=== PATIENT | female | born 1945 | race American Indian/Alaskan Native ===

== ENCOUNTER 2018-08-30 22:53 | Inpatient (IN) | payer MEDICARE ==
--- NOTE | 2018-08-31 | XRay Report ---
CHEST 1 VIEW INDICATION / CLINICAL INFORMATION: Dyspnea. COMPARISON: None available. FINDINGS: SUPPORT DEVICES: Tracheostomy tube is present and appears to be in satisfactory position. HEART / MEDIASTINUM: Cardiac silhouette is mildly enlarged. LUNGS / PLEURA: There is mild to moderate interstitial pulmonary edema with small bilateral pleural e ffusions. Bibasilar parenchymal disease is more than likely atelectasis. No pneumothorax. ADDITIONAL FINDINGS: No significant additional findings. IMPRESSION: 1. Mild enlargement of the cardiac silhouette. Mild to moderate interstitial pulmonary edema with papito ateral pleural effusions. Signer Name: Caroline Raphael MD Signed: 08/30/2018 10:55 PM Workstation Name: [id number]
[2018-08-31 00:17] LABS: Basophils % (Auto) 0.4 % (0.0-1.8); Eosinophils # (Auto) 0.4 K/mm3 (0.0-0.4); Eosinophils % (Auto) 4.8 % (0.0-4.3); Hematocrit 31.3 % (30.3-42.9); Hemoglobin 10.1 gm/dl (10.1-14.3); Lymphocytes # (Auto) 0.7 K/mm3 (1.2-5.4); Lymphocytes % (Auto) 7.2 % (13.4-35.0); Mean Corpuscular HGB Conc 32 % (30-34); Mean Corpuscular Volume 92 fl (79-97); Monocytes # (Auto) 0.8 K/mm3 (0.0-0.8); Monocytes % (Auto) 8.7 % (0.0-7.3); Platelet Count 191 K/mm3 (140-440); Red Cell Distribution Width 18.9 % (13.2-15.2)
[2018-08-31 00:30] LABS: Alanine Aminotransferase 22 units/L (7-56); Albumin 1.8 g/dL (3.9-5); BUN/Creatinine Ratio 41; Blood Urea Nitrogen 41 mg/dL (7-17); Calcium 9.5 mg/dL (8.4-10.2); Hemolysis Index 27
[2018-08-31 00:45] LABS: INR 1.85 (0.87-1.13); Partial Thromboplastin Time 30.7 Sec. (24.2-36.6)
[2018-08-31] MEDS ORDERED: LASIX IV ONE (01:04)
[2018-08-31] MEDS ORDERED: PROVENTIL IH PRN (01:25)
[2018-08-31] MEDS ORDERED: SODIUM CHLORIDE FLUSH SYRINGE 10 ML IV PRN (01:25)
[2018-08-31] MEDS ORDERED: ZOFRAN IV PRN (01:25)
--- NOTE | 2018-08-31 01:40 | Emergency Department Report ---
HPI - General Chief Complaint: Dyspnea/Respdistress Time Seen by Provider: 08/30/18 23:07 - HPI HPI: This is a 73 y.o aaf patient from [facility] with the complaints that her oxygen saturation was low, and her breathing was more shallow. She has a complicated medical history per daughter at bedside. Patient is non verbal, she was in her usual state of health in April when she had a cva, with right sided weakness, she had a long hospital stay at [facility] and ended up trach and peg and spent some time at [facility], until she was transferred to [facility] about 3 weeks ago. She also has chf, and [facility] reports that patient has had trouble keeping fluids off her and her lasix dosages are being adjusted. She also had hospital stay at [facility] per Daughter for chf exacerbation. ED Past Medical Hx - Past Medical History Previous Medical History?: Yes Hx Hypertension: Yes Hx Heart Attack/AMI: Yes Hx Congestive Heart Failure: Yes Hx Diabetes: Yes Hx Asthma: Yes Additional medical history: spinal stenosis, anemia, uti - Surgical History Past Surgical History?: Yes Additional Surgical History: trach, peg tube placement - Social History Smoking Status: Never Smoker Substance Use Type: None ED Review of Systems ROS: Stated complaint: SHANICE Other details as noted in HPI Comment: Unobtainable due to pts medical conditions Physical Exam - Physical Exam Vital Signs: Vital Signs 08/30/18 08/30/18 08/30/18 23:10 23:13 23:26 Temperature 98.6 F Pulse Rate 98 H Respiratory 25 H Rate Blood Pressure 120/51 O2 Sat by Pulse 100 Oximetry O2 Sat by Pulse 98 Oximetry [ Assessment] 08/30/18 23:33 Temperature Pulse Rate Respiratory Rate Blood Pressure O2 Sat by Pulse 97 Oximetry O2 Sat by Pulse Oximetry [ Assessment] Physical Exam: Physical Exam: - General Limitations: non verbal General appearance: alert, in no apparent distress, obese - Head Head exam: Present: atraumatic, normocephalic - Eye Eye exam: Present: normal appearance - ENT ENT exam: Present: mucous membranes moist - Neck Neck exam: Present: normal inspection - Respiratory Respiratory exam: Present: normal lung sounds bilaterally. Absent: respiratory distress - Cardiovascular Cardiovascular Exam: Present: normal rhythm, tachycardia. Absent: systolic mu rmur, diastolic murmur, rubs, gallop - GI/Abdominal GI/Abdominal exam: Present: g-tube dependent d/c/i - Extremities Exam Extremities exam: Present: contracted, dry. - Back Exam Back exam: Present: normal inspection - Neurological Exam Neurological exam: Present: non verbal - Psychiatric Psychiatric exam: Depressed mood - Skin Skin exam: Present: ED Course Vital Signs 08/30/18 08/30/18 08/30/18 23:10 23:13 23:26 Temperature 98.6 F Pulse Rate 98 H Respiratory 25 H Rate Blood Pressure 120/51 O2 Sat by Pulse 100 Oximetry O2 Sat by Pulse 98 Oximetry [ Assessment] 08/30/18 23:33 Temperature Pulse Rate Respiratory Rate Blood Pressure O2 Sat by Pulse 97 Oximetry O2 Sat by Pulse Oximetry [ Assessment] ED Medical Decision Making - Lab Data Result diagrams: 08/30/18 23:28 08/30/18 23:28 - Medical Decision Making this is a 73 y.o aaf patient from [facility] with the complaints that her oxygen saturation was low, and her breathing was more shallow. She has a complicated medical history per daughter at bedside. Patient is non verbal, she was in her usual state of health in April when she had a cva, with right sided weakness, she had a long hospital stay at [facility] and ended up trach and peg and spent some time at [facility], until she was transferred to [facility] about 3 weeks ago. She also has chf, and [facility] reports that patient has had trouble keeping fluids off her and her lasix dosages are being adjusted. She also had hospital stay at [facility] per Daughter for chf exacerbation. Given lasix 40mg iv lasix, cxr suggestive of pulm edema, effusion, ? fluid overload, admit for diuresis Critical care attestation.: If time is entered above; I have spent that time in minutes in the direct care o f this critically ill patient, excluding procedure time. ED Disposition Clinical Impression: Acute exacerbation of CHF (congestive heart failure) Qualifiers: Heart failure type: systolic Qualified Code(s): I50.23 - Acute on chronic systolic (congestive) heart failure Disposition: OP ADMIT IP TO THIS HOSP Is pt being admited?: Yes Does the pt Need Aspirin: No Condition: Stable Referrals: GINGER ARTEAGA MD [Primary Care Provider] - 3-5 Days
[2018-08-31] MEDS ORDERED: D50W (25GM) Syringe IV PRN (02:56)
[2018-08-31 03:04] LABS: Chol/HDL Ratio 2.82 %
--- NOTE | 2018-08-31 03:24 | History and Physical Report ---
<CARYN ROSS - Last Filed: 08/31/18 03:47> History of Present Illness Date of examination: 08/31/18 Date of admission: 08/31/2018 Chief complaint: Acute on chronic hypoxic respiratory failure History of present illness: 73-year-old -Spanish female who is a resident of [facility] with history of atrial fibrillation anticoagulated on Eliquis, IA, PE status post IVC filter, insulin-dependent diabetes, hypertension, chronic respiratory failure, diastolic heart failure, hyperlipidemia, CVA with left and right sided deficts, and debility who presents to [facility] ED with complaints of desaturation and difficulty breathing. According to care home staff patient was found to have saturation in low 80s on 2 L supplemental oxygen and displayed shallow rapid breathing. She has an extensive medical history. In April 2018 she had a CVA complicated by respiratory failure amongst other complications, which resulted in pt being trached and peg, and had a prolonged stay had [place]. She was recently ( approx 3 weeks ago) hospitalized at [facility] for CHF exacerbation. She has been [facility] with past 2 weeks. The care home reported that his dose was to be increased from 40 mg twice a day, but with rapid declining they were unable to make the changes. Pt's daughter is present at bedside and has contributed to the history taken. Past History Past Medical History: acute IA, atrial fib (on Eliquis), anemia, diabetes, heart failure, hypertension, hyperlipidemia, other (spinal stenosis, asthma, chronic RF, ) Past Surgical History: Other (s/p trach, s/p PEG) Social history: other ([facility] Resident) Family history: no significant family history Medications and Allergies Allergies Allergy/AdvReac Type Severity Reaction Status Date / Time No Known Allergies Allergy Unverified 08/31/18 01:41 Home Medications Medication Instructions Recorded Confirmed Last Taken Type Amantadine [Symmetrel] 100 mg PO DAILY 08/31/18 08/31/18 Unknown History AtorvaSTATin 40 mg PO QHS 08/31/18 09/05/18 Unknown History Candesartan Cilexetil 16 mg PO DAILY 08/31/18 08/31/18 Unknown History Eliquis 5 mg PO BID 08/31/18 08/31/18 Unknown History Jevity 1.5 1,000 ml CONT 08/31/18 08/31/18 1 Day Ago History ~08/30/18 Nystatin [Nystatin SUSP] 5 ml PO Q6HR 08/31/18 08/31/18 Unknown History Timolol Maleate 1 drop OU BID 08/31/18 09/05/18 Unknown History levETIRAcetam [Keppra] 500 mg PO BID 08/31/18 08/31/18 Unknown History Aspirin [Aspirin BABY CHEW TAB] 81 mg PO QDAY tab.chew 09/08/18 Unknown Rx Budesonide [Pulmicort Respules] 0.5 mg IH Q12HRT nebu 09/08/18 Unknown Rx Docusate Sodium [Colace ORAL LIQ] 100 mg PO BID oral.liqd 09/08/18 Unknown Rx Insulin Glargine [Lantus VIAL] 43 units SUB-Q BID units 09/08/18 Unknown Rx Ipratropium/Albuterol Sulfate 1 ampul IH Q6HRT ampul.neb 09/08/18 Unknown Rx [DUONEB *Not for PRN Use*] Losartan [Cozaar] 50 mg PO QDAY tablet 09/08/18 Unknown Rx Metoprolol [Lopressor TAB] 25 mg PO Q6H tablet 09/08/18 Unknown Rx cloNIDine-TTS PATCH [Catapres-Tts 0.1 mg TD We patch 09/08/18 Unknown Rx 0.1MG Patch] Furosemide [Furosemide ORAL LIQ] 40 mg PO QDAY #200 ml 09/15/18 Unknown Rx Active Meds: Active Medications Acetaminophen (Tylenol) 650 mg PO Q4H PRN PRN Reason: Pain MILD(1-3)/Fever >100.5/[place] Albuterol (Proventil) 2.5 mg IH Q4HRT PRN PRN Reason: Shortness Of Breath Aspirin (Baby Aspirin) 81 mg PO QDAY HAYLIE Clonidine HCl (Catapres-Tts Patch) 0.1 mg TD QWEEK HAYLIE Dextrose (D50w (25gm) Syringe) 50 ml IV PRN PRN PRN Reason: Hypoglycemia Docusate Sodium (Colace) 100 mg PO BID HAYLIE Furosemide (Lasix) 40 mg IV 0600,1800 HAYLIE Insulin Human Lispro (Humalog) 0 unit SUB-Q Q6HR HAYLIE; Protocol Levetiracetam (Keppra) 500 mg PO BID HAYLIE Metoprolol Tartrate (Lopressor) 100 mg PO BID HAYLIE Miscellaneous Medication (Eliquis) 5 mg PO BID HAYLIE Miscellaneous Medication (Atorvastatin) 40 mg PO QHS HAYLIE Ondansetron HCl (Zofran) 4 mg IV Q8H PRN PRN Reason: Nausea And Vomiting Sodium Chloride (Sodium Chloride Flush Syringe 10 Ml) 10 ml IV BID HAYLIE Sodium Chloride (Sodium Chloride Flush Syringe 10 Ml) 10 ml IV PRN PRN PRN Reason: LINE FLUSH Review of Systems ROS unobtainable: due to mental status Exam - Physical Exam Narrative exam: Physical exam General appearance: Present: No acute distress, nonverbal, chronically ill- appearing - EENT Eyes: Present: PERRL, EOM intact ENT: hearing intact, poor dentition - Neck Neck: Present: trach, supple, normal ROM - Respiratory Respiratory effort: Non-labored Respiratory: bilateral: diminished (bases) - Cardiovascular Heart rate: 75 (bpm) Rhythm: regular Heart Sounds: Present: S1 & S2. Absent: rub, click - Extremities Extremities: no ischemia, pulses intact, abnormal ( rt foot unstageable) - Peripheral Assessment Peripheral Pulses: within normal limits - Abdominal General gastrointestinal: LUQ Peg, soft, non-tender, normal bowel sounds - Integumentary Integumentary: Present: warm, dry - Musculoskeletal Musculoskeletal: flaccid to rt upper and lower extremity, left sided weakness - Psychiatric Psychiatric: flat affect - Constitutional Vitals: Temp Pulse Resp BP Pulse Ox 98.6 F 75 23 154/74 100 08/31/18 01:30 08/31/18 03:00 08/31/18 03:00 08/31/18 03:00 08/31/18 03:00 Results - Labs CBC & Chem 7: 08/30/18 23:28 08/30/18 23:28 Labs: Laboratory Last Values WBC 9.2 K/mm3 (4.5-11.0) 08/30/18 23:28 RBC 3.40 M/mm3 (3.65-5.03) L 08/30/18 23:28 Hgb 10.1 gm/dl (10.1-14.3) 08/30/18 23:28 Hct 31.3 % (30.3-42.9) 08/30/18 23:28 MCV 92 fl (79-97) 08/30/18 23:28 MCH 30 pg (28-32) 08/30/18 23:28 MCHC 32 % (30-34) 08/30/18 23:28 RDW 18.9 % (13.2-15.2) H 08/30/18 23:28 Plt Count 191 K/mm3 (140-440) 08/30/18 23:28 Lymph % (Auto) 7.2 % (13.4-35.0) L 08/30/18 23:28 Knox % (Auto) 8.7 % (0.0-7.3) H 08/30/18 23:28 Eos % (Auto) 4.8 % (0.0-4.3) H 08/30/18 23:28 Baso % (Auto) 0.4 % (0.0-1.8) 08/30/18 23:28 Lymph # 0.7 K/mm3 (1.2-5.4) L 08/30/18 23:28 Knox # 0.8 K/mm3 (0.0-0.8) 08/30/18 23:28 Eos # 0.4 K/mm3 (0.0-0.4) 08/30/18 23:28 Baso # 0.0 K/mm3 (0.0-0.1) 08/30/18 23:28 Seg Neutrophils % 78.9 % (40.0-70.0) H 08/30/18 23:28 Seg Neutrophils # 7.3 K/mm3 (1.8-7.7) 08/30/18 23:28 PT 20.9 Sec. (12.2-14.9) H 08/31/18 00:27 INR 1.85 (0.87-1.13) H 08/31/18 00:27 APTT 30.7 Sec. (24.2-36.6) 08/31/18 00:27 Sodium 139 mmol/L (137-145) 08/30/18 23:28 Potassium 5.0 mmol/L (3.6-5.0) 08/30/18 23:28 Chloride 99.1 mmol/L (98-107) 08/30/18 23:28 Carbon Dioxide 31 mmol/L (22-30) H 08/30/18 23:28 14 mmol/L 08/30/18 23:28 BUN 41 mg/dL (7-17) H 08/30/18 23:28 1.0 mg/dL (0.7-1.2) 08/30/18 23:28 Estimated GFR > 60 ml/min 08/30/18 23:28 41 % 08/30/18 23:28 Glucose 189 mg/dL (65-100) H 08/30/18 23:28 Calcium 9.5 mg/dL (8.4-10.2) 08/30/18 23:28 0.30 mg/dL (0.1-1.2) 08/30/18 23:28 AST 33 units/L (5-40) 08/30/18 23:28 ALT 22 units/L (7-56) 08/30/18 23:28 110 units/L (35-129) 08/30/18 23:28 0.323 ng/mL (0.00-0.029) H* 08/30/18 23:28 NT-Pro-B Natriuret Pep 18662 pg/mL (0-900) H 08/30/18 23:28 6.7 g/dL (6.3-8.2) 08/30/18 23:28 1.8 g/dL (3.9-5) L 08/30/18 23:28 0.4 % 08/30/18 23:28 Triglycerides 77 mg/dL (2-149) 08/30/18 23:28 Cholesterol 99 mg/dL (50-199) 08/30/18 23:28 56 mg/dL (50-130) 08/30/18 23:28 35 mg/dL (40-59) L 08/30/18 23:28 2.82 % 08/30/18 23:28 - Imaging and Cardiology Chest x-ray: report reviewed (IMPRESSION: . Mild enlargement of the cardiac silhouette. Mild to moderate interstitial pulmonary edema with bilateral pleural effusions. ), image reviewed Assessment and Plan Assessment and plan: 73-year-old -Spanish female who is a resident of [facility] with history of atrial fibrillation anticoagulated on Eliquis, IA, PE status post IVC filter, insulin-dependent diabetes, hypertension, chronic respiratory failure, diastolic heart failure, hyperlipidemia, CVA with left and right sided deficts, and debility who presents to [facility] ED with complaints of desaturation and difficulty breathing. CXR shows signs of CHF exacerbation/ volume overload. Troponin elevated at 0.323, EKG unrevealing for acute [place] [id number], which is likely due to CHF exacerbation. Will admit to telemetry and consult cardiology. Acute on chronic hypoxic respiratory failure Acute exacerbation diastolic CHF EF >55% (Echo 07/2018) NSTEMI Elevated troponin Elevated BNP- likely due to HF Moderate to severe malnutrition Insulin-dependent DM Chronic anemia A. fib on Eliquis Rt foot wound Hx CVA with right and left sided (04/2018) Hx of PE s/p IVC Filter Plan: Continue supportive care Continuous telemetry monitoring Continue Eliquis 5mg BID Start IV Lasix 40mg BID Cardiology consulted (est. with [facility]) Trend troponin Monitor BP Resume home meds: metoprolol 100mg BID, Clonidine patch 0.1mg q 7 days POC BG monitoring SSI Coverage, Levemir 22u BID Baseline oxygen requiments of 2L continuous; Currently on 40% FiO2 15Lpm; wean as tolerated Respiratory to treat and assess as needed Wound care consult Start Glucerna @ 40ml/hr Dietitian consult pending for management of TF and nutritional assessment DVT PPX ac on Eliquis Advance Directives: No VTE prophylaxis?: Chemical Plan of care discussed with patient/family: Yes <HOMER MARINA - Last Filed: 10/14/18 07:27> History of Present Illness Date of admission: 08/31/18 01:09 Exam - Constitutional Vitals: Temp Pulse Resp BP Pulse Ox 97.7 F 82 18 95/43 100 09/15/18 13:28 09/15/18 16:45 09/15/18 16:45 09/15/18 13:28 09/15/18 13:28 Results - Labs CBC & Chem 7: 09/12/18 09:35 09/14/18 06:13 Labs: Laboratory Last Values WBC 12.1 K/mm3 (4.5-11.0) H 09/12/18 09:35 RBC 3.91 M/mm3 (3.65-5.03) 09/12/18 09:35 Hgb 11.6 gm/dl (10.1-14.3) 09/12/18 09:35 Hct 35.2 % (30.3-42.9) 09/12/18 09:35 MCV 90 fl (79-97) 09/12/18 09:35 MCH 30 pg (28-32) 09/12/18 09:35 MCHC 33 % (30-34) 09/12/18 09:35 RDW 19.0 % (13.2-15.2) H 09/12/18 09:35 Plt Count 203 K/mm3 (140-440) 09/12/18 09:35 Lymph % (Auto) 5.5 % (13.4-35.0) L 09/11/18 04:54 Knox % (Auto) 5.8 % (0.0-7.3) 09/11/18 04:54 Eos % (Auto) 0.4 % (0.0-4.3) 09/11/18 04:54 Baso % (Auto) 0.1 % (0.0-1.8) 09/11/18 04:54 Lymph # 0.8 K/mm3 (1.2-5.4) L 09/11/18 04:54 Knox # 0.9 K/mm3 (0.0-0.8) H 09/11/18 04:54 Eos # 0.1 K/mm3 (0.0-0.4) 09/11/18 04:54 Baso # 0.0 K/mm3 (0.0-0.1) 09/11/18 04:54 Add Manual Diff Complete 09/09/18 05:56 Total Counted 100 09/09/18 05:56 Seg Neutrophils % 88.2 % (40.0-70.0) H 09/11/18 04:54 Seg Neuts % (Manual) 83.0 % (40.0-70.0) H 09/09/18 05:56 2.0 % 09/09/18 05:56 11.0 % (13.4-35.0) L 09/09/18 05:56 Reactive Lymphs % (Man) 0 % 09/09/18 05:56 4.0 % (0.0-7.3) 09/09/18 05:56 0 % (0.0-4.3) 09/09/18 05:56 0 % (0.0-1.8) 09/09/18 05:56 0 % 09/09/18 05:56 0 % 09/09/18 05:56 0 % 09/09/18 05:56 0 % 09/09/18 05:56 Nucleated RBC % Not Reportable 09/09/18 05:56 Seg Neutrophils # 13.4 K/mm3 (1.8-7.7) H 09/11/18 04:54 Seg Neutrophils # Man 15.1 K/mm3 (1.8-7.7) H 09/09/18 05:56 Band Neutrophils # 0.4 K/mm3 09/09/18 05:56 2.0 K/mm3 (1.2-5.4) 09/09/18 05:56 Abs React Lymphs (Man) 0.0 K/mm3 09/09/18 05:56 0.7 K/mm3 (0.0-0.8) 09/09/18 05:56 0.0 K/mm3 (0.0-0.4) 09/09/18 05:56 0.0 K/mm3 (0.0-0.1) 09/09/18 05:56 0.0 K/mm3 09/09/18 05:56 0.0 K/mm3 09/09/18 05:56 0.0 K/mm3 09/09/18 05:56 Blast Cells # 0.0 K/mm3 09/09/18 05:56 WBC Morphology Not Reportable 09/09/18 05:56 Hypersegmented Neuts Not Reportable 09/09/18 05:56 Hyposegmented Neuts Not Reportable 09/09/18 05:56 Hypogranular Neuts Not Reportable 09/09/18 05:56 Not Reportable 09/09/18 05:56 Not Reportable 09/09/18 05:56 Not Reportable 09/09/18 05:56 Not Reportable 09/09/18 05:56 Not Reportable 09/09/18 05:56 Not Reportable 09/09/18 05:56 Consistent w auto 09/09/18 05:56 Not Reportable 09/09/18 05:56 Plt Clumps, EDTA Not Reportable 09/09/18 05:56 Not Reportable 09/09/18 05:56 Not Reportable 09/09/18 05:56 Not Reportable 09/09/18 05:56 Plt Morphology Comment Not Reportable 09/09/18 05:56 RBC Morphology Not Reportable 09/09/18 05:56 Dimorphic RBCs Not Reportable 09/09/18 05:56 Not Reportable 09/09/18 05:56 Not Reportable 09/09/18 05:56 Not Reportable 09/09/18 05:56 1+ 09/09/18 05:56 Few 09/09/18 05:56 Not Reportable 09/09/18 05:56 Not Reportable 09/09/18 05:56 Not Reportable 09/09/18 05:56 Not Reportable 09/09/18 05:56 Not Reportable 09/09/18 05:56 Not Reportable 09/09/18 05:56 Few 09/09/18 05:56 Not Reportable 09/09/18 05:56 Not Reportable 09/09/18 05:56 Not Reportable 09/09/18 05:56 Not Reportable 09/09/18 05:56 Not Reportable 09/09/18 05:56 Not Reportable 09/09/18 05:56 Not Reportable 09/09/18 05:56 Acanthocytes (Spur) Not Reportable 09/09/18 05:56 Rouleaux Not Reportable 09/09/18 05:56 Not Reportable 09/09/18 05:56 Not Reportable 09/09/18 05:56 Not Reportable 09/09/18 05:56 Not Reportable 09/09/18 05:56 Hem Pathologist Commnt No 09/09/18 05:56 PT 20.9 Sec. (12.2-14.9) H 08/31/18 00:27 INR 1.85 (0.87-1.13) H 08/31/18 00:27 APTT 30.7 Sec. (24.2-36.6) 08/31/18 00:27 POC ABG pH 7.571 (7.35-7.45) H 09/08/18 15:06 POC ABG pCO2 33.6 (35-45) L 09/08/18 15:06 POC ABG pO2 55 (80-105) L 09/08/18 15:06 POC ABG HCO3 30.9 (22-26 mml/L) 09/08/18 15:06 POC ABG Total CO2 32 (23-27mmol/L) 09/08/18 15:06 POC ABG O2 Sat 93 09/08/18 15:06 POC ABG Base Excess 9 ((-2) - (+3)mmol/L) 09/08/18 15:06 21 % 09/08/18 15:06 Sodium 142 mmol/L (137-145) 09/14/18 06:13 Potassium 4.8 mmol/L (3.6-5.0) 09/14/18 06:13 Chloride 100.6 mmol/L (98-107) 09/14/18 06:13 Carbon Dioxide 33 mmol/L (22-30) H 09/14/18 06:13 13 mmol/L 09/14/18 06:13 BUN 59 mg/dL (7-17) H 09/14/18 06:13 0.8 mg/dL (0.7-1.2) 09/14/18 06:13 Estimated GFR > 60 ml/min 09/14/18 06:13 74 % 09/14/18 06:13 Glucose 112 mg/dL (65-100) H 09/14/18 06:13 POC Glucose 102 (70-105) 09/15/18 13:50 6.4 % (4-6) H 08/31/18 05:34 Calcium 9.1 mg/dL (8.4-10.2) 09/14/18 06:13 Phosphorus 3.30 mg/dL (2.5-4.5) 09/09/18 05:56 Magnesium 2.10 mg/dL (1.7-2.3) 09/06/18 07:28 0.20 mg/dL (0.1-1.2) 09/11/18 04:54 AST 84 units/L (5-40) H 09/11/18 04:54 ALT 84 units/L (7-56) H 09/11/18 04:54 87 units/L (35-129) 09/11/18 04:54 0.215 ng/mL (0.00-0.029) H* D 08/31/18 05:34 NT-Pro-B Natriuret Pep 15405 pg/mL (0-900) H 08/30/18 23:28 5.7 g/dL (6.3-8.2) L 09/11/18 04:54 1.9 g/dL (3.9-5) L 09/11/18 04:54 0.5 % 09/11/18 04:54 Triglycerides 77 mg/dL (2-149) 08/30/18 23:28 Cholesterol 99 mg/dL (50-199) 08/30/18 23:28 56 mg/dL (50-130) 08/30/18 23:28 35 mg/dL (40-59) L 08/30/18 23:28 2.82 % 08/30/18 23:28 Apoorva (Yellow) 09/09/18 Unknown Cloudy (Clear) 09/09/18 Unknown 7.0 (5.0-7.0) 09/09/18 Unknown Ur Specific Drake 1.018 (1.003-1.030) 09/09/18 Unknown <15 mg/dl mg/dL (Negative) 09/09/18 Unknown Neg mg/dL (Negative) 09/09/18 Unknown Neg mg/dL (Negative) 09/09/18 Unknown Neg (Negative) 09/09/18 Unknown Neg (Negative) 09/09/18 Unknown Neg (Negative) 09/09/18 Unknown < 2.0 mg/dL (<2.0) 09/09/18 Unknown Ur Leukocyte Esterase Tr (Negative) 09/09/18 Unknown 8.0 /HPF (0.0-6.0) H 09/09/18 Unknown 4.0 /HPF (0.0-6.0) 09/09/18 Unknown U Epithel Cells (Auto) 5.0 /HPF (0-13.0) 09/09/18 Unknown 2+ /HPF (Negative) 09/09/18 Unknown Uric Acid Crystals 1+ 09/09/18 Unknown Few /HPF 09/09/18 Unknown Assessment and Plan Assessment and plan: I saw and evaluated the patient. I agree with the findings and the plan of care as documented in the Nurse Practitioner's~note
[2018-08-31] MEDS ORDERED: PANCREAZE DR 10,500 UNIT FEEDTUBE PRN ×2 (04:05→16:46)
[2018-08-31] MEDS ORDERED: SIMPLE SYRUP FEEDTUBE PRN ×4 (04:05→16:46)
[2018-08-31] MEDS ORDERED: SODIUM BICARBONATE FEEDTUBE PRN ×2 (04:05→16:46)
[2018-08-31] MEDS ORDERED: MORPHINE IV PRN (04:33)
[2018-08-31] MEDS: APRESOLINE IV PRN (05:10)
[2018-08-31] MEDS: LASIX IV SCH ×2 (05:10→20:17)
[2018-08-31] MEDS: LOPRESSOR PO SCH ×2 (10:35→21:28)
[2018-08-31] MEDS: COZAAR PO SCH (10:36)
[2018-08-31] MEDS: KEPPRA PO SCH ×2 (10:36→21:28)
[2018-08-31] MEDS: BABY ASPIRIN PO SCH (10:36)
[2018-08-31] MEDS: ELIQUIS PO SCH ×2 (10:36→21:32)
[2018-08-31] MEDS: TIMOPTIC OU SCH (10:37)
[2018-08-31] MEDS: CATAPRES-TTS PATCH TD SCH (10:54)
[2018-08-31] MEDS: NYSTATIN PO SCH ×3 (11:05→20:23)
[2018-08-31] MEDS: SODIUM CHLORIDE FLUSH SYRINGE 10 ML IV SCH ×2 (11:11→21:33)
[2018-08-31] MEDS: SYMMETREL PO SCH (11:12)
[2018-08-31] MEDS: COLACE PO SCH ×2 (11:12→21:28)
[2018-08-31] MEDS: LANTUS SUB-Q SCH ×2 (11:13→23:33)
--- NOTE | 2018-08-31 11:47 | Consultation ---
<SARANYA HENNESSY - Last Filed: 08/31/18 11:50> History of Present Illness Consult date: 08/31/18 Consult reason: congestive heart failure History of present illness: This is a 73 year old woman who resides in an [facility] and is non-verbal. 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 She also has a history of hypertension, diabetes and paroxysmal atrial fibrillation managed with Eliquis for oral anticoagulation. Patient was sent to this hospital with reports of labored breathing. She has an elevated BNP and a chest x-ray reports cardiomegaly with interstitial edema and bilateral pleural effusions. Family member at bedside reports the patient was recently hospitalized at [facility] with CHF but records are not available for review. A cardiac consultation has been requested for CHF management. Past History Past Medical History: anemia, diabetes, heart failure, hypertension, hyperlipidemia, other (spinal stenosis, asthma, chronic RF, ) Past Surgical History: Other (s/p trach, s/p PEG) Social history: other ([facility] Resident) Family history: no significant family history Medications and Allergies Allergies Allergy/AdvReac Type Severity Reaction Status Date / Time No Known Allergies Allergy Unverified 08/31/18 01:41 Home Medications Medication Instructions Recorded Confirmed Last Taken Type Amantadine [Symmetrel] 100 mg PO DAILY 08/31/18 08/31/18 Unknown History AtorvaSTATin 40 mg PO 08/31/18 Unknown History Candesartan Cilexetil 16 mg PO DAILY 08/31/18 08/31/18 Unknown History Eliquis 5 mg PO BID 08/31/18 08/31/18 Unknown History Jevity 1.5 1,000 ml CONT 08/31/18 08/31/18 1 Day Ago History ~08/30/18 Levemir VIAL 22 units SUB-Q BID 08/31/18 08/31/18 Unknown History Lispro Insulin [HumaLOG] 08/31/18 Unknown History Metoprolol [Lopressor TAB] 50 mg PO Q6HR 08/31/18 08/31/18 Unknown History Nystatin [Nystatin SUSP] 5 ml PO Q6HR 08/31/18 08/31/18 Unknown History Timolol Maleate 0.5 08/31/18 Unknown History levETIRAcetam [Keppra] 500 mg PO BID 08/31/18 08/31/18 Unknown History Active Meds: Active Medications Acetaminophen (Tylenol) 650 mg PO Q4H PRN PRN Reason: Pain MILD(1-3)/Fever >100.5/[place] Albuterol (Proventil) 2.5 mg IH Q4HRT PRN PRN Reason: Shortness Of Breath Amantadine HCl (Symmetrel) 100 mg PO DAILY ON LICENSE OF [facility] Last Admin: 08/31/18 11:12 Dose: Not Given Documented by: Lipase/Protease/Amylase (Kathya Wilson 10,500 Unit) 1 each FEEDTUBE PRN PRN PRN Reason: For Clogged Feeding Tube Apixaban (Eliquis) 5 mg PO BID ON LICENSE OF [facility] Last Admin: 08/31/18 10:36 Dose: 5 mg Documented by: Aspirin (Baby Aspirin) 81 mg PO QDAY ON LICENSE OF [facility] Last Admin: 08/31/18 10:36 Dose: 81 mg Documented by: Atorvastatin Calcium (Lipitor) 40 mg PO QHS ON LICENSE OF [facility] Clonidine HCl (Catapres-Tts Patch) 0.1 mg TD We ON LICENSE OF [facility] Last Admin: 08/31/18 10:54 Dose: 0.1 mg Documented by: Dextrose (D50w (25gm) Syringe) 50 ml IV PRN PRN PRN Reason: Hypoglycemia Docusate Sodium (Colace) 100 mg PO BID ON LICENSE OF [facility] Last Admin: 08/31/18 11:12 Dose: Not Given Documented by: Furosemide (Lasix) 40 mg IV 0600,1800 ON LICENSE OF [facility] Last Admin: 08/31/18 05:10 Dose: 40 mg Documented by: Hydralazine HCl (Apresoline) 10 mg IV Q4H PRN PRN Reason: Blood Pressure Last Admin: 08/31/18 05:10 Dose: 10 mg Documented by: Insulin Glargine (Lantus) 22 units SUB-Q BID ON LICENSE OF [facility] Last Admin: 08/31/18 11:13 Dose: Not Given Documented by: Insulin Human Lispro (Humalog) 0 unit SUB-Q Q6HR ON LICENSE OF [facility]; Protocol Levetiracetam (Keppra) 500 mg PO BID ON LICENSE OF [facility] Last Admin: 08/31/18 10:36 Dose: 500 mg Documented by: Losartan Potassium (Cozaar) 50 mg PO QDAY ON LICENSE OF [facility] Last Admin: 08/31/18 10:36 Dose: 50 mg Documented by: Metoprolol Tartrate (Lopressor) 100 mg PO BID ON LICENSE OF [facility] Last Admin: 08/31/18 10:35 Dose: 100 mg Documented by: Morphine Sulfate (Morphine) 2 mg IV Q3H PRN PRN Reason: Pain, Moderate (4-6) Nystatin (Nystatin) 500,000 unit PO Q6HR ON LICENSE OF [facility] Last Admin: 08/31/18 11:05 Dose: 500,000 unit Documented by: Ondansetron HCl (Zofran) 4 mg IV Q8H PRN PRN Reason: Nausea And Vomiting Simple Syrup (Simple Syrup) 15 ml FEEDTUBE PRN PRN PRN Reason: Hypoglycemia Simple Syrup (Simple Syrup) 30 ml FEEDTUBE PRN PRN PRN Reason: Hypoglycemia Sodium Bicarbonate (Sodium Bicarbonate) 325 mg FEEDTUBE PRN PRN PRN Reason: For Clogged Feeding Tube Sodium Chloride (Sodium Chloride Flush Syringe 10 Ml) 10 ml IV BID ON LICENSE OF [facility] Last Admin: 08/31/18 11:11 Dose: 10 ml Documented by: Sodium Chloride (Sodium Chloride Flush Syringe 10 Ml) 10 ml IV PRN PRN PRN Reason: LINE FLUSH Timolol Maleate (Timoptic) 1 drops OU DAILY ON LICENSE OF [facility] Last Admin: 08/31/18 10:37 Dose: 1 drops Documented by: Physical Examination Vital Signs Pulse Resp BP Pulse Ox 98 H 25 H 120/51 100 08/30/18 23:10 08/30/18 23:10 08/30/18 23:10 08/30/18 23:10 Results 08/30/18 23:28 08/30/18 23:28 Cardiac Enzymes 08/30/18 Range/Units 23:28 AST 33 (5-40) units/L Coagulation 08/31/18 Range/Units 00:27 PT 20.9 H (12.2-14.9) Sec. INR 1.85 H (0.87-1.13) APTT 30.7 (24.2-36.6) Sec. Lipids 08/30/18 Range/Units 23:28 Triglycerides 77 (2-149) mg/dL Cholesterol 99 (50-199) mg/dL HDL Cholesterol 35 L (40-59) mg/dL Cholesterol/HDL Ratio 2.82 % CBC 08/30/18 Range/Units 23:28 WBC 9.2 (4.5-11.0) K/mm3 RBC 3.40 L (3.65-5.03) M/mm3 Hgb 10.1 (10.1-14.3) gm/dl Hct 31.3 (30.3-42.9) % Plt Count 191 (140-440) K/mm3 Lymph # 0.7 L (1.2-5.4) K/mm3 Pierce # 0.8 (0.0-0.8) K/mm3 Eos # 0.4 (0.0-0.4) K/mm3 Baso # 0.0 (0.0-0.1) K/mm3 Comprehensive Metabolic Panel 08/30/18 Range/Units 23:28 Sodium 139 (137-145) mmol/L Potassium 5.0 (3.6-5.0) mmol/L Chloride 99.1 (98-107) mmol/L Carbon Dioxide 31 H (22-30) mmol/L BUN 41 H (7-17) mg/dL Creatinine 1.0 (0.7-1.2) mg/dL Glucose 189 H (65-100) mg/dL Calcium 9.5 (8.4-10.2) mg/dL AST 33 (5-40) units/L ALT 22 (7-56) units/L Alkaline Phosphatase 110 (35-129) units/L Total Protein 6.7 (6.3-8.2) g/dL Albumin 1.8 L (3.9-5) g/dL Assessment and Plan CHF, systolic Hx of paroxysmal Afib Hypertension Prior CVA pt is non-verbal DM Chronic tracheostomy Continue medical therapy for decompensated heart failure including IV diuretics. Obtain records for [facility] for cardiac review. <JUSTO GONZALEZ - Last Filed: 08/31/18 23:51> Medications and Allergies Active Meds: Active Medications Acetaminophen (Tylenol) 650 mg PO Q4H PRN PRN Reason: Pain MILD(1-3)/Fever >100.5/[place] Albuterol (Proventil) 2.5 mg IH Q4HRT PRN PRN Reason: Shortness Of Breath Amantadine HCl (Symmetrel) 100 mg PO DAILY ON LICENSE OF [facility] Last Admin: 08/31/18 11:12 Dose: Not Given Documented by: Lipase/Protease/Amylase (Pancrebobby Dr 10,500 Unit) 1 each FEEDTUBE PRN PRN PRN Reason: For Clogged Feeding Tube Apixaban (Eliquis) 5 mg PO BID ON LICENSE OF [facility] Last Admin: 08/31/18 21:32 Dose: 5 mg Documented by: Aspirin (Baby Aspirin) 81 mg PO QDAY ON LICENSE OF [facility] Last Admin: 08/31/18 10:36 Dose: 81 mg Documented by: Atorvastatin Calcium (Lipitor) 40 mg PO QHS ON LICENSE OF [facility] Last Admin: 08/31/18 21:32 Dose: 40 mg Documented by: Clonidine HCl (Catapres-Tts Patch) 0.1 mg TD We ON LICENSE OF [facility] Last Admin: 08/31/18 10:54 Dose: 0.1 mg Documented by: Dextrose (D50w (25gm) Syringe) 50 ml IV PRN PRN PRN Reason: Hypoglycemia Docusate Sodium (Colace) 100 mg PO BID ON LICENSE OF [facility] Last Admin: 08/31/18 21:28 Dose: Not Given Documented by: Furosemide (Lasix) 40 mg IV 0600,1800 ON LICENSE OF [facility] Last Admin: 08/31/18 20:17 Dose: 40 mg Documented by: Hydralazine HCl (Apresoline) 10 mg IV Q4H PRN PRN Reason: Blood Pressure Last Admin: 08/31/18 05:10 Dose: 10 mg Documented by: Insulin Glargine (Lantus) 22 units SUB-Q BID ON LICENSE OF [facility] Last Admin: 08/31/18 23:33 Dose: Not Given Documented by: Insulin Human Lispro (Humalog) 0 unit SUB-Q Q6HR ON LICENSE OF [facility]; Protocol Last Admin: 08/31/18 21:09 Dose: Not Given Documented by: Levetiracetam (Keppra) 500 mg PO BID ON LICENSE OF [facility] Last Admin: 08/31/18 21:28 Dose: 500 mg Documented by: Losartan Potassium (Cozaar) 50 mg PO QDAY ON LICENSE OF [facility] Last Admin: 08/31/18 10:36 Dose: 50 mg Documented by: Metoprolol Tartrate (Lopressor) 100 mg PO BID ON LICENSE OF [facility] Last Admin: 08/31/18 21:28 Dose: 100 mg Documented by: Morphine Sulfate (Morphine) 2 mg IV Q3H PRN PRN Reason: Pain, Moderate (4-6) Last Admin: 08/31/18 21:33 Dose: 2 mg Documented by: Nystatin (Nystatin) 500,000 unit PO Q6HR ON LICENSE OF [facility] Last Admin: 08/31/18 20:23 Dose: 500,000 unit Documented by: Ondansetron HCl (Zofran) 4 mg IV Q8H PRN PRN Reason: Nausea And Vomiting Simple Syrup (Simple Syrup) 15 ml FEEDTUBE PRN PRN PRN Reason: Hypoglycemia Simple Syrup (Simple Syrup) 30 ml FEEDTUBE PRN PRN PRN Reason: Hypoglycemia Sodium Bicarbonate (Sodium Bicarbonate) 325 mg FEEDTUBE PRN PRN PRN Reason: For Clogged Feeding Tube Sodium Chloride (Sodium Chloride Flush Syringe 10 Ml) 10 ml IV BID ON LICENSE OF [facility] Last Admin: 08/31/18 21:33 Dose: 10 ml Documented by: Sodium Chloride (Sodium Chloride Flush Syringe 10 Ml) 10 ml IV PRN PRN PRN Reason: LINE FLUSH Timolol Maleate (Timoptic) 1 drops OU DAILY ON LICENSE OF [facility] Last Admin: 08/31/18 10:37 Dose: 1 drops Documented by: Physical Examination Vital Signs Pulse Resp BP Pulse Ox 98 H 25 H 120/51 100 08/30/18 23:10 08/30/18 23:10 08/30/18 23:10 08/30/18 23:10 Results 08/30/18 23:28 08/30/18 23:28 Cardiac Enzymes 08/30/18 Range/Units 23:28 AST 33 (5-40) units/L Coagulation 08/31/18 Range/Units 00:27 PT 20.9 H (12.2-14.9) Sec. INR 1.85 H (0.87-1.13) APTT 30.7 (24.2-36.6) Sec. Lipids 08/30/18 Range/Units 23:28 Triglycerides 77 (2-149) mg/dL Cholesterol 99 (50-199) mg/dL HDL Cholesterol 35 L (40-59) mg/dL Cholesterol/HDL Ratio 2.82 % CBC 08/30/18 Range/Units 23:28 WBC 9.2 (4.5-11.0) K/mm3 RBC 3.40 L (3.65-5.03) M/mm3 Hgb 10.1 (10.1-14.3) gm/dl Hct 31.3 (30.3-42.9) % Plt Count 191 (140-440) K/mm3 Lymph # 0.7 L (1.2-5.4) K/mm3 [place] # 0.8 (0.0-0.8) K/mm3 Eos # 0.4 (0.0-0.4) K/mm3 Baso # 0.0 (0.0-0.1) K/mm3 Comprehensive Metabolic Panel 08/30/18 Range/Units 23:28 Sodium 139 (137-145) mmol/L Potassium 5.0 (3.6-5.0) mmol/L Chloride 99.1 (98-107) mmol/L Carbon Dioxide 31 H (22-30) mmol/L BUN 41 H (7-17) mg/dL Creatinine 1.0 (0.7-1.2) mg/dL Glucose 189 H (65-100) mg/dL Calcium 9.5 (8.4-10.2) mg/dL AST 33 (5-40) units/L ALT 22 (7-56) units/L Alkaline Phosphatase 110 (35-129) units/L Total Protein 6.7 (6.3-8.2) g/dL Albumin 1.8 L (3.9-5) g/dL Assessment and Plan CHF, systolic - continue medical therapy and diuretics. obtain medical records Hx of paroxysmal Afib - rate control strategy. Hypertension - maximize antihypertensive therapy as needed Prior CVA - pt is non-verbal after recent CVA DM - management per primary Chronic tracheostomy
[2018-08-31] MEDS: HumaLOG SUB-Q SCH ×3 (13:20→21:09)
--- NOTE | 2018-08-31 19:18 | Event Note ---
Date: 08/31/18 Patient seen and examined medical records reviewed Patient was admitted early this morning long term resident noncommunicative history of CVA chronic respiratory failure status post tracheostomy A. fib with rapid ventricular rate on Eliquis was admitted through emergency room with worsening shortness of breath and acute on chronic respiratory failure Medical Records reviewed agree with the current management Cardiology evaluation and recommendations noted and appreciated Monitor closely and adjust the management as needed
[2018-09-01] MEDS: HumaLOG SUB-Q SCH ×4 (00:15→18:02)
[2018-09-01] MEDS: NYSTATIN PO SCH ×4 (01:02→17:43)
[2018-09-01] MEDS: LASIX IV SCH ×2 (05:38→17:43)
[2018-09-01 05:58] LABS: Basophils % (Auto) 0.4 % (0.0-1.8); Eosinophils % (Auto) 0.3 % (0.0-4.3); Hematocrit 34.5 % (30.3-42.9); Lymphocytes # (Auto) 0.9 K/mm3 (1.2-5.4); Lymphocytes % (Auto) 7.9 % (13.4-35.0); Mean Corpuscular HGB Conc 32 % (30-34); Mean Corpuscular Volume 92 fl (79-97); Monocytes # (Auto) 0.8 K/mm3 (0.0-0.8); Monocytes % (Auto) 7.4 % (0.0-7.3); Platelet Count 210 K/mm3 (140-440); Red Blood Count 3.76 M/mm3 (3.65-5.03); Red Cell Distribution Width 19.1 % (13.2-15.2)
[2018-09-01 06:21] LABS: BUN/Creatinine Ratio 46; Blood Urea Nitrogen 46 mg/dL (7-17); Calcium 9.8 mg/dL (8.4-10.2); Hemolysis Index 13
--- NOTE | 2018-09-01 09:11 | Progress Note ---
Assessment and Plan Assessment and plan: --Acute on chronic hypoxic respiratory failure;s/p tracheostomy Continue nebulizers and oxygen titrated to O2 sats more than 90% Antibiotics, supportive care, pulmonary evaluation if needed --Acute exacerbation diastolic CHF EF >55% (Echo 07/2018) --NSTEMI: Cardiology following, continue current management no plans of ischemia workup --History of A. fib; rate controlled, continue beta blockers Chronic anticoagulation --History of CVA with residual weakness[April 2018] Supportive care --Chronic anemia; closely monitor H&H Transfuse as needed --Type 2 diabetes mellitus; Accu-Chek sliding scale coverage Feeding Long-acting insulin as needed --History of PE; status post IVC filter placement On Eliquis --Status full code Monitor closely and adjust management as needed History Interval history: Patient seen and examined medical records reviewed Patient is noncommunicative status post tracheostomy on T piece Mild respiratory distress Vital signs noted Hospitalist Physical - Constitutional Vitals: Temp Pulse Resp BP Pulse Ox 97.6 F 72 20 155/70 93 09/01/18 08:03 09/01/18 08:03 09/01/18 08:03 09/01/18 08:03 09/01/18 08:12 General appearance: Present: mild distress, other (noncommunicative ,tracheostomy on T piece,) - EENT Eyes: Present: PERRL, EOM intact - Neck Neck: Present: other (tracheostomy) - Respiratory Respiratory effort: normal Respiratory: bilateral: diminished, rhonchi, negative: rales, wheezing - Cardiovascular Rhythm: regular Heart Sounds: Present: S1 & S2 - Extremities Extremities: no ischemia Extremity abnormal: edema - Abdominal General gastrointestinal: soft, non-tender, non-distended, normal bowel sounds, other (PEG tube in place) - Integumentary Integumentary: Present: clear, warm - Psychiatric Psychiatric: other (non-communicative) - Neurologic Neurologic: other (noncommunicative) Results - Labs CBC & Chem 7: 09/01/18 04:47 09/01/18 04:47 Labs: Laboratory Last Values WBC 11.0 K/mm3 (4.5-11.0) 09/01/18 04:47 RBC 3.76 M/mm3 (3.65-5.03) 09/01/18 04:47 Hgb 11.0 gm/dl (10.1-14.3) 09/01/18 04:47 Hct 34.5 % (30.3-42.9) 09/01/18 04:47 MCV 92 fl (79-97) 09/01/18 04:47 MCH 29 pg (28-32) 09/01/18 04:47 MCHC 32 % (30-34) 09/01/18 04:47 RDW 19.1 % (13.2-15.2) H 09/01/18 04:47 Plt Count 210 K/mm3 (140-440) 09/01/18 04:47 Lymph % (Auto) 7.9 % (13.4-35.0) L 09/01/18 04:47 [place] % (Auto) 7.4 % (0.0-7.3) H 09/01/18 04:47 Eos % (Auto) 0.3 % (0.0-4.3) 09/01/18 04:47 Baso % (Auto) 0.4 % (0.0-1.8) 09/01/18 04:47 Lymph # 0.9 K/mm3 (1.2-5.4) L 09/01/18 04:47 [place] # 0.8 K/mm3 (0.0-0.8) 09/01/18 04:47 Eos # 0.0 K/mm3 (0.0-0.4) 09/01/18 04:47 Baso # 0.0 K/mm3 (0.0-0.1) 09/01/18 04:47 Seg Neutrophils % 84.0 % (40.0-70.0) H 09/01/18 04:47 Seg Neutrophils # 9.3 K/mm3 (1.8-7.7) H 09/01/18 04:47 PT 20.9 Sec. (12.2-14.9) H 08/31/18 00:27 INR 1.85 (0.87-1.13) H 08/31/18 00:27 APTT 30.7 Sec. (24.2-36.6) 08/31/18 00:27 POC ABG pH 7.444 (7.35-7.45) 08/31/18 03:48 POC ABG pCO2 55.2 (35-45) H 08/31/18 03:48 POC ABG pO2 81 (80-105) 08/31/18 03:48 POC ABG HCO3 37.8 (22-26 mml/L) 08/31/18 03:48 POC ABG Total CO2 39 (23-27mmol/L) 08/31/18 03:48 POC ABG O2 Sat 96 08/31/18 03:48 POC ABG Base Excess 14 ((-2) - (+3)mmol/L) 08/31/18 03:48 40 % 08/31/18 03:48 Sodium 138 mmol/L (137-145) 09/01/18 04:47 Potassium 4.9 mmol/L (3.6-5.0) 09/01/18 04:47 Chloride 94.1 mmol/L (98-107) L 09/01/18 04:47 Carbon Dioxide 32 mmol/L (22-30) H 09/01/18 04:47 17 mmol/L 09/01/18 04:47 BUN 46 mg/dL (7-17) H 09/01/18 04:47 1.0 mg/dL (0.7-1.2) 09/01/18 04:47 Estimated GFR > 60 ml/min 09/01/18 04:47 46 % 09/01/18 04:47 Glucose 189 mg/dL (65-100) H 09/01/18 04:47 POC Glucose 236 (70-105) H 09/01/18 05:59 6.4 % (4-6) H 08/31/18 05:34 Calcium 9.8 mg/dL (8.4-10.2) 09/01/18 04:47 0.30 mg/dL (0.1-1.2) 08/30/18 23:28 AST 33 units/L (5-40) 08/30/18 23:28 ALT 22 units/L (7-56) 08/30/18 23:28 110 units/L (35-129) 08/30/18 23:28 0.215 ng/mL (0.00-0.029) H* D 08/31/18 05:34 NT-Pro-B Natriuret Pep 68899 pg/mL (0-900) H 08/30/18 23:28 6.7 g/dL (6.3-8.2) 08/30/18 23:28 1.8 g/dL (3.9-5) L 08/30/18 23:28 0.4 % 08/30/18 23:28 Triglycerides 77 mg/dL (2-149) 08/30/18 23:28 Cholesterol 99 mg/dL (50-199) 08/30/18 23:28 56 mg/dL (50-130) 08/30/18 23:28 35 mg/dL (40-59) L 08/30/18 23:28 2.82 % 08/30/18 23:28 Active Medications - Current Medications Current Medications: Generic Name Dose Route Start Last Admin Trade Name Freq PRN Reason Stop Dose Admin Acetaminophen 650 mg 08/31/18 01:25 Tylenol PO Q4H PRN Pain MILD(1-3)/Fever >100.5/[place] Albuterol 2.5 mg 08/31/18 01:25 Proventil IH Q4HRT PRN Shortness Of Breath Amantadine HCl 100 mg 08/31/18 10:00 08/31/18 11:12 Symmetrel PO Not Given DAILY HAYLIE Lipase/Protease/Amylase 1 each 08/31/18 16:46 Pancreaze 10,500 Unit FEEDTUBE PRN PRN For Clogged Feeding Tube Apixaban 5 mg 08/31/18 10:00 08/31/18 21:32 Eliquis PO 5 mg BID HAYLIE Administration Aspirin 81 mg 08/31/18 10:00 08/31/18 10:36 Baby Aspirin PO 81 mg QDAY HAYLIE Administration Atorvastatin Calcium 40 mg 08/31/18 22:00 08/31/18 21:32 Lipitor PO 40 mg QHS HAYLIE Administration Clonidine HCl 0.1 mg 08/31/18 10:00 08/31/18 10:54 Catapres-Tts Patch TD 0.1 mg We HAYLIE Administration Dextrose 50 ml 08/31/18 02:56 D50w (25gm) Syringe IV PRN PRN Hypoglycemia Docusate Sodium 100 mg 08/31/18 10:00 08/31/18 21:28 Colace PO Not Given BID HAYLIE Furosemide 40 mg 08/31/18 06:00 09/01/18 05:38 Lasix IV 40 mg 0600,1800 HAYLIE Administration Hydralazine HCl 10 mg 08/31/18 04:33 08/31/18 05:10 Apresoline IV 10 mg Q4H PRN Administration Blood Pressure Insulin Glargine 22 units 08/31/18 10:00 08/31/18 23:33 Lantus SUB-Q Not Given BID [facility] Insulin Human Lispro 0 unit 08/31/18 06:00 09/01/18 06:08 Humalog SUB-Q 3 unit Q6HR HAYLIE Administration Protocol Levetiracetam 500 mg 08/31/18 10:00 08/31/18 21:28 Keppra PO 500 mg BID HAYLIE Administration Losartan Potassium 50 mg 08/31/18 10:00 08/31/18 10:36 Cozaar PO 50 mg QDAY [facility] Administration Metoprolol Tartrate 100 mg 08/31/18 10:00 08/31/18 21:28 Lopressor PO 100 mg BID HAYLIE Administration Morphine Sulfate 2 mg 08/31/18 04:33 08/31/18 21:33 Morphine IV 2 mg Q3H PRN Administration Pain, Moderate (4-6) Nystatin 500,000 unit 08/31/18 06:00 09/01/18 05:38 Nystatin PO 500,000 unit Q6HR [facility] Administration Ondansetron HCl 4 mg 08/31/18 01:25 Zofran IV Q8H PRN Nausea And Vomiting Simple Syrup 15 ml 08/31/18 16:46 Simple Syrup FEEDTUBE PRN PRN Hypoglycemia Simple Syrup 30 ml 08/31/18 16:46 Simple Syrup FEEDTUBE PRN PRN Hypoglycemia Sodium Bicarbonate 325 mg 08/31/18 16:46 Sodium Bicarbonate FEEDTUBE PRN PRN For Clogged Feeding Tube Sodium Chloride 10 ml 08/31/18 10:00 08/31/18 21:33 Sodium Chloride Flush Syringe 10 Ml IV 10 ml BID [facility]AYLIE Administration Sodium Chloride 10 ml 08/31/18 01:25 Sodium Chloride Flush Syringe 10 Ml IV PRN PRN LINE FLUSH Timolol Maleate 1 drops 08/31/18 10:00 08/31/18 10:37 Timoptic OU 1 drops DAILY HAYLIE Administration Nutrition/Malnutrition Assess - Dietary Evaluation Nutrition/Malnutrition Findings: Nutrition Notes Start: 08/31/18 16:26 Freq: Status: Active Protocol: Document 08/31/18 16:26 RM (Rec: 08/31/18 16:32 RM [id number]) Nutrition Notes Need for Assessment generated from: MD Order Initial or Follow up Assessment Current Diagnosis Diabetes,Hypertension,Heart Failure,Stroke,Hyperlipidemia Other Pertinent Diagnosis PEG, R foot wound Current Diet Glucern 1.2 at 40 ml/hr Labs/Tests K 5 Pertinent Medications Lasix Height 5 ft 9 in Weight 110.1 kg [place] Body Weight (kg) 65.90 BMI 35.8 Subjective/Other Information Consulted for TF recommendation. Screened for chewing difficulty ad skin risk. [place] 14 points. Observed Glucerna infusing at goal rate . Burn Absent Trauma Absent #1 Nutrition Diagnosis Inadequate oral intake Etiology CVA As Evidenced by Signs and Symptoms pt requiring enteral nutrition to meet nutrition needs Is patient on ventilator? No Is Patient Ambulatory and/or Out of Bed No REE-([facility]-confined to bed) 2009.132 Kcal/Kg value to use for calculation 14 Approximate Energy Requirements Using 1541 kcal/Kg Calculation Used for Recommendations Kcal/kg Additional Notes Protein Needs: 106-132g (1.2-1 .5g/kg 88 kg adjBW ) Fluid Needs: 1 ml/kcal Nutrition Intervention Nutrition Support: Jevity 1.2 at 60 ml/hr. Water flush of 100 mls q 4 hrs . Kcal 1,728 Protein (gm) 80 Fluid (mL) 1,162 Goal #1 TF tolerance Goal #2 Meet at least 75% of calorie and protein needs via TF Anticipated Discharge Needs: TF Follow-Up By: 09/02/18 Additional Comments Follow for new TF, K lab
--- NOTE | 2018-09-01 10:08 | Progress Note ---
Assessment and Plan 1. Acute decompensated chronic systolic and diastolic heart failure 2. Dilated cardiomyopathy 3. Essential hypertension 4. Type 2 diabetes mellitus 5. Paroxysmal atrial fibrillation 6. History of probable CVA Plan. Patient is nonverbal and has a trach and PEG tube she is not a candidate for invasive cardiac management would continue conservative management for CHF will monitor fluids input and output closely. Subjective Date of service: 09/01/18 Interval history: Non verbal Objective Vital Signs Temp Pulse Pulse Resp BP Pulse Ox Pulse Ox 09/01/18 08:12 93 09/01/18 08:11 100 09/01/18 08:03 97.6 F 72 20 155/70 94 09/01/18 03:48 99.1 F 96 H 20 149/71 93 09/01/18 03:13 94 09/01/18 03:11 100 08/31/18 23:31 98.2 F 96 H 20 161/76 96 08/31/18 22:40 75 94 08/31/18 22:03 18 08/31/18 21:33 20 08/31/18 21:28 75 171/72 08/31/18 20:06 100 08/31/18 19:20 98.2 F 75 20 171/72 94 08/31/18 19:10 91 H 08/31/18 16:00 100 08/31/18 15:45 98.6 F 95 H 20 158/91 96 08/31/18 12:18 92 H 20 97 08/31/18 11:32 97.9 F 98 H 18 140/76 95 08/31/18 11:06 98 H 08/31/18 10:54 132 H 164/88 08/31/18 10:36 134 H 164/88 08/31/18 10:35 134 H 164/88 - Physical Examination General: Other (Ill looking nonverbal) HEENT: Positive: PERRL, Normocephaly Neck: Positive: neck supple, trachea midline, Other (Midline trach). Negative: JVD/HJR Cardiac: Positive: Regular Rate, S1/S2, S3, PMI, Laterally Displaced Lungs: Positive: clear to auscultation, No Wheeze, Rales, Rhonchi Neuro: Positive: Other (Nonverbal or communicative refer to admitting H&P) Extremities: Absent: edema - Labs and Meds CBC 09/01/18 Range/Units 04:47 WBC 11.0 (4.5-11.0) K/mm3 RBC 3.76 (3.65-5.03) M/mm3 Hgb 11.0 (10.1-14.3) gm/dl Hct 34.5 (30.3-42.9) % Plt Count 210 (140-440) K/mm3 Lymph # 0.9 L (1.2-5.4) K/mm3 [place] # 0.8 (0.0-0.8) K/mm3 Eos # 0.0 (0.0-0.4) K/mm3 Baso # 0.0 (0.0-0.1) K/mm3 Comprehensive Metabolic Panel 09/01/18 Range/Units 04:47 Sodium 138 (137-145) mmol/L Potassium 4.9 (3.6-5.0) mmol/L Chloride 94.1 L (98-107) mmol/L Carbon Dioxide 32 H (22-30) mmol/L BUN 46 H (7-17) mg/dL Creatinine 1.0 (0.7-1.2) mg/dL Glucose 189 H (65-100) mg/dL Calcium 9.8 (8.4-10.2) mg/dL
[2018-09-01] MEDS: BABY ASPIRIN PO SCH (10:50)
[2018-09-01] MEDS: COZAAR PO SCH (10:50)
[2018-09-01] MEDS: KEPPRA PO SCH ×2 (10:51→22:06)
[2018-09-01] MEDS: COLACE PO SCH ×2 (10:51→22:06)
[2018-09-01] MEDS: ELIQUIS PO SCH ×2 (10:51→22:05)
[2018-09-01] MEDS: LOPRESSOR PO SCH (10:51)
[2018-09-01] MEDS: LANTUS SUB-Q SCH ×2 (10:51→22:05)
[2018-09-01] MEDS: SYMMETREL PO SCH (10:52)
[2018-09-01] MEDS: SODIUM CHLORIDE FLUSH SYRINGE 10 ML IV SCH ×2 (10:58→22:06)
[2018-09-01] MEDS: TIMOPTIC OU SCH (14:37)
[2018-09-01] MEDS: APRESOLINE IV PRN ×2 (17:58→22:04)
[2018-09-01] MEDS ORDERED: PROVENTIL IH SCH (20:00)
[2018-09-01] MEDS ORDERED: PROVENTIL IH PRN (20:10)
[2018-09-01] MEDS: PULMICORT IH SCH (20:35)
[2018-09-01] MEDS: DUONEB *Not for PRN Use IH SCH (20:36)
[2018-09-01] MEDS: SOLU-Medrol IV SCH (22:04)
[2018-09-02] MEDS: HumaLOG SUB-Q SCH ×5 (01:00→23:45)
[2018-09-02] MEDS: NYSTATIN PO SCH ×5 (01:00→23:44)
[2018-09-02] MEDS: DUONEB *Not for PRN Use IH SCH ×4 (03:16→21:52)
[2018-09-02] MEDS ORDERED: D50W (25GM) Syringe IV PRN (06:36)
[2018-09-02] MEDS: LASIX IV SCH ×3 (06:45→18:28)
[2018-09-02] MEDS: SOLU-Medrol IV SCH ×3 (06:45→21:17)
[2018-09-02] MEDS: PULMICORT IH SCH ×2 (08:09→21:52)
--- NOTE | 2018-09-02 08:54 | Progress Note ---
Assessment and Plan Assessment and plan: --Acute on chronic hypoxic respiratory failure;s/p tracheostomy Continue nebulizers and oxygen titrated to O2 sats more than 90% Antibiotics, supportive care, pulmonary evaluation if needed --Acute exacerbation diastolic CHF EF >55% (Echo 07/2018) --NSTEMI: Cardiology following, continue current management no plans of ischemia workup --History of A. fib; rate controlled, continue beta blockers Chronic anticoagulation --History of CVA with residual weakness[April 2018] Supportive care --Chronic anemia; closely monitor H&H Transfuse as needed --Type 2 diabetes mellitus; secondary to high-dose steroids Accu-Chek sliding scale coverage Feeding Long-acting insulin as needed --History of PE; status post IVC filter placement On Eliquis --Full code Status; Patient's condition and treatment plan poor prognosis discussed in detail with the 2 daughters at the bed side,They had neumorous questions and concerns, and I addressed all of them CODE STATUS discussed, Full Code History Interval history: Patient seen and examined medical records reviewed Patient had an episode of hypotension, bradycardia last night Beta blockers held and symptoms significantly improved This morning patient is status post tracheostomy on T piece Mild distress, Afebrile, vital signs noted Hospitalist Physical - Constitutional Vitals: Temp Pulse Resp BP Pulse Ox 98.2 F 92 H 20 163/93 97 09/02/18 07:58 09/02/18 08:09 09/02/18 08:09 09/02/18 07:58 09/02/18 08:09 General appearance: Present: mild distress, well-nourished, other (noncommunicative ,tracheostomy on T piece,) - EENT Eyes: Present: PERRL, EOM intact - Neck Neck: Present: other (tracheostomy on T piece) - Respiratory Respiratory effort: normal Respiratory: bilateral: diminished, rhonchi, negative: rales, wheezing - Cardiovascular Rhythm: regular Heart Sounds: Present: S1 & S2 - Extremities Extremities: no ischemia, No edema - Abdominal General gastrointestinal: soft, non-tender, non-distended, normal bowel sounds - Integumentary Integumentary: Present: clear, warm - Psychiatric Psychiatric: other (noncommunicative) - Neurologic Neurologic: other (and responsive) Results - Labs CBC & Chem 7: 09/01/18 04:47 09/01/18 04:47 Labs: Laboratory Last Values WBC 11.0 K/mm3 (4.5-11.0) 09/01/18 04:47 RBC 3.76 M/mm3 (3.65-5.03) 09/01/18 04:47 Hgb 11.0 gm/dl (10.1-14.3) 09/01/18 04:47 Hct 34.5 % (30.3-42.9) 09/01/18 04:47 MCV 92 fl (79-97) 09/01/18 04:47 MCH 29 pg (28-32) 09/01/18 04:47 MCHC 32 % (30-34) 09/01/18 04:47 RDW 19.1 % (13.2-15.2) H 09/01/18 04:47 Plt Count 210 K/mm3 (140-440) 09/01/18 04:47 Lymph % (Auto) 7.9 % (13.4-35.0) L 09/01/18 04:47 [place] % (Auto) 7.4 % (0.0-7.3) H 09/01/18 04:47 Eos % (Auto) 0.3 % (0.0-4.3) 09/01/18 04:47 Baso % (Auto) 0.4 % (0.0-1.8) 09/01/18 04:47 Lymph # 0.9 K/mm3 (1.2-5.4) L 09/01/18 04:47 [place] # 0.8 K/mm3 (0.0-0.8) 09/01/18 04:47 Eos # 0.0 K/mm3 (0.0-0.4) 09/01/18 04:47 Baso # 0.0 K/mm3 (0.0-0.1) 09/01/18 04:47 Seg Neutrophils % 84.0 % (40.0-70.0) H 09/01/18 04:47 Seg Neutrophils # 9.3 K/mm3 (1.8-7.7) H 09/01/18 04:47 PT 20.9 Sec. (12.2-14.9) H 08/31/18 00:27 INR 1.85 (0.87-1.13) H 08/31/18 00:27 APTT 30.7 Sec. (24.2-36.6) 08/31/18 00:27 POC ABG pH 7.437 (7.35-7.45) 09/01/18 19:07 POC ABG pCO2 53.7 (35-45) H 09/01/18 19:07 POC ABG pO2 73 (80-105) L 09/01/18 19:07 POC ABG HCO3 36.2 (22-26 mml/L) 09/01/18 19:07 POC ABG Total CO2 38 (23-27mmol/L) 09/01/18 19:07 POC ABG O2 Sat 95 09/01/18 19:07 POC ABG Base Excess 12 ((-2) - (+3)mmol/L) 09/01/18 19:07 35 % 09/01/18 19:07 Sodium 138 mmol/L (137-145) 09/01/18 04:47 Potassium 4.9 mmol/L (3.6-5.0) 09/01/18 04:47 Chloride 94.1 mmol/L (98-107) L 09/01/18 04:47 Carbon Dioxide 32 mmol/L (22-30) H 09/01/18 04:47 17 mmol/L 09/01/18 04:47 BUN 46 mg/dL (7-17) H 09/01/18 04:47 1.0 mg/dL (0.7-1.2) 09/01/18 04:47 Estimated GFR > 60 ml/min 09/01/18 04:47 46 % 09/01/18 04:47 Glucose 189 mg/dL (65-100) H 09/01/18 04:47 POC Glucose 414 (70-105) H 09/02/18 06:20 6.4 % (4-6) H 08/31/18 05:34 Calcium 9.8 mg/dL (8.4-10.2) 09/01/18 04:47 0.30 mg/dL (0.1-1.2) 08/30/18 23:28 AST 33 units/L (5-40) 08/30/18 23:28 ALT 22 units/L (7-56) 08/30/18 23:28 110 units/L (35-129) 08/30/18 23:28 0.215 ng/mL (0.00-0.029) H* D 08/31/18 05:34 NT-Pro-B Natriuret Pep 52933 pg/mL (0-900) H 08/30/18 23:28 6.7 g/dL (6.3-8.2) 08/30/18 23:28 1.8 g/dL (3.9-5) L 08/30/18 23:28 0.4 % 08/30/18 23:28 Triglycerides 77 mg/dL (2-149) 08/30/18 23:28 Cholesterol 99 mg/dL (50-199) 08/30/18 23:28 56 mg/dL (50-130) 08/30/18 23:28 35 mg/dL (40-59) L 08/30/18 23:28 2.82 % 08/30/18 23:28 Active Medications - Current Medications Current Medications: Generic Name Dose Route Start Last Admin Trade Name Freq PRN Reason Stop Dose Admin Acetaminophen 650 mg 08/31/18 01:25 Tylenol PO Q4H PRN Pain MILD(1-3)/Fever >100.5/[place] Albuterol 2.5 mg 09/01/18 20:10 Proventil IH Q4HRT PRN Shortness Of Breath Albuterol/Ipratropium 1 ampul 09/02/18 02:00 09/02/18 08:09 Duoneb *Not For Prn Use* IH 1 ampul Q6HRT HAYLIE Administration Amantadine HCl 100 mg 08/31/18 10:00 09/01/18 10:52 Symmetrel PO 100 mg DAILY HAYLIE Administration Lipase/Protease/Amylase 1 each 08/31/18 16:46 Pancrebobby [place] 10,500 Unit FEEDTUBE PRN PRN For Clogged Feeding Tube Apixaban 5 mg 08/31/18 10:00 09/01/18 22:05 Eliquis PO 5 mg BID HAYLIE Administration Aspirin 81 mg 08/31/18 10:00 09/01/18 10:50 Baby Aspirin PO 81 mg QDAY HAYLIE Administration Atorvastatin Calcium 40 mg 08/31/18 22:00 09/01/18 22:05 Lipitor PO 40 mg QHS HAYLIE Administration Budesonide 0.5 mg 09/01/18 20:15 09/02/18 08:09 Pulmicort IH 0.5 mg Q12HRT HAYLIE Administration Clonidine HCl 0.1 mg 08/31/18 10:00 08/31/18 10:54 Catapres-Tts Patch TD 0.1 mg We HAYLIE Administration Dextrose 50 ml 09/02/18 06:36 D50w (25gm) Syringe IV PRN PRN Hypoglycemia Docusate Sodium 100 mg 08/31/18 10:00 09/01/18 22:06 Colace PO 100 mg BID HAYLIE Administration Furosemide 40 mg 08/31/18 06:00 09/02/18 06:45 Lasix IV 40 mg 0600,1800 HAYLIE Administration Hydralazine HCl 10 mg 08/31/18 04:33 09/01/18 22:04 Apresoline IV 10 mg Q4H PRN Administration Blood Pressure Insulin Glargine 30 units 09/02/18 10:00 Lantus SUB-Q BID HAYLIE Insulin Human Lispro 0 unit 08/31/18 06:00 09/02/18 06:45 Humalog SUB-Q 8 unit Q6HR HAYLIE Administration Protocol Levetiracetam 500 mg 08/31/18 10:00 09/01/18 22:06 Keppra PO 500 mg BID HAYLIE Administration Losartan Potassium 50 mg 08/31/18 10:00 09/01/18 10:50 Cozaar PO 50 mg QDAY HAYLIE Administration Methylprednisolone Sodium Succinate 125 mg 09/01/18 22:00 09/02/18 06:45 Solu-Medrol IV 125 mg Q8HR HAYLIE Administration Morphine Sulfate 2 mg 08/31/18 04:33 08/31/18 21:33 Morphine IV 2 mg Q3H PRN Administration Pain, Moderate (4-6) Nystatin 500,000 unit 08/31/18 06:00 09/02/18 06:45 Nystatin PO 500,000 unit Q6HR HAYLIE Administration Ondansetron HCl 4 mg 08/31/18 01:25 Zofran IV Q8H PRN Nausea And Vomiting Simple Syrup 15 ml 08/31/18 16:46 Simple Syrup FEEDTUBE PRN PRN Hypoglycemia Simple Syrup 30 ml 08/31/18 16:46 Simple Syrup FEEDTUBE PRN PRN Hypoglycemia Sodium Bicarbonate 325 mg 08/31/18 16:46 Sodium Bicarbonate FEEDTUBE PRN PRN For Clogged Feeding Tube Sodium Chloride 10 ml 08/31/18 10:00 09/01/18 22:06 Sodium Chloride Flush Syringe 10 Ml IV 10 ml BID HAYLIE Administration Sodium Chloride 10 ml 08/31/18 01:25 Sodium Chloride Flush Syringe 10 Ml IV PRN PRN LINE FLUSH Timolol Maleate 1 drops 08/31/18 10:00 09/01/18 14:37 Timoptic OU 1 drops DAILY HAYLIE Administration Nutrition/Malnutrition Assess - Dietary Evaluation Nutrition/Malnutrition Findings: Nutrition Notes Start: 08/31/18 16:26 Freq: Status: Active Protocol: Document 08/31/18 16:26 RM (Rec: 08/31/18 16:32 RM [id number]) Nutrition Notes Need for Assessment generated from: MD Order Initial or Follow up Assessment Current Diagnosis Diabetes,Hypertension,Heart Failure,Stroke,Hyperlipidemia Other Pertinent Diagnosis PEG, R foot wound Current Diet Glucern 1.2 at 40 ml/hr Labs/Tests K 5 Pertinent Medications Lasix Height 5 ft 9 in Weight 110.1 kg [place] Body Weight (kg) 65.90 BMI 35.8 Subjective/Other Information Consulted for TF recommendation. Screened for chewing difficulty ad skin risk. [place] 14 points. Observed Glucerna infusing at goal rate . Burn Absent Trauma Absent #1 Nutrition Diagnosis Inadequate oral intake Etiology CVA As Evidenced by Signs and Symptoms pt requiring enteral nutrition to meet nutrition needs Is patient on ventilator? No Is Patient Ambulatory and/or Out of Bed No REE-([facility]-confined to bed) 2009.132 Kcal/Kg value to use for calculation 14 Approximate Energy Requirements Using 1541 kcal/Kg Calculation Used for Recommendations Kcal/kg Additional Notes Protein Needs: 106-132g (1.2-1 .5g/kg 88 kg adjBW ) Fluid Needs: 1 ml/kcal Nutrition Intervention Nutrition Support: Jevity 1.2 at 60 ml/hr. Water flush of 100 mls q 4 hrs . Kcal 1,728 Protein (gm) 80 Fluid (mL) 1,162 Goal #1 TF tolerance Goal #2 Meet at least 75% of calorie and protein needs via TF Anticipated Discharge Needs: TF Follow-Up By: 09/02/18 Additional Comments Follow for new TF, K lab
--- NOTE | 2018-09-02 10:01 | Progress Note ---
Assessment and Plan Atrial fibrillation, permanent On eliquis On metoprolol 25 mg every 6 hours as outpatient History of CVA s/p PEG tube Acute on chronic diastolic heart failure Echo 07/2018 - Normal LVEF, Grade II DDx, mild to moderate RVD, moderate LAR, mild MR and MS Type II DM Systemic Hypertension Hyperlipidemia Recommendations: Continue diuresis with lasix (increase dose to 60 mg bid) Resume metoprolol 25 mg po every 6 hours Conservative cardiac management Subjective Date of service: 09/02/18 Principal diagnosis: CHF Interval history: Patient seen and examined Daughter at the bedside Objective Vital Signs Temp Pulse Pulse Pulse Pulse Pulse Resp 09/02/18 08:09 92 H 09/02/18 07:58 98.2 F 126 H 20 09/02/18 06:16 09/02/18 04:27 97.7 F 09/02/18 04:25 73 22 09/02/18 03:36 09/02/18 03:35 99 H 09/02/18 03:16 100 H 09/02/18 00:19 97.6 F 107 H 24 09/02/18 00:13 128 H 09/01/18 22:35 75 22 09/01/18 22:04 112 H 09/01/18 22:00 09/01/18 21:53 126 H 22 09/01/18 20:14 09/01/18 20:13 77 09/01/18 20:10 97.7 F 75 22 09/01/18 19:50 71 09/01/18 19:34 73 09/01/18 17:58 72 09/01/18 17:25 97.4 F L 71 22 09/01/18 13:01 98.6 F 94 H 24 09/01/18 10:51 72 09/01/18 10:50 72 09/01/18 10:00 92 H 90 90 20 Resp Resp BP BP Pulse Ox Pulse Ox 09/02/18 08:09 20 97 09/02/18 07:58 163/93 100 09/02/18 06:16 158/79 09/02/18 04:27 09/02/18 04:25 106/58 93 09/02/18 03:36 100 09/02/18 03:35 22 09/02/18 03:16 26 H 09/02/18 00:19 176/69 99 09/02/18 00:13 100 09/01/18 22:35 97 09/01/18 22:04 158/103 09/01/18 22:00 97 09/01/18 21:53 158/103 100 09/01/18 20:14 100 09/01/18 20:13 26 H 09/01/18 20:10 151/69 97 09/01/18 19:50 24 09/01/18 19:34 09/01/18 17:58 192/82 09/01/18 17:25 192/82 97 09/01/18 13:01 157/70 98 09/01/18 10:51 155/70 09/01/18 10:50 155/70 09/01/18 10:00 94 - Physical Examination General: Other (Ill looking nonverbal) HEENT: Positive: PERRL, Normocephaly Neck: Positive: neck supple, trachea midline, Other (Midline trach). Negative: JVD/HJR Cardiac: Positive: Reg Rate and Rhythm Lungs: Positive: Decreased Breath Sounds Neuro: Positive: Other (Nonverbal or communicative refer to admitting H&P) Abdomen: Positive: Soft Extremities: Absent: edema
[2018-09-02] MEDS: COZAAR PO SCH (11:50)
[2018-09-02] MEDS: COLACE PO SCH ×2 (11:50→21:17)
[2018-09-02] MEDS: ELIQUIS PO SCH ×2 (11:52→21:17)
[2018-09-02] MEDS: TIMOPTIC OU SCH (11:53)
[2018-09-02] MEDS: KEPPRA PO SCH ×2 (11:53→21:17)
[2018-09-02] MEDS: SYMMETREL PO SCH ×2 (11:54→12:26)
[2018-09-02] MEDS: SODIUM CHLORIDE FLUSH SYRINGE 10 ML IV SCH ×2 (11:54→21:18)
[2018-09-02] MEDS: LANTUS SUB-Q SCH ×2 (11:57→23:45)
[2018-09-02] MEDS: LOPRESSOR PO SCH ×3 (11:58→23:44)
[2018-09-02] MEDS: BABY ASPIRIN PO SCH (11:58)
[2018-09-02] MEDS: TYLENOL PO PRN ×2 (12:19→23:59)
[2018-09-02] MEDS: APRESOLINE IV PRN (21:16)
[2018-09-03] MEDS: DUONEB *Not for PRN Use IH SCH ×4 (02:31→20:20)
[2018-09-03] MEDS ORDERED: HumuLIN R SUB-Q ONE (05:51)
[2018-09-03] MEDS: SOLU-Medrol IV SCH ×3 (05:52→17:01)
[2018-09-03] MEDS: LOPRESSOR PO SCH ×3 (05:53→17:39)
[2018-09-03] MEDS: NYSTATIN PO SCH ×3 (05:53→17:01)
[2018-09-03] MEDS: LASIX IV SCH ×2 (05:53→17:02)
[2018-09-03] MEDS: HumaLOG SUB-Q SCH ×3 (06:02→17:43)
[2018-09-03] MEDS: PULMICORT IH SCH ×2 (07:32→20:20)
[2018-09-03] MEDS: TIMOPTIC OU SCH (09:40)
[2018-09-03] MEDS: COLACE PO SCH ×2 (09:40→21:03)
[2018-09-03] MEDS: BABY ASPIRIN PO SCH (09:41)
[2018-09-03] MEDS: COZAAR PO SCH (09:41)
[2018-09-03] MEDS: KEPPRA PO SCH ×2 (09:42→21:03)
[2018-09-03] MEDS: ELIQUIS PO SCH ×2 (09:42→21:03)
--- NOTE | 2018-09-03 09:48 | Progress Note ---
Assessment and Plan Assessment and plan: --Acute on chronic hypoxic respiratory failure;s/p tracheostomy Continue nebulizers and oxygen titrated to O2 sats more than 90% Antibiotics, supportive care, pulmonary evaluation if needed --Acute exacerbation diastolic CHF EF >55% (Echo 07/2018) --NSTEMI: Cardiology following, continue current management no plans of ischemia workup --History of A. fib; rate controlled, continue beta blockers Chronic anticoagulation --History of CVA with residual weakness[April 2018] Supportive care --Chronic anemia; closely monitor H&H Transfuse as needed --Type 2 diabetes mellitus; secondary to high-dose steroids Accu-Chek sliding scale coverage Feeding Long-acting insulin as needed --History of PE; status post IVC filter placement On Eliquis --Full code Status; Patient's condition and treatment plan poor prognosis discussed in detail with the 2 daughters at the bed side,They had neumorous questions and concerns, and I addressed all of them CODE STATUS discussed, Full Code History Interval history: Patient seen and examined medical records reviewed Events reported by the nursing Patient is more alert today not in acute distress Status post tracheostomy on T piece Blood sugars are highly probably secondary to high-dose steroids Vital signs noted Daughter at the bedside Hospitalist Physical - Constitutional Vitals: Temp Pulse Resp BP Pulse Ox 98.7 F 103 H 18 144/71 95 09/03/18 08:40 09/03/18 09:41 09/03/18 08:40 09/03/18 09:41 09/03/18 08:40 General appearance: Present: mild distress, well-nourished, other (noncommunicat trace ,tracheostomy on T piece,) - EENT Eyes: Present: PERRL, EOM intact - Neck Neck: Present: supple - Respiratory Respiratory effort: normal Respiratory: bilateral: diminished, rhonchi, negative: rales, wheezing - Cardiovascular Rhythm: regular Heart Sounds: Present: S1 & S2 - Extremities Extremities: no ischemia Extremity abnormal: edema - Abdominal General gastrointestinal: soft, non-tender, non-distended, normal bowel sounds, other (PEG tube in place) - Integumentary Integumentary: Present: clear, warm - Psychiatric Psychiatric: other (noncommunicative) - Neurologic Neurologic: other (noncommunicative) Results - Labs CBC & Chem 7: 09/01/18 04:47 09/01/18 04:47 Labs: Laboratory Last Values WBC 11.0 K/mm3 (4.5-11.0) 09/01/18 04:47 RBC 3.76 M/mm3 (3.65-5.03) 09/01/18 04:47 Hgb 11.0 gm/dl (10.1-14.3) 09/01/18 04:47 Hct 34.5 % (30.3-42.9) 09/01/18 04:47 MCV 92 fl (79-97) 09/01/18 04:47 MCH 29 pg (28-32) 09/01/18 04:47 MCHC 32 % (30-34) 09/01/18 04:47 RDW 19.1 % (13.2-15.2) H 09/01/18 04:47 Plt Count 210 K/mm3 (140-440) 09/01/18 04:47 Lymph % (Auto) 7.9 % (13.4-35.0) L 09/01/18 04:47 [place] % (Auto) 7.4 % (0.0-7.3) H 09/01/18 04:47 Eos % (Auto) 0.3 % (0.0-4.3) 09/01/18 04:47 Baso % (Auto) 0.4 % (0.0-1.8) 09/01/18 04:47 Lymph # 0.9 K/mm3 (1.2-5.4) L 09/01/18 04:47 [place] # 0.8 K/mm3 (0.0-0.8) 09/01/18 04:47 Eos # 0.0 K/mm3 (0.0-0.4) 09/01/18 04:47 Baso # 0.0 K/mm3 (0.0-0.1) 09/01/18 04:47 Seg Neutrophils % 84.0 % (40.0-70.0) H 09/01/18 04:47 Seg Neutrophils # 9.3 K/mm3 (1.8-7.7) H 09/01/18 04:47 PT 20.9 Sec. (12.2-14.9) H 08/31/18 00:27 INR 1.85 (0.87-1.13) H 08/31/18 00:27 APTT 30.7 Sec. (24.2-36.6) 08/31/18 00:27 POC ABG pH 7.437 (7.35-7.45) 09/01/18 19:07 POC ABG pCO2 53.7 (35-45) H 09/01/18 19:07 POC ABG pO2 73 (80-105) L 09/01/18 19:07 POC ABG HCO3 36.2 (22-26 mml/L) 09/01/18 19:07 POC ABG Total CO2 38 (23-27mmol/L) 09/01/18 19:07 POC ABG O2 Sat 95 09/01/18 19:07 POC ABG Base Excess 12 ((-2) - (+3)mmol/L) 09/01/18 19:07 35 % 09/01/18 19:07 Sodium 138 mmol/L (137-145) 09/01/18 04:47 Potassium 4.9 mmol/L (3.6-5.0) 09/01/18 04:47 Chloride 94.1 mmol/L (98-107) L 09/01/18 04:47 Carbon Dioxide 32 mmol/L (22-30) H 09/01/18 04:47 17 mmol/L 09/01/18 04:47 BUN 46 mg/dL (7-17) H 09/01/18 04:47 1.0 mg/dL (0.7-1.2) 09/01/18 04:47 Estimated GFR > 60 ml/min 09/01/18 04:47 46 % 09/01/18 04:47 Glucose 189 mg/dL (65-100) H 09/01/18 04:47 POC Glucose 400 (70-105) H 09/03/18 05:28 6.4 % (4-6) H 08/31/18 05:34 Calcium 9.8 mg/dL (8.4-10.2) 09/01/18 04:47 0.30 mg/dL (0.1-1.2) 08/30/18 23:28 AST 33 units/L (5-40) 08/30/18 23:28 ALT 22 units/L (7-56) 08/30/18 23:28 110 units/L (35-129) 08/30/18 23:28 0.215 ng/mL (0.00-0.029) H* D 08/31/18 05:34 NT-Pro-B Natriuret Pep 73881 pg/mL (0-900) H 08/30/18 23:28 6.7 g/dL (6.3-8.2) 08/30/18 23:28 1.8 g/dL (3.9-5) L 08/30/18 23:28 0.4 % 08/30/18 23:28 Triglycerides 77 mg/dL (2-149) 08/30/18 23:28 Cholesterol 99 mg/dL (50-199) 08/30/18 23:28 56 mg/dL (50-130) 08/30/18 23:28 35 mg/dL (40-59) L 08/30/18 23:28 2.82 % 08/30/18 23:28 Active Medications - Current Medications Current Medications: Generic Name Dose Route Start Last Admin Trade Name Freq PRN Reason Stop Dose Admin Acetaminophen 650 mg 08/31/18 01:25 09/02/18 23:59 Tylenol PO 650 mg Q4H PRN Administration Pain MILD(1-3)/Fever >100.5/[place] Albuterol 2.5 mg 09/01/18 20:10 Proventil IH Q4HRT PRN Shortness Of Breath Albuterol/Ipratropium 1 ampul 09/02/18 02:00 09/03/18 07:32 Duoneb *Not For Prn Use* IH 1 ampul Q6HRT HAYLIE Administration Lipase/Protease/Amylase 1 each 08/31/18 16:46 Pancreaze 10,500 Unit FEEDTUBE PRN PRN For Clogged Feeding Tube Apixaban 5 mg 08/31/18 10:00 09/03/18 09:42 Eliquis PO 5 mg BID HAYLIE Administration Aspirin 81 mg 08/31/18 10:00 09/03/18 09:41 Baby Aspirin PO 81 mg QDAY HAYLIE Administration Atorvastatin Calcium 40 mg 08/31/18 22:00 09/02/18 21:17 Lipitor PO 40 mg QHS HAYLIE Administration Budesonide 0.5 mg 09/01/18 20:15 09/03/18 07:32 Pulmicort IH 0.5 mg Q12HRT HAYLIE Administration Clonidine HCl 0.1 mg 08/31/18 10:00 08/31/18 10:54 Catapres-Tts Patch TD 0.1 mg We HAYLIE Administration Dextrose 50 ml 09/02/18 06:36 D50w (25gm) Syringe IV PRN PRN Hypoglycemia Docusate Sodium 100 mg 08/31/18 10:00 09/03/18 09:40 Colace PO 100 mg BID HAYLIE Administration Furosemide 60 mg 09/02/18 11:00 09/03/18 05:53 Lasix IV 60 mg 0600,1800 HAYLIE Administration Hydralazine HCl 10 mg 08/31/18 04:33 09/02/18 21:16 Apresoline IV 10 mg Q4H PRN Administration Blood Pressure Insulin Glargine 40 units 09/03/18 10:00 Lantus SUB-Q BID HAYLIE Insulin Human Lispro 0 unit 08/31/18 06:00 09/03/18 06:02 Humalog SUB-Q 8 unit Q6HR HAYLIE Administration Protocol Levetiracetam 500 mg 08/31/18 10:00 09/03/18 09:42 Keppra PO 500 mg BID HAYLIE Administration Losartan Potassium 50 mg 08/31/18 10:00 09/03/18 09:41 Cozaar PO 50 mg QDAY HAYLIE Administration Methylprednisolone Sodium Succinate 60 mg 09/03/18 10:00 Solu-Medrol IV Q6H HAYLIE Metoprolol Tartrate 25 mg 09/02/18 11:00 09/03/18 05:53 Lopressor PO 25 mg Q6H HAYLIE Administration Morphine Sulfate 2 mg 08/31/18 04:33 08/31/18 21:33 Morphine IV 2 mg Q3H PRN Administration Pain, Moderate (4-6) Nystatin 500,000 unit 08/31/18 06:00 09/03/18 05:53 Nystatin PO 500,000 unit Q6HR HAYLIE Administration Ondansetron HCl 4 mg 08/31/18 01:25 Zofran IV Q8H PRN Nausea And Vomiting Simple Syrup 15 ml 08/31/18 16:46 Simple Syrup FEEDTUBE PRN PRN Hypoglycemia Simple Syrup 30 ml 08/31/18 16:46 Simple Syrup FEEDTUBE PRN PRN Hypoglycemia Sodium Bicarbonate 325 mg 08/31/18 16:46 Sodium Bicarbonate FEEDTUBE PRN PRN For Clogged Feeding Tube Sodium Chloride 10 ml 08/31/18 10:00 09/02/18 21:18 Sodium Chloride Flush Syringe 10 Ml IV 10 ml BID HAYLIE Administration Sodium Chloride 10 ml 08/31/18 01:25 Sodium Chloride Flush Syringe 10 Ml IV PRN PRN LINE FLUSH Timolol Maleate 1 drops 08/31/18 10:00 09/03/18 09:40 Timoptic OU 1 drops DAILY HAYLIE Administration Nutrition/Malnutrition Assess - Dietary Evaluation Nutrition/Malnutrition Findings: Nutrition Notes Start: 08/31/18 16:26 Freq: Status: Active Protocol: Document 09/02/18 18:55 RM (Rec: 09/02/18 19:07 RM [id number]) Nutrition Notes Initial or Follow up Reassessment Current Diagnosis Diabetes,Hypertension,Heart Failure,Stroke,Hyperlipidemia Other Pertinent Diagnosis PEG, R foot wound Current Diet Glucerna 1.2 at 40 ml/hr Labs/Tests K 4.9 POC 416 Pertinent Medications Lasix, Solu-medrol Height 5 ft 9 in Weight 108.9 kg [place] Body Weight (kg) 65.90 BMI 35.4 Subjective/Other Information Observed Glucerna 1.2 infusing at goal rate. Nurse unaware of TF order change. However with POC 416 and K lab WNL internal communications writer will continue Glucerna. Percent of energy/protein needs met: 100%/75% Burn Absent Trauma Absent #1 Nutrition Diagnosis Inadequate oral intake Diagnosis Progress(for reassessment Continues documentation) Is patient on ventilator? No Is Patient Ambulatory and/or Out of Bed No REE-([facility]-confined to bed) 1994.756 Kcal/Kg value to use for calculation 14 Approximate Energy Requirements Using 1525 kcal/Kg Calculation Used for Recommendations Kcal/kg Additional Notes Protein Needs: 106-132g (1.2-1 .5g/kg 88 kg adjBW ) Fluid Needs: 1 ml/kcal Nutrition Intervention Nutrition Support: Glucerna at 55 ml/hr Water flush of 100 mls q 4 hrs . Kcal 1,584 Protein (gm) 80 Fluid (mL) 1,063 Goal #1 TF tolerance Goal #2 Meet at least 75% of calorie and protein needs via TF Anticipated Discharge Needs: TF Follow-Up By: 09/05/18 Additional Comments Follow for TF tolerance, BG, K lab
--- NOTE | 2018-09-03 10:07 | Progress Note ---
Assessment and Plan 1. Chronic combined systolic and diastolic heart failure 2. Dilated cardiomyopathy 3. Essential hypertension 4. Type 2 diabetes mellitus 5. Paroxysmal atrial fibrillation 6. History of probable CVA Plan. Patient is nonverbal and has a trach and PEG tube she is not a candidate for invasive cardiac management would continue conservative management for CHF will monitor fluids input and output closely. Subjective Date of service: 09/03/18 Principal diagnosis: CHF Interval history: Non verbal Objective Vital Signs Temp Pulse Pulse Pulse Resp Resp BP 09/03/18 09:41 103 H 144/71 09/03/18 08:40 98.7 F 103 H 18 144/71 09/03/18 07:42 108 H 20 09/03/18 07:32 95 H 20 09/03/18 05:24 98.7 F 71 22 172/81 09/03/18 05:06 09/03/18 02:44 103 H 13 09/03/18 02:31 98 H 17 09/02/18 23:59 22 09/02/18 23:44 111 H 09/02/18 23:41 97.4 F L 09/02/18 23:40 121 H 22 125/68 09/02/18 22:12 09/02/18 22:11 09/02/18 22:09 110 H 18 09/02/18 21:52 107 H 19 09/02/18 20:01 99.0 F 09/02/18 20:00 112 H 112 H 22 09/02/18 19:59 112 H 22 175/66 09/02/18 18:29 61 110/43 09/02/18 16:21 98.6 F 115 H 20 189/95 09/02/18 15:35 123 H 168/85 09/02/18 14:44 72 20 09/02/18 14:33 76 20 09/02/18 14:00 09/02/18 11:58 135 H 152/79 09/02/18 11:52 98.0 F 144 H 20 152/79 09/02/18 11:50 135 H 152/79 Pulse Ox Pulse Ox 09/03/18 09:41 09/03/18 08:40 95 09/03/18 07:42 96 09/03/18 07:32 98 09/03/18 05:24 91 09/03/18 05:06 97 09/03/18 02:44 09/03/18 02:31 09/02/18 23:59 09/02/18 23:44 09/02/18 23:41 09/02/18 23:40 91 09/02/18 22:12 95 09/02/18 22:11 94 09/02/18 22:09 09/02/18 21:52 09/02/18 20:01 09/02/18 20:00 96 09/02/18 19:59 95 09/02/18 18:29 09/02/18 16:21 93 09/02/18 15:35 98 09/02/18 14:44 09/02/18 14:33 09/02/18 14:00 100 09/02/18 11:58 09/02/18 11:52 95 09/02/18 11:50 - Physical Examination General: Other (Ill looking nonverbal) HEENT: Positive: PERRL, Normocephaly Neck: Positive: neck supple, trachea midline, Other (Midline trach). Negative: JVD/HJR Cardiac: Positive: Regular Rate, S1/S2, PMI, Dilated, Laterally Displaced Lungs: Positive: clear to auscultation, No Wheeze, Rales, Rhonchi Neuro: Positive: Other (Nonverbal or communicative refer to admitting H&P) Abdomen: Positive: Soft Extremities: Absent: edema
[2018-09-03] MEDS: SODIUM CHLORIDE FLUSH SYRINGE 10 ML IV SCH ×2 (10:30→21:03)
[2018-09-03] MEDS: LANTUS SUB-Q SCH ×2 (10:30→21:12)
--- NOTE | 2018-09-03 11:20 | Progress Note ---
Subjective Principal diagnosis: CHF Objective Vital Signs - 12hr 09/02/18 09/02/18 09/02/18 23:40 23:41 23:44 Temperature 97.4 F L Pulse Rate 121 H 111 H Pulse Rate [ Anterior Bilateral Throughout] Respiratory 22 Rate Respiratory Rate [Anterior Bilateral Throughout] Blood Pressure 125/68 O2 Sat by Pulse 91 Oximetry O2 Sat by Pulse Oximetry [ Assessment] 09/02/18 09/03/18 09/03/18 23:59 02:31 02:44 Temperature Pulse Rate Pulse Rate [ 98 H 103 H Anterior Bilateral Throughout] Respiratory 22 Rate Respiratory 17 13 Rate [Anterior Bilateral Throughout] Blood Pressure O2 Sat by Pulse Oximetry O2 Sat by Pulse Oximetry [ Assessment] 09/03/18 09/03/18 09/03/18 05:06 05:24 07:32 Temperature 98.7 F Pulse Rate 71 Pulse Rate [ 95 H Anterior Bilateral Throughout] Respiratory 22 Rate Respiratory 20 Rate [Anterior Bilateral Throughout] Blood Pressure 172/81 O2 Sat by Pulse 91 98 Oximetry O2 Sat by Pulse 97 Oximetry [ Assessment] 09/03/18 09/03/18 09/03/18 07:42 08:40 09:41 Temperature 98.7 F Pulse Rate 103 H 103 H Pulse Rate [ 108 H Anterior Bilateral Throughout] Respiratory 18 Rate Respiratory 20 Rate [Anterior Bilateral Throughout] Blood Pressure 144/71 144/71 O2 Sat by Pulse 96 95 Oximetry O2 Sat by Pulse Oximetry [ Assessment] CBC and BMP: 09/01/18 04:47 09/01/18 04:47 ABG, PT/INR, D-dimer: ABG POC ABG pH 7.437 (7.35-7.45) 09/01/18 19:07 POC ABG pCO2 53.7 (35-45) H 09/01/18 19:07 POC ABG pO2 73 (80-105) L 09/01/18 19:07 POC ABG HCO3 36.2 (22-26 mml/L) 09/01/18 19:07 POC ABG Total CO2 38 (23-27mmol/L) 09/01/18 19:07 POC ABG O2 Sat 95 09/01/18 19:07 PT/INR, D-dimer PT 20.9 Sec. (12.2-14.9) H 08/31/18 00:27 INR 1.85 (0.87-1.13) H 08/31/18 00:27 Abnormal lab findings: Abnormal Labs 08/30/18 08/30/18 08/30/18 23:28 23:28 23:28 RBC 3.40 L RDW 18.9 H Lymph % (Auto) 7.2 L [place] % (Auto) 8.7 H Eos % (Auto) 4.8 H Lymph # 0.7 L Seg Neutrophils % 78.9 H Seg Neutrophils # PT INR POC ABG pCO2 POC ABG pO2 Chloride Carbon Dioxide 31 H BUN 41 H Glucose 189 H POC Glucose Hemoglobin A1c Troponin T 0.323 H* NT-Pro-B Natriuret Pep Albumin 1.8 L HDL Cholesterol 35 L 08/30/18 08/31/18 08/31/18 23:28 00:27 03:48 RBC RDW Lymph % (Auto) [place] % (Auto) Eos % (Auto) Lymph # Seg Neutrophils % Seg Neutrophils # PT 20.9 H INR 1.85 H POC ABG pCO2 55.2 H POC ABG pO2 Chloride Carbon Dioxide BUN Glucose POC Glucose Hemoglobin A1c Troponin T NT-Pro-B Natriuret Pep 28101 H Albumin HDL Cholesterol 08/31/18 08/31/18 08/31/18 05:34 05:34 11:44 RBC RDW Lymph % (Auto) [place] % (Auto) Eos % (Auto) Lymph # Seg Neutrophils % Seg Neutrophils # PT INR POC ABG pCO2 POC ABG pO2 Chloride Carbon Dioxide BUN Glucose POC Glucose 154 H Hemoglobin A1c 6.4 H Troponin T 0.215 H* D NT-Pro-B Natriuret Pep Albumin HDL Cholesterol 08/31/18 09/01/18 09/01/18 23:32 04:47 04:47 RBC RDW 19.1 H Lymph % (Auto) 7.9 L [place] % (Auto) 7.4 H Eos % (Auto) Lymph # 0.9 L Seg Neutrophils % 84.0 H Seg Neutrophils # 9.3 H PT INR POC ABG pCO2 POC ABG pO2 Chloride 94.1 L Carbon Dioxide 32 H BUN 46 H Glucose 189 H POC Glucose 138 H Hemoglobin A1c Troponin T NT-Pro-B Natriuret Pep Albumin HDL Cholesterol 09/01/18 09/01/18 09/01/18 05:59 11:38 16:17 RBC RDW Lymph % (Auto) [place] % (Auto) Eos % (Auto) Lymph # Seg Neutrophils % Seg Neutrophils # PT INR POC ABG pCO2 POC ABG pO2 Chloride Carbon Dioxide BUN Glucose POC Glucose 236 H 235 H 278 H Hemoglobin A1c Troponin T NT-Pro-B Natriuret Pep Albumin HDL Cholesterol 09/01/18 09/01/18 09/01/18 17:59 18:53 19:07 RBC RDW Lymph % (Auto) [place] % (Auto) Eos % (Auto) Lymph # Seg Neutrophils % Seg Neutrophils # PT INR POC ABG pCO2 53.7 H POC ABG pO2 73 L Chloride Carbon Dioxide BUN Glucose POC Glucose 281 H 376 H Hemoglobin A1c Troponin T NT-Pro-B Natriuret Pep Albumin HDL Cholesterol 09/01/18 09/02/18 09/02/18 21:29 00:22 06:20 RBC RDW Lymph % (Auto) [place] % (Auto) Eos % (Auto) Lymph # Seg Neutrophils % Seg Neutrophils # PT INR POC ABG pCO2 POC ABG pO2 Chloride Carbon Dioxide BUN Glucose POC Glucose 247 H 369 H 414 H Hemoglobin A1c Troponin T NT-Pro-B Natriuret Pep Albumin HDL Cholesterol 09/02/18 09/02/18 09/02/18 11:56 18:21 23:42 RBC RDW Lymph % (Auto) [place] % (Auto) Eos % (Auto) Lymph # Seg Neutrophils % Seg Neutrophils # PT INR POC ABG pCO2 POC ABG pO2 Chloride Carbon Dioxide BUN Glucose POC Glucose 416 H 429 H 373 H Hemoglobin A1c Troponin T NT-Pro-B Natriuret Pep Albumin HDL Cholesterol 09/03/18 05:28 RBC RDW Lymph % (Auto) [place] % (Auto) Eos % (Auto) Lymph # Seg Neutrophils % Seg Neutrophils # PT INR POC ABG pCO2 POC ABG pO2 Chloride Carbon Dioxide BUN Glucose POC Glucose 400 H Hemoglobin A1c Troponin T NT-Pro-B Natriuret Pep Albumin HDL Cholesterol
--- NOTE | 2018-09-03 11:20 | Consultation ---
History of Present Illness History of present illness: Patient with hx of cva sp trach and PEG now admitted with sob and desaturation Patient Past History Past Medical History: anemia, diabetes, heart failure, hypertension, hyperlipidemia, other (spinal stenosis, asthma, chronic RF, ) Past Surgical History: Other (s/p trach, s/p PEG) Social history: other ([facility] Resident) Family history: no significant family history Medications and Allergies Allergies Allergy/AdvReac Type Severity Reaction Status Date / Time No Known Allergies Allergy Unverified 08/31/18 01:41 Home Medications Medication Instructions Recorded Confirmed Last Taken Type Amantadine [Symmetrel] 100 mg PO DAILY 08/31/18 08/31/18 Unknown History AtorvaSTATin 40 mg PO 08/31/18 Unknown History Candesartan Cilexetil 16 mg PO DAILY 08/31/18 08/31/18 Unknown History Eliquis 5 mg PO BID 08/31/18 08/31/18 Unknown History Jevity 1.5 1,000 ml CONT 08/31/18 08/31/18 1 Day Ago History ~08/30/18 Levemir VIAL 22 units SUB-Q BID 08/31/18 08/31/18 Unknown History Lispro Insulin [HumaLOG] 08/31/18 Unknown History Metoprolol [Lopressor TAB] 50 mg PO Q6HR 08/31/18 08/31/18 Unknown History Nystatin [Nystatin SUSP] 5 ml PO Q6HR 08/31/18 08/31/18 Unknown History Timolol Maleate 0.5 08/31/18 Unknown History levETIRAcetam [Keppra] 500 mg PO BID 08/31/18 08/31/18 Unknown History Active Meds: Active Medications Acetaminophen (Tylenol) 650 mg PO Q4H PRN PRN Reason: Pain MILD(1-3)/Fever >100.5/[place] Last Admin: 09/02/18 23:59 Dose: 650 mg Documented by: Albuterol (Proventil) 2.5 mg IH Q4HRT PRN PRN Reason: Shortness Of Breath Albuterol/Ipratropium (Duoneb *Not For Prn Use*) 1 ampul IH Q6HRT [place]AY[place]IE Last Admin: 09/03/18 07:32 Dose: 1 ampul Documented by: Lipase/Protease/Amylase (Kathya Wilson 10,500 Unit) 1 each FEEDTUBE PRN PRN PRN Reason: For Clogged Feeding Tube Apixaban (Eliquis) 5 mg PO BID [facility] Last Admin: 09/03/18 09:42 Dose: 5 mg Documented by: Aspirin (Baby Aspirin) 81 mg PO QDAY [facility] Last Admin: 09/03/18 09:41 Dose: 81 mg Documented by: Atorvastatin Calcium (Lipitor) 40 mg PO QHS [facility] Last Admin: 09/02/18 21:17 Dose: 40 mg Documented by: Budesonide (Pulmicort) 0.5 mg IH Q12HRT [facility] Last Admin: 09/03/18 07:32 Dose: 0.5 mg Documented by: Clonidine HCl (Catapres-Tts Patch) 0.1 mg TD We [facility] Last Admin: 08/31/18 10:54 Dose: 0.1 mg Documented by: Dextrose (D50w (25gm) Syringe) 50 ml IV PRN PRN PRN Reason: Hypoglycemia Docusate Sodium (Colace) 100 mg PO BID [facility] Last Admin: 09/03/18 09:40 Dose: 100 mg Documented by: Furosemide (Lasix) 60 mg IV 0600,1800 [facility] Last Admin: 09/03/18 05:53 Dose: 60 mg Documented by: Hydralazine HCl (Apresoline) 10 mg IV Q4H PRN PRN Reason: Blood Pressure Last Admin: 09/02/18 21:16 Dose: 10 mg Documented by: Insulin Glargine (Lantus) 40 units SUB-Q BID [facility] Last Admin: 09/03/18 10:30 Dose: 40 units Documented by: Insulin Human Lispro (Humalog) 0 unit SUB-Q Q6HR [facility]; Protocol Last Admin: 09/03/18 06:02 Dose: 8 unit Documented by: Levetiracetam (Keppra) 500 mg PO BID [facility] Last Admin: 09/03/18 09:42 Dose: 500 mg Documented by: Losartan Potassium (Cozaar) 50 mg PO QDAY [facility] Last Admin: 09/03/18 09:41 Dose: 50 mg Documented by: Methylprednisolone Sodium Succinate (Solu-Medrol) 60 mg IV Q6H [facility] Metoprolol Tartrate (Lopressor) 25 mg PO Q6H [facility] Last Admin: 09/03/18 05:53 Dose: 25 mg Documented by: Morphine Sulfate (Morphine) 2 mg IV Q3H PRN PRN Reason: Pain, Moderate (4-6) Last Admin: 08/31/18 21:33 Dose: 2 mg Documented by: Nystatin (Nystatin) 500,000 unit PO Q6HR [facility] Last Admin: 09/03/18 05:53 Dose: 500,000 unit Documented by: Ondansetron HCl (Zofran) 4 mg IV Q8H PRN PRN Reason: Nausea And Vomiting Simple Syrup (Simple Syrup) 15 ml FEEDTUBE PRN PRN PRN Reason: Hypoglycemia Simple Syrup (Simple Syrup) 30 ml FEEDTUBE PRN PRN PRN Reason: Hypoglycemia Sodium Bicarbonate (Sodium Bicarbonate) 325 mg FEEDTUBE PRN PRN PRN Reason: For Clogged Feeding Tube Sodium Chloride (Sodium Chloride Flush Syringe 10 Ml) 10 ml IV BID [facility] Last Admin: 09/03/18 10:30 Dose: 10 ml Documented by: Sodium Chloride (Sodium Chloride Flush Syringe 10 Ml) 10 ml IV PRN PRN PRN Reason: LINE FLUSH Timolol Maleate (Timoptic) 1 drops OU DAILY [facility] Last Admin: 09/03/18 09:40 Dose: 1 drops Documented by: Physical Examination Vital signs: Vital Signs Pulse Resp BP Pulse Ox 98 H 25 H 120/51 100 08/30/18 23:10 08/30/18 23:10 08/30/18 23:10 08/30/18 23:10 Results - Laboratory Findings CBC and BMP: 09/01/18 04:47 09/01/18 04:47 ABG POC ABG pH 7.437 (7.35-7.45) 09/01/18 19:07 POC ABG pCO2 53.7 (35-45) H 09/01/18 19:07 POC ABG pO2 73 (80-105) L 09/01/18 19:07 POC ABG HCO3 36.2 (22-26 mml/L) 09/01/18 19:07 POC ABG Total CO2 38 (23-27mmol/L) 09/01/18 19:07 POC ABG O2 Sat 95 09/01/18 19:07 PT/INR, D-dimer PT 20.9 Sec. (12.2-14.9) H 08/31/18 00:27 INR 1.85 (0.87-1.13) H 08/31/18 00:27 Abnormal lab findings: Abnormal Labs 08/30/18 08/30/18 08/30/18 23:28 23:28 23:28 RBC 3.40 L RDW 18.9 H Lymph % (Auto) 7.2 L [place] % (Auto) 8.7 H Eos % (Auto) 4.8 H Lymph # 0.7 L Seg Neutrophils % 78.9 H Seg Neutrophils # PT INR POC ABG pCO2 POC ABG pO2 Chloride Carbon Dioxide 31 H BUN 41 H Glucose 189 H POC Glucose Hemoglobin A1c Troponin T 0.323 H* NT-Pro-B Natriuret Pep Albumin 1.8 L HDL Cholesterol 35 L 08/30/18 08/31/18 08/31/18 23:28 00:27 03:48 RBC RDW Lymph % (Auto) [place] % (Auto) Eos % (Auto) Lymph # Seg Neutrophils % Seg Neutrophils # PT 20.9 H INR 1.85 H POC ABG pCO2 55.2 H POC ABG pO2 Chloride Carbon Dioxide BUN Glucose POC Glucose Hemoglobin A1c Troponin T NT-Pro-B Natriuret Pep 05263 H Albumin HDL Cholesterol 08/31/18 08/31/18 08/31/18 05:34 05:34 11:44 RBC RDW Lymph % (Auto) [place] % (Auto) Eos % (Auto) Lymph # Seg Neutrophils % Seg Neutrophils # PT INR POC ABG pCO2 POC ABG pO2 Chloride Carbon Dioxide BUN Glucose POC Glucose 154 H Hemoglobin A1c 6.4 H Troponin T 0.215 H* D NT-Pro-B Natriuret Pep Albumin HDL Cholesterol 08/31/18 09/01/18 09/01/18 23:32 04:47 04:47 RBC RDW 19.1 H Lymph % (Auto) 7.9 L [place] % (Auto) 7.4 H Eos % (Auto) Lymph # 0.9 L Seg Neutrophils % 84.0 H Seg Neutrophils # 9.3 H PT INR POC ABG pCO2 POC ABG pO2 Chloride 94.1 L Carbon Dioxide 32 H BUN 46 H Glucose 189 H POC Glucose 138 H Hemoglobin A1c Troponin T NT-Pro-B Natriuret Pep Albumin HDL Cholesterol 09/01/18 09/01/18 09/01/18 05:59 11:38 16:17 RBC RDW Lymph % (Auto) [place] % (Auto) Eos % (Auto) Lymph # Seg Neutrophils % Seg Neutrophils # PT INR POC ABG pCO2 POC ABG pO2 Chloride Carbon Dioxide BUN Glucose POC Glucose 236 H 235 H 278 H Hemoglobin A1c Troponin T NT-Pro-B Natriuret Pep Albumin HDL Cholesterol 09/01/18 09/01/18 09/01/18 17:59 18:53 19:07 RBC RDW Lymph % (Auto) [place] % (Auto) Eos % (Auto) Lymph # Seg Neutrophils % Seg Neutrophils # PT INR POC ABG pCO2 53.7 H POC ABG pO2 73 L Chloride Carbon Dioxide BUN Glucose POC Glucose 281 H 376 H Hemoglobin A1c Troponin T NT-Pro-B Natriuret Pep Albumin HDL Cholesterol 09/01/18 09/02/18 09/02/18 21:29 00:22 06:20 RBC RDW Lymph % (Auto) [place] % (Auto) Eos % (Auto) Lymph # Seg Neutrophils % Seg Neutrophils # PT INR POC ABG pCO2 POC ABG pO2 Chloride Carbon Dioxide BUN Glucose POC Glucose 247 H 369 H 414 H Hemoglobin A1c Troponin T NT-Pro-B Natriuret Pep Albumin HDL Cholesterol 09/02/18 09/02/18 09/02/18 11:56 18:21 23:42 RBC RDW Lymph % (Auto) [place] % (Auto) Eos % (Auto) Lymph # Seg Neutrophils % Seg Neutrophils # PT INR POC ABG pCO2 POC ABG pO2 Chloride Carbon Dioxide BUN Glucose POC Glucose 416 H 429 H 373 H Hemoglobin A1c Troponin T NT-Pro-B Natriuret Pep Albumin HDL Cholesterol 09/03/18 05:28 RBC RDW Lymph % (Auto) [place] % (Auto) Eos % (Auto) Lymph # Seg Neutrophils % Seg Neutrophils # PT INR POC ABG pCO2 POC ABG pO2 Chloride Carbon Dioxide BUN Glucose POC Glucose 400 H Hemoglobin A1c Troponin T NT-Pro-B Natriuret Pep Albumin HDL Cholesterol - Diagnostic Findings Chest x-ray: report reviewed, image reviewed Assessment and Plan - Patient Problems (1) Pulmonary emboli Current Visit: Yes Status: Acute (2) Chronic respiratory failure Current Visit: Yes Status: Acute (3) Tracheostomy dependent Current Visit: Yes Status: Acute (4) Acute exacerbation of CHF (congestive heart failure) Current Visit: Yes Status: Acute Qualifiers: Heart failure type: systolic Qualified Code(s): I50.23 - Acute on chronic systolic (congestive) heart failure
[2018-09-03] MEDS: TYLENOL PO PRN (14:18)
[2018-09-03] MEDS: APRESOLINE IV PRN (14:30)
--- NOTE | 2018-09-03 15:05 | Event Note ---
Date: 09/01/18 Patient was seen for code met Was Tachypneic Suctioned--Improved Was given Duonebs and solumedrol Improved Imp Acute Broncitis Tx with duonebs solumedrol and abx
[2018-09-04] MEDS: SOLU-Medrol IV SCH ×4 (00:23→18:31)
[2018-09-04] MEDS: NYSTATIN PO SCH ×5 (00:23→23:10)
[2018-09-04] MEDS: HumaLOG SUB-Q SCH ×5 (00:24→23:10)
[2018-09-04] MEDS: LOPRESSOR PO SCH ×5 (00:25→22:00)
[2018-09-04] MEDS: SODIUM CHLORIDE FLUSH SYRINGE 10 ML IV SCH ×3 (00:28→21:47)
[2018-09-04] MEDS: DUONEB *Not for PRN Use IH SCH ×4 (03:27→20:40)
[2018-09-04] MEDS: LASIX IV SCH ×2 (05:27→18:29)
[2018-09-04] MEDS: PULMICORT IH SCH ×2 (07:53→20:40)
--- NOTE | 2018-09-04 09:43 | Progress Note ---
Assessment and Plan - Patient Problems (1) Pulmonary emboli Current Visit: Yes Status: Acute (2) Chronic respiratory failure Current Visit: Yes Status: Acute (3) Tracheostomy dependent Current Visit: Yes Status: Acute (4) Acute exacerbation of CHF (congestive heart failure) Current Visit: Yes Status: Acute Qualifiers: Heart failure type: systolic Qualified Code(s): I50.23 - Acute on chronic systolic (congestive) heart failure Subjective Principal diagnosis: CHF Interval history: more responsive family at bedside Objective Vital Signs - 12hr 09/03/18 09/04/18 09/04/18 22:00 00:06 00:25 Temperature 98.4 F Pulse Rate 100 H 100 H 100 H Pulse Rate [ Anterior Bilateral Throughout] Respiratory 20 Rate Respiratory Rate [Anterior Bilateral Throughout] Blood Pressure 139/75 139/75 O2 Sat by Pulse 97 93 Oximetry O2 Sat by Pulse Oximetry [ Assessment] 09/04/18 09/04/18 09/04/18 03:27 04:26 05:27 Temperature 97.5 F L Pulse Rate 100 H 100 H Pulse Rate [ 99 H Anterior Bilateral Throughout] Respiratory 20 Rate Respiratory 18 Rate [Anterior Bilateral Throughout] Blood Pressure 164/80 139/75 O2 Sat by Pulse 93 Oximetry O2 Sat by Pulse 97 Oximetry [ Assessment] 09/04/18 09/04/18 09/04/18 07:50 07:57 08:00 Temperature Pulse Rate 90 Pulse Rate [ 94 H 95 H Anterior Bilateral Throughout] Respiratory Rate Respiratory 18 18 Rate [Anterior Bilateral Throughout] Blood Pressure O2 Sat by Pulse Oximetry O2 Sat by Pulse 99 Oximetry [ Assessment] 09/04/18 09/04/18 08:29 08:49 Temperature 97.9 F Pulse Rate 94 H Pulse Rate [ Anterior Bilateral Throughout] Respiratory 18 Rate Respiratory Rate [Anterior Bilateral Throughout] Blood Pressure 150/115 O2 Sat by Pulse 100 100 Oximetry O2 Sat by Pulse Oximetry [ Assessment] Constitutional: no acute distress Eyes: non-icteric ENT: oropharynx moist, other (trach in place on RA) Neck: supple Ascultation: Bilateral: rhonchi (rare) Cardiovascular: regular rate and rhythm Gastrointestinal: normoactive bowel sounds, non-distended, other (peg in place) Integumentary: normal Extremities: no cyanosis CBC and BMP: 09/01/18 04:47 09/01/18 04:47 ABG, PT/INR, D-dimer: ABG POC ABG pH 7.437 (7.35-7.45) 09/01/18 19:07 POC ABG pCO2 53.7 (35-45) H 09/01/18 19:07 POC ABG pO2 73 (80-105) L 09/01/18 19:07 POC ABG HCO3 36.2 (22-26 mml/L) 09/01/18 19:07 POC ABG Total CO2 38 (23-27mmol/L) 09/01/18 19:07 POC ABG O2 Sat 95 09/01/18 19:07 PT/INR, D-dimer PT 20.9 Sec. (12.2-14.9) H 08/31/18 00:27 INR 1.85 (0.87-1.13) H 08/31/18 00:27 Abnormal lab findings: Abnormal Labs 08/30/18 08/30/18 08/30/18 23:28 23:28 23:28 RBC 3.40 L RDW 18.9 H Lymph % (Auto) 7.2 L [place] % (Auto) 8.7 H Eos % (Auto) 4.8 H Lymph # 0.7 L Seg Neutrophils % 78.9 H Seg Neutrophils # PT INR POC ABG pCO2 POC ABG pO2 Chloride Carbon Dioxide 31 H BUN 41 H Glucose 189 H POC Glucose Hemoglobin A1c Troponin T 0.323 H* NT-Pro-B Natriuret Pep Albumin 1.8 L HDL Cholesterol 35 L 08/30/18 08/31/18 08/31/18 23:28 00:27 03:48 RBC RDW Lymph % (Auto) [place] % (Auto) Eos % (Auto) Lymph # Seg Neutrophils % Seg Neutrophils # PT 20.9 H INR 1.85 H POC ABG pCO2 55.2 H POC ABG pO2 Chloride Carbon Dioxide BUN Glucose POC Glucose Hemoglobin A1c Troponin T NT-Pro-B Natriuret Pep 68606 H Albumin HDL Cholesterol 08/31/18 08/31/18 08/31/18 05:34 05:34 11:44 RBC RDW Lymph % (Auto) [place] % (Auto) Eos % (Auto) Lymph # Seg Neutrophils % Seg Neutrophils # PT INR POC ABG pCO2 POC ABG pO2 Chloride Carbon Dioxide BUN Glucose POC Glucose 154 H Hemoglobin A1c 6.4 H Troponin T 0.215 H* D NT-Pro-B Natriuret Pep Albumin HDL Cholesterol 08/31/18 09/01/18 09/01/18 23:32 04:47 04:47 RBC RDW 19.1 H Lymph % (Auto) 7.9 L [place] % (Auto) 7.4 H Eos % (Auto) Lymph # 0.9 L Seg Neutrophils % 84.0 H Seg Neutrophils # 9.3 H PT INR POC ABG pCO2 POC ABG pO2 Chloride 94.1 L Carbon Dioxide 32 H BUN 46 H Glucose 189 H POC Glucose 138 H Hemoglobin A1c Troponin T NT-Pro-B Natriuret Pep Albumin HDL Cholesterol 09/01/18 09/01/18 09/01/18 05:59 11:38 16:17 RBC RDW Lymph % (Auto) [place] % (Auto) Eos % (Auto) Lymph # Seg Neutrophils % Seg Neutrophils # PT INR POC ABG pCO2 POC ABG pO2 Chloride Carbon Dioxide BUN Glucose POC Glucose 236 H 235 H 278 H Hemoglobin A1c Troponin T NT-Pro-B Natriuret Pep Albumin HDL Cholesterol 09/01/18 09/01/18 09/01/18 17:59 18:53 19:07 RBC RDW Lymph % (Auto) [place] % (Auto) Eos % (Auto) Lymph # Seg Neutrophils % Seg Neutrophils # PT INR POC ABG pCO2 53.7 H POC ABG pO2 73 L Chloride Carbon Dioxide BUN Glucose POC Glucose 281 H 376 H Hemoglobin A1c Troponin T NT-Pro-B Natriuret Pep Albumin HDL Cholesterol 09/01/18 09/02/18 09/02/18 21:29 00:22 06:20 RBC RDW Lymph % (Auto) [place] % (Auto) Eos % (Auto) Lymph # Seg Neutrophils % Seg Neutrophils # PT INR POC ABG pCO2 POC ABG pO2 Chloride Carbon Dioxide BUN Glucose POC Glucose 247 H 369 H 414 H Hemoglobin A1c Troponin T NT-Pro-B Natriuret Pep Albumin HDL Cholesterol 09/02/18 09/02/18 09/02/18 11:56 18:21 23:42 RBC RDW Lymph % (Auto) [place] % (Auto) Eos % (Auto) Lymph # Seg Neutrophils % Seg Neutrophils # PT INR POC ABG pCO2 POC ABG pO2 Chloride Carbon Dioxide BUN Glucose POC Glucose 416 H 429 H 373 H Hemoglobin A1c Troponin T NT-Pro-B Natriuret Pep Albumin HDL Cholesterol 09/03/18 09/03/1809/03/19 05:28 11:17 17:46 RBC RDW Lymph % (Auto) [place] % (Auto) Eos % (Auto) Lymph # Seg Neutrophils % Seg Neutrophils # PT INR POC ABG pCO2 POC ABG pO2 Chloride Carbon Dioxide BUN Glucose POC Glucose 400 H 319 H 308 H Hemoglobin A1c Troponin T NT-Pro-B Natriuret Pep Albumin HDL Cholesterol 09/04/18 09/04/18 00:10 05:56 RBC RDW Lymph % (Auto) [place] % (Auto) Eos % (Auto) Lymph # Seg Neutrophils % Seg Neutrophils # PT INR POC ABG pCO2 POC ABG pO2 Chloride Carbon Dioxide BUN Glucose POC Glucose 232 H 254 H Hemoglobin A1c Troponin T NT-Pro-B Natriuret Pep Albumin HDL Cholesterol
--- NOTE | 2018-09-04 10:05 | Progress Note ---
Assessment and Plan 1. Chronic combined systolic and diastolic heart failure 2. Dilated cardiomyopathy 3. Essential hypertension 4. Type 2 diabetes mellitus 5. Paroxysmal atrial fibrillation 6. History of probable CVA Plan. Patient is nonverbal and has a trach and PEG tube she is not a candidate for invasive cardiac management would continue conservative management for CHF will monitor fluids input and output closely. Subjective Date of service: 09/04/18 Principal diagnosis: CHF Interval history: Non verbal Objective Vital Signs Temp Pulse Pulse Resp Resp BP Pulse Ox 09/04/18 08:49 100 09/04/18 08:29 97.9 F 94 H 18 150/115 100 09/04/18 08:00 95 H 18 09/04/18 07:57 90 09/04/18 07:50 94 H 18 09/04/18 05:27 100 H 139/75 09/04/18 04:26 97.5 F L 100 H 20 164/80 93 09/04/18 03:27 99 H 18 09/04/18 00:25 100 H 139/75 09/04/18 00:06 98.4 F 100 H 20 139/75 93 09/03/18 22:00 100 H 97 09/03/18 20:20 106 H 20 94 09/03/18 19:27 98.3 F 100 H 20 139/59 87 09/03/18 17:39 109 H 141/69 09/03/18 17:11 98.7 F 109 H 16 141/69 97 09/03/18 17:00 09/03/18 14:30 105 H 173/77 09/03/18 13:08 98 H 20 09/03/18 12:21 98.7 F 94 H 18 176/71 97 09/03/18 11:24 103 H 144/71 Pulse Ox 09/04/18 08:49 09/04/18 08:29 09/04/18 08:00 99 09/04/18 07:57 09/04/18 07:50 09/04/18 05:27 09/04/18 04:26 09/04/18 03:27 97 09/04/18 00:25 09/04/18 00:06 09/03/18 22:00 09/03/18 20:20 94 09/03/18 19:27 09/03/18 17:39 09/03/18 17:11 09/03/18 17:00 96 09/03/18 14:30 09/03/18 13:08 09/03/18 12:21 09/03/18 11:24 - Physical Examination General: Other (Ill looking nonverbal) HEENT: Positive: PERRL, Normocephaly Neck: Positive: neck supple, trachea midline, Other (Midline trach). Negative: JVD/HJR Cardiac: Positive: Regular Rate, S3, PMI, Laterally Displaced Lungs: Positive: clear to auscultation, No Wheeze, Rales, Rhonchi Neuro: Positive: Other (Nonverbal or communicative refer to admitting H&P) Abdomen: Positive: Soft Extremities: Absent: edema
[2018-09-04] MEDS: TIMOPTIC OU SCH (10:28)
[2018-09-04] MEDS: COLACE PO SCH ×2 (10:30→21:46)
[2018-09-04] MEDS: COZAAR PO SCH (10:30)
[2018-09-04] MEDS: ELIQUIS PO SCH ×2 (10:30→21:46)
[2018-09-04] MEDS: BABY ASPIRIN PO SCH (10:30)
[2018-09-04] MEDS: KEPPRA PO SCH ×2 (10:30→21:46)
[2018-09-04] MEDS: LANTUS SUB-Q SCH ×2 (10:37→21:46)
--- NOTE | 2018-09-04 11:43 | Progress Note ---
Assessment and Plan Assessment and plan: --Acute on chronic hypoxic respiratory failure;s/p tracheostomy Continue nebulizers and oxygen titrated to O2 sats more than 90% Antibiotics, supportive care, pulmonary evaluation if needed --Acute exacerbation diastolic CHF EF >55% (Echo 07/2018) --NSTEMI: Cardiology following, continue current management no plans of ischemia workup --History of A. fib; rate controlled, continue beta blockers Chronic anticoagulation --History of CVA with residual weakness[April 2018] Supportive care --Type 2 diabetes mellitus; secondary to high-dose steroids Accu-Chek sliding scale coverage Feeding Long-acting insulin as needed --History of PE; status post IVC filter placement, On Eliquis --Full code Status; Patient's condition and treatment plan poor prognosis discussed in detail with the 2 daughters at the bed side,They had neumorous questions and concerns, and I addressed all of them CODE STATUS discussed, Full Code Disposition; possible discharge and transfer to SNF tomorrow if stable History Interval history: Patient seen and examined medical records reviewed S/P tracheostomy on T piece Noncommunicative, not in acute distress Vital signs reviewed Hospitalist Physical - Constitutional Vitals: Temp Pulse Resp BP Pulse Ox 97.9 F 94 H 18 150/115 100 09/04/18 08:29 09/04/18 08:29 09/04/18 08:29 09/04/18 08:29 09/04/18 08:49 General appearance: Present: no acute distress, well-nourished, other (noncommunicative ,tracheostomy on T piece,) - EENT Eyes: Present: PERRL, EOM intact - Neck Neck: Present: supple, normal ROM - Respiratory Respiratory effort: normal Respiratory: bilateral: diminished, negative: rales, rhonchi, wheezing - Cardiovascular Rhythm: regular Heart Sounds: Present: S1 & S2 - Extremities Extremities: no ischemia Extremity abnormal: edema - Abdominal General gastrointestinal: soft, non-tender, non-distended, normal bowel sounds - Integumentary Integumentary: Present: clear, warm - Psychiatric Psychiatric: other (noncommunicative) - Neurologic Neurologic: other (unresponsive, encephalopathic) Results - Labs CBC & Chem 7: 09/01/18 04:47 09/01/18 04:47 Labs: Laboratory Last Values WBC 11.0 K/mm3 (4.5-11.0) 09/01/18 04:47 RBC 3.76 M/mm3 (3.65-5.03) 09/01/18 04:47 Hgb 11.0 gm/dl (10.1-14.3) 09/01/18 04:47 Hct 34.5 % (30.3-42.9) 09/01/18 04:47 MCV 92 fl (79-97) 09/01/18 04:47 MCH 29 pg (28-32) 09/01/18 04:47 MCHC 32 % (30-34) 09/01/18 04:47 RDW 19.1 % (13.2-15.2) H 09/01/18 04:47 Plt Count 210 K/mm3 (140-440) 09/01/18 04:47 Lymph % (Auto) 7.9 % (13.4-35.0) L 09/01/18 04:47 [place] % (Auto) 7.4 % (0.0-7.3) H 09/01/18 04:47 Eos % (Auto) 0.3 % (0.0-4.3) 09/01/18 04:47 Baso % (Auto) 0.4 % (0.0-1.8) 09/01/18 04:47 Lymph # 0.9 K/mm3 (1.2-5.4) L 09/01/18 04:47 [place] # 0.8 K/mm3 (0.0-0.8) 09/01/18 04:47 Eos # 0.0 K/mm3 (0.0-0.4) 09/01/18 04:47 Baso # 0.0 K/mm3 (0.0-0.1) 09/01/18 04:47 Seg Neutrophils % 84.0 % (40.0-70.0) H 09/01/18 04:47 Seg Neutrophils # 9.3 K/mm3 (1.8-7.7) H 09/01/18 04:47 PT 20.9 Sec. (12.2-14.9) H 08/31/18 00:27 INR 1.85 (0.87-1.13) H 08/31/18 00:27 APTT 30.7 Sec. (24.2-36.6) 08/31/18 00:27 POC ABG pH 7.437 (7.35-7.45) 09/01/18 19:07 POC ABG pCO2 53.7 (35-45) H 09/01/18 19:07 POC ABG pO2 73 (80-105) L 09/01/18 19:07 POC ABG HCO3 36.2 (22-26 mml/L) 09/01/18 19:07 POC ABG Total CO2 38 (23-27mmol/L) 09/01/18 19:07 POC ABG O2 Sat 95 09/01/18 19:07 POC ABG Base Excess 12 ((-2) - (+3)mmol/L) 09/01/18 19:07 35 % 09/01/18 19:07 Sodium 138 mmol/L (137-145) 09/01/18 04:47 Potassium 4.9 mmol/L (3.6-5.0) 09/01/18 04:47 Chloride 94.1 mmol/L (98-107) L 09/01/18 04:47 Carbon Dioxide 32 mmol/L (22-30) H 09/01/18 04:47 17 mmol/L 09/01/18 04:47 BUN 46 mg/dL (7-17) H 09/01/18 04:47 1.0 mg/dL (0.7-1.2) 09/01/18 04:47 Estimated GFR > 60 ml/min 09/01/18 04:47 46 % 09/01/18 04:47 Glucose 189 mg/dL (65-100) H 09/01/18 04:47 POC Glucose 254 (70-105) H 09/04/18 05:56 6.4 % (4-6) H 08/31/18 05:34 Calcium 9.8 mg/dL (8.4-10.2) 09/01/18 04:47 0.30 mg/dL (0.1-1.2) 08/30/18 23:28 AST 33 units/L (5-40) 08/30/18 23:28 ALT 22 units/L (7-56) 08/30/18 23:28 110 units/L (35-129) 08/30/18 23:28 0.215 ng/mL (0.00-0.029) H* D 08/31/18 05:34 NT-Pro-B Natriuret Pep 50494 pg/mL (0-900) H 08/30/18 23:28 6.7 g/dL (6.3-8.2) 08/30/18 23:28 1.8 g/dL (3.9-5) L 08/30/18 23:28 0.4 % 08/30/18 23:28 Triglycerides 77 mg/dL (2-149) 08/30/18 23:28 Cholesterol 99 mg/dL (50-199) 08/30/18 23:28 56 mg/dL (50-130) 08/30/18 23:28 35 mg/dL (40-59) L 08/30/18 23:28 2.82 % 08/30/18 23:28 Active Medications - Current Medications Current Medications: Generic Name Dose Route Start Last Admin Trade Name Freq PRN Reason Stop Dose Admin Acetaminophen 650 mg 08/31/18 01:25 09/03/18 14:18 Tylenol PO 650 mg Q4H PRN Administration Pain MILD(1-3)/Fever >100.5/[place] Albuterol 2.5 mg 09/01/18 20:10 Proventil IH Q4HRT PRN Shortness Of Breath Albuterol/Ipratropium 1 ampul 09/02/18 02:00 09/04/18 07:54 Duoneb *Not For Prn Use* IH 1 ampul Q6HRT HAYLIE Administration Lipase/Protease/Amylase 1 each 08/31/18 16:46 Pancreazwarren Wilson 10,500 Unit FEEDTUBE PRN PRN For Clogged Feeding Tube Apixaban 5 mg 08/31/18 10:00 09/04/18 10:30 Eliquis PO 5 mg BID HAYLIE Administration Aspirin 81 mg 08/31/18 10:00 09/04/18 10:30 Baby Aspirin PO 81 mg QDAY HAYLIE Administration Atorvastatin Calcium 40 mg 08/31/18 22:00 09/03/18 21:03 Lipitor PO 40 mg QHS HAYLIE Administration Budesonide 0.5 mg 09/01/18 20:15 09/04/18 07:53 Pulmicort IH 0.5 mg Q12HRT HAYLIE Administration Clonidine HCl 0.1 mg 08/31/18 10:00 08/31/18 10:54 Catapres-Tts Patch TD 0.1 mg We HAYLIE Administration Dextrose 50 ml 09/02/18 06:36 D50w (25gm) Syringe IV PRN PRN Hypoglycemia Docusate Sodium 100 mg 08/31/18 10:00 09/04/18 10:30 Colace PO 100 mg BID HAYLIE Administration Furosemide 60 mg 09/02/18 11:00 09/04/18 05:27 Lasix IV 60 mg 0600,1800 HAYLIE Administration Hydralazine HCl 10 mg 08/31/18 04:33 09/03/18 14:30 Apresoline IV 10 mg Q4H PRN Administration Blood Pressure Insulin Glargine 40 units 09/03/18 10:00 09/04/18 10:37 Lantus SUB-Q 40 units BID HAYLIE Administration Insulin Human Lispro 0 unit 08/31/18 06:00 09/04/18 05:56 Humalog SUB-Q 4 unit Q6HR HAYLIE Administration Protocol Levetiracetam 500 mg 08/31/18 10:00 09/04/18 10:30 Keppra PO 500 mg BID HAYLIE Administration Losartan Potassium 50 mg 08/31/18 10:00 09/04/18 10:30 Cozaar PO 50 mg QDAY HAYLIE Administration Methylprednisolone Sodium Succinate 60 mg 09/03/18 12:00 09/04/18 05:27 Solu-Medrol IV 60 mg Q6H HAYLIE Administration Metoprolol Tartrate 25 mg 09/02/18 11:00 09/04/18 05:27 Lopressor PO 25 mg Q6H HAYLIE Administration Morphine Sulfate 2 mg 08/31/18 04:33 08/31/18 21:33 Morphine IV 2 mg Q3H PRN Administration Pain, Moderate (4-6) Nystatin 500,000 unit 08/31/18 06:00 09/04/18 05:27 Nystatin PO 500,000 unit Q6HR HAYLIE Administration Ondansetron HCl 4 mg 08/31/18 01:25 Zofran IV Q8H PRN Nausea And Vomiting Simple Syrup 15 ml 08/31/18 16:46 Simple Syrup FEEDTUBE PRN PRN Hypoglycemia Simple Syrup 30 ml 08/31/18 16:46 Simple Syrup FEEDTUBE PRN PRN Hypoglycemia Sodium Bicarbonate 325 mg 08/31/18 16:46 Sodium Bicarbonate FEEDTUBE PRN PRN For Clogged Feeding Tube Sodium Chloride 10 ml 08/31/18 10:00 09/04/18 00:28 Sodium Chloride Flush Syringe 10 Ml IV 10 ml BID HAYLIE Administration Sodium Chloride 10 ml 08/31/18 01:25 Sodium Chloride Flush Syringe 10 Ml IV PRN PRN LINE FLUSH Timolol Maleate 1 drops 08/31/18 10:00 09/04/18 10:28 Timoptic OU 1 drops DAILY HAYLIE Administration Nutrition/Malnutrition Assess - Dietary Evaluation Nutrition/Malnutrition Findings: Nutrition Notes Start: 08/31/18 16:26 Freq: Status: Active Protocol: Document 09/02/18 18:55 RM (Rec: 09/02/18 19:07 RM [id number]) Nutrition Notes Initial or Follow up Reassessment Current Diagnosis Diabetes,Hypertension,Heart Failure,Stroke,Hyperlipidemia Other Pertinent Diagnosis PEG, R foot wound Current Diet Glucerna 1.2 at 40 ml/hr Labs/Tests K 4.9 POC 416 Pertinent Medications Lasix, Solu-medrol Height 5 ft 9 in Weight 108.9 kg [place] Body Weight (kg) 65.90 BMI 35.4 Subjective/Other Information Observed Glucerna 1.2 infusing at goal rate. Nurse unaware of TF order change. 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 Percent of energy/protein needs met: 100%/75% Burn Absent Trauma Absent #1 Nutrition Diagnosis Inadequate oral intake Diagnosis Progress(for reassessment Continues documentation) Is patient on ventilator? No Is Patient Ambulatory and/or Out of Bed No REE-([facility]-confined to bed) 1994.756 Kcal/Kg value to use for calculation 14 Approximate Energy Requirements Using 1525 kcal/Kg Calculation Used for Recommendations Kcal/kg Additional Notes Protein Needs: 106-132g (1.2-1 .5g/kg 88 kg adjBW ) Fluid Needs: 1 ml/kcal Nutrition Intervention Nutrition Support: Glucerna at 55 ml/hr Water flush of 100 mls q 4 hrs . Kcal 1,584 Protein (gm) 80 Fluid (mL) 1,063 Goal #1 TF tolerance Goal #2 Meet at least 75% of calorie and protein needs via TF Anticipated Discharge Needs: TF Follow-Up By: 09/05/18 Additional Comments Follow for TF tolerance, BG, K lab
[2018-09-04] MEDS: TYLENOL PO PRN (18:29)
[2018-09-05] MEDS: SOLU-Medrol IV SCH ×3 (01:40→18:20)
[2018-09-05] MEDS: DUONEB *Not for PRN Use IH SCH ×4 (02:22→19:47)
[2018-09-05] MEDS: HumaLOG SUB-Q SCH ×3 (05:14→19:56)
[2018-09-05] MEDS: NYSTATIN PO SCH ×3 (05:15→18:20)
[2018-09-05] MEDS: LOPRESSOR PO SCH ×3 (05:15→18:19)
[2018-09-05] MEDS: LASIX IV SCH ×2 (05:15→18:19)
[2018-09-05 06:27] LABS: BUN/Creatinine Ratio 66; Blood Urea Nitrogen 66 mg/dL (7-17); Calcium 9.2 mg/dL (8.4-10.2); Hemolysis Index 35
[2018-09-05] MEDS: PULMICORT IH SCH ×2 (07:38→19:47)
--- NOTE | 2018-09-05 09:26 | Progress Note ---
Assessment and Plan Atrial fibrillation, permanent On eliquis On metoprolol for rate control History of CVA s/p PEG tube Acute on chronic diastolic heart failure Echo 07/2018 - Normal LVEF Type II DM Systemic Hypertension Hyperlipidemia Recommendations: Continue medical therapy for heart failure with a preserved ejection fraction. Continue medical therapy for permanent atrial fibrillation. Otherwise, conservative cardiac management Subjective Date of service: 09/05/18 Principal diagnosis: CHF Interval history: Afib with a well controlled ventricular rate on telemetry. Objective Vital Signs Temp Pulse Pulse Pulse Pulse Resp Resp 09/05/18 08:51 91 H 22 09/05/18 08:43 91 H 09/05/18 08:24 98.8 F 100 H 18 09/05/18 08:01 97 H 18 09/05/18 07:45 09/05/18 07:40 09/05/18 07:39 100 H 18 09/05/18 05:15 100 H 09/05/18 03:42 97.9 F 100 H 16 09/05/18 02:35 86 09/05/18 00:20 09/04/18 23:23 97.5 F L 92 H 16 09/04/18 22:35 09/04/18 22:00 100 H 09/04/18 21:50 78 26 H 09/04/18 20:55 92 H 09/04/18 20:49 100 H 09/04/18 19:29 20 09/04/18 19:27 97.8 F 100 H 16 09/04/18 18:29 20 09/04/18 16:45 98.6 F 94 H 20 09/04/18 14:02 100 H 20 09/04/18 13:52 99 H 20 09/04/18 11:51 97.9 F 102 H 18 09/04/18 10:00 Resp BP Pulse Ox Pulse Ox 09/05/18 08:51 96 09/05/18 08:43 09/05/18 08:24 148/89 96 09/05/18 08:01 09/05/18 07:45 96 09/05/18 07:40 96 09/05/18 07:39 09/05/18 05:15 156/72 09/05/18 03:42 156/72 94 09/05/18 02:35 16 09/05/18 00:20 98 09/04/18 23:23 155/95 92 07/07/19 22:35 98 09/04/18 22:00 158/86 09/04/18 21:50 98 09/04/18 20:55 18 09/04/18 20:49 09/04/18 19:29 09/04/18 19:27 158/86 96 09/04/18 18:29 09/04/18 16:45 157/66 94 09/04/18 14:02 09/04/18 13:52 09/04/18 11:51 193/118 89 09/04/18 10:00 98 - Physical Examination General: No Apparent Distress, Other (nonverbal) HEENT: Positive: PERRL Cardiac: Positive: irregularly irregular Extremities: Absent: edema - Labs and Meds Comprehensive Metabolic Panel 09/05/18 Range/Units 04:21 Sodium 141 (137-145) mmol/L Potassium 3.7 D (3.6-5.0) mmol/L Chloride 97.3 L (98-107) mmol/L Carbon Dioxide 33 H (22-30) mmol/L BUN 66 H (7-17) mg/dL Creatinine 1.0 (0.7-1.2) mg/dL Glucose 232 H (65-100) mg/dL Calcium 9.2 (8.4-10.2) mg/dL
[2018-09-05] MEDS: COLACE PO SCH ×2 (11:06→21:45)
[2018-09-05] MEDS: KEPPRA PO SCH ×2 (11:06→21:45)
[2018-09-05] MEDS: COZAAR PO SCH (11:07)
[2018-09-05] MEDS: TIMOPTIC OU SCH (11:07)
[2018-09-05] MEDS: BABY ASPIRIN PO SCH (11:07)
[2018-09-05] MEDS: ELIQUIS PO SCH ×2 (11:07→21:45)
[2018-09-05] MEDS: LANTUS SUB-Q SCH ×3 (11:25→21:44)
--- NOTE | 2018-09-05 11:55 | Progress Note ---
Assessment and Plan Assessment and plan: 73-year-old -[place]ian female , a resident of [facility] with history of atrial fibrillation anticoagulated on Eliquis, MD, PE status post IVC filter, insulin-dependent diabetes, hypertension, chronic respiratory failure, diastolic heart failure, hyperlipidemia, CVA with left and right sided deficts, and debility,s/p trach and PEG who presents to [facility] ED with admitted through ED with worsening shortnress of breath In April 2018 she had a CVA complicated by respiratory failure amongst other complications, s/p trach and PEG and had a prolonged stay at [place]. She was recently ( approx 3 weeks ago) hospitalized at [facility] for CHF exacerbation. She has been [facility] with past 2 weeks. The skilled nursing reported that patient was hyoxic ans was sent to [facility] for further evaluation and management. Assessment ans Plan: --Acute on chronic hypoxic respiratory failure;h/o tracheostomy Continue nebulizers and oxygen titrate to O2 sats more than 90% supportive care, pulmonary following --Acute exacerbation diastolic CHF EF >55% (Echo 07/2018) --NSTEMI: Cardiology following, continue conservative management no plans of ischemia workup --History of A. fib; rate controlled, continue beta blockers Chronic anticoagulation --History of CVA with residual weakness[April 2018] s/p trach and PEG Supportive care --Type 2 diabetes mellitus;uncontrolled secondary to high-dose steroids Accu-Chek sliding scale coverage tube Feeding Long-acting insulin as needed --History of PE; status post IVC filter placement, On Eliquis --Full code Status; Patient's condition and treatment plan poor prognosis discussed in detail with the 2 daughters at the bed side,They had neumorous questions and concerns, and I addressed all of them CODE STATUS discussed, Full Code Disposition; possible discharge and transfer to SNF in 1-2 days if stable. History Interval history: Patient seen and examined s/p tracheostomy on Tpiece. Patient comfortable,no new complaints vitals stable Hospitalist Physical - Constitutional Vitals: Temp Pulse Resp BP Pulse Ox 98.8 F 91 H 22 148/89 96 09/05/18 08:24 09/05/18 08:51 09/05/18 08:51 09/05/18 08:24 09/05/18 08:51 General appearance: Present: no acute distress, well-nourished, obese, other (noncommunicative ,tracheostomy on T piece,) - EENT Eyes: Present: PERRL, EOM intact - Neck Neck: Present: supple, normal ROM - Respiratory Respiratory effort: normal, labored Respiratory: bilateral: diminished, rhonchi, negative: rales, wheezing - Cardiovascular Rhythm: regular - Extremities Extremities: no ischemia Extremity abnormal: edema - Abdominal General gastrointestinal: soft, non-tender, non-distended, normal bowel sounds, other (PEG in place) - Integumentary Integumentary: Present: clear, warm - Psychiatric Psychiatric: other (noncommunicative) - Neurologic Neurologic: other (noncommunicative) Results - Labs CBC & Chem 7: 09/01/18 04:47 09/05/18 04:21 Labs: Laboratory Last Values WBC 11.0 K/mm3 (4.5-11.0) 09/01/18 04:47 RBC 3.76 M/mm3 (3.65-5.03) 09/01/18 04:47 Hgb 11.0 gm/dl (10.1-14.3) 09/01/18 04:47 Hct 34.5 % (30.3-42.9) 09/01/18 04:47 MCV 92 fl (79-97) 09/01/18 04:47 MCH 29 pg (28-32) 09/01/18 04:47 MCHC 32 % (30-34) 09/01/18 04:47 RDW 19.1 % (13.2-15.2) H 09/01/18 04:47 Plt Count 210 K/mm3 (140-440) 09/01/18 04:47 Lymph % (Auto) 7.9 % (13.4-35.0) L 09/01/18 04:47 [place] % (Auto) 7.4 % (0.0-7.3) H 09/01/18 04:47 Eos % (Auto) 0.3 % (0.0-4.3) 09/01/18 04:47 Baso % (Auto) 0.4 % (0.0-1.8) 09/01/18 04:47 Lymph # 0.9 K/mm3 (1.2-5.4) L 09/01/18 04:47 [place] # 0.8 K/mm3 (0.0-0.8) 09/01/18 04:47 Eos # 0.0 K/mm3 (0.0-0.4) 09/01/18 04:47 Baso # 0.0 K/mm3 (0.0-0.1) 09/01/18 04:47 Seg Neutrophils % 84.0 % (40.0-70.0) H 09/01/18 04:47 Seg Neutrophils # 9.3 K/mm3 (1.8-7.7) H 09/01/18 04:47 PT 20.9 Sec. (12.2-14.9) H 08/31/18 00:27 INR 1.85 (0.87-1.13) H 08/31/18 00:27 APTT 30.7 Sec. (24.2-36.6) 08/31/18 00:27 POC ABG pH 7.437 (7.35-7.45) 09/01/18 19:07 POC ABG pCO2 53.7 (35-45) H 09/01/18 19:07 POC ABG pO2 73 (80-105) L 09/01/18 19:07 POC ABG HCO3 36.2 (22-26 mml/L) 09/01/18 19:07 POC ABG Total CO2 38 (23-27mmol/L) 09/01/18 19:07 POC ABG O2 Sat 95 09/01/18 19:07 POC ABG Base Excess 12 ((-2) - (+3)mmol/L) 09/01/18 19:07 35 % 09/01/18 19:07 Sodium 141 mmol/L (137-145) 09/05/18 04:21 Potassium 3.7 mmol/L (3.6-5.0) D 09/05/18 04:21 Chloride 97.3 mmol/L (98-107) L 09/05/18 04:21 Carbon Dioxide 33 mmol/L (22-30) H 09/05/18 04:21 14 mmol/L 09/05/18 04:21 BUN 66 mg/dL (7-17) H 09/05/18 04:21 1.0 mg/dL (0.7-1.2) 09/05/18 04:21 Estimated GFR > 60 ml/min 09/05/18 04:21 66 % 09/05/18 04:21 Glucose 232 mg/dL (65-100) H 09/05/18 04:21 POC Glucose 272 (70-105) H 09/05/18 05:20 6.4 % (4-6) H 08/31/18 05:34 Calcium 9.2 mg/dL (8.4-10.2) 09/05/18 04:21 Magnesium 2.30 mg/dL (1.7-2.3) 09/05/18 04:21 0.30 mg/dL (0.1-1.2) 08/30/18 23:28 AST 33 units/L (5-40) 08/30/18 23:28 ALT 22 units/L (7-56) 08/30/18 23:28 110 units/L (35-129) 08/30/18 23:28 0.215 ng/mL (0.00-0.029) H* D 08/31/18 05:34 NT-Pro-B Natriuret Pep 41773 pg/mL (0-900) H 08/30/18 23:28 6.7 g/dL (6.3-8.2) 08/30/18 23:28 1.8 g/dL (3.9-5) L 08/30/18 23:28 0.4 % 08/30/18 23:28 Triglycerides 77 mg/dL (2-149) 08/30/18 23:28 Cholesterol 99 mg/dL (50-199) 08/30/18 23:28 56 mg/dL (50-130) 08/30/18 23:28 35 mg/dL (40-59) L 08/30/18 23:28 2.82 % 08/30/18 23:28 Active Medications - Current Medications Current Medications: Generic Name Dose Route Start Last Admin Trade Name Freq PRN Reason Stop Dose Admin Acetaminophen 650 mg 08/31/18 01:25 09/04/18 18:29 Tylenol PO 650 mg Q4H PRN Administration Pain MILD(1-3)/Fever >100.5/[place] Albuterol 2.5 mg 09/01/18 20:10 Proventil IH Q4HRT PRN Shortness Of Breath Albuterol/Ipratropium 1 ampul 09/02/18 02:00 09/05/18 07:38 Duoneb *Not For Prn Use* IH 1 ampul Q6HRT HAYLIE Administration Lipase/Protease/Amylase 1 each 08/31/18 16:46 Pancrebobby Wilson 10,500 Unit FEEDTUBE PRN PRN For Clogged Feeding Tube Apixaban 5 mg 08/31/18 10:00 09/05/18 11:07 Eliquis PO 5 mg BID HAYLIE Administration Aspirin 81 mg 08/31/18 10:00 09/05/18 11:07 Baby Aspirin PO 81 mg QDAY HAYLIE Administration Atorvastatin Calcium 40 mg 08/31/18 22:00 09/04/18 21:47 Lipitor PO 40 mg QHS HAYLIE Administration Budesonide 0.5 mg 09/01/18 20:15 09/05/18 07:38 Pulmicort IH 0.5 mg Q12HRT HAYLIE Administration Clonidine HCl 0.1 mg 08/31/18 10:00 08/31/18 10:54 Catapres-Tts Patch TD 0.1 mg We HAYLIE Administration Dextrose 50 ml 09/02/18 06:36 D50w (25gm) Syringe IV PRN PRN Hypoglycemia Docusate Sodium 100 mg 08/31/18 10:00 09/05/18 11:06 Colace PO 100 mg BID HAYLIE Administration Furosemide 60 mg 09/02/18 11:00 09/05/18 05:15 Lasix IV 60 mg 0600,1800 HAYLIE Administration Hydralazine HCl 10 mg 08/31/18 04:33 09/03/18 14:30 Apresoline IV 10 mg Q4H PRN Administration Blood Pressure Insulin Glargine 43 units 09/05/18 11:30 09/05/18 11:25 Lantus SUB-Q 43 units BID HAYLIE Administration Insulin Human Lispro 0 unit 08/31/18 06:00 09/05/18 05:14 Humalog SUB-Q 4 unit Q6HR HAYLIE Administration Protocol Levetiracetam 500 mg 08/31/18 10:00 09/05/18 11:06 Keppra PO 500 mg BID HAYLIE Administration Losartan Potassium 50 mg 08/31/18 10:00 09/05/18 11:07 Cozaar PO 50 mg QDAY HAYLIE Administration Methylprednisolone Sodium Succinate 40 mg 09/04/18 18:00 09/05/18 11:11 Solu-Medrol IV 40 mg Q8H HAYLIE Administration Metoprolol Tartrate 25 mg 09/02/18 11:00 09/05/18 11:10 Lopressor PO 25 mg Q6H HAYLIE Administration Morphine Sulfate 2 mg 08/31/18 04:33 08/31/18 21:33 Morphine IV 2 mg Q3H PRN Administration Pain, Moderate (4-6) Nystatin 500,000 unit 08/31/18 06:00 09/05/18 11:06 Nystatin PO 500,000 unit Q6HR HAYLIE Administration Ondansetron HCl 4 mg 08/31/18 01:25 Zofran IV Q8H PRN Nausea And Vomiting Simple Syrup 15 ml 08/31/18 16:46 Simple Syrup FEEDTUBE PRN PRN Hypoglycemia Simple Syrup 30 ml 08/31/18 16:46 Simple Syrup FEEDTUBE PRN PRN Hypoglycemia Sodium Bicarbonate 325 mg 08/31/18 16:46 Sodium Bicarbonate FEEDTUBE PRN PRN For Clogged Feeding Tube Sodium Chloride 10 ml 08/31/18 10:00 09/04/18 21:47 Sodium Chloride Flush Syringe 10 Ml IV 10 ml BID HAYLIE Administration Sodium Chloride 10 ml 08/31/18 01:25 Sodium Chloride Flush Syringe 10 Ml IV PRN PRN LINE FLUSH Timolol Maleate 1 drops 08/31/18 10:00 09/05/18 11:07 Timoptic OU 1 drops DAILY HAYLIE Administration Nutrition/Malnutrition Assess - Dietary Evaluation Nutrition/Malnutrition Findings: Nutrition Notes Start: 08/31/18 16:26 Freq: Status: Active Protocol: Document 09/02/18 18:55 RM (Rec: 09/02/18 19:07 [id number]) Nutrition Notes Initial or Follow up Reassessment Current Diagnosis Diabetes,Hypertension,Heart Failure,Stroke,Hyperlipidemia Other Pertinent Diagnosis PEG, R foot wound Current Diet Glucerna 1.2 at 40 ml/hr Labs/Tests K 4.9 POC 416 Pertinent Medications Lasix, Solu-medrol Height 5 ft 9 in Weight 108.9 kg [place] Body Weight (kg) 65.90 BMI 35.4 Subjective/Other Information Observed Glucerna 1.2 infusing at goal rate. Nurse unaware of TF order change. 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 Percent of energy/protein needs met: 100%/75% Burn Absent Trauma Absent #1 Nutrition Diagnosis Inadequate oral intake Diagnosis Progress(for reassessment Continues documentation) Is patient on ventilator? No Is Patient Ambulatory and/or Out of Bed No [facility] 1994.756 Kcal/Kg value to use for calculation 14 Approximate Energy Requirements Using 1525 kcal/Kg Calculation Used for Recommendations Kcal/kg Additional Notes Protein Needs: 106-132g (1.2-1 .5g/kg 88 kg adjBW ) Fluid Needs: 1 ml/kcal Nutrition Intervention Nutrition Support: Glucerna at 55 ml/hr Water flush of 100 mls q 4 hrs . Kcal 1,584 Protein (gm) 80 Fluid (mL) 1,063 Goal #1 TF tolerance Goal #2 Meet at least 75% of calorie and protein needs via TF Anticipated Discharge Needs: TF Follow-Up By: 09/05/18 Additional Comments Follow for TF tolerance, BG, K lab
[2018-09-05] MEDS ORDERED: SIMPLE SYRUP FEEDTUBE PRN ×2 (13:40)
[2018-09-05] MEDS ORDERED: SODIUM BICARBONATE FEEDTUBE PRN (13:40)
[2018-09-05] MEDS ORDERED: PANCREAZE DR 10,500 UNIT FEEDTUBE PRN (13:40)
--- NOTE | 2018-09-05 17:29 | Progress Note ---
Assessment and Plan Imp: 1. A/C diastolic CHF 2. Acute/chronic respiratory failure, hypoxia 3. Chronic hypercapneic respiratory failure 4. Obesity 5. s/p Trach Rec: 1. Cont. diuresis, cardiac optimization 2. Repeat CXR in AM 3. Cont. Duonebs/Pulmicort 4. Routine trach management 5. Likely not far from baseline; will re-assess in AM No family present Subjective Date of service: 09/05/18 Principal diagnosis: CHF Interval history: No events. Cannot give hx b/c nonverbal. On 28% FiO2 breathing comfortably. Awake. Active Medications Acetaminophen (Tylenol) 650 mg PO Q4H PRN PRN Reason: Pain MILD(1-3)/Fever >100.5/[place] Last Admin: 09/04/18 18:29 Dose: 650 mg Documented by: Albuterol (Proventil) 2.5 mg IH Q4HRT PRN PRN Reason: Shortness Of Breath Albuterol/Ipratropium (Duoneb *Not For Prn Use*) 1 ampul IH Q6HRT [facility] Last Admin: 09/05/18 14:12 Dose: 1 ampul Documented by: Lipase/Protease/Amylase (Kathya Wilson 10,500 Unit) 1 each FEEDTUBE PRN PRN PRN Reason: For Clogged Feeding Tube Apixaban (Eliquis) 5 mg PO BID [facility] Last Admin: 09/05/18 11:07 Dose: 5 mg Documented by: Aspirin (Baby Aspirin) 81 mg PO QDAY [facility] Last Admin: 09/05/18 11:07 Dose: 81 mg Documented by: Atorvastatin Calcium (Lipitor) 40 mg PO QHS [facility] Last Admin: 09/04/18 21:47 Dose: 40 mg Documented by: Budesonide (Pulmicort) 0.5 mg IH Q12HRT [facility] Last Admin: 09/05/18 07:38 Dose: 0.5 mg Documented by: Clonidine HCl (Catapres-Tts Patch) 0.1 mg TD We [facility] Last Admin: 08/31/18 10:54 Dose: 0.1 mg Documented by: Dextrose (D50w (25gm) Syringe) 50 ml IV PRN PRN PRN Reason: Hypoglycemia Docusate Sodium (Colace) 100 mg PO BID [facility] Last Admin: 09/05/18 11:06 Dose: 100 mg Documented by: Furosemide (Lasix) 60 mg IV 0600,1800 [facility] Last Admin: 09/05/18 05:15 Dose: 60 mg Documented by: Hydralazine HCl (Apresoline) 10 mg IV Q4H PRN PRN Reason: Blood Pressure Last Admin: 09/03/18 14:30 Dose: 10 mg Documented by: Insulin Glargine (Lantus) 43 units SUB-Q BID [facility] Last Admin: 09/05/18 11:25 Dose: 43 units Documented by: Insulin Human Lispro (Humalog) 0 unit SUB-Q Q6HR [facility]; Protocol Last Admin: 09/05/18 05:14 Dose: 4 unit Documented by: Levetiracetam (Keppra) 500 mg PO BID [facility] Last Admin: 09/05/18 11:06 Dose: 500 mg Documented by: Losartan Potassium (Cozaar) 50 mg PO QDAY [facility] Last Admin: 09/05/18 11:07 Dose: 50 mg Documented by: Methylprednisolone Sodium Succinate (Solu-Medrol) 40 mg IV Q8H [facility] Last Admin: 09/05/18 11:11 Dose: 40 mg Documented by: Metoprolol Tartrate (Lopressor) 25 mg PO Q6H [facility] Last Admin: 09/05/18 11:10 Dose: 25 mg Documented by: Morphine Sulfate (Morphine) 2 mg IV Q3H PRN PRN Reason: Pain, Moderate (4-6) Last Admin: 08/31/18 21:33 Dose: 2 mg Documented by: Nystatin (Nystatin) 500,000 unit PO Q6HR [facility] Last Admin: 09/05/18 11:06 Dose: 500,000 unit Documented by: Ondansetron HCl (Zofran) 4 mg IV Q8H PRN PRN Reason: Nausea And Vomiting Simple Syrup (Simple Syrup) 15 ml FEEDTUBE PRN PRN PRN Reason: Hypoglycemia Simple Syrup (Simple Syrup) 30 ml FEEDTUBE PRN PRN PRN Reason: Hypoglycemia Sodium Bicarbonate (Sodium Bicarbonate) 325 mg FEEDTUBE PRN PRN PRN Reason: For Clogged Feeding Tube Sodium Chloride (Sodium Chloride Flush Syringe 10 Ml) 10 ml IV BID [facility] Last Admin: 09/04/18 21:47 Dose: 10 ml Documented by: Sodium Chloride (Sodium Chloride Flush Syringe 10 Ml) 10 ml IV PRN PRN PRN Reason: LINE FLUSH Timolol Maleate (Timoptic) 1 drops OU DAILY [facility] Last Admin: 09/05/18 11:07 Dose: 1 drops Documented by: Objective Vital Signs - 12hr 09/05/18 09/05/18 09/05/18 07:39 07:40 07:45 Temperature Pulse Rate Pulse Rate [ 100 H Anterior Bilateral Throughout] Pulse Rate [ Apical] Respiratory Rate Respiratory 18 Rate [Anterior Bilateral Throughout] Blood Pressure O2 Sat by Pulse 96 Oximetry O2 Sat by Pulse 96 Oximetry [ Assessment] 09/05/18 09/05/18 09/05/18 08:01 08:24 08:43 Temperature 98.8 F Pulse Rate 100 H 91 H Pulse Rate [ 97 H Anterior Bilateral Throughout] Pulse Rate [ Apical] Respiratory 18 Rate Respiratory 18 Rate [Anterior Bilateral Throughout] Blood Pressure 148/89 O2 Sat by Pulse 96 Oximetry O2 Sat by Pulse Oximetry [ Assessment] 09/05/18 09/05/18 09/05/18 08:51 11:28 14:12 Temperature 97.5 F L Pulse Rate 101 H Pulse Rate [ 94 H Anterior Bilateral Throughout] Pulse Rate [ 91 H Apical] Respiratory 22 18 Rate Respiratory 20 Rate [Anterior Bilateral Throughout] Blood Pressure 157/85 O2 Sat by Pulse 96 97 Oximetry O2 Sat by Pulse Oximetry [ Assessment] 09/05/18 14:28 Temperature Pulse Rate Pulse Rate [ 100 H Anterior Bilateral Throughout] Pulse Rate [ Apical] Respiratory Rate Respiratory 20 Rate [Anterior Bilateral Throughout] Blood Pressure O2 Sat by Pulse Oximetry O2 Sat by Pulse 100 Oximetry [ Assessment] Constitutional: no acute distress Eyes: non-icteric ENT: oropharynx moist Neck: supple, other (trach in place) Ascultation: Bilateral: wheezes (faint expiratory), rhonchi (rare) Cardiovascular: regular rate and rhythm (no mrg) Gastrointestinal: normoactive bowel sounds, non-distended, other (peg in place) Integumentary: normal Extremities: no cyanosis, pink and warm, edema (+ bilateral LE edema) Neurologic: other (awake, alert) Psychiatric: mood appropriate, affect normal CBC and BMP: 09/01/18 04:47 09/05/18 04:21 ABG, PT/INR, D-dimer: ABG POC ABG pH 7.437 (7.35-7.45) 07/04/19 19:07 POC ABG pCO2 53.7 (35-45) H 09/01/18 19:07 POC ABG pO2 73 (80-105) L 09/01/18 19:07 POC ABG HCO3 36.2 (22-26 mml/L) 09/01/18 19:07 POC ABG Total CO2 38 (23-27mmol/L) 09/01/18 19:07 POC ABG O2 Sat 95 09/01/18 19:07 PT/INR, D-dimer PT 20.9 Sec. (12.2-14.9) H 08/31/18 00:27 INR 1.85 (0.87-1.13) H 08/31/18 00:27 Abnormal lab findings: Abnormal Labs 08/30/18 08/30/18 08/30/18 23:28 23:28 23:28 RBC 3.40 L RDW 18.9 H Lymph % (Auto) 7.2 L [place] % (Auto) 8.7 H Eos % (Auto) 4.8 H Lymph # 0.7 L Seg Neutrophils % 78.9 H Seg Neutrophils # PT INR POC ABG pCO2 POC ABG pO2 Chloride Carbon Dioxide 31 H BUN 41 H Glucose 189 H POC Glucose Hemoglobin A1c Troponin T 0.323 H* NT-Pro-B Natriuret Pep Albumin 1.8 L HDL Cholesterol 35 L 08/30/18 08/31/18 08/31/18 23:28 00:27 03:48 RBC RDW Lymph % (Auto) [place] % (Auto) Eos % (Auto) Lymph # Seg Neutrophils % Seg Neutrophils # PT 20.9 H INR 1.85 H POC ABG pCO2 55.2 H POC ABG pO2 Chloride Carbon Dioxide BUN Glucose POC Glucose Hemoglobin A1c Troponin T NT-Pro-B Natriuret Pep 62319 H Albumin HDL Cholesterol 08/31/18 08/31/18 08/31/18 05:34 05:34 11:44 RBC RDW Lymph % (Auto) [place] % (Auto) Eos % (Auto) Lymph # Seg Neutrophils % Seg Neutrophils # PT INR POC ABG pCO2 POC ABG pO2 Chloride Carbon Dioxide BUN Glucose POC Glucose 154 H Hemoglobin A1c 6.4 H Troponin T 0.215 H* D NT-Pro-B Natriuret Pep Albumin HDL Cholesterol 08/31/18 09/01/18 09/01/18 23:32 04:47 04:47 RBC RDW 19.1 H Lymph % (Auto) 7.9 L [place] % (Auto) 7.4 H Eos % (Auto) Lymph # 0.9 L Seg Neutrophils % 84.0 H Seg Neutrophils # 9.3 H PT INR POC ABG pCO2 POC ABG pO2 Chloride 94.1 L Carbon Dioxide 32 H BUN 46 H Glucose 189 H POC Glucose 138 H Hemoglobin A1c Troponin T NT-Pro-B Natriuret Pep Albumin HDL Cholesterol 09/01/18 09/01/18 09/01/18 05:59 11:38 16:17 RBC RDW Lymph % (Auto) [place] % (Auto) Eos % (Auto) Lymph # Seg Neutrophils % Seg Neutrophils # PT INR POC ABG pCO2 POC ABG pO2 Chloride Carbon Dioxide BUN Glucose POC Glucose 236 H 235 H 278 H Hemoglobin A1c Troponin T NT-Pro-B Natriuret Pep Albumin HDL Cholesterol 09/01/18 09/01/18 09/01/18 17:59 18:53 19:07 RBC RDW Lymph % (Auto) [place] % (Auto) Eos % (Auto) Lymph # Seg Neutrophils % Seg Neutrophils # PT INR POC ABG pCO2 53.7 H POC ABG pO2 73 L Chloride Carbon Dioxide BUN Glucose POC Glucose 281 H 376 H Hemoglobin A1c Troponin T NT-Pro-B Natriuret Pep Albumin HDL Cholesterol 09/01/18 09/02/18 09/02/18 21:29 00:22 06:20 RBC RDW Lymph % (Auto) [place] % (Auto) Eos % (Auto) Lymph # Seg Neutrophils % Seg Neutrophils # PT INR POC ABG pCO2 POC ABG pO2 Chloride Carbon Dioxide BUN Glucose POC Glucose 247 H 369 H 414 H Hemoglobin A1c Troponin T NT-Pro-B Natriuret Pep Albumin HDL Cholesterol 09/02/18 09/02/18 09/02/18 11:56 18:21 23:42 RBC RDW Lymph % (Auto) [place] % (Auto) Eos % (Auto) Lymph # Seg Neutrophils % Seg Neutrophils # PT INR POC ABG pCO2 POC ABG pO2 Chloride Carbon Dioxide BUN Glucose POC Glucose 416 H 429 H 373 H Hemoglobin A1c Troponin T NT-Pro-B Natriuret Pep Albumin HDL Cholesterol 09/03/18 09/03/18 09/03/18 05:28 11:17 17:46 RBC RDW Lymph % (Auto) [place] % (Auto) Eos % (Auto) Lymph # Seg Neutrophils % Seg Neutrophils # PT INR POC ABG pCO2 POC ABG pO2 Chloride Carbon Dioxide BUN Glucose POC Glucose 400 H 319 H 308 H Hemoglobin A1c Troponin T NT-Pro-B Natriuret Pep Albumin HDL Cholesterol 09/04/18 09/04/18 09/04/18 00:10 05:56 11:53 RBC RDW Lymph % (Auto) [place] % (Auto) Eos % (Auto) Lymph # Seg Neutrophils % Seg Neutrophils # PT INR POC ABG pCO2 POC ABG pO2 Chloride Carbon Dioxide BUN Glucose POC Glucose 232 H 254 H 264 H Hemoglobin A1c Troponin T NT-Pro-B Natriuret Pep Albumin HDL Cholesterol 09/04/18 09/04/18 09/04/18 16:53 21:51 23:16 RBC RDW Lymph % (Auto) [place] % (Auto) Eos % (Auto) Lymph # Seg Neutrophils % Seg Neutrophils # PT INR POC ABG pCO2 POC ABG pO2 Chloride Carbon Dioxide BUN Glucose POC Glucose 262 H 252 H 291 H Hemoglobin A1c Troponin T NT-Pro-B Natriuret Pep Albumin HDL Cholesterol 09/05/18 09/05/18 09/05/18 04:21 05:20 12:08 RBC RDW Lymph % (Auto) [place] % (Auto) Eos % (Auto) Lymph # Seg Neutrophils % Seg Neutrophils # PT INR POC ABG pCO2 POC ABG pO2 Chloride 97.3 L Carbon Dioxide 33 H BUN 66 H Glucose 232 H POC Glucose 272 H 201 H Hemoglobin A1c Troponin T NT-Pro-B Natriuret Pep Albumin HDL Cholesterol Chest x-ray: report reviewed, image reviewed (CHF)
[2018-09-05] MEDS: SODIUM CHLORIDE FLUSH SYRINGE 10 ML IV SCH ×2 (19:56→21:44)
[2018-09-06] MEDS: LOPRESSOR PO SCH ×5 (00:08→22:12)
[2018-09-06] MEDS: NYSTATIN PO SCH ×5 (00:09→23:56)
[2018-09-06] MEDS: HumaLOG SUB-Q SCH ×5 (00:20→23:56)
[2018-09-06] MEDS: DUONEB *Not for PRN Use IH SCH ×4 (01:55→20:14)
[2018-09-06] MEDS: SOLU-Medrol IV SCH ×3 (02:15→17:47)
[2018-09-06] MEDS: LASIX IV SCH (06:09)
[2018-09-06 08:13] LABS: Calcium 8.7 mg/dL (8.4-10.2)
--- NOTE | 2018-09-06 08:14 | XRay Report ---
CHEST 1 VIEW INDICATION: Dyspnea. CHF COMPARISON: 08/30/2018 at 1116 hours FINDINGS: Support devices: A tracheostomy remains in good position Heart: Mild cardiomegaly is stable Lungs/Pleura: Bilateral pulmonary edema has decreased by 25-50%. Small pleural effusions remain but a re slightly decreased. No gross infiltrate or pneumothorax. Additional findings: None. IMPRESSION: 1. Mild improvement in CHF since yesterday's exam Signer Name: Zach Iqbal Jr, MD Signed: 09/06/2018 8:10 AM Workstation Name: [id number]
[2018-09-06] MEDS: PULMICORT IH SCH ×2 (08:34→20:14)
[2018-09-06] MEDS: TYLENOL PO PRN ×2 (11:19→22:05)
[2018-09-06] MEDS: LANTUS SUB-Q SCH ×2 (11:20→22:12)
[2018-09-06] MEDS: COZAAR PO SCH (11:20)
[2018-09-06] MEDS: ELIQUIS PO SCH ×2 (11:21→22:05)
[2018-09-06] MEDS: COLACE PO SCH ×2 (11:21→22:05)
[2018-09-06] MEDS: BABY ASPIRIN PO SCH (11:21)
[2018-09-06] MEDS: KEPPRA PO SCH ×2 (11:21→22:05)
[2018-09-06] MEDS: SODIUM CHLORIDE FLUSH SYRINGE 10 ML IV SCH ×2 (11:22→22:06)
[2018-09-06] MEDS: TIMOPTIC OU SCH (11:22)
--- NOTE | 2018-09-06 12:21 | Progress Note ---
Assessment and Plan Atrial fibrillation, permanent On eliquis On metoprolol for rate control History of CVA s/p PEG tube Acute on chronic diastolic heart failure Echo 07/2018 - Normal LVEF Type II DM Systemic Hypertension Hyperlipidemia Recommendations: Continue medical therapy for heart failure with a preserved ejection fraction. Continue medical therapy for permanent atrial fibrillation. Otherwise, conservative cardiac management Subjective Date of service: 09/06/18 Principal diagnosis: CHF Interval history: Patient is resting in bed comfortably. Family member is at the bedside. Afib with a well controlled ventricular rate on telemetry. Objective Vital Signs Temp Pulse Pulse Pulse Resp Resp BP 09/06/18 09:18 98.3 F 102 H 20 143/81 09/06/18 09:16 09/06/18 09:00 86 18 09/06/18 08:36 09/06/18 08:34 74 18 09/06/18 06:09 98 H 110/88 09/06/18 04:25 97.8 F 18 110/88 09/06/18 02:10 09/06/18 02:05 79 18 09/06/18 01:55 75 18 09/06/18 00:08 96 H 151/78 09/05/18 23:58 98.2 F 100 H 18 151/78 09/05/18 20:39 78 09/05/18 20:25 98 H 26 H 09/05/18 19:59 85 20 09/05/18 19:48 09/05/18 19:47 76 20 09/05/18 19:18 97.9 F 98 H 18 147/70 09/05/18 16:37 98.4 F 18 142/91 09/05/18 14:28 100 H 20 09/05/18 14:12 94 H 20 Pulse Ox Pulse Ox 09/06/18 09:18 91 09/06/18 09:16 95 09/06/18 09:00 09/06/18 08:36 96 09/06/18 08:34 09/06/18 06:09 09/06/18 04:25 09/06/18 02:10 100 09/06/18 02:05 09/06/18 01:55 09/06/18 00:08 09/05/18 23:58 99 09/05/18 20:39 09/05/18 20:25 99 09/05/18 19:59 09/05/18 19:48 98 09/05/18 19:47 09/05/18 19:18 94 09/05/18 16:37 09/05/18 14:28 100 09/05/18 14:12 - Physical Examination General: No Apparent Distress, Other (nonverbal) HEENT: Positive: PERRL Neck: Positive: Other (Midline trach) Cardiac: Positive: irregularly irregular Lungs: Positive: Decreased Breath Sounds Neuro: Positive: Other (Nonverbal ) Extremities: Absent: edema - Labs and Meds Comprehensive Metabolic Panel 09/06/18 Range/Units 07:28 Sodium 145 (137-145) mmol/L Potassium 3.9 (3.6-5.0) mmol/L Chloride 99.5 (98-107) mmol/L Carbon Dioxide 34 H (22-30) mmol/L BUN 69 H (7-17) mg/dL Creatinine 1.1 (0.7-1.2) mg/dL Glucose 164 H (65-100) mg/dL Calcium 8.7 (8.4-10.2) mg/dL
--- NOTE | 2018-09-06 13:19 | Progress Note ---
Assessment and Plan Imp: 1. A/C diastolic CHF 2. Acute/chronic respiratory failure, hypoxia 3. Chronic hypercapneic respiratory failure 4. Obesity 5. s/p Trach Rec: 1. Cont. cardiac optimization; she was admitted 08/06/18 to [facility] for CHF exacerbati on as well, so I would consider changing her PO diuretics to Torsemide or Bumex 2. CXR is improving 3. Cont. Duonebs/Pulmicort -> cont. this at [facility] 4. Routine trach management 5. Try to wean O2 to 21% humidified air as tolerated, goal sat88% or > 6. Resume PMV trials; apparently was capped at [place] although required uncapping for suctioning Plan of care reviewed with daughter, she understands/agrees Subjective Date of service: 09/06/18 Principal diagnosis: CHF Interval history: No events. Cannot give hx b/c nonverbal. On 28% FiO2 breathing comfortably. Awake. Active Medications Acetaminophen (Tylenol) 650 mg PO Q4H PRN PRN Reason: Pain MILD(1-3)/Fever >100.5/[place] Last Admin: 09/06/18 11:19 Dose: 650 mg Documented by: Albuterol (Proventil) 2.5 mg IH Q4HRT PRN PRN Reason: Shortness Of Breath Albuterol/Ipratropium (Duoneb *Not For Prn Use*) 1 ampul IH Q6HRT [facility] Last Admin: 09/06/18 08:34 Dose: 1 ampul Documented by: Lipase/Protease/Amylase (Kathya Wilson 10,500 Unit) 1 each FEEDTUBE PRN PRN PRN Reason: For Clogged Feeding Tube Apixaban (Eliquis) 5 mg PO BID [facility] Last Admin: 09/06/18 11:21 Dose: 5 mg Documented by: Aspirin (Baby Aspirin) 81 mg PO QDAY [facility] Last Admin: 09/06/18 11:21 Dose: 81 mg Documented by: Atorvastatin Calcium (Lipitor) 40 mg PO QHS [facility] Last Admin: 09/05/18 21:45 Dose: 40 mg Documented by: Budesonide (Pulmicort) 0.5 mg IH Q12HRT [facility] Last Admin: 09/06/18 08:34 Dose: 0.5 mg Documented by: Clonidine HCl (Catapres-Tts Patch) 0.1 mg TD We [facility] Last Admin: 08/31/18 10:54 Dose: 0.1 mg Documented by: Dextrose (D50w (25gm) Syringe) 50 ml IV PRN PRN PRN Reason: Hypoglycemia Docusate Sodium (Colace) 100 mg PO BID [facility] Last Admin: 09/06/18 11:21 Dose: 100 mg Documented by: Furosemide (Lasix) 60 mg IV 0600,1800 [facility] Last Admin: 09/06/18 06:09 Dose: 60 mg Documented by: Hydralazine HCl (Apresoline) 10 mg IV Q4H PRN PRN Reason: Blood Pressure Last Admin: 09/03/18 14:30 Dose: 10 mg Documented by: Insulin Glargine (Lantus) 43 units SUB-Q BID [facility] Last Admin: 09/06/18 11:20 Dose: 43 units Documented by: Insulin Human Lispro (Humalog) 0 unit SUB-Q Q6HR [facility]; Protocol Last Admin: 09/06/18 06:09 Dose: Not Given Documented by: Levetiracetam (Keppra) 500 mg PO BID [facility] Last Admin: 09/06/18 11:21 Dose: 500 mg Documented by: Losartan Potassium (Cozaar) 50 mg PO QDAY [facility] Last Admin: 09/06/18 11:20 Dose: 50 mg Documented by: Methylprednisolone Sodium Succinate (Solu-Medrol) 40 mg IV Q8H [facility] Last Admin: 09/06/18 11:26 Dose: 40 mg Documented by: Metoprolol Tartrate (Lopressor) 25 mg PO Q6H [facility] Last Admin: 09/06/18 11:25 Dose: 25 mg Documented by: Morphine Sulfate (Morphine) 2 mg IV Q3H PRN PRN Reason: Pain, Moderate (4-6) Last Admin: 08/31/18 21:33 Dose: 2 mg Documented by: Nystatin (Nystatin) 500,000 unit PO Q6HR [facility] Last Admin: 09/06/18 11:26 Dose: 500,000 unit Documented by: Ondansetron HCl (Zofran) 4 mg IV Q8H PRN PRN Reason: Nausea And Vomiting Simple Syrup (Simple Syrup) 15 ml FEEDTUBE PRN PRN PRN Reason: Hypoglycemia Simple Syrup (Simple Syrup) 30 ml FEEDTUBE PRN PRN PRN Reason: Hypoglycemia Sodium Bicarbonate (Sodium Bicarbonate) 325 mg FEEDTUBE PRN PRN PRN Reason: For Clogged Feeding Tube Sodium Chloride (Sodium Chloride Flush Syringe 10 Ml) 10 ml IV BID [facility] Last Admin: 09/06/18 11:22 Dose: 10 ml Documented by: Sodium Chloride (Sodium Chloride Flush Syringe 10 Ml) 10 ml IV PRN PRN PRN Reason: LINE FLUSH Timolol Maleate (Timoptic) 1 drops OU DAILY [facility] Last Admin: 09/06/18 11:22 Dose: 1 drops Documented by: Objective Vital Signs - 12hr 09/06/18 09/06/18 09/06/18 01:55 02:05 02:10 Temperature Pulse Rate Pulse Rate [ 75 79 Anterior Bilateral Throughout] Respiratory Rate Respiratory 18 18 Rate [Anterior Bilateral Throughout] Blood Pressure O2 Sat by Pulse Oximetry O2 Sat by Pulse 100 Oximetry [ Assessment] 09/06/18 09/06/18 09/06/18 04:25 06:09 08:34 Temperature 97.8 F Pulse Rate 98 H Pulse Rate [ 74 Anterior Bilateral Throughout] Respiratory 18 Rate Respiratory 18 Rate [Anterior Bilateral Throughout] Blood Pressure 110/88 110/88 O2 Sat by Pulse Oximetry O2 Sat by Pulse Oximetry [ Assessment] 09/06/18 09/06/18 09/06/18 08:36 09:00 09:16 Temperature Pulse Rate Pulse Rate [ 86 Anterior Bilateral Throughout] Respiratory Rate Respiratory 18 Rate [Anterior Bilateral Throughout] Blood Pressure O2 Sat by Pulse 96 Oximetry O2 Sat by Pulse 95 Oximetry [ Assessment] 09/06/18 09/06/18 09:18 12:09 Temperature 98.3 F 98.2 F Pulse Rate 102 H 96 H Pulse Rate [ Anterior Bilateral Throughout] Respiratory 20 20 Rate Respiratory Rate [Anterior Bilateral Throughout] Blood Pressure 143/81 172/75 O2 Sat by Pulse 91 94 Oximetry O2 Sat by Pulse Oximetry [ Assessment] Constitutional: no acute distress, alert Eyes: non-icteric ENT: oropharynx moist Neck: supple, other (trach in place) Ascultation: Bilateral: diminished breath sounds, wheezes (faint occasional and mild expiratory) Cardiovascular: regular rate and rhythm (no mrg) Gastrointestinal: normoactive bowel sounds, non-distended, other (peg in place) Integumentary: normal Extremities: no cyanosis, pink and warm, edema (+ bilateral LE edema) Neurologic: other (awake, alert) Psychiatric: mood appropriate, affect normal CBC and BMP: 09/01/18 04:47 09/06/18 07:28 ABG, PT/INR, D-dimer: ABG POC ABG pH 7.437 (7.35-7.45) 09/01/18 19:07 POC ABG pCO2 53.7 (35-45) H 09/01/18 19:07 POC ABG pO2 73 (80-105) L 09/01/18 19:07 POC ABG HCO3 36.2 (22-26 mml/L) 09/01/18 19:07 POC ABG Total CO2 38 (23-27mmol/L) 09/01/18 19:07 POC ABG O2 Sat 95 09/01/18 19:07 PT/INR, D-dimer PT 20.9 Sec. (12.2-14.9) H 08/31/18 00:27 INR 1.85 (0.87-1.13) H 08/31/18 00:27 Abnormal lab findings: Abnormal Labs 08/30/18 08/30/18 08/30/18 23:28 23:28 23:28 RBC 3.40 L RDW 18.9 H Lymph % (Auto) 7.2 L [place] % (Auto) 8.7 H Eos % (Auto) 4.8 H Lymph # 0.7 L Seg Neutrophils % 78.9 H Seg Neutrophils # PT INR POC ABG pCO2 POC ABG pO2 Chloride Carbon Dioxide 31 H BUN 41 H Glucose 189 H POC Glucose Hemoglobin A1c Troponin T 0.323 H* NT-Pro-B Natriuret Pep Albumin 1.8 L HDL Cholesterol 35 L 08/30/18 08/31/18 08/31/18 23:28 00:27 03:48 RBC RDW Lymph % (Auto) [place] % (Auto) Eos % (Auto) Lymph # Seg Neutrophils % Seg Neutrophils # PT 20.9 H INR 1.85 H POC ABG pCO2 55.2 H POC ABG pO2 Chloride Carbon Dioxide BUN Glucose POC Glucose Hemoglobin A1c Troponin T NT-Pro-B Natriuret Pep 26316 H Albumin HDL Cholesterol 08/31/18 08/31/18 08/31/18 05:34 05:34 11:44 RBC RDW Lymph % (Auto) [place] % (Auto) Eos % (Auto) Lymph # Seg Neutrophils % Seg Neutrophils # PT INR POC ABG pCO2 POC ABG pO2 Chloride Carbon Dioxide BUN Glucose POC Glucose 154 H Hemoglobin A1c 6.4 H Troponin T 0.215 H* D NT-Pro-B Natriuret Pep Albumin HDL Cholesterol 08/31/18 09/01/18 09/01/18 23:32 04:47 04:47 RBC RDW 19.1 H Lymph % (Auto) 7.9 L [place] % (Auto) 7.4 H Eos % (Auto) Lymph # 0.9 L Seg Neutrophils % 84.0 H Seg Neutrophils # 9.3 H PT INR POC ABG pCO2 POC ABG pO2 Chloride 94.1 L Carbon Dioxide 32 H BUN 46 H Glucose 189 H POC Glucose 138 H Hemoglobin A1c Troponin T NT-Pro-B Natriuret Pep Albumin HDL Cholesterol 09/01/18 09/01/18 09/01/18 05:59 11:38 16:17 RBC RDW Lymph % (Auto) [place] % (Auto) Eos % (Auto) Lymph # Seg Neutrophils % Seg Neutrophils # PT INR POC ABG pCO2 POC ABG pO2 Chloride Carbon Dioxide BUN Glucose POC Glucose 236 H 235 H 278 H Hemoglobin A1c Troponin T NT-Pro-B Natriuret Pep Albumin HDL Cholesterol 09/01/18 09/01/18 09/01/18 17:59 18:53 19:07 RBC RDW Lymph % (Auto) [place] % (Auto) Eos % (Auto) Lymph # Seg Neutrophils % Seg Neutrophils # PT INR POC ABG pCO2 53.7 H POC ABG pO2 73 L Chloride Carbon Dioxide BUN Glucose POC Glucose 281 H 376 H Hemoglobin A1c Troponin T NT-Pro-B Natriuret Pep Albumin HDL Cholesterol 09/01/18 09/02/18 09/02/18 21:29 00:22 06:20 RBC RDW Lymph % (Auto) [place] % (Auto) Eos % (Auto) Lymph # Seg Neutrophils % Seg Neutrophils # PT INR POC ABG pCO2 POC ABG pO2 Chloride Carbon Dioxide BUN Glucose POC Glucose 247 H 369 H 414 H Hemoglobin A1c Troponin T NT-Pro-B Natriuret Pep Albumin HDL Cholesterol 09/02/18 09/02/18 09/02/18 11:56 18:21 23:42 RBC RDW Lymph % (Auto) [place] % (Auto) Eos % (Auto) Lymph # Seg Neutrophils % Seg Neutrophils # PT INR POC ABG pCO2 POC ABG pO2 Chloride Carbon Dioxide BUN Glucose POC Glucose 416 H 429 H 373 H Hemoglobin A1c Troponin T NT-Pro-B Natriuret Pep Albumin HDL Cholesterol 09/03/18 09/03/18 09/03/18 05:28 11:17 17:46 RBC RDW Lymph % (Auto) [place] % (Auto) Eos % (Auto) Lymph # Seg Neutrophils % Seg Neutrophils # PT INR POC ABG pCO2 POC ABG pO2 Chloride Carbon Dioxide BUN Glucose POC Glucose 400 H 319 H 308 H Hemoglobin A1c Troponin T NT-Pro-B Natriuret Pep Albumin HDL Cholesterol 09/04/18 09/04/18 09/04/18 00:10 05:56 11:53 RBC RDW Lymph % (Auto) [place] % (Auto) Eos % (Auto) Lymph # Seg Neutrophils % Seg Neutrophils # PT INR POC ABG pCO2 POC ABG pO2 Chloride Carbon Dioxide BUN Glucose POC Glucose 232 H 254 H 264 H Hemoglobin A1c Troponin T NT-Pro-B Natriuret Pep Albumin HDL Cholesterol 09/04/18 09/04/18 09/04/18 16:53 21:51 23:16 RBC RDW Lymph % (Auto) [place] % (Auto) Eos % (Auto) Lymph # Seg Neutrophils % Seg Neutrophils # PT INR POC ABG pCO2 POC ABG pO2 Chloride Carbon Dioxide BUN Glucose POC Glucose 262 H 252 H 291 H Hemoglobin A1c Troponin T NT-Pro-B Natriuret Pep Albumin HDL Cholesterol 09/05/18 09/05/18 09/05/18 04:21 05:20 12:08 RBC RDW Lymph % (Auto) [place] % (Auto) Eos % (Auto) Lymph # Seg Neutrophils % Seg Neutrophils # PT INR POC ABG pCO2 POC ABG pO2 Chloride 97.3 L Carbon Dioxide 33 H BUN 66 H Glucose 232 H POC Glucose 272 H 201 H Hemoglobin A1c Troponin T NT-Pro-B Natriuret Pep Albumin HDL Cholesterol 09/05/18 09/06/18 09/06/18 21:50 00:24 05:26 RBC RDW Lymph % (Auto) [place] % (Auto) Eos % (Auto) Lymph # Seg Neutrophils % Seg Neutrophils # PT INR POC ABG pCO2 POC ABG pO2 Chloride Carbon Dioxide BUN Glucose POC Glucose 196 H 171 H 142 H Hemoglobin A1c Troponin T NT-Pro-B Natriuret Pep Albumin HDL Cholesterol 09/06/18 07:28 RBC RDW Lymph % (Auto) [place] % (Auto) Eos % (Auto) Lymph # Seg Neutrophils % Seg Neutrophils # PT INR POC ABG pCO2 POC ABG pO2 Chloride Carbon Dioxide 34 H BUN 69 H Glucose 164 H POC Glucose Hemoglobin A1c Troponin T NT-Pro-B Natriuret Pep Albumin HDL Cholesterol Chest x-ray: report reviewed, image reviewed (improving CHF)
[2018-09-06] MEDS: LASIX PO SCH (13:53)
--- NOTE | 2018-09-06 15:58 | Progress Note ---
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 She was recently ( approx 3 weeks ago) hospitalized at [facility] for CHF exacerbation. She has been [facility] with past 2 weeks. The long term reported that patient was hyoxic ans was sent to [facility] for further evaluation and management. Assessment ans Plan: --Acute on chronic hypoxic respiratory failure;h/o tracheostomy Continue nebulizers and oxygen titrate to O2 sats more than 90% supportive care, pulmonary following --Acute exacerbation diastolic CHF EF >55% (Echo 07/2018) IV Lasix, chest x-ray significant improvement of congestive heart failure Cardiology following --NSTEMI: Cardiology following, continue conservative management no plans of ischemia workup --History of A. fib; rate controlled, continue beta blockers Chronic anticoagulation --History of CVA with residual weakness[April 2018] s/p trach and PEG Supportive care --Type 2 diabetes mellitus;uncontrolled secondary to high-dose steroids Accu-Chek sliding scale coverage tube Feeding Long-acting insulin as needed --History of PE; status post IVC filter placement, On Eliquis --Full code Status; Patient's condition and treatment plan poor prognosis discussed in detail with the 2 daughters at the bed side,They had neumorous questions and concerns, and I addressed all of them CODE STATUS discussed, Full Code Possible discharge in 1-2 days if stable and cleared by pulmonology and cardiology Disposition; possible discharge and transfer to SNF in 1-2 days if stable. History Interval history: Patient is alert and awake. reaching out to me with her left hand not in acute distress tracheostomy on T piece Vital signs noted Hospitalist Physical - Constitutional Vitals: Temp Pulse Resp BP Pulse Ox 98.2 F 92 H 18 172/75 99 09/06/18 12:09 09/06/18 14:51 09/06/18 14:51 09/06/18 12:09 09/06/18 14:50 General appearance: Present: no acute distress, well-nourished, obese, other ( noncommunicative ,tracheostomy on T piece,) - EENT Eyes: Present: PERRL, EOM intact - Neck Neck: Present: supple, normal ROM - Respiratory Respiratory effort: normal Respiratory: bilateral: diminished, negative: rales, rhonchi, wheezing - Cardiovascular Rhythm: regular Heart Sounds: Present: S1 & S2 - Extremities Extremities: no ischemia, No edema - Abdominal General gastrointestinal: soft, non-tender, non-distended, normal bowel sounds - Integumentary Integumentary: Present: clear, warm - Psychiatric Psychiatric: appropriate mood/affect, cooperative - Neurologic Neurologic: CNII-XII intact, moves all extremities Results - Labs CBC & Chem 7: 09/01/18 04:47 09/06/18 07:28 Labs: Laboratory Last Values WBC 11.0 K/mm3 (4.5-11.0) 09/01/18 04:47 RBC 3.76 M/mm3 (3.65-5.03) 09/01/18 04:47 Hgb 11.0 gm/dl (10.1-14.3) 09/01/18 04:47 Hct 34.5 % (30.3-42.9) 09/01/18 04:47 MCV 92 fl (79-97) 09/01/18 04:47 MCH 29 pg (28-32) 09/01/18 04:47 MCHC 32 % (30-34) 09/01/18 04:47 RDW 19.1 % (13.2-15.2) H 09/01/18 04:47 Plt Count 210 K/mm3 (140-440) 09/01/18 04:47 Lymph % (Auto) 7.9 % (13.4-35.0) L 09/01/18 04:47 Webb % (Auto) 7.4 % (0.0-7.3) H 09/01/18 04:47 Eos % (Auto) 0.3 % (0.0-4.3) 09/01/18 04:47 Baso % (Auto) 0.4 % (0.0-1.8) 09/01/18 04:47 Lymph # 0.9 K/mm3 (1.2-5.4) L 09/01/18 04:47 Webb # 0.8 K/mm3 (0.0-0.8) 09/01/18 04:47 Eos # 0.0 K/mm3 (0.0-0.4) 09/01/18 04:47 Baso # 0.0 K/mm3 (0.0-0.1) 09/01/18 04:47 Seg Neutrophils % 84.0 % (40.0-70.0) H 09/01/18 04:47 Seg Neutrophils # 9.3 K/mm3 (1.8-7.7) H 09/01/18 04:47 PT 20.9 Sec. (12.2-14.9) H 08/31/18 00:27 INR 1.85 (0.87-1.13) H 08/31/18 00:27 APTT 30.7 Sec. (24.2-36.6) 08/31/18 00:27 POC ABG pH 7.437 (7.35-7.45) 09/01/18 19:07 POC ABG pCO2 53.7 (35-45) H 09/01/18 19:07 POC ABG pO2 73 (80-105) L 09/01/18 19:07 POC ABG HCO3 36.2 (22-26 mml/L) 09/01/18 19:07 POC ABG Total CO2 38 (23-27mmol/L) 09/01/18 19:07 POC ABG O2 Sat 95 09/01/18 19:07 POC ABG Base Excess 12 ((-2) - (+3)mmol/L) 09/01/18 19:07 35 % 09/01/18 19:07 Sodium 145 mmol/L (137-145) 09/06/18 07:28 Potassium 3.9 mmol/L (3.6-5.0) 09/06/18 07:28 Chloride 99.5 mmol/L (98-107) 09/06/18 07:28 Carbon Dioxide 34 mmol/L (22-30) H 09/06/18 07:28 15 mmol/L 09/06/18 07:28 BUN 69 mg/dL (7-17) H 09/06/18 07:28 1.1 mg/dL (0.7-1.2) 09/06/18 07:28 Estimated GFR 59 ml/min 09/06/18 07:28 63 % 09/06/18 07:28 Glucose 164 mg/dL (65-100) H 09/06/18 07:28 POC Glucose 209 (70-105) H 09/06/18 12:13 6.4 % (4-6) H 08/31/18 05:34 Calcium 8.7 mg/dL (8.4-10.2) 09/06/18 07:28 Magnesium 2.10 mg/dL (1.7-2.3) 09/06/18 07:28 0.30 mg/dL (0.1-1.2) 08/30/18 23:28 AST 33 units/L (5-40) 08/30/18 23:28 ALT 22 units/L (7-56) 08/30/18 23:28 110 units/L (35-129) 08/30/18 23:28 0.215 ng/mL (0.00-0.029) H* D 08/31/18 05:34 NT-Pro-B Natriuret Pep 89360 pg/mL (0-900) H 08/30/18 23:28 6.7 g/dL (6.3-8.2) 08/30/18 23:28 1.8 g/dL (3.9-5) L 08/30/18 23:28 0.4 % 08/30/18 23:28 Triglycerides 77 mg/dL (2-149) 08/30/18 23:28 Cholesterol 99 mg/dL (50-199) 08/30/18 23:28 56 mg/dL (50-130) 08/30/18 23:28 35 mg/dL (40-59) L 08/30/18 23:28 2.82 % 08/30/18 23:28 Active Medications - Current Medications Current Medications: Generic Name Dose Route Start Last Admin Trade Name Freq PRN Reason Stop Dose Admin Acetaminophen 650 mg 08/31/18 01:25 09/06/18 11:19 Tylenol PO 650 mg Q4H PRN Administration Pain MILD(1-3)/Fever >100.5/[place] Albuterol 2.5 mg 09/01/18 20:10 Proventil IH Q4HRT PRN Shortness Of Breath Albuterol/Ipratropium 1 ampul 09/02/18 02:00 09/06/18 14:39 Duoneb *Not For Prn Use* IH 1 ampul Q6HRT HAYLIE Administration Lipase/Protease/Amylase 1 each 09/05/18 13:40 Pancrebobby Wilson 10,500 Unit FEEDTUBE PRN PRN For Clogged Feeding Tube Apixaban 5 mg 08/31/18 10:00 09/06/18 11:21 Eliquis PO 5 mg BID HAYLIE Administration Aspirin 81 mg 08/31/18 10:00 09/06/18 11:21 Baby Aspirin PO 81 mg QDAY HAYILE Administration Atorvastatin Calcium 40 mg 08/31/18 22:00 09/05/18 21:45 Lipitor PO 40 mg QHS HAYLIE Administration Budesonide 0.5 mg 09/01/18 20:15 09/06/18 08:34 Pulmicort IH 0.5 mg Q12HRT HAYLIE Administration Clonidine HCl 0.1 mg 08/31/18 10:00 08/31/18 10:54 Catapres-Tts Patch TD 0.1 mg We HAYLIE Administration Dextrose 50 ml 09/02/18 06:36 D50w (25gm) Syringe IV PRN PRN Hypoglycemia Docusate Sodium 100 mg 08/31/18 10:00 09/06/18 11:21 Colace PO 100 mg BID HAYLIE Administration Furosemide 60 mg 09/06/18 14:00 09/06/18 13:53 Lasix PO 60 mg QDAY HAYLIE Administration Hydralazine HCl 10 mg 08/31/18 04:33 09/03/18 14:30 Apresoline IV 10 mg Q4H PRN Administration Blood Pressure Insulin Glargine 43 units 09/05/18 11:30 09/06/18 11:20 Lantus SUB-Q 43 units BID HAYLIE Administration Insulin Human Lispro 0 unit 08/31/18 06:00 09/06/18 13:50 Humalog SUB-Q 3 unit Q6HR HAYLIE Administration Protocol Levetiracetam 500 mg 08/31/18 10:00 09/06/18 11:21 Keppra PO 500 mg BID HAYLIE Administration Losartan Potassium 50 mg 08/31/18 10:00 09/06/18 11:20 Cozaar PO 50 mg QDAY HAYLIE Administration Methylprednisolone Sodium Succinate 40 mg 09/04/18 18:00 09/06/18 11:26 Solu-Medrol IV 40 mg Q8H HAYLIE Administration Metoprolol Tartrate 25 mg 09/02/18 11:00 09/06/18 11:25 Lopressor PO 25 mg Q6H HAYLIE Administration Morphine Sulfate 2 mg 08/31/18 04:33 08/31/18 21:33 Morphine IV 2 mg Q3H PRN Administration Pain, Moderate (4-6) Nystatin 500,000 unit 08/31/18 06:00 09/06/18 11:26 Nystatin PO 500,000 unit Q6HR HAYLIE Administration Ondansetron HCl 4 mg 08/31/18 01:25 Zofran IV Q8H PRN Nausea And Vomiting Simple Syrup 15 ml 09/05/18 13:40 Simple Syrup FEEDTUBE PRN PRN Hypoglycemia Simple Syrup 30 ml 09/05/18 13:40 Simple Syrup FEEDTUBE PRN PRN Hypoglycemia Sodium Bicarbonate 325 mg 09/05/18 13:40 Sodium Bicarbonate FEEDTUBE PRN PRN For Clogged Feeding Tube Sodium Chloride 10 ml 08/31/18 10:00 09/06/18 11:22 Sodium Chloride Flush Syringe 10 Ml IV 10 ml BID HAYLIE Administration Sodium Chloride 10 ml 08/31/18 01:25 Sodium Chloride Flush Syringe 10 Ml IV PRN PRN LINE FLUSH Timolol Maleate 1 drops 08/31/18 10:00 09/06/18 11:22 Timoptic OU 1 drops DAILY HAYLIE Administration Nutrition/Malnutrition Assess - Dietary Evaluation Nutrition/Malnutrition Findings: Nutrition Notes Start: 08/31/18 16:26 Freq: Status: Active Protocol: Document 09/06/18 14:13 CAROL (Rec: 09/06/18 14:15 [facility] SRW- [email or web address]) Nutrition Notes Initial or Follow up Brief Note Current Diet TF - Glucerna 1.2 at 60ml/hr Subjective/Other Information Observed TF infusing at goal rate. Percent of energy/protein needs met: 86% energy 79% pro Nutrition Intervention Follow-Up By: 09/10/18 Additional Comments F/U: stable TF, wt
[2018-09-06] MEDS: APRESOLINE IV PRN (20:47)
[2018-09-07] MEDS: DUONEB *Not for PRN Use IH SCH ×4 (01:52→19:35)
[2018-09-07] MEDS: SOLU-Medrol IV SCH ×4 (03:56→19:42)
[2018-09-07] MEDS: LOPRESSOR PO SCH ×4 (05:18→22:05)
[2018-09-07] MEDS: NYSTATIN PO SCH ×4 (05:18→23:19)
[2018-09-07] MEDS: HumaLOG SUB-Q SCH ×4 (05:24→23:19)
[2018-09-07] MEDS: PULMICORT IH SCH ×2 (08:04→19:34)
--- NOTE | 2018-09-07 08:58 | Progress Note ---
<SARANYA HENNESSY - Last Filed: 09/07/18 10:45> Assessment and Plan Atrial fibrillation, permanent On eliquis On metoprolol for rate control History of CVA s/p PEG tube Acute on chronic diastolic heart failure Echo 07/2018 - Normal LVEF Type II DM Systemic Hypertension Hyperlipidemia Chronic tracheostomy Recommendations: Continue medical therapy for heart failure with a preserved ejection fraction. Continue medical therapy for permanent atrial fibrillation. Otherwise, conservative cardiac management Stable for cardiac discharge. Subjective Date of service: 09/07/18 Principal diagnosis: CHF Interval history: Patient is non-verbal but resting in bed comfortably. Objective Vital Signs Temp Pulse Pulse Resp Resp Resp BP 09/07/18 08:40 09/07/18 08:39 09/07/18 08:31 97 H 16 09/07/18 08:05 102 H 16 09/07/18 07:52 97.4 F L 98 H 18 185/102 09/07/18 05:18 101 H 136/79 09/07/18 03:56 98.0 F 101 H 18 136/79 09/07/18 02:20 09/07/18 02:05 106 H 18 09/07/18 01:53 102 H 18 09/06/18 23:47 98.3 F 103 H 18 171/80 09/06/18 23:05 22 09/06/18 22:12 97 H 162/85 09/06/18 22:09 98.0 F 109 H 22 162/85 09/06/18 22:05 26 H 24 09/06/18 21:40 09/06/18 20:47 97 H 178/95 09/06/18 20:36 101 H 09/06/18 20:33 105 H 18 09/06/18 20:15 101 H 18 09/06/18 20:00 22 09/06/18 19:56 98.4 F 97 H 18 178/95 09/06/18 17:51 98.3 F 101 H 18 174/92 09/06/18 14:51 92 H 18 09/06/18 14:50 09/06/18 14:39 89 18 09/06/18 12:09 98.2 F 96 H 20 172/75 09/06/18 10:00 107 H 09/06/18 09:18 98.3 F 102 H 20 143/81 09/06/18 09:16 07/09/19 09:00 86 18 Pulse Ox Pulse Ox 09/07/18 08:40 98 09/07/18 08:39 98 09/07/18 08:31 09/07/18 08:05 09/07/18 07:52 54 L 09/07/18 05:18 09/07/18 03:56 96 09/07/18 02:20 100 09/07/18 02:05 09/07/18 01:53 09/06/18 23:47 96 09/06/18 23:05 09/06/18 22:12 09/06/18 22:09 91 09/06/18 22:05 09/06/18 21:40 93 09/06/18 20:47 09/06/18 20:36 09/06/18 20:33 09/06/18 20:15 09/06/18 20:00 93 09/06/18 19:56 94 09/06/18 17:51 92 09/06/18 14:51 09/06/18 14:50 99 09/06/18 14:39 09/06/18 12:09 94 09/06/18 10:00 09/06/18 09:18 91 09/06/18 09:16 95 09/06/18 09:00 - Physical Examination General: No Apparent Distress, Other (nonverbal) HEENT: Positive: PERRL Neck: Positive: Other (Midline trach) Cardiac: Positive: irregularly irregular Lungs: Positive: Decreased Breath Sounds Neuro: Positive: Other (Nonverbal ) Extremities: Absent: edema <JUSTO GONZALEZ - Last Filed: 09/07/18 19:01> Assessment and Plan I have seen and evaluated the patient and agree with the assessment and plan. Continue current medical therapy for treatment of heart failure with preserved ejection fraction and permanent atrial fibrillation. Objective Vital Signs Temp Pulse Pulse Resp Resp Resp BP 09/07/18 14:50 105 H 18 09/07/18 14:30 103 H 18 09/07/18 10:00 107 H 09/07/18 08:40 09/07/18 08:39 09/07/18 08:31 97 H 16 09/07/18 08:05 102 H 16 09/07/18 07:52 97.4 F L 98 H 18 185/102 09/07/18 05:18 101 H 136/79 09/07/18 03:56 98.0 F 101 H 18 136/79 09/07/18 02:20 09/07/18 02:05 106 H 18 09/07/18 01:53 102 H 18 09/06/18 23:47 98.3 F 103 H 18 171/80 09/06/18 23:05 22 09/06/18 22:12 97 H 162/85 09/06/18 22:09 98.0 F 109 H 22 162/85 09/06/18 22:05 26 H 24 09/06/18 21:40 09/06/18 20:47 97 H 178/95 09/06/18 20:36 101 H 09/06/18 20:33 105 H 18 09/06/18 20:15 101 H 18 09/06/18 20:00 22 09/06/18 19:56 98.4 F 97 H 18 178/95 Pulse Ox Pulse Ox 09/07/18 14:50 98 09/07/18 14:30 09/07/18 10:00 09/07/18 08:40 98 09/07/18 08:39 98 09/07/18 08:31 09/07/18 08:05 09/07/18 07:52 54 L 09/07/18 05:18 09/07/18 03:56 96 09/07/18 02:20 100 09/07/18 02:05 09/07/18 01:53 09/06/18 23:47 96 09/06/18 23:05 09/06/18 22:12 09/06/18 22:09 91 09/06/18 22:05 09/06/18 21:40 93 09/06/18 20:47 09/06/18 20:36 09/06/18 20:33 09/06/18 20:15 09/06/18 20:00 93 09/06/18 19:56 94
[2018-09-07] MEDS: BABY ASPIRIN PO SCH (09:43)
[2018-09-07] MEDS: LASIX PO SCH (09:43)
[2018-09-07] MEDS: ELIQUIS PO SCH ×2 (09:43→22:05)
[2018-09-07] MEDS: COLACE PO SCH ×2 (09:43→22:05)
[2018-09-07] MEDS: KEPPRA PO SCH ×2 (09:43→22:05)
[2018-09-07] MEDS: APRESOLINE IV PRN (09:43)
[2018-09-07] MEDS: TIMOPTIC OU SCH (09:44)
[2018-09-07] MEDS: CATAPRES-TTS PATCH TD SCH (09:44)
[2018-09-07] MEDS: COZAAR PO SCH (09:44)
[2018-09-07] MEDS: LANTUS SUB-Q SCH ×2 (09:44→22:08)
[2018-09-07] MEDS: SODIUM CHLORIDE FLUSH SYRINGE 10 ML IV SCH ×2 (09:45→22:05)
--- NOTE | 2018-09-07 15:39 | Progress Note ---
Assessment and Plan - Patient Problems (1) Pulmonary emboli Current Visit: Yes Status: Acute (2) Chronic respiratory failure Current Visit: Yes Status: Acute (3) Tracheostomy dependent Current Visit: Yes Status: Acute (4) Acute exacerbation of CHF (congestive heart failure) Current Visit: Yes Status: Acute Qualifiers: Heart failure type: systolic Qualified Code(s): I50.23 - Acute on chronic systolic (congestive) heart failure Subjective Principal diagnosis: CHF Interval history: doing better no family at bedside Objective Vital Signs - 12hr 09/07/18 09/07/18 09/07/18 03:56 05:18 07:52 Temperature 98.0 F 97.4 F L Pulse Rate 101 H 101 H 98 H Pulse Rate [ Anterior Bilateral Throughout] Respiratory 18 18 Rate Respiratory Rate [Anterior Bilateral Throughout] Blood Pressure 136/79 136/79 185/102 O2 Sat by Pulse 96 54 L Oximetry O2 Sat by Pulse Oximetry [ Assessment] 09/07/18 09/07/18 09/07/18 08:05 08:31 08:39 Temperature Pulse Rate Pulse Rate [ 102 H 97 H Anterior Bilateral Throughout] Respiratory Rate Respiratory 16 16 Rate [Anterior Bilateral Throughout] Blood Pressure O2 Sat by Pulse 98 Oximetry O2 Sat by Pulse Oximetry [ Assessment] 09/07/18 09/07/18 09/07/18 08:40 10:00 14:30 Temperature Pulse Rate 107 H Pulse Rate [ 103 H Anterior Bilateral Throughout] Respiratory Rate Respiratory 18 Rate [Anterior Bilateral Throughout] Blood Pressure O2 Sat by Pulse Oximetry O2 Sat by Pulse 98 Oximetry [ Assessment] 09/07/18 14:50 Temperature Pulse Rate Pulse Rate [ 105 H Anterior Bilateral Throughout] Respiratory Rate Respiratory 18 Rate [Anterior Bilateral Throughout] Blood Pressure O2 Sat by Pulse Oximetry O2 Sat by Pulse 98 Oximetry [ Assessment] Constitutional: no acute distress, alert Eyes: non-icteric ENT: oropharynx moist Neck: supple, other (trach in place) Ascultation: Bilateral: diminished breath sounds Cardiovascular: regular rate and rhythm (no mrg) Gastrointestinal: normoactive bowel sounds, non-distended, other (peg in place) Integumentary: normal Extremities: no cyanosis, pink and warm, edema (+ bilateral LE edema) Neurologic: other (awake, alert) Psychiatric: mood appropriate, affect normal CBC and BMP: 09/01/18 04:47 09/06/18 07:28 ABG, PT/INR, D-dimer: ABG POC ABG pH 7.437 (7.35-7.45) 09/01/18 19:07 POC ABG pCO2 53.7 (35-45) H 09/01/18 19:07 POC ABG pO2 73 (80-105) L 09/01/18 19:07 POC ABG HCO3 36.2 (22-26 mml/L) 09/01/18 19:07 POC ABG Total CO2 38 (23-27mmol/L) 09/01/18 19:07 POC ABG O2 Sat 95 09/01/18 19:07 PT/INR, D-dimer PT 20.9 Sec. (12.2-14.9) H 08/31/18 00:27 INR 1.85 (0.87-1.13) H 08/31/18 00:27 Abnormal lab findings: Abnormal Labs 08/30/18 08/30/18 08/30/18 23:28 23:28 23:28 RBC 3.40 L RDW 18.9 H Lymph % (Auto) 7.2 L Sandoval % (Auto) 8.7 H Eos % (Auto) 4.8 H Lymph # 0.7 L Seg Neutrophils % 78.9 H Seg Neutrophils # PT INR POC ABG pCO2 POC ABG pO2 Chloride Carbon Dioxide 31 H BUN 41 H Glucose 189 H POC Glucose Hemoglobin A1c Troponin T 0.323 H* NT-Pro-B Natriuret Pep Albumin 1.8 L HDL Cholesterol 35 L 08/30/18 08/31/18 08/31/18 23:28 00:27 03:48 RBC RDW Lymph % (Auto) Sandoval % (Auto) Eos % (Auto) Lymph # Seg Neutrophils % Seg Neutrophils # PT 20.9 H INR 1.85 H POC ABG pCO2 55.2 H POC ABG pO2 Chloride Carbon Dioxide BUN Glucose POC Glucose Hemoglobin A1c Troponin T NT-Pro-B Natriuret Pep 87319 H Albumin HDL Cholesterol 08/31/18 08/31/18 08/31/18 05:34 05:34 11:44 RBC RDW Lymph % (Auto) Sandoval % (Auto) Eos % (Auto) Lymph # Seg Neutrophils % Seg Neutrophils # PT INR POC ABG pCO2 POC ABG pO2 Chloride Carbon Dioxide BUN Glucose POC Glucose 154 H Hemoglobin A1c 6.4 H Troponin T 0.215 H* D NT-Pro-B Natriuret Pep Albumin HDL Cholesterol 08/31/18 09/01/18 09/01/18 23:32 04:47 04:47 RBC RDW 19.1 H Lymph % (Auto) 7.9 L Sandoval % (Auto) 7.4 H Eos % (Auto) Lymph # 0.9 L Seg Neutrophils % 84.0 H Seg Neutrophils # 9.3 H PT INR POC ABG pCO2 POC ABG pO2 Chloride 94.1 L Carbon Dioxide 32 H BUN 46 H Glucose 189 H POC Glucose 138 H Hemoglobin A1c Troponin T NT-Pro-B Natriuret Pep Albumin HDL Cholesterol 09/01/18 09/01/18 09/01/18 05:59 11:38 16:17 RBC RDW Lymph % (Auto) Sandoval % (Auto) Eos % (Auto) Lymph # Seg Neutrophils % Seg Neutrophils # PT INR POC ABG pCO2 POC ABG pO2 Chloride Carbon Dioxide BUN Glucose POC Glucose 236 H 235 H 278 H Hemoglobin A1c Troponin T NT-Pro-B Natriuret Pep Albumin HDL Cholesterol 09/01/18 09/01/18 09/01/18 17:59 18:53 19:07 RBC RDW Lymph % (Auto) Sandoval % (Auto) Eos % (Auto) Lymph # Seg Neutrophils % Seg Neutrophils # PT INR POC ABG pCO2 53.7 H POC ABG pO2 73 L Chloride Carbon Dioxide BUN Glucose POC Glucose 281 H 376 H Hemoglobin A1c Troponin T NT-Pro-B Natriuret Pep Albumin HDL Cholesterol 09/01/18 09/02/18 09/02/18 21:29 00:22 06:20 RBC RDW Lymph % (Auto) Sandoval % (Auto) Eos % (Auto) Lymph # Seg Neutrophils % Seg Neutrophils # PT INR POC ABG pCO2 POC ABG pO2 Chloride Carbon Dioxide BUN Glucose POC Glucose 247 H 369 H 414 H Hemoglobin A1c Troponin T NT-Pro-B Natriuret Pep Albumin HDL Cholesterol 09/02/18 09/02/18 09/02/18 11:56 18:21 23:42 RBC RDW Lymph % (Auto) Sandoval % (Auto) Eos % (Auto) Lymph # Seg Neutrophils % Seg Neutrophils # PT INR POC ABG pCO2 POC ABG pO2 Chloride Carbon Dioxide BUN Glucose POC Glucose 416 H 429 H 373 H Hemoglobin A1c Troponin T NT-Pro-B Natriuret Pep Albumin HDL Cholesterol 09/03/18 09/03/18 09/03/18 05:28 11:17 17:46 RBC RDW Lymph % (Auto) Sandoval % (Auto) Eos % (Auto) Lymph # Seg Neutrophils % Seg Neutrophils # PT INR POC ABG pCO2 POC ABG pO2 Chloride Carbon Dioxide BUN Glucose POC Glucose 400 H 319 H 308 H Hemoglobin A1c Troponin T NT-Pro-B Natriuret Pep Albumin HDL Cholesterol 09/04/18 09/04/18 09/04/18 00:10 05:56 11:53 RBC RDW Lymph % (Auto) Sandoval % (Auto) Eos % (Auto) Lymph # Seg Neutrophils % Seg Neutrophils # PT INR POC ABG pCO2 POC ABG pO2 Chloride Carbon Dioxide BUN Glucose POC Glucose 232 H 254 H 264 H Hemoglobin A1c Troponin T NT-Pro-B Natriuret Pep Albumin HDL Cholesterol 09/04/18 09/04/18 09/04/18 16:53 21:51 23:16 RBC RDW Lymph % (Auto) Sandoval % (Auto) Eos % (Auto) Lymph # Seg Neutrophils % Seg Neutrophils # PT INR POC ABG pCO2 POC ABG pO2 Chloride Carbon Dioxide BUN Glucose POC Glucose 262 H 252 H 291 H Hemoglobin A1c Troponin T NT-Pro-B Natriuret Pep Albumin HDL Cholesterol 09/05/18 09/05/18 09/05/18 04:21 05:20 12:08 RBC RDW Lymph % (Auto) Sandoval % (Auto) Eos % (Auto) Lymph # Seg Neutrophils % Seg Neutrophils # PT INR POC ABG pCO2 POC ABG pO2 Chloride 97.3 L Carbon Dioxide 33 H BUN 66 H Glucose 232 H POC Glucose 272 H 201 H Hemoglobin A1c Troponin T NT-Pro-B Natriuret Pep Albumin HDL Cholesterol 09/05/18 09/06/18 09/06/18 21:50 00:24 05:26 RBC RDW Lymph % (Auto) [place] % (Auto) Eos % (Auto) Lymph # Seg Neutrophils % Seg Neutrophils # PT INR POC ABG pCO2 POC ABG pO2 Chloride Carbon Dioxide BUN Glucose POC Glucose 196 H 171 H 142 H Hemoglobin A1c Troponin T NT-Pro-B Natriuret Pep Albumin HDL Cholesterol 09/06/18 09/06/18 09/06/18 07:28 12:13 18:03 RBC RDW Lymph % (Auto) Sandoval % (Auto) Eos % (Auto) Lymph # Seg Neutrophils % Seg Neutrophils # PT INR POC ABG pCO2 POC ABG pO2 Chloride Carbon Dioxide 34 H BUN 69 H Glucose 164 H POC Glucose 209 H 158 H Hemoglobin A1c Troponin T NT-Pro-B Natriuret Pep Albumin HDL Cholesterol 09/06/18 09/06/18 09/07/18 22:18 23:54 05:27 RBC RDW Lymph % (Auto) [place] % (Auto) Eos % (Auto) Lymph # Seg Neutrophils % Seg Neutrophils # PT INR POC ABG pCO2 POC ABG pO2 Chloride Carbon Dioxide BUN Glucose POC Glucose 181 H 219 H 244 H Hemoglobin A1c Troponin T NT-Pro-B Natriuret Pep Albumin HDL Cholesterol 09/07/18 13:48 RBC RDW Lymph % (Auto) [place]oval % (Auto) Eos % (Auto) Lymph # Seg Neutrophils % Seg Neutrophils # PT INR POC ABG pCO2 POC ABG pO2 Chloride Carbon Dioxide BUN Glucose POC Glucose 286 H Hemoglobin A1c Troponin T NT-Pro-B Natriuret Pep Albumin HDL Cholesterol Chest x-ray: report reviewed, image reviewed (improved)
--- NOTE | 2018-09-07 17:02 | Progress Note ---
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 She was recently ( approx 3 weeks ago) hospitalized at [facility] for CHF exacerbation. She has been [facility] with past [facility] weeks[facility] that patient was hyoxic ans was sent to [facility] for further evaluation and management. Assessment ans Plan: --Acute on chronic hypoxic respiratory failure;h/o tracheostomy Continue nebulizers and oxygen titrate to O2 sats more than 90% Patient is saturating well on room air, pulmonary following --Acute exacerbation diastolic CHF EF >55% (Echo 07/2018) IV Lasix, changed to by mouth chest x-ray significant improvement of congestive heart failure Cardiology cleared for discharge on oral diuretics, and other cardiac medications --NSTEMI: Cardiology evaluated ,conservative management no plans of ischemia workup --History of A. 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 History Interval history: Patient seen and examined medically Patient is more alert and awake today Saturating 97-98% room air, mild anxiety Vital signs reviewed Patient's family members at the bedside Hospitalist Physical - Constitutional Vitals: Temp Pulse Resp BP Pulse Ox 97.4 F L 105 H 18 185/102 98 09/07/18 07:52 09/07/18 14:50 09/07/18 14:50 09/07/18 07:52 09/07/18 14:50 General appearance: Present: no acute distress, well-nourished, obese, other (noncommunicative ,tracheostomy on T piece,) - EENT Eyes: Present: PERRL, EOM intact - Neck Neck: Present: supple, normal ROM, other (tracheostomy in place) - Respiratory Respiratory effort: normal Respiratory: bilateral: diminished, negative: rales, rhonchi, wheezing - Cardiovascular Rhythm: regular Heart Sounds: Present: S1 & S2 - Extremities Extremities: no ischemia, No edema - Abdominal General gastrointestinal: soft, non-tender, non-distended, normal bowel sounds, other (PEG tube in place) - Integumentary Integumentary: Present: clear, warm - Psychiatric Psychiatric: other (noncommunicative) - Neurologic Neurologic: other (CVA with dysphagia weakness) Results - Labs CBC & Chem 7: 09/01/18 04:47 09/06/18 07:28 Labs: Laboratory Last Values WBC 11.0 K/mm3 (4.5-11.0) 09/01/18 04:47 RBC 3.76 M/mm3 (3.65-5.03) 09/01/18 04:47 Hgb 11.0 gm/dl (10.1-14.3) 09/01/18 04:47 Hct 34.5 % (30.3-42.9) 09/01/18 04:47 MCV 92 fl (79-97) 09/01/18 04:47 MCH 29 pg (28-32) 09/01/18 04:47 MCHC 32 % (30-34) 09/01/18 04:47 RDW 19.1 % (13.2-15.2) H 09/01/18 04:47 Plt Count 210 K/mm3 (140-440) 09/01/18 04:47 Lymph % (Auto) 7.9 % (13.4-35.0) L 09/01/18 04:47 [place] % (Auto) 7.4 % (0.0-7.3) H 09/01/18 04:47 Eos % (Auto) 0.3 % (0.0-4.3) 09/01/18 04:47 Baso % (Auto) 0.4 % (0.0-1.8) 09/01/18 04:47 Lymph # 0.9 K/mm3 (1.2-5.4) L 09/01/18 04:47 Alpine # 0.8 K/mm3 (0.0-0.8) 09/01/18 04:47 Eos # 0.0 K/mm3 (0.0-0.4) 09/01/18 04:47 Baso # 0.0 K/mm3 (0.0-0.1) 09/01/18 04:47 Seg Neutrophils % 84.0 % (40.0-70.0) H 09/01/18 04:47 Seg Neutrophils # 9.3 K/mm3 (1.8-7.7) H 09/01/18 04:47 PT 20.9 Sec. (12.2-14.9) H 08/31/18 00:27 INR 1.85 (0.87-1.13) H 08/31/18 00:27 APTT 30.7 Sec. (24.2-36.6) 08/31/18 00:27 POC ABG pH 7.437 (7.35-7.45) 09/01/18 19:07 POC ABG pCO2 53.7 (35-45) H 09/01/18 19:07 POC ABG pO2 73 (80-105) L 09/01/18 19:07 POC ABG HCO3 36.2 (22-26 mml/L) 09/01/18 19:07 POC ABG Total CO2 38 (23-27mmol/L) 09/01/18 19:07 POC ABG O2 Sat 95 09/01/18 19:07 POC ABG Base Excess 12 ((-2) - (+3)mmol/L) 09/01/18 19:07 35 % 09/01/18 19:07 Sodium 145 mmol/L (137-145) 09/06/18 07:28 Potassium 3.9 mmol/L (3.6-5.0) 09/06/18 07:28 Chloride 99.5 mmol/L (98-107) 09/06/18 07:28 Carbon Dioxide 34 mmol/L (22-30) H 09/06/18 07:28 15 mmol/L 09/06/18 07:28 BUN 69 mg/dL (7-17) H 09/06/18 07:28 1.1 mg/dL (0.7-1.2) 09/06/18 07:28 Estimated GFR 59 ml/min 09/06/18 07:28 63 % 09/06/18 07:28 Glucose 164 mg/dL (65-100) H 09/06/18 07:28 POC Glucose 286 (70-105) H 09/07/18 13:48 6.4 % (4-6) H 08/31/18 05:34 Calcium 8.7 mg/dL (8.4-10.2) 09/06/18 07:28 Magnesium 2.10 mg/dL (1.7-2.3) 09/06/18 07:28 0.30 mg/dL (0.1-1.2) 08/30/18 23:28 AST 33 units/L (5-40) 08/30/18 23:28 ALT 22 units/L (7-56) 08/30/18 23:28 110 units/L (35-129) 08/30/18 23:28 0.215 ng/mL (0.00-0.029) H* D 08/31/18 05:34 NT-Pro-B Natriuret Pep 31938 pg/mL (0-900) H 08/30/18 23:28 6.7 g/dL (6.3-8.2) 08/30/18 23:28 1.8 g/dL (3.9-5) L 08/30/18 23:28 0.4 % 08/30/18 23:28 Triglycerides 77 mg/dL (2-149) 08/30/18 23:28 Cholesterol 99 mg/dL (50-199) 08/30/18 23:28 56 mg/dL (50-130) 08/30/18 23:28 35 mg/dL (40-59) L 08/30/18 23:28 2.82 % 08/30/18 23:28 Active Medications - Current Medications Current Medications: Generic Name Dose Route Start Last Admin Trade Name Freq PRN Reason Stop Dose Admin Acetaminophen 650 mg 08/31/18 01:25 09/06/18 22:05 Tylenol PO 650 mg Q4H PRN Administration Pain MILD(1-3)/Fever >100.5/[place] Albuterol 2.5 mg 09/01/18 20:10 Proventil IH Q4HRT PRN Shortness Of Breath Albuterol/Ipratropium 1 ampul 09/02/18 02:00 09/07/18 14:30 Duoneb *Not For Prn Use* IH 1 ampul Q6HRT HAYLIE Administration Lipase/Protease/Amylase 1 each 09/05/18 13:40 Pancrebobby Wilson 10,500 Unit FEEDTUBE PRN PRN For Clogged Feeding Tube Apixaban 5 mg 08/31/18 10:00 09/07/18 09:43 Eliquis PO 5 mg BID HAYLIE Administration Aspirin 81 mg 08/31/18 10:00 09/07/18 09:43 Baby Aspirin PO 81 mg QDAY HAYLIE Administration Atorvastatin Calcium 40 mg 08/31/18 22:00 09/06/18 22:05 Lipitor PO 40 mg QHS HAYLIE Administration Budesonide 0.5 mg 09/01/18 20:15 09/07/18 08:04 Pulmicort IH 0.5 mg Q12HRT HAYLIE Administration Clonidine HCl 0.1 mg 08/31/18 10:00 09/07/18 09:44 Catapres-Tts Patch TD 0.1 mg We HAYLIE Administration Dextrose 50 ml 09/02/18 06:36 D50w (25gm) Syringe IV PRN PRN Hypoglycemia Docusate Sodium 100 mg 08/31/18 10:00 09/07/18 09:43 Colace PO 100 mg BID HAYLIE Administration Furosemide 60 mg 09/06/18 14:00 09/07/18 09:43 Lasix PO 60 mg QDAY HAYLIE Administration Hydralazine HCl 10 mg 08/31/18 04:33 09/07/18 09:43 Apresoline IV 10 mg Q4H PRN Administration Blood Pressure Insulin Glargine 43 units 09/05/18 11:30 09/07/18 09:44 Lantus SUB-Q 43 units BID HAYLIE Administration Insulin Human Lispro 0 unit 08/31/18 06:00 09/07/18 13:00 Humalog SUB-Q 4 unit Q6HR HAYLIE Administration Protocol Levetiracetam 500 mg 08/31/18 10:00 09/07/18 09:43 Keppra PO 500 mg BID HAYLIE Administration Losartan Potassium 50 mg 08/31/18 10:00 09/07/18 09:44 Cozaar PO 50 mg QDAY HAYLIE Administration Methylprednisolone Sodium Succinate 40 mg 09/07/18 04:00 09/07/18 13:17 Solu-Medrol IV 40 mg Q8H HAYLIE Administration Metoprolol Tartrate 25 mg 09/02/18 11:00 09/07/18 13:17 Lopressor PO 25 mg Q6H HAYLEI Administration Morphine Sulfate 2 mg 08/31/18 04:33 08/31/18 21:33 Morphine IV 2 mg Q3H PRN Administration Pain, Moderate (4-6) Nystatin 500,000 unit 08/31/18 06:00 09/07/18 13:17 Nystatin PO 500,000 unit Q6HR HAYLIE Administration Ondansetron HCl 4 mg 08/31/18 01:25 Zofran IV Q8H PRN Nausea And Vomiting Simple Syrup 15 ml 09/05/18 13:40 Simple Syrup FEEDTUBE PRN PRN Hypoglycemia Simple Syrup 30 ml 09/05/18 13:40 Simple Syrup FEEDTUBE PRN PRN Hypoglycemia Sodium Bicarbonate 325 mg 09/05/18 13:40 Sodium Bicarbonate FEEDTUBE PRN PRN For Clogged Feeding Tube Sodium Chloride 10 ml 08/31/18 10:00 09/07/18 09:45 Sodium Chloride Flush Syringe 10 Ml IV 10 ml BID HAYLIE Administration Sodium Chloride 10 ml 08/31/18 01:25 Sodium Chloride Flush Syringe 10 Ml IV PRN PRN LINE FLUSH Timolol Maleate 1 drops 08/31/18 10:00 09/07/18 09:44 Timoptic OU 1 drops DAILY HAYLIE Administration Nutrition/Malnutrition Assess - Dietary Evaluation Nutrition/Malnutrition Findings: Nutrition Notes Start: 08/31/18 16:26 Freq: Status: Active Protocol: Document 09/06/18 14:13 CAROL (Rec: 09/06/18 14:15 CAROL [email or web address]) Nutrition Notes Initial or Follow up Brief Note Current Diet TF - Glucerna 1.2 at 60ml/hr Subjective/Other Information Observed TF infusing at goal rate. Percent of energy/protein needs met: 86% energy 79% pro Nutrition Intervention Follow-Up By: 09/10/18 Additional Comments F/U: stable TF, wt
[2018-09-07] MEDS ORDERED: XANAX PO PRN (18:41)
[2018-09-08] MEDS: DUONEB *Not for PRN Use IH SCH ×4 (01:54→20:02)
[2018-09-08] MEDS: SOLU-Medrol IV SCH (04:17)
[2018-09-08] MEDS: LOPRESSOR PO SCH ×4 (04:17→22:22)
[2018-09-08] MEDS: HumaLOG SUB-Q SCH ×3 (06:16→18:41)
[2018-09-08] MEDS: NYSTATIN PO SCH ×3 (06:17→18:37)
[2018-09-08] MEDS: PULMICORT IH SCH ×2 (07:58→20:02)
[2018-09-08] MEDS: COZAAR PO SCH (09:29)
[2018-09-08] MEDS: ELIQUIS PO SCH ×2 (09:29→22:21)
[2018-09-08] MEDS: BABY ASPIRIN PO SCH (09:29)
[2018-09-08] MEDS: TIMOPTIC OU SCH (09:29)
[2018-09-08] MEDS: COLACE PO SCH ×2 (09:29→22:22)
[2018-09-08] MEDS: LASIX PO SCH (09:29)
[2018-09-08] MEDS: KEPPRA PO SCH ×2 (09:29→22:20)
[2018-09-08] MEDS: LANTUS SUB-Q SCH ×2 (09:29→22:36)
[2018-09-08] MEDS: SODIUM CHLORIDE FLUSH SYRINGE 10 ML IV SCH ×2 (09:30→22:22)
--- NOTE | 2018-09-08 10:54 | Progress Note ---
Assessment and Plan Atrial fibrillation, permanent On eliquis On metoprolol for rate control History of CVA s/p PEG tube Acute on chronic diastolic heart failure Echo 07/2018 - Normal LVEF Type II DM Systemic Hypertension Hyperlipidemia Chronic tracheostomy Recommendations: Continue medical therapy for heart failure with a preserved ejection fraction. Continue medical therapy for permanent atrial fibrillation. Otherwise, conservative cardiac management Subjective Date of service: 09/08/18 Principal diagnosis: CHF Interval history: Patient is non-verbal but resting in bed comfortably. Family member is at the bedside. Objective Vital Signs Temp Pulse Pulse Pulse Resp Resp Resp 09/08/18 09:08 09/08/18 08:57 97.4 F L 100 H 20 09/08/18 08:15 66 66 20 20 09/08/18 08:04 09/08/18 08:00 66 66 24 24 09/08/18 04:17 111 H 09/08/18 03:53 97.9 F 111 H 20 09/08/18 02:05 114 H 20 09/08/18 01:56 09/08/18 01:55 112 H 20 09/07/18 23:08 97.3 F L 97 H 19 09/07/18 22:05 108 H 09/07/18 22:00 09/07/18 20:37 24 09/07/18 20:19 108 H 18 09/07/18 19:42 09/07/18 19:40 114 H 20 09/07/18 19:24 98.0 F 100 H 20 09/07/18 19:21 125 H 09/07/18 16:59 100 H 09/07/18 14:50 105 H 18 09/07/18 14:30 103 H 18 09/07/18 13:41 97.9 F 112 H 18 Resp BP Pulse Ox Pulse Ox 09/08/18 09:08 97 09/08/18 08:57 146/70 94 09/08/18 08:15 09/08/18 08:04 95 09/08/18 08:00 09/08/18 04:17 124/92 09/08/18 03:53 124/92 96 09/08/18 02:05 09/08/18 01:56 95 09/08/18 01:55 09/07/18 23:08 150/88 95 09/07/18 22:05 126/85 09/07/18 22:00 24 09/07/18 20:37 92 09/07/18 20:19 09/07/18 19:42 98 09/07/18 19:40 09/07/18 19:24 126/85 89 09/07/18 19:21 09/07/18 16:59 167/90 93 09/07/18 14:50 98 09/07/18 14:30 09/07/18 13:41 150/73 93 - Physical Examination General: No Apparent Distress, Other (nonverbal) HEENT: Positive: PERRL Neck: Positive: Other (Midline trach) Cardiac: Positive: irregularly irregular Lungs: Positive: Rhonchi Neuro: Positive: Other (Nonverbal ) Extremities: Absent: edema
--- NOTE | 2018-09-08 13:06 | Progress Note ---
Assessment and Plan Imp: 1. A/C diastolic CHF 2. Acute/chronic respiratory failure, hypoxia 3. Chronic hypercapneic respiratory failure 4. Obesity 5. s/p Trach 6. Casey-jorge respirations Rec: 1. She does appear slightly worse compared to when I last saw her on 09/06/18, which may be related to ongoing volume overload (she has 3+ pitting edema); the Casey-jorge respirations are likely either related to her CHF or her neurologic issues; at this point would stop Morphine/Xanax and avoid any sedating meds, repeat CXR and ABG, repeat labs, check UA to eval. for UTI, and resume IV diuresis with Lasix 40mg IV BID; if her bicarb/CO2 are significantly high should consider a dose of Diamox 2. Cont. Duonebs/Pulmicort -> cont. this at [facility] 3. Routine trach management 4. Hold off on PMV for now; wean O2 as tolerated 5. Complex decision-making Plan of care reviewed in detail with daughter, she understands/agrees Subjective Date of service: 09/08/18 Principal diagnosis: CHF Interval history: No events. Daughter at bedside concerned about her breathing which seems worse x last 48 hours. Patient is arousable but cannot give hx. She has casey-jorge respirations, is on 35-40% FiO2 via Tpiece, and is slightly more labored than prior. Active Medications Acetaminophen (Tylenol) 650 mg PO Q4H PRN PRN Reason: Pain MILD(1-3)/Fever >100.5/[place] Last Admin: 09/06/18 22:05 Dose: 650 mg Documented by: Albuterol (Proventil) 2.5 mg IH Q4HRT PRN PRN Reason: Shortness Of Breath Albuterol/Ipratropium (Duoneb *Not For Prn Use*) 1 ampul IH Q6HRT [facility] Last Admin: 09/08/18 07:58 Dose: 1 ampul Documented by: Lipase/Protease/Amylase (Kathya Wilson 10,500 Unit) 1 each FEEDTUBE PRN PRN PRN Reason: For Clogged Feeding Tube Apixaban (Eliquis) 5 mg PO BID [facility] Last Admin: 09/08/18 09:29 Dose: 5 mg Documented by: Aspirin (Baby Aspirin) 81 mg PO QDAY [facility] Last Admin: 09/08/18 09:29 Dose: 81 mg Documented by: Atorvastatin Calcium (Lipitor) 40 mg PO QHS [facility] Last Admin: 09/07/18 22:05 Dose: 40 mg Documented by: Budesonide (Pulmicort) 0.5 mg IH Q12HRT [facility] Last Admin: 09/08/18 07:58 Dose: 0.5 mg Documented by: Clonidine HCl (Catapres-Tts Patch) 0.1 mg TD We [facility] Last Admin: 09/07/18 09:44 Dose: 0.1 mg Documented by: Dextrose (D50w (25gm) Syringe) 50 ml IV PRN PRN PRN Reason: Hypoglycemia Docusate Sodium (Colace) 100 mg PO BID [facility] Last Admin: 09/08/18 09:29 Dose: 100 mg Documented by: Furosemide (Lasix) 40 mg IV 0600,1800 [facility] Hydralazine HCl (Apresoline) 10 mg IV Q4H PRN PRN Reason: Blood Pressure Last Admin: 09/07/18 09:43 Dose: 10 mg Documented by: Insulin Glargine (Lantus) 43 units SUB-Q BID [facility] Last Admin: 09/08/18 09:29 Dose: 43 units Documented by: Insulin Human Lispro (Humalog) 0 unit SUB-Q Q6HR [facility]; Protocol Last Admin: 09/08/18 06:16 Dose: 4 unit Documented by: Levetiracetam (Keppra) 500 mg PO BID [facility] Last Admin: 09/08/18 09:29 Dose: 500 mg Documented by: Losartan Potassium (Cozaar) 50 mg PO QDAY [facility] Last Admin: 09/08/18 09:29 Dose: 50 mg Documented by: Methylprednisolone Sodium Succinate (Solu-Medrol) 40 mg IV Q24HR [facility] Metoprolol Tartrate (Lopressor) 25 mg PO Q6H [facility] Last Admin: 09/08/18 04:17 Dose: 25 mg Documented by: Nystatin (Nystatin) 500,000 unit PO Q6HR [facility] Last Admin: 09/08/18 06:17 Dose: 500,000 unit Documented by: Ondansetron HCl (Zofran) 4 mg IV Q8H PRN PRN Reason: Nausea And Vomiting Simple Syrup (Simple Syrup) 15 ml FEEDTUBE PRN PRN PRN Reason: Hypoglycemia Simple Syrup (Simple Syrup) 30 ml FEEDTUBE PRN PRN PRN Reason: Hypoglycemia Sodium Bicarbonate (Sodium Bicarbonate) 325 mg FEEDTUBE PRN PRN PRN Reason: For Clogged Feeding Tube Sodium Chloride (Sodium Chloride Flush Syringe 10 Ml) 10 ml IV BID [facility] Last Admin: 09/08/18 09:30 Dose: 10 ml Documented by: Sodium Chloride (Sodium Chloride Flush Syringe 10 Ml) 10 ml IV PRN PRN PRN Reason: LINE FLUSH Timolol Maleate (Timoptic) 1 drops OU DAILY [facility] Last Admin: 09/08/18 09:29 Dose: 1 drops Documented by: Objective Vital Signs - 12hr 09/08/18 09/08/18 09/08/18 01:55 01:56 02:05 Temperature Pulse Rate Pulse Rate [ 112 H 114 H Anterior Bilateral Throughout] Pulse Rate [ Bilateral Throughout] Respiratory Rate Respiratory 20 20 Rate [Anterior Bilateral Throughout] Respiratory Rate [Bilateral Throughout] Blood Pressure O2 Sat by Pulse Oximetry O2 Sat by Pulse 95 Oximetry [ Assessment] 09/08/18 09/08/18 09/08/18 03:53 04:17 08:00 Temperature 97.9 F Pulse Rate 111 H 111 H Pulse Rate [ 66 Anterior Bilateral Throughout] Pulse Rate [ 66 Bilateral Throughout] Respiratory 20 Rate Respiratory 24 Rate [Anterior Bilateral Throughout] Respiratory 24 Rate [Bilateral Throughout] Blood Pressure 124/92 124/92 O2 Sat by Pulse 96 Oximetry O2 Sat by Pulse Oximetry [ Assessment] 09/08/18 09/08/18 09/08/18 08:04 08:15 08:57 Temperature 97.4 F L Pulse Rate 100 H Pulse Rate [ 66 Anterior Bilateral Throughout] Pulse Rate [ 66 Bilateral Throughout] Respiratory 20 Rate Respiratory 20 Rate [Anterior Bilateral Throughout] Respiratory 20 Rate [Bilateral Throughout] Blood Pressure 146/70 O2 Sat by Pulse 95 94 Oximetry O2 Sat by Pulse Oximetry [ Assessment] 09/08/18 09:08 Temperature Pulse Rate Pulse Rate [ Anterior Bilateral Throughout] Pulse Rate [ Bilateral Throughout] Respiratory Rate Respiratory Rate [Anterior Bilateral Throughout] Respiratory Rate [Bilateral Throughout] Blood Pressure O2 Sat by Pulse Oximetry O2 Sat by Pulse 97 Oximetry [ Assessment] Constitutional: no acute distress, alert Eyes: non-icteric ENT: oropharynx moist Neck: supple, other (trach in place) Ascultation: Bilateral: other (coarse BS with periods of apnea (Casey-jorge)) Cardiovascular: regular rate and rhythm (no mrg) Gastrointestinal: normoactive bowel sounds, non-distended, other (peg in place) Integumentary: normal Extremities: no cyanosis, pink and warm, edema (3+ bilateral LE edema) Neurologic: other (more sleepy but arousable) Psychiatric: mood appropriate, affect normal CBC and BMP: 09/01/18 04:47 09/06/18 07:28 ABG, PT/INR, D-dimer: ABG POC ABG pH 7.437 (7.35-7.45) 09/01/18 19:07 POC ABG pCO2 53.7 (35-45) H 09/01/18 19:07 POC ABG pO2 73 (80-105) L 09/01/18 19:07 POC ABG HCO3 36.2 (22-26 mml/L) 09/01/18 19:07 POC ABG Total CO2 38 (23-27mmol/L) 09/01/18 19:07 POC ABG O2 Sat 95 09/01/18 19:07 PT/INR, D-dimer PT 20.9 Sec. (12.2-14.9) H 08/31/18 00:27 INR 1.85 (0.87-1.13) H 08/31/18 00:27 Abnormal lab findings: Abnormal Labs 08/30/18 08/30/18 08/30/18 23:28 23:28 23:28 RBC 3.40 L RDW 18.9 H Lymph % (Auto) 7.2 L [place] % (Auto) 8.7 H Eos % (Auto) 4.8 H Lymph # 0.7 L Seg Neutrophils % 78.9 H Seg Neutrophils # PT INR POC ABG pCO2 POC ABG pO2 Chloride Carbon Dioxide 31 H BUN 41 H Glucose 189 H POC Glucose Hemoglobin A1c Troponin T 0.323 H* NT-Pro-B Natriuret Pep Albumin 1.8 L HDL Cholesterol 35 L 08/30/18 08/31/18 08/31/18 23:28 00:27 03:48 RBC RDW Lymph % (Auto) [place] % (Auto) Eos % (Auto) Lymph # Seg Neutrophils % Seg Neutrophils # PT 20.9 H INR 1.85 H POC ABG pCO2 55.2 H POC ABG pO2 Chloride Carbon Dioxide BUN Glucose POC Glucose Hemoglobin A1c Troponin T NT-Pro-B Natriuret Pep 31079 H Albumin HDL Cholesterol 08/31/18 08/31/18 08/31/18 05:34 05:34 11:44 RBC RDW Lymph % (Auto) [place] % (Auto) Eos % (Auto) Lymph # Seg Neutrophils % Seg Neutrophils # PT INR POC ABG pCO2 POC ABG pO2 Chloride Carbon Dioxide BUN Glucose POC Glucose 154 H Hemoglobin A1c 6.4 H Troponin T 0.215 H* D NT-Pro-B Natriuret Pep Albumin HDL Cholesterol 08/31/18 09/01/18 09/01/18 23:32 04:47 04:47 RBC RDW 19.1 H Lymph % (Auto) 7.9 L [place] % (Auto) 7.4 H Eos % (Auto) Lymph # 0.9 L Seg Neutrophils % 84.0 H Seg Neutrophils # 9.3 H PT INR POC ABG pCO2 POC ABG pO2 Chloride 94.1 L Carbon Dioxide 32 H BUN 46 H Glucose 189 H POC Glucose 138 H Hemoglobin A1c Troponin T NT-Pro-B Natriuret Pep Albumin HDL Cholesterol 09/01/18 09/01/18 09/01/18 05:59 11:38 16:17 RBC RDW Lymph % (Auto) [place] % (Auto) Eos % (Auto) Lymph # Seg Neutrophils % Seg Neutrophils # PT INR POC ABG pCO2 POC ABG pO2 Chloride Carbon Dioxide BUN Glucose POC Glucose 236 H 235 H 278 H Hemoglobin A1c Troponin T NT-Pro-B Natriuret Pep Albumin HDL Cholesterol 09/01/18 09/01/18 09/01/18 17:59 18:53 19:07 RBC RDW Lymph % (Auto) [place] % (Auto) Eos % (Auto) Lymph # Seg Neutrophils % Seg Neutrophils # PT INR POC ABG pCO2 53.7 H POC ABG pO2 73 L Chloride Carbon Dioxide BUN Glucose POC Glucose 281 H 376 H Hemoglobin A1c Troponin T NT-Pro-B Natriuret Pep Albumin HDL Cholesterol 09/01/18 09/02/18 09/02/18 21:29 00:22 06:20 RBC RDW Lymph % (Auto) [place] % (Auto) Eos % (Auto) Lymph # Seg Neutrophils % Seg Neutrophils # PT INR POC ABG pCO2 POC ABG pO2 Chloride Carbon Dioxide BUN Glucose POC Glucose 247 H 369 H 414 H Hemoglobin A1c Troponin T NT-Pro-B Natriuret Pep Albumin HDL Cholesterol 09/02/18 09/02/18 09/02/18 11:56 18:21 23:42 RBC RDW Lymph % (Auto) [place] % (Auto) Eos % (Auto) Lymph # Seg Neutrophils % Seg Neutrophils # PT INR POC ABG pCO2 POC ABG pO2 Chloride Carbon Dioxide BUN Glucose POC Glucose 416 H 429 H 373 H Hemoglobin A1c Troponin T NT-Pro-B Natriuret Pep Albumin HDL Cholesterol 09/03/18 09/03/18 09/03/18 05:28 11:17 17:46 RBC RDW Lymph % (Auto) [place] % (Auto) Eos % (Auto) Lymph # Seg Neutrophils % Seg Neutrophils # PT INR POC ABG pCO2 POC ABG pO2 Chloride Carbon Dioxide BUN Glucose POC Glucose 400 H 319 H 308 H Hemoglobin A1c Troponin T NT-Pro-B Natriuret Pep Albumin HDL Cholesterol 09/04/18 09/04/18 09/04/18 00:10 05:56 11:53 RBC RDW Lymph % (Auto) [place] % (Auto) Eos % (Auto) Lymph # Seg Neutrophils % Seg Neutrophils # PT INR POC ABG pCO2 POC ABG pO2 Chloride Carbon Dioxide BUN Glucose POC Glucose 232 H 254 H 264 H Hemoglobin A1c Troponin T NT-Pro-B Natriuret Pep Albumin HDL Cholesterol 09/04/18 09/04/18 09/04/18 16:53 21:51 23:16 RBC RDW Lymph % (Auto) [place] % (Auto) Eos % (Auto) Lymph # Seg Neutrophils % Seg Neutrophils # PT INR POC ABG pCO2 POC ABG pO2 Chloride Carbon Dioxide BUN Glucose POC Glucose 262 H 252 H 291 H Hemoglobin A1c Troponin T NT-Pro-B Natriuret Pep Albumin HDL Cholesterol 09/05/18 09/05/18 09/05/18 04:21 05:20 12:08 RBC RDW Lymph % (Auto) [place] % (Auto) Eos % (Auto) Lymph # Seg Neutrophils % Seg Neutrophils # PT INR POC ABG pCO2 POC ABG pO2 Chloride 97.3 L Carbon Dioxide 33 H BUN 66 H Glucose 232 H POC Glucose 272 H 201 H Hemoglobin A1c Troponin T NT-Pro-B Natriuret Pep Albumin HDL Cholesterol 09/05/18 09/06/18 09/06/18 21:50 00:24 05:26 RBC RDW Lymph % (Auto) [place] % (Auto) Eos % (Auto) Lymph # Seg Neutrophils % Seg Neutrophils # PT INR POC ABG pCO2 POC ABG pO2 Chloride Carbon Dioxide BUN Glucose POC Glucose 196 H 171 H 142 H Hemoglobin A1c Troponin T NT-Pro-B Natriuret Pep Albumin HDL Cholesterol 09/06/18 09/06/18 09/06/18 07:28 12:13 18:03 RBC RDW Lymph % (Auto) [place] % (Auto) Eos % (Auto) Lymph # Seg Neutrophils % Seg Neutrophils # PT INR POC ABG pCO2 POC ABG pO2 Chloride Carbon Dioxide 34 H BUN 69 H Glucose 164 H POC Glucose 209 H 158 H Hemoglobin A1c Troponin T NT-Pro-B Natriuret Pep Albumin HDL Cholesterol 09/06/18 09/06/18 09/07/18 22:18 23:54 05:27 RBC RDW Lymph % (Auto) [place] % (Auto) Eos % (Auto) Lymph # Seg Neutrophils % Seg Neutrophils # PT INR POC ABG pCO2 POC ABG pO2 Chloride Carbon Dioxide BUN Glucose POC Glucose 181 H 219 H 244 H Hemoglobin A1c Troponin T NT-Pro-B Natriuret Pep Albumin HDL Cholesterol 09/07/18 09/07/18 09/07/18 13:48 17:07 22:14 RBC RDW Lymph % (Auto) [place] % (Auto) Eos % (Auto) Lymph # Seg Neutrophils % Seg Neutrophils # PT INR POC ABG pCO2 POC ABG pO2 Chloride Carbon Dioxide BUN Glucose POC Glucose 286 H 263 H 237 H Hemoglobin A1c Troponin T NT-Pro-B Natriuret Pep Albumin HDL Cholesterol 09/07/18 09/08/18 23:25 06:22 RBC RDW Lymph % (Auto) [place] % (Auto) Eos % (Auto) Lymph # Seg Neutrophils % Seg Neutrophils # PT INR POC ABG pCO2 POC ABG pO2 Chloride Carbon Dioxide BUN Glucose POC Glucose 266 H 271 H Hemoglobin A1c Troponin T NT-Pro-B Natriuret Pep Albumin HDL Cholesterol Chest x-ray: report reviewed, image reviewed
--- NOTE | 2018-09-08 13:50 | XRay Report ---
CHEST 1 VIEW INDICATION: SOB. COMPARISON: 09/06/2018 FINDINGS: Support devices: A tracheostomy tube is in satisfactory position. Heart: Cardiomegaly. Pulmonary vasculature: Mild central vascular congestion but improvement since the last exam. The pulm onary vessels are more distinct. Lungs/Pleura: The lungs have cleared except for persistent opacification in the left base. There is s ilhouetting of the left hemidiaphragm and opacification of the left costophrenic angle which may be e xplained by the large heart. Additional findings: None. IMPRESSION: 1. Improvement in CHF with a complete clearing of the lungs. 2. Possible persistent left lower lobe atelectasis and/or airspace disease. Signer Name: Lyndon Smiley MD Signed: 09/08/2018 1:46 PM Workstation Name: [id number]
--- NOTE | 2018-09-08 15:44 | Progress Note ---
Assessment and Plan --Acute on chronic hypoxic respiratory failure;h/o tracheostomy on 04/2018 Continue nebulizers and oxygen titrate to O2 sats more than 90% Her saturation went down today and requiring more oxygen, pulmonary following ABG appears to be alkalotic, we will order a CTA chest for possible PE --Acute exacerbation diastolic CHF EF >55% (Echo 07/2018) IV Lasix, changed to by mouth chest x-ray significant improvement of congestive heart failure Cardiology cleared for discharge on oral diuretics, and other cardiac medications --NSTEMI: Cardiology evaluated ,conservative management no plans of ischemia workup --History of A. 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 Hospitalist Physical General appearance: Present: no acute distress, well-nourished, obese, other (noncommunicative ,tracheostomy on T piece,) - EENT Eyes: Present: PERRL, EOM intact - Neck Neck: Present: supple, normal ROM, other (tracheostomy in place) - Respiratory Respiratory effort: normal Respiratory: bilateral: diminished, negative: rales, rhonchi, wheezing - Cardiovascular Rhythm: regular Heart Sounds: Present: S1 & S2 - Extremities Extremities: no ischemia, No edema - Abdominal General gastrointestinal: soft, non-tender, non-distended, normal bowel sounds, other (PEG tube in place) - Integumentary Integumentary: Present: clear, warm - Psychiatric Psychiatric: other (noncommunicative) - Neurologic Neurologic: other (CVA with dysphagia weakness) Subjective Date of service: 09/08/18 Principal diagnosis: CHF Interval history: Patient seen and examined. Medical records and medication list reviewed. Patient appears more altered and recurring more oxygen support today Family at bedside, updated discussed with pulmonary and RN, Objective - Constitutional Vitals: Vital Signs - 12hr 09/08/18 09/08/18 09/08/18 03:53 04:17 08:00 Temperature 97.9 F Pulse Rate 111 H 111 H Pulse Rate [ 66 Anterior Bilateral Throughout] Pulse Rate [ 66 Bilateral Throughout] Respiratory 20 Rate Respiratory 24 Rate [Anterior Bilateral Throughout] Respiratory 24 Rate [Bilateral Throughout] Blood Pressure 124/92 124/92 O2 Sat by Pulse 96 Oximetry O2 Sat by Pulse Oximetry [ Assessment] 09/08/18 09/08/18 09/08/18 08:04 08:15 08:57 Temperature 97.4 F L Pulse Rate 100 H Pulse Rate [ 66 Anterior Bilateral Throughout] Pulse Rate [ 66 Bilateral Throughout] Respiratory 20 Rate Respiratory 20 Rate [Anterior Bilateral Throughout] Respiratory 20 Rate [Bilateral Throughout] Blood Pressure 146/70 O2 Sat by Pulse 95 94 Oximetry O2 Sat by Pulse Oximetry [ Assessment] 09/08/18 09/08/18 09/08/18 09:08 12:56 13:43 Temperature 97.5 F L Pulse Rate 78 Pulse Rate [ 68 Anterior Bilateral Throughout] Pulse Rate [ 68 Bilateral Throughout] Respiratory 18 Rate Respiratory 20 Rate [Anterior Bilateral Throughout] Respiratory 20 Rate [Bilateral Throughout] Blood Pressure 114/57 O2 Sat by Pulse 92 Oximetry O2 Sat by Pulse 97 Oximetry [ Assessment] 09/08/18 13:56 Temperature Pulse Rate Pulse Rate [ 70 Anterior Bilateral Throughout] Pulse Rate [ 70 Bilateral Throughout] Respiratory Rate Respiratory 22 Rate [Anterior Bilateral Throughout] Respiratory 22 Rate [Bilateral Throughout] Blood Pressure O2 Sat by Pulse Oximetry O2 Sat by Pulse Oximetry [ Assessment] - Labs CBC & Chem 7: 09/01/18 04:47 09/06/18 07:28 Labs: Abnormal lab results 09/07/18 09/07/18 09/07/18 Range/Units 17:07 22:14 23:25 POC ABG pH (7.35-7.45) POC ABG pCO2 (35-45) POC ABG pO2 (80-105) POC Glucose 263 H 237 H 266 H (70-105) 09/08/18 09/08/18 09/08/18 Range/Units 06:22 12:55 15:06 POC ABG pH 7.571 H (7.35-7.45) POC ABG pCO2 33.6 L (35-45) POC ABG pO2 55 L (80-105) POC Glucose 271 H 261 H (70-105)
[2018-09-08 17:32] LABS: Mean Corpuscular HGB Conc 31 % (30-34); Mean Corpuscular Volume 94 fl (79-97); Platelet Count 225 K/mm3 (140-440); Red Blood Count 5.16 M/mm3 (3.65-5.03)
[2018-09-08 17:33] LABS: Basophils % (Auto) 0.1 % (0.0-1.8); Hematocrit 48.6 % (30.3-42.9); Lymphocytes # (Auto) 0.8 K/mm3 (1.2-5.4); Lymphocytes % (Auto) 4.8 % (13.4-35.0); Monocytes # (Auto) 1.2 K/mm3 (0.0-0.8); Red Cell Distribution Width 20.2 % (13.2-15.2)
[2018-09-08] MEDS ORDERED: LASIX IV SCH (18:00)
[2018-09-08] MEDS: LASIX IV SCH (18:37)
[2018-09-09] MEDS: NYSTATIN PO SCH ×4 (00:27→17:00)
[2018-09-09] MEDS: HumaLOG SUB-Q SCH ×5 (00:28→23:44)
[2018-09-09] MEDS: LOPRESSOR PO SCH ×4 (00:31→16:41)
[2018-09-09] MEDS: DUONEB *Not for PRN Use IH SCH ×4 (02:09→20:41)
[2018-09-09] MEDS: LASIX IV SCH (06:14)
[2018-09-09 06:37] LABS: Hemoglobin 13.2 gm/dl (10.1-14.3); Mean Corpuscular HGB Conc 31 % (30-34); Mean Corpuscular Volume 90 fl (79-97); Platelet Count 222 K/mm3 (140-440); Red Blood Count 4.65 M/mm3 (3.65-5.03); Red Cell Distribution Width 19.4 % (13.2-15.2)
[2018-09-09 07:06] LABS: Albumin 2.1 g/dL (3.9-5); Calcium 8.5 mg/dL (8.4-10.2)
[2018-09-09 07:16] LABS: Bacteria,Urine 2+ /HPF (Negative); Bilirubin,Urine NEG (Negative); Blood,Urine NEG (Negative); Color,Urine Amber (Yellow); Mucus,Urine FEW /HPF; Protein,Urine <15 mg/dL mg/dL (Negative); Urobilinogen,Urine < 2.0 mg/dL (<2.0)
[2018-09-09] MEDS: PULMICORT IH SCH ×2 (07:58→20:41)
--- NOTE | 2018-09-09 09:22 | Progress Note ---
Assessment and Plan Atrial fibrillation, permanent On eliquis On metoprolol for rate control History of CVA s/p PEG tube Acute on chronic diastolic heart failure Echo 07/2018 - Normal LVEF Dehydration UTI Type II DM Systemic Hypertension Hyperlipidemia Chronic respiratory failure Chronic tracheostomy Recommendations: Continue medical therapy for heart failure with a preserved ejection fraction. We will change lasix to 40mg daily via PEG. Continue medical therapy for permanent atrial fibrillation. Otherwise, conservative cardiac management Subjective Date of service: 09/09/18 Principal diagnosis: CHF Interval history: Patient is non-verbal. Family member is at the bedside. Repeat cxr is showing resolution of mild interstitial edema seen on presentation. Objective Vital Signs Temp Pulse Pulse Pulse Pulse Resp Resp 09/09/18 07:43 98.1 F 18 09/09/18 05:44 98 H 09/09/18 04:36 96.3 F L 22 09/09/18 02:23 94 H 24 09/09/18 02:13 97 H 24 09/09/18 00:31 99 H 09/08/18 23:50 97.7 F 45 L 20 09/08/18 22:25 96 H 20 09/08/18 20:49 96 H 24 09/08/18 20:24 09/08/18 20:23 09/08/18 20:22 60 24 09/08/18 20:16 97.2 F L 52 L 22 09/08/18 19:12 98 H 09/08/18 16:31 97.5 F L 53 L 20 09/08/18 13:56 70 70 22 09/08/18 13:43 68 68 20 09/08/18 12:56 97.5 F L 78 18 09/08/18 10:00 134 H Resp BP Pulse Ox Pulse Ox 09/09/18 07:43 89/44 09/09/18 05:44 117/63 09/09/18 04:36 117/63 09/09/18 02:23 09/09/18 02:13 09/09/18 00:31 122/55 09/08/18 23:50 122/55 96 09/08/18 22:25 09/08/18 20:49 09/08/18 20:24 100 09/08/18 20:23 100 09/08/18 20:22 09/08/18 20:16 102/58 85 09/08/18 19:12 07/11/19 16:31 112/57 99 09/08/18 13:56 22 09/08/18 13:43 20 09/08/18 12:56 114/57 92 09/08/18 10:00 - Physical Examination General: Other (nonverbal) HEENT: Positive: PERRL Neck: Positive: Other (Midline trach) Cardiac: Positive: irregularly irregular Lungs: Positive: Decreased Breath Sounds, Wheezes Extremities: Present: +1 Edema - Labs and Meds Cardiac Enzymes 09/09/18 Range/Units 05:56 AST 76 H (5-40) units/L CBC 09/08/18 09/09/18 Range/Units 16:50 05:56 WBC 17.6 H 18.2 H (4.5-11.0) K/mm3 RBC 5.16 H 4.65 (3.65-5.03) M/mm3 Hgb 15.0 H 13.2 (10.1-14.3) gm/dl Hct 48.6 H 42.0 D (30.3-42.9) % Plt Count 225 222 (140-440) K/mm3 Lymph # 0.8 L (1.2-5.4) K/mm3 [place] # 1.2 H (0.0-0.8) K/mm3 Eos # 0.0 (0.0-0.4) K/mm3 Baso # 0.0 (0.0-0.1) K/mm3 Comprehensive Metabolic Panel 09/09/18 Range/Units 05:56 Sodium 146 H (137-145) mmol/L Potassium 4.5 (3.6-5.0) mmol/L Chloride 100.7 (98-107) mmol/L Carbon Dioxide 33 H (22-30) mmol/L BUN 87 H (7-17) mg/dL Creatinine 1.6 H (0.7-1.2) mg/dL Glucose 99 (65-100) mg/dL Calcium 8.5 (8.4-10.2) mg/dL AST 76 H (5-40) units/L ALT 71 H (7-56) units/L Alkaline Phosphatase 93 (35-129) units/L Total Protein 5.9 L (6.3-8.2) g/dL Albumin 2.1 L (3.9-5) g/dL
[2018-09-09 10:06] LABS: Anisocytosis 1+; Band Neutrophils # (Manual) 0.4 K/mm3; Basophils % (Manual) 0 % (0.0-1.8); Eosinophils % (Manual) 0 % (0.0-4.3); Total Cells Counted 100
[2018-09-09 10:09] LABS: Ovalocytes Few; Platelet Estimate Consistent w Auto
[2018-09-09] MEDS: KEPPRA PO SCH (10:13)
[2018-09-09] MEDS: COLACE PO SCH (10:13)
[2018-09-09] MEDS: ELIQUIS PO SCH (10:13)
[2018-09-09] MEDS: SODIUM CHLORIDE FLUSH SYRINGE 10 ML IV SCH (10:13)
[2018-09-09] MEDS: BABY ASPIRIN PO SCH (10:13)
[2018-09-09] MEDS: SOLU-Medrol IV SCH (10:13)
[2018-09-09] MEDS: TIMOPTIC OU SCH (10:15)
[2018-09-09] MEDS: LANTUS SUB-Q SCH ×2 (10:17→10:51)
[2018-09-09] MEDS: COZAAR PO SCH (10:32)
--- NOTE | 2018-09-09 12:02 | Progress Note ---
Assessment and Plan Imp: 1. A/C diastolic CHF 2. Acute/chronic respiratory failure, hypoxia 3. Chronic hypercapneic respiratory failure 4. Obesity 5. s/p Trach 6. Casey-jorge respirations 7. CALEB 8. Hypernatremia 9. Transaminitis Rec: 1. CXR surprisingly shows resolution of CHF; borderline hypotension, bump in Cr and sodium likely due to dehydration at this point; agree w/ stopping IV Lasix; would rehydrate with gentle D5W, hold BP meds, and bolus with NS prn 2. Cont. Duonebs/Pulmicort -> cont. this at SNF 3. Routine trach management; order placed with RT to keep a 6 cuffed trach at the bedside for emergency purposes 4. Hold off on PMV for now; wean O2 as tolerated 5. Would not do CTA chest today in light of rising Cr, plus PE is very unlikely since she is on full-dose Eliquis 6. Consider CT head 7. Culture sputum; hold off on Scopolamine/Robinul for now as these can dry out her tracheal secretions and worsen mucous plugging; would correct sodium and check culture first 8. CXR in AM 9. Rising WBC probably due to the addition of steroids but given hypotension & worsening mentation would go ahead and check blood cultures; UA was fairly bland ; hold off on ABX and monitor WBC, temp, CXR, secretions, etc. 10. Repeat LFTs in AM Complex decision-making Plan of care reviewed in detail with daughter, she understands/agrees; all questions were answered Subjective Date of service: 09/09/18 Principal diagnosis: CHF Interval history: No events. Daughter at bedside. Back on 28% FiO2. Patient is arousable but cannot give hx. Per daughter mental status worse than a few weeks ago. She has casey-jorge respirations. Per RT has lots of aleman secretions. Active Medications Acetaminophen (Tylenol) 650 mg PO Q4H PRN PRN Reason: Pain MILD(1-3)/Fever >100.5/[place] Last Admin: 09/06/18 22:05 Dose: 650 mg Documented by: Albuterol (Proventil) 2.5 mg IH Q4HRT PRN PRN Reason: Shortness Of Breath Albuterol/Ipratropium (Duoneb *Not For Prn Use*) 1 ampul IH Q6HRT [facility] Last Admin: 09/09/18 07:58 Dose: 1 ampul Documented by: Lipase/Protease/Amylase (Kathya Wilson 10,500 Unit) 1 each FEEDTUBE PRN PRN PRN Reason: For Clogged Feeding Tube Apixaban (Eliquis) 5 mg PO BID [facility] Last Admin: 09/09/18 10:13 Dose: 5 mg Documented by: Aspirin (Baby Aspirin) 81 mg PO QDAY [facility] Last Admin: 09/09/18 10:13 Dose: 81 mg Documented by: Atorvastatin Calcium (Lipitor) 40 mg PO QHS [facility] Last Admin: 09/08/18 22:22 Dose: 40 mg Documented by: Budesonide (Pulmicort) 0.5 mg IH Q12HRT [facility] Last Admin: 09/09/18 07:58 Dose: 0.5 mg Documented by: Clonidine HCl (Catapres-Tts Patch) 0.1 mg TD We [facility] Last Admin: 09/07/18 09:44 Dose: 0.1 mg Documented by: Dextrose (D50w (25gm) Syringe) 50 ml IV PRN PRN PRN Reason: Hypoglycemia Docusate Sodium (Colace) 100 mg PO BID [facility] Last Admin: 09/09/18 10:13 Dose: 100 mg Documented by: Furosemide (Lasix) 40 mg PO DAILY@0600 [facility] Hydralazine HCl (Apresoline) 10 mg IV Q4H PRN PRN Reason: Blood Pressure Last Admin: 09/07/18 09:43 Dose: 10 mg Documented by: Dextrose (D5w) 1,000 mls @ 50 mls/hr IV DIRECT [facility] Insulin Glargine (Lantus) 43 units SUB-Q BID [facility] Last Admin: 09/09/18 10:51 Dose: Not Given Documented by: Insulin Human Lispro (Humalog) 0 unit SUB-Q Q6HR [facility]; Protocol Last Admin: 09/09/18 06:40 Dose: Not Given Documented by: Levetiracetam (Keppra) 500 mg PO BID [facility] Last Admin: 09/09/18 10:13 Dose: 500 mg Documented by: Losartan Potassium (Cozaar) 50 mg PO QDAY [facility] Last Admin: 09/09/18 10:32 Dose: Not Given Documented by: Methylprednisolone Sodium Succinate (Solu-Medrol) 40 mg IV Q24HR [facility] Last Admin: 09/09/18 10:13 Dose: 40 mg Documented by: Metoprolol Tartrate (Lopressor) 25 mg PO Q6H [facility] Last Admin: 09/09/18 05:44 Dose: 25 mg Documented by: Nystatin (Nystatin) 500,000 unit PO Q6HR [facility] Last Admin: 09/09/18 05:44 Dose: 500,000 unit Documented by: Ondansetron HCl (Zofran) 4 mg IV Q8H PRN PRN Reason: Nausea And Vomiting Simple Syrup (Simple Syrup) 15 ml FEEDTUBE PRN PRN PRN Reason: Hypoglycemia Simple Syrup (Simple Syrup) 30 ml FEEDTUBE PRN PRN PRN Reason: Hypoglycemia Sodium Bicarbonate (Sodium Bicarbonate) 325 mg FEEDTUBE PRN PRN PRN Reason: For Clogged Feeding Tube Sodium Chloride (Sodium Chloride Flush Syringe 10 Ml) 10 ml IV BID [facility] Last Admin: 09/09/18 10:13 Dose: 10 ml Documented by: Sodium Chloride (Sodium Chloride Flush Syringe 10 Ml) 10 ml IV PRN PRN PRN Reason: LINE FLUSH Timolol Maleate (Timoptic) 1 drops OU DAILY [facility] Last Admin: 09/09/18 10:15 Dose: 1 drops Documented by: Objective Vital Signs - 12hr 09/09/18 09/09/18 09/09/18 00:31 02:13 02:23 Temperature Pulse Rate 99 H Pulse Rate [ 97 H 94 H Anterior Bilateral Throughout] Respiratory Rate Respiratory 24 24 Rate [Anterior Bilateral Throughout] Blood Pressure 122/55 O2 Sat by Pulse Oximetry O2 Sat by Pulse Oximetry [ Assessment] 09/09/18 09/09/18 09/09/18 04:36 05:44 07:43 Temperature 96.3 F L 98.1 F Pulse Rate 98 H Pulse Rate [ Anterior Bilateral Throughout] Respiratory 22 18 Rate Respiratory Rate [Anterior Bilateral Throughout] Blood Pressure 117/63 117/63 89/44 O2 Sat by Pulse Oximetry O2 Sat by Pulse Oximetry [ Assessment] 09/09/18 09/09/18 09/09/18 07:58 08:10 10:00 Temperature Pulse Rate 114 H Pulse Rate [ 58 L 56 L Anterior Bilateral Throughout] Respiratory Rate Respiratory 24 24 Rate [Anterior Bilateral Throughout] Blood Pressure O2 Sat by Pulse 98 Oximetry O2 Sat by Pulse 98 Oximetry [ Assessment] 09/09/18 10:32 Temperature Pulse Rate 74 Pulse Rate [ Anterior Bilateral Throughout] Respiratory Rate Respiratory Rate [Anterior Bilateral Throughout] Blood Pressure 89/56 O2 Sat by Pulse Oximetry O2 Sat by Pulse Oximetry [ Assessment] Constitutional: no acute distress, alert Eyes: non-icteric ENT: oropharynx moist Neck: supple, other (trach in place) Effort: other (tachypneic during hyperpneic Casey-jorge periods but not l abored) Ascultation: Bilateral: other (coarse BS with periods of apnea (Casey-jorge)) Cardiovascular: regular rate and rhythm (no mrg) Gastrointestinal: normoactive bowel sounds, non-distended, other (peg in place) Integumentary: normal Extremities: no cyanosis, pink and warm, edema (3+ bilateral LE edema) Neurologic: other (more sleepy but arousable) Psychiatric: mood appropriate, affect normal CBC and BMP: 09/09/18 05:56 09/09/18 05:56 ABG, PT/INR, D-dimer: ABG POC ABG pH 7.571 (7.35-7.45) H 09/08/18 15:06 POC ABG pCO2 33.6 (35-45) L 09/08/18 15:06 POC ABG pO2 55 (80-105) L 09/08/18 15:06 POC ABG HCO3 30.9 (22-26 mml/L) 09/08/18 15:06 POC ABG Total CO2 32 (23-27mmol/L) 09/08/18 15:06 POC ABG O2 Sat 93 09/08/18 15:06 PT/INR, D-dimer PT 20.9 Sec. (12.2-14.9) H 08/31/18 00:27 INR 1.85 (0.87-1.13) H 08/31/18 00:27 Abnormal lab findings: Abnormal Labs 08/30/18 08/30/18 08/30/18 23:28 23:28 23:28 WBC RBC 3.40 L Hgb Hct RDW 18.9 H Lymph % (Auto) 7.2 L [place] % (Auto) 8.7 H Eos % (Auto) 4.8 H Lymph # 0.7 L [place] # Seg Neutrophils % 78.9 H Seg Neuts % (Manual) Lymphocytes % (Manual) Seg Neutrophils # Seg Neutrophils # Man PT INR POC ABG pH POC ABG pCO2 POC ABG pO2 Sodium Chloride Carbon Dioxide 31 H BUN 41 H Creatinine Glucose 189 H POC Glucose Hemoglobin A1c AST ALT Troponin T 0.323 H* NT-Pro-B Natriuret Pep Total Protein Albumin 1.8 L HDL Cholesterol 35 L Urine WBC (Auto) 08/30/18 08/31/18 08/31/18 23:28 00:27 03:48 WBC RBC Hgb Hct RDW Lymph % (Auto) [place] % (Auto) Eos % (Auto) Lymph # [place] # Seg Neutrophils % Seg Neuts % (Manual) Lymphocytes % (Manual) Seg Neutrophils # Seg Neutrophils # Man PT 20.9 H INR 1.85 H POC ABG pH POC ABG pCO2 55.2 H POC ABG pO2 Sodium Chloride Carbon Dioxide BUN Creatinine Glucose POC Glucose Hemoglobin A1c AST ALT Troponin T NT-Pro-B Natriuret Pep 89542 H Total Protein Albumin HDL Cholesterol Urine WBC (Auto) 08/31/18 08/31/18 08/31/18 05:34 05:34 11:44 WBC RBC Hgb Hct RDW Lymph % (Auto) [place] % (Auto) Eos % (Auto) Lymph # [place] # Seg Neutrophils % Seg Neuts % (Manual) Lymphocytes % (Manual) Seg Neutrophils # Seg Neutrophils # Man PT INR POC ABG pH POC ABG pCO2 POC ABG pO2 Sodium Chloride Carbon Dioxide BUN Creatinine Glucose POC Glucose 154 H Hemoglobin A1c 6.4 H AST ALT Troponin T 0.215 H* D NT-Pro-B Natriuret Pep Total Protein Albumin HDL Cholesterol Urine WBC (Auto) 08/31/18 09/01/18 09/01/18 23:32 04:47 04:47 WBC RBC Hgb Hct RDW 19.1 H Lymph % (Auto) 7.9 L [place] % (Auto) 7.4 H Eos % (Auto) Lymph # 0.9 L [place] # Seg Neutrophils % 84.0 H Seg Neuts % (Manual) Lymphocytes % (Manual) Seg Neutrophils # 9.3 H Seg Neutrophils # Man PT INR POC ABG pH POC ABG pCO2 POC ABG pO2 Sodium Chloride 94.1 L Carbon Dioxide 32 H BUN 46 H Creatinine Glucose 189 H POC Glucose 138 H Hemoglobin A1c AST ALT Troponin T NT-Pro-B Natriuret Pep Total Protein Albumin HDL Cholesterol Urine WBC (Auto) 09/01/18 09/01/18 09/01/18 05:59 11:38 16:17 WBC RBC Hgb Hct RDW Lymph % (Auto) [place] % (Auto) Eos % (Auto) Lymph # [place] # Seg Neutrophils % Seg Neuts % (Manual) Lymphocytes % (Manual) Seg Neutrophils # Seg Neutrophils # Man PT INR POC ABG pH POC ABG pCO2 POC ABG pO2 Sodium Chloride Carbon Dioxide BUN Creatinine Glucose POC Glucose 236 H 235 H 278 H Hemoglobin A1c AST ALT Troponin T NT-Pro-B Natriuret Pep Total Protein Albumin HDL Cholesterol Urine WBC (Auto) 09/01/18 09/01/18 09/01/18 17:59 18:53 19:07 WBC RBC Hgb Hct RDW Lymph % (Auto) [place] % (Auto) Eos % (Auto) Lymph # [place] # Seg Neutrophils % Seg Neuts % (Manual) Lymphocytes % (Manual) Seg Neutrophils # Seg Neutrophils # Man PT INR POC ABG pH POC ABG pCO2 53.7 H POC ABG pO2 73 L Sodium Chloride Carbon Dioxide BUN Creatinine Glucose POC Glucose 281 H 376 H Hemoglobin A1c AST ALT Troponin T NT-Pro-B Natriuret Pep Total Protein Albumin HDL Cholesterol Urine WBC (Auto) 09/01/18 09/02/18 09/02/18 21:29 00:22 06:20 WBC RBC Hgb Hct RDW Lymph % (Auto) [place] % (Auto) Eos % (Auto) Lymph # [place] # Seg Neutrophils % Seg Neuts % (Manual) Lymphocytes % (Manual) Seg Neutrophils # Seg Neutrophils # Man PT INR POC ABG pH POC ABG pCO2 POC ABG pO2 Sodium Chloride Carbon Dioxide BUN Creatinine Glucose POC Glucose 247 H 369 H 414 H Hemoglobin A1c AST ALT Troponin T NT-Pro-B Natriuret Pep Total Protein Albumin HDL Cholesterol Urine WBC (Auto) 09/02/18 09/02/18 09/02/18 11:56 18:21 23:42 WBC RBC Hgb Hct RDW Lymph % (Auto) [place] % (Auto) Eos % (Auto) Lymph # [place] # Seg Neutrophils % Seg Neuts % (Manual) Lymphocytes % (Manual) Seg Neutrophils # Seg Neutrophils # Man PT INR POC ABG pH POC ABG pCO2 POC ABG pO2 Sodium Chloride Carbon Dioxide BUN Creatinine Glucose POC Glucose 416 H 429 H 373 H Hemoglobin A1c AST ALT Troponin T NT-Pro-B Natriuret Pep Total Protein Albumin HDL Cholesterol Urine WBC (Auto) 09/03/18 09/03/18 09/03/18 05:28 11:17 17:46 WBC RBC Hgb Hct RDW Lymph % (Auto) [place] % (Auto) Eos % (Auto) Lymph # [place] # Seg Neutrophils % Seg Neuts % (Manual) Lymphocytes % (Manual) Seg Neutrophils # Seg Neutrophils # Man PT INR POC ABG pH POC ABG pCO2 POC ABG pO2 Sodium Chloride Carbon Dioxide BUN Creatinine Glucose POC Glucose 400 H 319 H 308 H Hemoglobin A1c AST ALT Troponin T NT-Pro-B Natriuret Pep Total Protein Albumin HDL Cholesterol Urine WBC (Auto) 09/04/18 09/04/18 09/04/18 00:10 05:56 11:53 WBC RBC Hgb Hct RDW Lymph % (Auto) [place] % (Auto) Eos % (Auto) Lymph # [place] # Seg Neutrophils % Seg Neuts % (Manual) Lymphocytes % (Manual) Seg Neutrophils # Seg Neutrophils # Man PT INR POC ABG pH POC ABG pCO2 POC ABG pO2 Sodium Chloride Carbon Dioxide BUN Creatinine Glucose POC Glucose 232 H 254 H 264 H Hemoglobin A1c AST ALT Troponin T NT-Pro-B Natriuret Pep Total Protein Albumin HDL Cholesterol Urine WBC (Auto) 09/04/18 09/04/18 09/04/18 16:53 21:51 23:16 WBC RBC Hgb Hct RDW Lymph % (Auto) [place] % (Auto) Eos % (Auto) Lymph # [place] # Seg Neutrophils % Seg Neuts % (Manual) Lymphocytes % (Manual) Seg Neutrophils # Seg Neutrophils # Man PT INR POC ABG pH POC ABG pCO2 POC ABG pO2 Sodium Chloride Carbon Dioxide BUN Creatinine Glucose POC Glucose 262 H 252 H 291 H Hemoglobin A1c AST ALT Troponin T NT-Pro-B Natriuret Pep Total Protein Albumin HDL Cholesterol Urine WBC (Auto) 09/05/18 09/05/18 09/05/18 04:21 05:20 12:08 WBC RBC Hgb Hct RDW Lymph % (Auto) [place] % (Auto) Eos % (Auto) Lymph # [place] # Seg Neutrophils % Seg Neuts % (Manual) Lymphocytes % (Manual) Seg Neutrophils # Seg Neutrophils # Man PT INR POC ABG pH POC ABG pCO2 POC ABG pO2 Sodium Chloride 97.3 L Carbon Dioxide 33 H BUN 66 H Creatinine Glucose 232 H POC Glucose 272 H 201 H Hemoglobin A1c AST ALT Troponin T NT-Pro-B Natriuret Pep Total Protein Albumin HDL Cholesterol Urine WBC (Auto) 09/05/18 09/06/18 09/06/18 21:50 00:24 05:26 WBC RBC Hgb Hct RDW Lymph % (Auto) [place] % (Auto) Eos % (Auto) Lymph # [place] # Seg Neutrophils % Seg Neuts % (Manual) Lymphocytes % (Manual) Seg Neutrophils # Seg Neutrophils # Man PT INR POC ABG pH POC ABG pCO2 POC ABG pO2 Sodium Chloride Carbon Dioxide BUN Creatinine Glucose POC Glucose 196 H 171 H 142 H Hemoglobin A1c AST ALT Troponin T NT-Pro-B Natriuret Pep Total Protein Albumin HDL Cholesterol Urine WBC (Auto) 09/06/18 09/06/18 09/06/18 07:28 12:13 18:03 WBC RBC Hgb Hct RDW Lymph % (Auto) [place] % (Auto) Eos % (Auto) Lymph # [place] # Seg Neutrophils % Seg Neuts % (Manual) Lymphocytes % (Manual) Seg Neutrophils # Seg Neutrophils # Man PT INR POC ABG pH POC ABG pCO2 POC ABG pO2 Sodium Chloride Carbon Dioxide 34 H BUN 69 H Creatinine Glucose 164 H POC Glucose 209 H 158 H Hemoglobin A1c AST ALT Troponin T NT-Pro-B Natriuret Pep Total Protein Albumin HDL Cholesterol Urine WBC (Auto) 09/06/18 09/06/18 09/07/18 22:18 23:54 05:27 WBC RBC Hgb Hct RDW Lymph % (Auto) [place] % (Auto) Eos % (Auto) Lymph # [place] # Seg Neutrophils % Seg Neuts % (Manual) Lymphocytes % (Manual) Seg Neutrophils # Seg Neutrophils # Man PT INR POC ABG pH POC ABG pCO2 POC ABG pO2 Sodium Chloride Carbon Dioxide BUN Creatinine Glucose POC Glucose 181 H 219 H 244 H Hemoglobin A1c AST ALT Troponin T NT-Pro-B Natriuret Pep Total Protein Albumin HDL Cholesterol Urine WBC (Auto) 09/07/18 09/07/18 09/07/18 13:48 17:07 22:14 WBC RBC Hgb Hct RDW Lymph % (Auto) [place] % (Auto) Eos % (Auto) Lymph # [place] # Seg Neutrophils % Seg Neuts % (Manual) Lymphocytes % (Manual) Seg Neutrophils # Seg Neutrophils # Man PT INR POC ABG pH POC ABG pCO2 POC ABG pO2 Sodium Chloride Carbon Dioxide BUN Creatinine Glucose POC Glucose 286 H 263 H 237 H Hemoglobin A1c AST ALT Troponin T NT-Pro-B Natriuret Pep Total Protein Albumin HDL Cholesterol Urine WBC (Auto) 09/07/18 09/08/18 09/08/18 23:25 06:22 12:55 WBC RBC Hgb Hct RDW Lymph % (Auto) [place] % (Auto) Eos % (Auto) Lymph # [place] # Seg Neutrophils % Seg Neuts % (Manual) Lymphocytes % (Manual) Seg Neutrophils # Seg Neutrophils # Man PT INR POC ABG pH POC ABG pCO2 POC ABG pO2 Sodium Chloride Carbon Dioxide BUN Creatinine Glucose POC Glucose 266 H 271 H 261 H Hemoglobin A1c AST ALT Troponin T NT-Pro-B Natriuret Pep Total Protein Albumin HDL Cholesterol Urine WBC (Auto) 09/08/18 09/08/18 09/08/18 15:06 16:50 18:47 WBC 17.6 H RBC 5.16 H Hgb 15.0 H Hct 48.6 H RDW 20.2 H Lymph % (Auto) 4.8 L [place] % (Auto) Eos % (Auto) Lymph # 0.8 L [place] # 1.2 H Seg Neutrophils % 88.1 H Seg Neuts % (Manual) Lymphocytes % (Manual) Seg Neutrophils # 15.5 H Seg Neutrophils # Man PT INR POC ABG pH 7.571 H POC ABG pCO2 33.6 L POC ABG pO2 55 L Sodium Chloride Carbon Dioxide BUN Creatinine Glucose POC Glucose 177 H Hemoglobin A1c AST ALT Troponin T NT-Pro-B Natriuret Pep Total Protein Albumin HDL Cholesterol Urine WBC (Auto) 09/08/18 09/09/18 09/09/18 22:32 00:02 05:56 WBC 18.2 H RBC Hgb Hct RDW 19.4 H Lymph % (Auto) [place] % (Auto) Eos % (Auto) Lymph # [place] # Seg Neutrophils % Seg Neuts % (Manual) 83.0 H Lymphocytes % (Manual) 11.0 L Seg Neutrophils # Seg Neutrophils # Man 15.1 H PT INR POC ABG pH POC ABG pCO2 POC ABG pO2 Sodium Chloride Carbon Dioxide BUN Creatinine Glucose POC Glucose 182 H 124 H Hemoglobin A1c AST ALT Troponin T NT-Pro-B Natriuret Pep Total Protein Albumin HDL Cholesterol Urine WBC (Auto) 09/09/18 09/09/18 09/09/18 05:56 06:33 Unknown WBC RBC Hgb Hct RDW Lymph % (Auto) [place] % (Auto) Eos % (Auto) Lymph # [place] # Seg Neutrophils % Seg Neuts % (Manual) Lymphocytes % (Manual) Seg Neutrophils # Seg Neutrophils # Man PT INR POC ABG pH POC ABG pCO2 POC ABG pO2 Sodium 146 H Chloride Carbon Dioxide 33 H BUN 87 H Creatinine 1.6 H Glucose POC Glucose 138 H Hemoglobin A1c AST 76 H ALT 71 H Troponin T NT-Pro-B Natriuret Pep Total Protein 5.9 L Albumin 2.1 L HDL Cholesterol Urine WBC (Auto) 8.0 H Chest x-ray: report reviewed, image reviewed (cardiomegaly; CHF resolved; L hemidiaphragm is not well-visualized likely due to obscuration from heart)
[2018-09-09] MEDS: D5W 1,000 ML IV SCH (12:20)
--- NOTE | 2018-09-09 15:22 | Progress Note ---
Assessment and Plan --Acute on chronic hypoxic respiratory failure;h/o tracheostomy on 04/2018 Continue nebulizers and oxygen titrate to O2 sats more than 90% Her saturation went down and requiring more oxygen, pulmonary following ABG appeared to be alkalotic, ordered a CTA chest for possible PE -pending --Acute exacerbation diastolic CHF EF >55% (Echo 07/2018) IV Lasix, changed to by mouth chest x-ray significant improvement of congestive heart failure Cardiology cleared for discharge on oral diuretics, and other cardiac medications --NSTEMI: Cardiology evaluated ,conservative management no plans of ischemia workup --History of A. 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 Hospitalist Physical General appearance: Present: no acute distress, well-nourished, obese, other (noncommunicative ,tracheostomy on T piece,) - EENT Eyes: Present: PERRL, EOM intact - Neck Neck: Present: supple, normal ROM, other (tracheostomy in place) - Respiratory Respiratory effort: normal Respiratory: bilateral: diminished, negative: rales, rhonchi, wheezing - Cardiovascular Rhythm: regular Heart Sounds: Present: S1 & S2 - Extremities Extremities: no ischemia, No edema - Abdominal General gastrointestinal: soft, non-tender, non-distended, normal bowel sounds, other (PEG tube in place) - Integumentary Integumentary: Present: clear, warm - Psychiatric Psychiatric: other (noncommunicative) - Neurologic Neurologic: other (CVA with dysphagia weakness) Subjective Date of service: 09/09/18 Principal diagnosis: CHF Interval history: Patient seen and examined. Medical records and medication list reviewed. Patient appears altered and on 5-6L N/c today Family at bedside, updated discussed with pulmonary and RN, Objective - Constitutional Vitals: Vital Signs - 12hr 09/09/18 09/09/18 09/09/18 04:36 05:44 07:43 Temperature 96.3 F L 98.1 F Pulse Rate 98 H Pulse Rate [ Anterior Bilateral Throughout] Pulse Rate [ Apical] Pulse Rate [ Left Posterior Tibial] Respiratory 22 18 Rate Respiratory Rate [Anterior Bilateral Throughout] Blood Pressure 117/63 117/63 89/44 O2 Sat by Pulse Oximetry O2 Sat by Pulse Oximetry [ Assessment] 09/09/18 09/09/18 09/09/18 07:58 08:10 09:25 Temperature Pulse Rate 82 Pulse Rate [ 58 L 56 L Anterior Bilateral Throughout] Pulse Rate [ Apical] Pulse Rate [ Left Posterior Tibial] Respiratory Rate Respiratory 24 24 Rate [Anterior Bilateral Throughout] Blood Pressure 89/52 O2 Sat by Pulse 98 94 Oximetry O2 Sat by Pulse 98 Oximetry [ Assessment] 09/09/18 09/09/18 09/09/18 10:00 10:32 11:14 Temperature 97.7 F Pulse Rate 114 H 74 78 Pulse Rate [ Anterior Bilateral Throughout] Pulse Rate [ 91 H Apical] Pulse Rate [ 91 H Left Posterior Tibial] Respiratory 19 18 Rate Respiratory Rate [Anterior Bilateral Throughout] Blood Pressure 89/56 117/53 O2 Sat by Pulse 86 Oximetry O2 Sat by Pulse Oximetry [ Assessment] 09/09/18 09/09/18 12:28 13:57 Temperature Pulse Rate 82 Pulse Rate [ 57 L Anterior Bilateral Throughout] Pulse Rate [ Apical] Pulse Rate [ Left Posterior Tibial] Respiratory Rate Respiratory 24 Rate [Anterior Bilateral Throughout] Blood Pressure 89/56 O2 Sat by Pulse Oximetry O2 Sat by Pulse Oximetry [ Assessment] - Labs CBC & Chem 7: 09/11/18 04:54 09/11/18 04:54 Labs: Abnormal lab results 09/08/18 09/08/18 09/08/18 Range/Units 15:06 16:50 18:47 WBC 17.6 H (4.5-11.0) K/mm3 RBC 5.16 H (3.65-5.03) M/mm3 Hgb 15.0 H (10.1-14.3) gm/dl Hct 48.6 H (30.3-42.9) % RDW 20.2 H (13.2-15.2) % Lymph % (Auto) 4.8 L (13.4-35.0) % Lymph # 0.8 L (1.2-5.4) K/mm3 [place] # 1.2 H (0.0-0.8) K/mm3 Seg Neutrophils % 88.1 H (40.0-70.0) % Seg Neuts % (Manual) (40.0-70.0) % Lymphocytes % (Manual) (13.4-35.0) % Seg Neutrophils # 15.5 H (1.8-7.7) K/mm3 Seg Neutrophils # Man (1.8-7.7) K/mm3 POC ABG pH 7.571 H (7.35-7.45) POC ABG pCO2 33.6 L (35-45) POC ABG pO2 55 L (80-105) Sodium (137-145) mmol/L Carbon Dioxide (22-30) mmol/L BUN (7-17) mg/dL Creatinine (0.7-1.2) mg/dL POC Glucose 177 H (70-105) AST (5-40) units/L ALT (7-56) units/L Total Protein (6.3-8.2) g/dL Albumin (3.9-5) g/dL Urine WBC (Auto) (0.0-6.0) /HPF 09/08/18 09/09/18 09/09/18 Range/Units 22:32 00:02 05:56 WBC 18.2 H (4.5-11.0) K/mm3 RBC (3.65-5.03) M/mm3 Hgb (10.1-14.3) gm/dl Hct (30.3-42.9) % RDW 19.4 H (13.2-15.2) % Lymph % (Auto) (13.4-35.0) % Lymph # (1.2-5.4) K/mm3 [place] # (0.0-0.8) K/mm3 Seg Neutrophils % (40.0-70.0) % Seg Neuts % (Manual) 83.0 H (40.0-70.0) % Lymphocytes % (Manual) 11.0 L (13.4-35.0) % Seg Neutrophils # (1.8-7.7) K/mm3 Seg Neutrophils # Man 15.1 H (1.8-7.7) K/mm3 POC ABG pH (7.35-7.45) POC ABG pCO2 (35-45) POC ABG pO2 (80-105) Sodium (137-145) mmol/L Carbon Dioxide (22-30) mmol/L BUN (7-17) mg/dL Creatinine (0.7-1.2) mg/dL POC Glucose 182 H 124 H (70-105) AST (5-40) units/L ALT (7-56) units/L Total Protein (6.3-8.2) g/dL Albumin (3.9-5) g/dL Urine WBC (Auto) (0.0-6.0) /HPF 09/09/18 09/09/18 09/09/18 Range/Units 05:56 06:33 Unknown WBC (4.5-11.0) K/mm3 RBC (3.65-5.03) M/mm3 Hgb (10.1-14.3) gm/dl Hct (30.3-42.9) % RDW (13.2-15.2) % Lymph % (Auto) (13.4-35.0) % Lymph # (1.2-5.4) K/mm3 [place] # (0.0-0.8) K/mm3 Seg Neutrophils % (40.0-70.0) % Seg Neuts % (Manual) (40.0-70.0) % Lymphocytes % (Manual) (13.4-35.0) % Seg Neutrophils # (1.8-7.7) K/mm3 Seg Neutrophils # Man (1.8-7.7) K/mm3 POC ABG pH (7.35-7.45) POC ABG pCO2 (35-45) POC ABG pO2 (80-105) Sodium 146 H (137-145) mmol/L Carbon Dioxide 33 H (22-30) mmol/L BUN 87 H (7-17) mg/dL Creatinine 1.6 H (0.7-1.2) mg/dL POC Glucose 138 H (70-105) AST 76 H (5-40) units/L ALT 71 H (7-56) units/L Total Protein 5.9 L (6.3-8.2) g/dL Albumin 2.1 L (3.9-5) g/dL Urine WBC (Auto) 8.0 H (0.0-6.0) /HPF
[2018-09-10] MEDS: LANTUS SUB-Q SCH ×2 (00:07→09:56)
[2018-09-10] MEDS: KEPPRA PO SCH ×2 (00:07→09:59)
[2018-09-10] MEDS: NYSTATIN PO SCH (00:07)
[2018-09-10] MEDS: SODIUM CHLORIDE FLUSH SYRINGE 10 ML IV SCH ×2 (00:08→09:59)
[2018-09-10] MEDS: COLACE PO SCH ×3 (00:08→23:57)
[2018-09-10] MEDS: ELIQUIS PO SCH ×2 (00:08→09:56)
[2018-09-10] MEDS: LOPRESSOR PO SCH ×4 (00:08→17:25)
[2018-09-10] MEDS: DUONEB *Not for PRN Use IH SCH ×4 (03:37→20:02)
[2018-09-10 05:41] LABS: Basophils % (Auto) 0.3 % (0.0-1.8); Eosinophils # (Auto) 0.1 K/mm3 (0.0-0.4); Eosinophils % (Auto) 0.4 % (0.0-4.3); Hematocrit 38.2 % (30.3-42.9); Hemoglobin 12.1 gm/dl (10.1-14.3); Lymphocytes # (Auto) 0.7 K/mm3 (1.2-5.4); Lymphocytes % (Auto) 4.4 % (13.4-35.0); Mean Corpuscular HGB Conc 32 % (30-34); Mean Corpuscular Volume 91 fl (79-97); Monocytes # (Auto) 1.2 K/mm3 (0.0-0.8); Monocytes % (Auto) 7.5 % (0.0-7.3); Platelet Count 183 K/mm3 (140-440); Red Blood Count 4.21 M/mm3 (3.65-5.03); Red Cell Distribution Width 19.5 % (13.2-15.2)
[2018-09-10] MEDS: D5W 1,000 ML IV SCH (06:02)
[2018-09-10] MEDS: HumaLOG SUB-Q SCH ×3 (06:02→18:19)
[2018-09-10] MEDS: LASIX PO SCH (06:02)
[2018-09-10 06:39] LABS: Albumin 1.9 g/dL (3.9-5); Calcium 7.8 mg/dL (8.4-10.2)
[2018-09-10] MEDS: PULMICORT IH SCH ×2 (07:13→20:02)
--- NOTE | 2018-09-10 09:00 | XRay Report ---
Chest single view INDICATION: Dyspnea Cardiomegaly with trace bilateral interstitial edema and tiny pleural effusions. Tracheostomy tube in position. Signer Name: Dave Hennessy MD Signed: 09/10/2018 8:56 AM Workstation Name: [id number]
[2018-09-10] MEDS: COZAAR PO SCH (09:58)
[2018-09-10] MEDS: TIMOPTIC OU SCH (09:58)
[2018-09-10] MEDS: BABY ASPIRIN PO SCH (09:59)
[2018-09-10] MEDS: SOLU-Medrol IV SCH (09:59)
--- NOTE | 2018-09-10 10:47 | Progress Note ---
Assessment and Plan Atrial fibrillation, permanent On eliquis On metoprolol for rate control History of CVA s/p PEG tube Acute on chronic diastolic heart failure. Improved. Echo 07/2018 - Normal LVEF Dehydration UTI Type II DM Systemic Hypertension Hyperlipidemia Chronic respiratory failure Chronic tracheostomy Recommendations: Continue medical therapy for heart failure with a preserved ejection fraction. Currently euvolemic. Continue medical therapy for permanent atrial fibrillation. Otherwise, conservative cardiac management Subjective Date of service: 09/10/18 Principal diagnosis: CHF Interval history: No acute events Objective Vital Signs Temp Pulse Pulse Pulse Resp Resp BP 09/10/18 09:58 79 114/54 09/10/18 08:07 98.1 F 79 18 114/54 09/10/18 07:13 78 24 09/10/18 05:07 97.4 F L 107 H 20 122/63 09/10/18 03:45 78 20 09/09/18 23:37 98.6 F 105 H 20 121/67 09/09/18 22:00 106 H 09/09/18 21:01 73 22 09/09/18 20:46 105 H 22 09/09/18 20:37 98.4 F 79 20 140/70 09/09/18 19:57 86 22 09/09/18 18:30 09/09/18 18:05 132/53 09/09/18 16:41 76 89/64 09/09/18 16:36 98.1 F 60 18 88/61 09/09/18 14:00 117 H 09/09/18 13:57 57 L 24 09/09/18 12:28 82 89/56 09/09/18 12:00 121 H 09/09/18 11:14 97.7 F 78 18 117/53 Pulse Ox Pulse Ox 09/10/18 09:58 09/10/18 08:07 92 09/10/18 07:13 97 97 09/10/18 05:07 93 09/10/18 03:45 96 09/09/18 23:37 94 09/09/18 22:00 09/09/18 21:01 09/09/18 20:46 96 09/09/18 20:37 96 09/09/18 19:57 09/09/18 18:30 100 09/09/18 18:05 09/09/18 16:41 09/09/18 16:36 94 09/09/18 14:00 09/09/18 13:57 09/09/18 12:28 09/09/18 12:00 09/09/18 11:14 86 - Physical Examination General: Other (nonverbal) HEENT: Positive: PERRL Neck: Positive: trachea midline, Other (Midline trach) Cardiac: Positive: Reg Rate and Rhythm Lungs: Positive: clear to auscultation Neuro: Positive: Other (Nonverbal ) Abdomen: Positive: Soft Extremities: Present: +1 Edema - Labs and Meds Cardiac Enzymes 09/10/18 Range/Units 05:14 AST 153 H (5-40) units/L CBC 09/10/18 Range/Units 05:14 WBC 16.2 H (4.5-11.0) K/mm3 RBC 4.21 (3.65-5.03) M/mm3 Hgb 12.1 (10.1-14.3) gm/dl Hct 38.2 (30.3-42.9) % Plt Count 183 (140-440) K/mm3 Lymph # 0.7 L (1.2-5.4) K/mm3 Early # 1.2 H (0.0-0.8) K/mm3 Eos # 0.1 (0.0-0.4) K/mm3 Baso # 0.0 (0.0-0.1) K/mm3 Comprehensive Metabolic Panel 09/10/18 Range/Units 05:14 Sodium 142 (137-145) mmol/L Potassium 6.0 H D (3.6-5.0) mmol/L Chloride 102.5 (98-107) mmol/L Carbon Dioxide 30 (22-30) mmol/L BUN 91 H (7-17) mg/dL Creatinine 1.5 H (0.7-1.2) mg/dL Glucose 162 H (65-100) mg/dL Calcium 7.8 L (8.4-10.2) mg/dL AST 153 H (5-40) units/L ALT 97 H (7-56) units/L Alkaline Phosphatase 90 (35-129) units/L Total Protein 6.0 L (6.3-8.2) g/dL Albumin 1.9 L (3.9-5) g/dL
--- NOTE | 2018-09-10 12:05 | Magnetic Resonance Report ---
MRI BRAIN WITHOUT CONTRAST INDICATION / CLINICAL INFORMATION: AMS. TECHNIQUE: Multiplanar, multisequence MR images of the brain were obtained. COMPARISON: None available. FINDINGS: BRAIN / INTRACRANIAL CONTENTS: Unenhanced MR images of the brain were obtained. No previous studies a re available here for comparison. There is extensive encephalomalacia involving the left frontal temporal and parietal cortex, with cor tical atrophy and subcortical white matter gliotic changes. There is some evidence of petechial saab e in the atrophic cortex, consistent with prior ischemic injury. In the left frontal region, there is an extensive 5.1 cm area of very homogeneous soft tissue density , isointense to brain on T1 and T2-weighted images. This appears to be a separate structure or mass, possibly representing soft tissue mass or subacute hematoma or collection. Correlation with prior reina dies and details of clinical circumstances will be helpful for further evaluation. Depending on furth er details, further imaging evaluation with postcontrast MRI and CT can be considered. The rest of the brain parenchyma demonstrates diffuse cerebral atrophy, with no evidence of acute isc hemic injury IMPRESSION: Extensive left hemispheric encephalomalacia, as evidence of prior ischemic injury. Homogeneous area of signal abnormality in the left frontal lobe as described above of uncertain signi ficance. Additional clinical correlation and follow-up imaging suggested. Signer Name: García Ordonez MD Signed: 09/10/2018 12:01 PM Workstation Name: [id number]
[2018-09-10] MEDS ORDERED: D50W (25GM) Vial IV ONE (12:12)
[2018-09-10] MEDS ORDERED: CALCIUM GLUCONATE 1,000 MG in NACL 0.9% 100 ML IV ONE (12:12)
[2018-09-10] MEDS ORDERED: HumuLIN R IV ONE (12:12)
--- NOTE | 2018-09-10 12:50 | Event Note ---
Date: 09/10/18 Patient was off unit and not seen today
[2018-09-10] MEDS ORDERED: D50W (25GM) Syringe IV ONE ×3 (13:00)
--- NOTE | 2018-09-10 14:58 | Progress Note ---
Assessment and Plan - Acute on chronic encephalopathy per family patient looking more altered since 09/08 - MRI brain showed no new infract could be from new onset sepsis started on abx --Acute on chronic hypoxic respiratory failure;h/o tracheostomy on 04/2018 Initiaaly was for CHF exacerbation, but now developed gm-ve PNA Continue nebulizers and oxygen titrate to O2 sats more than 90% Her saturation reduced since 09/08 and requiring more oxygen, pulmonary following sputum cx growing gm -ve rods --Gm-ve PNA, started on cefepime --Bacteremia with sepsis, cont iv abs, follow cx --Hyperkalemia, ordered hyperkalemia cocktail, follow BMP --Acute exacerbation diastolic CHF EF >55% (Echo 07/2018) IV Lasix, changed to by mouth chest x-ray significant improvement of congestive heart failure Cardiology cleared for discharge on oral diuretics, and other cardiac medications --NSTEMI: Cardiology evaluated ,conservative management no plans of ischemia workup --History of A. 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 Hospitalist Physical General appearance: Present: no acute distress, well-nourished, obese, other (noncommunicative ,tracheostomy on T piece,) - EENT Eyes: Present: PERRL, EOM intact - Neck Neck: Present: supple, normal ROM, other (tracheostomy in place) - Respiratory Respiratory effort: normal Respiratory: bilateral: diminished, negative: rales, rhonchi, wheezing - Cardiovascular Rhythm: regular Heart Sounds: Present: S1 & S2 - Extremities Extremities: no ischemia, No edema - Abdominal General gastrointestinal: soft, non-tender, non-distended, normal bowel sounds, other (PEG tube in place) - Integumentary Integumentary: Present: clear, warm - Psychiatric Psychiatric: other (noncommunicative) - Neurologic Neurologic: other (CVA with dysphagia weakness) Subjective Date of service: 09/10/18 Principal diagnosis: CHF Interval history: Patient seen and examined. Medical records and medication list reviewed. No change clinically, blood cx +ve, k level 6.0 today Family at bedside, updated discussed with pulmonary and RN, Objective - Constitutional Vitals: Vital Signs - 12hr 09/10/18 09/10/18 09/10/18 03:45 05:07 07:13 Temperature 97.4 F L Pulse Rate 107 H Pulse Rate [ 78 78 Anterior Bilateral Throughout] Respiratory 20 Rate Respiratory 20 24 Rate [Anterior Bilateral Throughout] Blood Pressure 122/63 O2 Sat by Pulse 93 97 Oximetry O2 Sat by Pulse 96 97 Oximetry [ Assessment] 09/10/18 09/10/18 09/10/18 08:07 09:58 11:56 Temperature 98.1 F 97.9 F Pulse Rate 79 79 77 Pulse Rate [ Anterior Bilateral Throughout] Respiratory 18 18 Rate Respiratory Rate [Anterior Bilateral Throughout] Blood Pressure 114/54 114/54 127/63 O2 Sat by Pulse 92 94 Oximetry O2 Sat by Pulse Oximetry [ Assessment] 09/10/18 12:12 Temperature Pulse Rate 77 Pulse Rate [ Anterior Bilateral Throughout] Respiratory Rate Respiratory Rate [Anterior Bilateral Throughout] Blood Pressure 127/63 O2 Sat by Pulse Oximetry O2 Sat by Pulse Oximetry [ Assessment] - Labs CBC & Chem 7: 09/11/18 04:54 09/11/18 04:54 Labs: Abnormal lab results 09/09/18 09/09/18 09/10/18 Range/Units 18:06 23:43 05:14 WBC 16.2 H (4.5-11.0) K/mm3 RDW 19.5 H (13.2-15.2) % Lymph % (Auto) 4.4 L (13.4-35.0) % Todd % (Auto) 7.5 H (0.0-7.3) % Lymph # 0.7 L (1.2-5.4) K/mm3 Todd # 1.2 H (0.0-0.8) K/mm3 Seg Neutrophils % 87.4 H (40.0-70.0) % Seg Neutrophils # 14.1 H (1.8-7.7) K/mm3 Potassium (3.6-5.0) mmol/L BUN (7-17) mg/dL Creatinine (0.7-1.2) mg/dL Glucose (65-100) mg/dL POC Glucose 112 H 142 H (70-105) Calcium (8.4-10.2) mg/dL AST (5-40) units/L ALT (7-56) units/L Total Protein (6.3-8.2) g/dL Albumin (3.9-5) g/dL 09/10/18 09/10/18 09/10/18 Range/Units 05:14 05:41 12:31 WBC (4.5-11.0) K/mm3 RDW (13.2-15.2) % Lymph % (Auto) (13.4-35.0) % Todd % (Auto) (0.0-7.3) % Lymph # (1.2-5.4) K/mm3 Todd # (0.0-0.8) K/mm3 Seg Neutrophils % (40.0-70.0) % Seg Neutrophils # (1.8-7.7) K/mm3 Potassium 6.0 H D (3.6-5.0) mmol/L BUN 91 H (7-17) mg/dL Creatinine 1.5 H (0.7-1.2) mg/dL Glucose 162 H (65-100) mg/dL POC Glucose 189 H 118 H (70-105) Calcium 7.8 L (8.4-10.2) mg/dL AST 153 H (5-40) units/L ALT 97 H (7-56) units/L Total Protein 6.0 L (6.3-8.2) g/dL Albumin 1.9 L (3.9-5) g/dL
[2018-09-10] MEDS: MAXIPIME/NS 1 GM/100 ML 1 GM/100 ML BAG IV SCH (15:37)
--- NOTE | 2018-09-10 17:10 | Progress Note ---
Assessment and Plan Imp: 1. A/C diastolic CHF 2. Acute/chronic respiratory failure, hypoxia 3. Chronic hypercapneic respiratory failure 4. Obesity 5. s/p Trach 6. Hoang-jorge respirations 7. CALEB 8. Hypernatremia 9. Transaminitis 10. GNR bacteremia/sepsis Rec: 1. Stop D5W; give free water per PEG; monitor sodium; on PO Lasix now 2. Cont. Duonebs/Pulmicort -> cont. this at [facility] 3. Routine trach management; order placed with RT to keep a 6 cuffed trach at the bedside for emergency purposes 4. Hold off on PMV for now; wean O2 as tolerated 5. Would not do CTA chest today in light of rising Cr, plus PE is very unlikely since she is on full-dose Eliquis 6. F/u Sputum culture; hold off on Scopolamine/Robinul for now as these can dry out her tracheal secretions and worsen mucous plugging 7. LFTs rising; consider abdominal imaging with US or CT; repeat in AM 8. Cefipime added; f/u speciation of the GNRs; source is unclear as UA and CXR fairly unremarkable and she has no indwelling lines/mercedes; see #7 9. 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 Daughter at bedside. Back on 28% FiO2. More alert currently, cannot provide history. No Hoang-jorge currently. Secretions thinner per daughter. Active Medications Acetaminophen (Tylenol) 650 mg PO Q4H PRN PRN Reason: Pain MILD(1-3)/Fever >100.5/[place] Last Admin: 09/06/18 22:05 Dose: 650 mg Documented by: Albuterol (Proventil) 2.5 mg IH Q4HRT PRN PRN Reason: Shortness Of Breath Albuterol/Ipratropium (Duoneb *Not For Prn Use*) 1 ampul IH Q6HRT HAYLIE Last Admin: 09/10/18 13:38 Dose: 1 ampul Documented by: Lipase/Protease/Amylase (Kathya Wilson 10,500 Unit) 1 each FEEDTUBE PRN PRN PRN Reason: For Clogged Feeding Tube Apixaban (Eliquis) 5 mg PO BID [facility] Last Admin: 09/10/18 09:56 Dose: 5 mg Documented by: Aspirin (Baby Aspirin) 81 mg PO QDAY [facility] Last Admin: 09/10/18 09:59 Dose: 81 mg Documented by: Atorvastatin Calcium (Lipitor) 40 mg PO QHS [facility] Last Admin: 09/10/18 00:08 Dose: 40 mg Documented by: Budesonide (Pulmicort) 0.5 mg IH Q12HRT [facility] Last Admin: 09/10/18 07:13 Dose: 0.5 mg Documented by: Clonidine HCl (Catapres-Tts Patch) 0.1 mg TD We [facility] Last Admin: 09/07/18 09:44 Dose: 0.1 mg Documented by: Dextrose (D50w (25gm) Syringe) 50 ml IV PRN PRN PRN Reason: Hypoglycemia Docusate Sodium (Colace) 100 mg PO BID [facility] Last Admin: 09/10/18 10:10 Dose: Not Given Documented by: Furosemide (Lasix) 40 mg PO DAILY@0600 [facility] Last Admin: 09/10/18 06:02 Dose: 40 mg Documented by: Hydralazine HCl (Apresoline) 10 mg IV Q4H PRN PRN Reason: Blood Pressure Last Admin: 09/07/18 09:43 Dose: 10 mg Documented by: Cefepime HCl (Maxipime/Ns 1 Gm/100 Ml) 1 gm in 100 mls @ 200 mls/hr IV Q8HR [facility]; Protocol Last Admin: 09/10/18 15:37 Dose: 200 mls/hr Documented by: Insulin Glargine (Lantus) 43 units SUB-Q BID [facility] Last Admin: 09/10/18 09:56 Dose: 43 units Documented by: Insulin Human Lispro (Humalog) 0 unit SUB-Q Q6HR [facility]; Protocol Last Admin: 09/10/18 12:25 Dose: Not Given Documented by: Levetiracetam (Keppra) 500 mg PO BID [facility] Last Admin: 09/10/18 09:59 Dose: 500 mg Documented by: Losartan Potassium (Cozaar) 50 mg PO QDAY [facility] Last Admin: 09/10/18 09:58 Dose: 50 mg Documented by: Methylprednisolone Sodium Succinate (Solu-Medrol) 40 mg IV Q24HR [facility] Last Admin: 09/10/18 09:59 Dose: 40 mg Documented by: Metoprolol Tartrate (Lopressor) 25 mg PO Q6H [facility] Last Admin: 09/10/18 12:12 Dose: 25 mg Documented by: Ondansetron HCl (Zofran) 4 mg IV Q8H PRN PRN Reason: Nausea And Vomiting Simple Syrup (Simple Syrup) 15 ml FEEDTUBE PRN PRN PRN Reason: Hypoglycemia Simple Syrup (Simple Syrup) 30 ml FEEDTUBE PRN PRN PRN Reason: Hypoglycemia Sodium Bicarbonate (Sodium Bicarbonate) 325 mg FEEDTUBE PRN PRN PRN Reason: For Clogged Feeding Tube Sodium Chloride (Sodium Chloride Flush Syringe 10 Ml) 10 ml IV BID [facility] Last Admin: 09/10/18 09:59 Dose: 10 ml Documented by: Sodium Chloride (Sodium Chloride Flush Syringe 10 Ml) 10 ml IV PRN PRN PRN Reason: LINE FLUSH Timolol Maleate (Timoptic) 1 drops OU DAILY [facility] Last Admin: 09/10/18 09:58 Dose: 1 drops Documented by: Objective Vital Signs - 12hr 09/10/18 09/10/18 09/10/18 05:07 07:13 07:23 Temperature 97.4 F L Pulse Rate 107 H Pulse Rate [ 78 77 Anterior Bilateral Throughout] Respiratory 20 Rate Respiratory 24 24 Rate [Anterior Bilateral Throughout] Blood Pressure 122/63 O2 Sat by Pulse 93 97 Oximetry O2 Sat by Pulse 97 Oximetry [ Assessment] 09/10/18 09/10/18 09/10/18 08:07 09:58 11:56 Temperature 98.1 F 97.9 F Pulse Rate 79 79 77 Pulse Rate [ Anterior Bilateral Throughout] Respiratory 18 18 Rate Respiratory Rate [Anterior Bilateral Throughout] Blood Pressure 114/54 114/54 127/63 O2 Sat by Pulse 92 94 Oximetry O2 Sat by Pulse Oximetry [ Assessment] 09/10/18 09/10/18 09/10/18 12:12 13:38 13:48 Temperature Pulse Rate 77 Pulse Rate [ 76 79 Anterior Bilateral Throughout] Respiratory Rate Respiratory 22 24 Rate [Anterior Bilateral Throughout] Blood Pressure 127/63 O2 Sat by Pulse Oximetry O2 Sat by Pulse Oximetry [ Assessment] Constitutional: no acute distress, alert Eyes: non-icteric ENT: oropharynx moist Neck: supple, other (trach in place) Effort: normal Ascultation: Bilateral: other (coarse BS) Cardiovascular: regular rate and rhythm (no mrg) Gastrointestinal: normoactive bowel sounds, non-distended, other (peg in place) Integumentary: normal Extremities: no cyanosis, pink and warm, edema (3+ bilateral LE edema) Neurologic: other (more sleepy but arousable) Psychiatric: mood appropriate, affect normal CBC and BMP: 09/10/18 05:14 09/10/18 05:14 ABG, PT/INR, D-dimer: ABG POC ABG pH 7.571 (7.35-7.45) H 09/08/18 15:06 POC ABG pCO2 33.6 (35-45) L 09/08/18 15:06 POC ABG pO2 55 (80-105) L 09/08/18 15:06 POC ABG HCO3 30.9 (22-26 mml/L) 09/08/18 15:06 POC ABG Total CO2 32 (23-27mmol/L) 09/08/18 15:06 POC ABG O2 Sat 93 09/08/18 15:06 PT/INR, D-dimer PT 20.9 Sec. (12.2-14.9) H 08/31/18 00:27 INR 1.85 (0.87-1.13) H 08/31/18 00:27 Abnormal lab findings: Abnormal Labs 08/30/18 08/30/18 08/30/18 23:28 23:28 23:28 WBC RBC 3.40 L Hgb Hct RDW 18.9 H Lymph % (Auto) 7.2 L Haines % (Auto) 8.7 H Eos % (Auto) 4.8 H Lymph # 0.7 L Haines # Seg Neutrophils % 78.9 H Seg Neuts % (Manual) Lymphocytes % (Manual) Seg Neutrophils # Seg Neutrophils # Man PT INR POC ABG pH POC ABG pCO2 POC ABG pO2 Sodium Potassium Chloride Carbon Dioxide 31 H BUN 41 H Creatinine Glucose 189 H POC Glucose Hemoglobin A1c Calcium AST ALT Troponin T 0.323 H* NT-Pro-B Natriuret Pep Total Protein Albumin 1.8 L HDL Cholesterol 35 L Urine WBC (Auto) 08/30/18 08/31/18 08/31/18 23:28 00:27 03:48 WBC RBC Hgb Hct RDW Lymph % (Auto) Haines % (Auto) Eos % (Auto) Lymph # Haines # Seg Neutrophils % Seg Neuts % (Manual) Lymphocytes % (Manual) Seg Neutrophils # Seg Neutrophils # Man PT 20.9 H INR 1.85 H POC ABG pH POC ABG pCO2 55.2 H POC ABG pO2 Sodium Potassium Chloride Carbon Dioxide BUN Creatinine Glucose POC Glucose Hemoglobin A1c Calcium AST ALT Troponin T NT-Pro-B Natriuret Pep 95130 H Total Protein Albumin HDL Cholesterol Urine WBC (Auto) 08/31/18 08/31/18 08/31/18 05:34 05:34 11:44 WBC RBC Hgb Hct RDW Lymph % (Auto) Haines % (Auto) Eos % (Auto) Lymph # Haines # Seg Neutrophils % Seg Neuts % (Manual) Lymphocytes % (Manual) Seg Neutrophils # Seg Neutrophils # Man PT INR POC ABG pH POC ABG pCO2 POC ABG pO2 Sodium Potassium Chloride Carbon Dioxide BUN Creatinine Glucose POC Glucose 154 H Hemoglobin A1c 6.4 H Calcium AST ALT Troponin T 0.215 H* D NT-Pro-B Natriuret Pep Total Protein Albumin HDL Cholesterol Urine WBC (Auto) 08/31/18 09/01/18 09/01/18 23:32 04:47 04:47 WBC RBC Hgb Hct RDW 19.1 H Lymph % (Auto) 7.9 L Haines % (Auto) 7.4 H Eos % (Auto) Lymph # 0.9 L Haines # Seg Neutrophils % 84.0 H Seg Neuts % (Manual) Lymphocytes % (Manual) Seg Neutrophils # 9.3 H Seg Neutrophils # Man PT INR POC ABG pH POC ABG pCO2 POC ABG pO2 Sodium Potassium Chloride 94.1 L Carbon Dioxide 32 H BUN 46 H Creatinine Glucose 189 H POC Glucose 138 H Hemoglobin A1c Calcium AST ALT Troponin T NT-Pro-B Natriuret Pep Total Protein Albumin HDL Cholesterol Urine WBC (Auto) 09/01/18 09/01/18 09/01/18 05:59 11:38 16:17 WBC RBC Hgb Hct RDW Lymph % (Auto) Haines % (Auto) Eos % (Auto) Lymph # Haines # Seg Neutrophils % Seg Neuts % (Manual) Lymphocytes % (Manual) Seg Neutrophils # Seg Neutrophils # Man PT INR POC ABG pH POC ABG pCO2 POC ABG pO2 Sodium Potassium Chloride Carbon Dioxide BUN Creatinine Glucose POC Glucose 236 H 235 H 278 H Hemoglobin A1c Calcium AST ALT Troponin T NT-Pro-B Natriuret Pep Total Protein Albumin HDL Cholesterol Urine WBC (Auto) 09/01/18 09/01/18 09/01/18 17:59 18:53 19:07 WBC RBC Hgb Hct RDW Lymph % (Auto) Haines % (Auto) Eos % (Auto) Lymph # Haines # Seg Neutrophils % Seg Neuts % (Manual) Lymphocytes % (Manual) Seg Neutrophils # Seg Neutrophils # Man PT INR POC ABG pH POC ABG pCO2 53.7 H POC ABG pO2 73 L Sodium Potassium Chloride Carbon Dioxide BUN Creatinine Glucose POC Glucose 281 H 376 H Hemoglobin A1c Calcium AST ALT Troponin T NT-Pro-B Natriuret Pep Total Protein Albumin HDL Cholesterol Urine WBC (Auto) 09/01/18 09/02/18 09/02/18 21:29 00:22 06:20 WBC RBC Hgb Hct RDW Lymph % (Auto) Haines % (Auto) Eos % (Auto) Lymph # Haines # Seg Neutrophils % Seg Neuts % (Manual) Lymphocytes % (Manual) Seg Neutrophils # Seg Neutrophils # Man PT INR POC ABG pH POC ABG pCO2 POC ABG pO2 Sodium Potassium Chloride Carbon Dioxide BUN Creatinine Glucose POC Glucose 247 H 369 H 414 H Hemoglobin A1c Calcium AST ALT Troponin T NT-Pro-B Natriuret Pep Total Protein Albumin HDL Cholesterol Urine WBC (Auto) 09/02/18 09/02/18 09/02/18 11:56 18:21 23:42 WBC RBC Hgb Hct RDW Lymph % (Auto) Haines % (Auto) Eos % (Auto) Lymph # Haines # Seg Neutrophils % Seg Neuts % (Manual) Lymphocytes % (Manual) Seg Neutrophils # Seg Neutrophils # Man PT INR POC ABG pH POC ABG pCO2 POC ABG pO2 Sodium Potassium Chloride Carbon Dioxide BUN Creatinine Glucose POC Glucose 416 H 429 H 373 H Hemoglobin A1c Calcium AST ALT Troponin T NT-Pro-B Natriuret Pep Total Protein Albumin HDL Cholesterol Urine WBC (Auto) 09/03/18 09/03/18 09/03/18 05:28 11:17 17:46 WBC RBC Hgb Hct RDW Lymph % (Auto) Haines % (Auto) Eos % (Auto) Lymph # Haines # Seg Neutrophils % Seg Neuts % (Manual) Lymphocytes % (Manual) Seg Neutrophils # Seg Neutrophils # Man PT INR POC ABG pH POC ABG pCO2 POC ABG pO2 Sodium Potassium Chloride Carbon Dioxide BUN Creatinine Glucose POC Glucose 400 H 319 H 308 H Hemoglobin A1c Calcium AST ALT Troponin T NT-Pro-B Natriuret Pep Total Protein Albumin HDL Cholesterol Urine WBC (Auto) 09/04/18 09/04/18 09/04/18 00:10 05:56 11:53 WBC RBC Hgb Hct RDW Lymph % (Auto) Haines % (Auto) Eos % (Auto) Lymph # Haines # Seg Neutrophils % Seg Neuts % (Manual) Lymphocytes % (Manual) Seg Neutrophils # Seg Neutrophils # Man PT INR POC ABG pH POC ABG pCO2 POC ABG pO2 Sodium Potassium Chloride Carbon Dioxide BUN Creatinine Glucose POC Glucose 232 H 254 H 264 H Hemoglobin A1c Calcium AST ALT Troponin T NT-Pro-B Natriuret Pep Total Protein Albumin HDL Cholesterol Urine WBC (Auto) 09/04/18 09/04/18 09/04/18 16:53 21:51 23:16 WBC RBC Hgb Hct RDW Lymph % (Auto) Haines % (Auto) Eos % (Auto) Lymph # Haines # Seg Neutrophils % Seg Neuts % (Manual) Lymphocytes % (Manual) Seg Neutrophils # Seg Neutrophils # Man PT INR POC ABG pH POC ABG pCO2 POC ABG pO2 Sodium Potassium Chloride Carbon Dioxide BUN Creatinine Glucose POC Glucose 262 H 252 H 291 H Hemoglobin A1c Calcium AST ALT Troponin T NT-Pro-B Natriuret Pep Total Protein Albumin HDL Cholesterol Urine WBC (Auto) 09/05/18 09/05/18 09/05/18 04:21 05:20 12:08 WBC RBC Hgb Hct RDW Lymph % (Auto) Haines % (Auto) Eos % (Auto) Lymph # Haines # Seg Neutrophils % Seg Neuts % (Manual) Lymphocytes % (Manual) Seg Neutrophils # Seg Neutrophils # Man PT INR POC ABG pH POC ABG pCO2 POC ABG pO2 Sodium Potassium Chloride 97.3 L Carbon Dioxide 33 H BUN 66 H Creatinine Glucose 232 H POC Glucose 272 H 201 H Hemoglobin A1c Calcium AST ALT Troponin T NT-Pro-B Natriuret Pep Total Protein Albumin HDL Cholesterol Urine WBC (Auto) 09/05/18 09/06/18 09/06/18 21:50 00:24 05:26 WBC RBC Hgb Hct RDW Lymph % (Auto) Haines % (Auto) Eos % (Auto) Lymph # Haines # Seg Neutrophils % Seg Neuts % (Manual) Lymphocytes % (Manual) Seg Neutrophils # Seg Neutrophils # Man PT INR POC ABG pH POC ABG pCO2 POC ABG pO2 Sodium Potassium Chloride Carbon Dioxide BUN Creatinine Glucose POC Glucose 196 H 171 H 142 H Hemoglobin A1c Calcium AST ALT Troponin T NT-Pro-B Natriuret Pep Total Protein Albumin HDL Cholesterol Urine WBC (Auto) 09/06/18 09/06/18 09/06/18 07:28 12:13 18:03 WBC RBC Hgb Hct RDW Lymph % (Auto) Haines % (Auto) Eos % (Auto) Lymph # Haines # Seg Neutrophils % Seg Neuts % (Manual) Lymphocytes % (Manual) Seg Neutrophils # Seg Neutrophils # Man PT INR POC ABG pH POC ABG pCO2 POC ABG pO2 Sodium Potassium Chloride Carbon Dioxide 34 H BUN 69 H Creatinine Glucose 164 H POC Glucose 209 H 158 H Hemoglobin A1c Calcium AST ALT Troponin T NT-Pro-B Natriuret Pep Total Protein Albumin HDL Cholesterol Urine WBC (Auto) 09/06/18 09/06/18 09/07/18 22:18 23:54 05:27 WBC RBC Hgb Hct RDW Lymph % (Auto) Haines % (Auto) Eos % (Auto) Lymph # Haines # Seg Neutrophils % Seg Neuts % (Manual) Lymphocytes % (Manual) Seg Neutrophils # Seg Neutrophils # Man PT INR POC ABG pH POC ABG pCO2 POC ABG pO2 Sodium Potassium Chloride Carbon Dioxide BUN Creatinine Glucose POC Glucose 181 H 219 H 244 H Hemoglobin A1c Calcium AST ALT Troponin T NT-Pro-B Natriuret Pep Total Protein Albumin HDL Cholesterol Urine WBC (Auto) 09/07/18 09/07/18 09/07/18 13:48 17:07 22:14 WBC RBC Hgb Hct RDW Lymph % (Auto) Haines % (Auto) Eos % (Auto) Lymph # Haines # Seg Neutrophils % Seg Neuts % (Manual) Lymphocytes % (Manual) Seg Neutrophils # Seg Neutrophils # Man PT INR POC ABG pH POC ABG pCO2 POC ABG pO2 Sodium Potassium Chloride Carbon Dioxide BUN Creatinine Glucose POC Glucose 286 H 263 H 237 H Hemoglobin A1c Calcium AST ALT Troponin T NT-Pro-B Natriuret Pep Total Protein Albumin HDL Cholesterol Urine WBC (Auto) 09/07/18 09/08/18 09/08/18 23:25 06:22 12:55 WBC RBC Hgb Hct RDW Lymph % (Auto) Haines % (Auto) Eos % (Auto) Lymph # Haines # Seg Neutrophils % Seg Neuts % (Manual) Lymphocytes % (Manual) Seg Neutrophils # Seg Neutrophils # Man PT INR POC ABG pH POC ABG pCO2 POC ABG pO2 Sodium Potassium Chloride Carbon Dioxide BUN Creatinine Glucose POC Glucose 266 H 271 H 261 H Hemoglobin A1c Calcium AST ALT Troponin T NT-Pro-B Natriuret Pep Total Protein Albumin HDL Cholesterol Urine WBC (Auto) 09/08/18 09/08/18 09/08/18 15:06 16:50 18:47 WBC 17.6 H RBC 5.16 H Hgb 15.0 H Hct 48.6 H RDW 20.2 H Lymph % (Auto) 4.8 L Haines % (Auto) Eos % (Auto) Lymph # 0.8 L Haines # 1.2 H Seg Neutrophils % 88.1 H Seg Neuts % (Manual) Lymphocytes % (Manual) Seg Neutrophils # 15.5 H Seg Neutrophils # Man PT INR POC ABG pH 7.571 H POC ABG pCO2 33.6 L POC ABG pO2 55 L Sodium Potassium Chloride Carbon Dioxide BUN Creatinine Glucose POC Glucose 177 H Hemoglobin A1c Calcium AST ALT Troponin T NT-Pro-B Natriuret Pep Total Protein Albumin HDL Cholesterol Urine WBC (Auto) 09/08/18 09/09/18 09/09/18 22:32 00:02 05:56 WBC 18.2 H RBC Hgb Hct RDW 19.4 H Lymph % (Auto) Haines % (Auto) Eos % (Auto) Lymph # Haines # Seg Neutrophils % Seg Neuts % (Manual) 83.0 H Lymphocytes % (Manual) 11.0 L Seg Neutrophils # Seg Neutrophils # Man 15.1 H PT INR POC ABG pH POC ABG pCO2 POC ABG pO2 Sodium Potassium Chloride Carbon Dioxide BUN Creatinine Glucose POC Glucose 182 H 124 H Hemoglobin A1c Calcium AST ALT Troponin T NT-Pro-B Natriuret Pep Total Protein Albumin HDL Cholesterol Urine WBC (Auto) 09/09/18 09/09/18 09/09/18 05:56 06:33 18:06 WBC RBC Hgb Hct RDW Lymph % (Auto) Haines % (Auto) Eos % (Auto) Lymph # Haines # Seg Neutrophils % Seg Neuts % (Manual) Lymphocytes % (Manual) Seg Neutrophils # Seg Neutrophils # Man PT INR POC ABG pH POC ABG pCO2 POC ABG pO2 Sodium 146 H Potassium Chloride Carbon Dioxide 33 H BUN 87 H Creatinine 1.6 H Glucose POC Glucose 138 H 112 H Hemoglobin A1c Calcium AST 76 H ALT 71 H Troponin T NT-Pro-B Natriuret Pep Total Protein 5.9 L Albumin 2.1 L HDL Cholesterol Urine WBC (Auto) 09/09/18 09/09/18 09/10/18 23:43 Unknown 05:14 WBC 16.2 H RBC Hgb Hct RDW 19.5 H Lymph % (Auto) 4.4 L Haines % (Auto) 7.5 H Eos % (Auto) Lymph # 0.7 L Haines # 1.2 H Seg Neutrophils % 87.4 H Seg Neuts % (Manual) Lymphocytes % (Manual) Seg Neutrophils # 14.1 H Seg Neutrophils # Man PT INR POC ABG pH POC ABG pCO2 POC ABG pO2 Sodium Potassium Chloride Carbon Dioxide BUN Creatinine Glucose POC Glucose 142 H Hemoglobin A1c Calcium AST ALT Troponin T NT-Pro-B Natriuret Pep Total Protein Albumin HDL Cholesterol Urine WBC (Auto) 8.0 H 09/10/18 09/10/18 09/10/18 05:14 05:41 12:31 WBC RBC Hgb Hct RDW Lymph % (Auto) Haines % (Auto) Eos % (Auto) Lymph # Haines # Seg Neutrophils % Seg Neuts % (Manual) Lymphocytes % (Manual) Seg Neutrophils # Seg Neutrophils # Man PT INR POC ABG pH POC ABG pCO2 POC ABG pO2 Sodium Potassium 6.0 H D Chloride Carbon Dioxide BUN 91 H Creatinine 1.5 H Glucose 162 H POC Glucose 189 H 118 H Hemoglobin A1c Calcium 7.8 L AST 153 H ALT 97 H Troponin T NT-Pro-B Natriuret Pep Total Protein 6.0 L Albumin 1.9 L HDL Cholesterol Urine WBC (Auto) Chest x-ray: report reviewed, image reviewed (no appreciable change; no obvious pneumonia)
[2018-09-11] MEDS: HumaLOG SUB-Q SCH ×4 (00:16→19:17)
[2018-09-11] MEDS: ELIQUIS PO SCH ×3 (00:16→22:49)
[2018-09-11] MEDS: KEPPRA PO SCH ×3 (00:16→22:49)
[2018-09-11] MEDS: SODIUM CHLORIDE FLUSH SYRINGE 10 ML IV SCH ×3 (00:17→22:49)
[2018-09-11] MEDS: MAXIPIME/NS 1 GM/100 ML 1 GM/100 ML BAG IV SCH ×3 (00:17→23:06)
[2018-09-11] MEDS: LOPRESSOR PO SCH ×5 (00:18→22:54)
[2018-09-11] MEDS: LANTUS SUB-Q SCH ×3 (00:19→23:39)
[2018-09-11] MEDS: DUONEB *Not for PRN Use IH SCH ×4 (01:18→19:31)
[2018-09-11] MEDS: LASIX PO SCH (05:49)
[2018-09-11 06:14] LABS: Basophils % (Auto) 0.1 % (0.0-1.8); Eosinophils # (Auto) 0.1 K/mm3 (0.0-0.4); Eosinophils % (Auto) 0.4 % (0.0-4.3); Hematocrit 36.5 % (30.3-42.9); Hemoglobin 11.4 gm/dl (10.1-14.3); Lymphocytes # (Auto) 0.8 K/mm3 (1.2-5.4); Lymphocytes % (Auto) 5.5 % (13.4-35.0); Mean Corpuscular HGB Conc 31 % (30-34); Mean Corpuscular Volume 92 fl (79-97); Monocytes # (Auto) 0.9 K/mm3 (0.0-0.8); Monocytes % (Auto) 5.8 % (0.0-7.3); Platelet Count 173 K/mm3 (140-440); Red Blood Count 3.97 M/mm3 (3.65-5.03); Red Cell Distribution Width 19.4 % (13.2-15.2)
[2018-09-11 06:50] LABS: Albumin 1.9 g/dL (3.9-5); Calcium 8.1 mg/dL (8.4-10.2)
[2018-09-11] MEDS: PULMICORT IH SCH ×2 (07:19→19:31)
[2018-09-11] MEDS: TIMOPTIC OU SCH (09:44)
[2018-09-11] MEDS: BABY ASPIRIN PO SCH (09:45)
[2018-09-11] MEDS: SOLU-Medrol IV SCH (09:45)
[2018-09-11] MEDS: COZAAR PO SCH (09:51)
--- NOTE | 2018-09-11 13:58 | Progress Note ---
Assessment and Plan Atrial fibrillation, permanent On eliquis On metoprolol for rate control History of CVA s/p PEG tube Acute on chronic diastolic heart failure Echo 07/2018 - Normal LVEF Now euvolemic Dehydration UTI Type II DM Systemic Hypertension Hyperlipidemia Chronic respiratory failure Chronic tracheostomy Recommend: Continue current therapy and continue to monitor for further signs of volume overload Subjective Date of service: 09/11/18 Principal diagnosis: CHF Interval history: No acute events Objective Vital Signs Temp Pulse Pulse Pulse Resp Resp BP 09/11/18 09:51 72 107/59 09/11/18 08:04 72 09/11/18 08:03 75 09/11/18 08:02 75 09/11/18 08:01 75 107/59 09/11/18 07:19 75 20 09/11/18 04:05 98.1 F 82 18 117/56 09/11/18 01:19 76 18 09/11/18 00:04 97.9 F 75 18 132/59 09/10/18 23:47 76 09/10/18 22:28 79 16 09/10/18 21:04 86 22 09/10/18 20:03 09/10/18 20:02 09/10/18 20:00 72 20 09/10/18 19:32 98.2 F 76 18 117/60 09/10/18 18:30 09/10/18 17:25 78 09/10/18 16:49 98.1 F 76 18 125/59 Pulse Ox Pulse Ox 09/11/18 09:51 09/11/18 08:04 99 09/11/18 08:03 99 09/11/18 08:02 100 09/11/18 08:01 98 09/11/18 07:19 97 97 09/11/18 04:05 98 09/11/18 01:19 09/11/18 00:04 99 09/10/18 23:47 09/10/18 22:28 09/10/18 21:04 09/10/18 20:03 99 09/10/18 20:02 99 09/10/18 20:00 09/10/18 19:32 97 09/10/18 18:30 99 09/10/18 17:25 09/10/18 16:49 98 - Physical Examination General: Other (nonverbal) HEENT: Positive: PERRL Neck: Positive: Other (Midline trach) Cardiac: Positive: irregularly irregular Lungs: Positive: Decreased Breath Sounds, Rhonchi Neuro: Positive: Other (Nonverbal ) Abdomen: Positive: Soft Extremities: Present: +1 Edema - Labs and Meds Cardiac Enzymes 09/11/18 Range/Units 04:54 AST 84 H (5-40) units/L CBC 09/11/18 Range/Units 04:54 WBC 15.2 H (4.5-11.0) K/mm3 RBC 3.97 (3.65-5.03) M/mm3 Hgb 11.4 (10.1-14.3) gm/dl Hct 36.5 (30.3-42.9) % Plt Count 173 (140-440) K/mm3 Lymph # 0.8 L (1.2-5.4) K/mm3 [place] # 0.9 H (0.0-0.8) K/mm3 Eos # 0.1 (0.0-0.4) K/mm3 Baso # 0.0 (0.0-0.1) K/mm3 Comprehensive Metabolic Panel 09/11/18 Range/Units 04:54 Sodium 142 (137-145) mmol/L Potassium 4.4 D (3.6-5.0) mmol/L Chloride 100.8 (98-107) mmol/L Carbon Dioxide 32 H (22-30) mmol/L BUN 85 H (7-17) mg/dL Creatinine 1.2 (0.7-1.2) mg/dL Glucose 120 H (65-100) mg/dL Calcium 8.1 L (8.4-10.2) mg/dL AST 84 H (5-40) units/L ALT 84 H (7-56) units/L Alkaline Phosphatase 87 (35-129) units/L Total Protein 5.7 L (6.3-8.2) g/dL Albumin 1.9 L (3.9-5) g/dL
--- NOTE | 2018-09-11 14:15 | Progress Note ---
Assessment and Plan - Acute on chronic encephalopathy per family patient looking more altered since 09/08 - MRI brain showed no new infract - now appears at baseline --Acute on chronic hypoxic respiratory failure;h/o tracheostomy on 04/2018 likely from CHf exacerbation Continue nebulizers and oxygen titrate to O2 sats more than 90% Her saturation reduced since 09/08 and requiring more oxygen, pulmonary following --Gm-ve rods in sputum, started on cefepime - but d/leon by ID, -likely colonozation. --Bacteremia - likely contamination on 09/09/18, repeat blood cx negative, monitor off abx --Hyperkalemia, s/p hyperkalemia cocktail, follow BMP, resolved --Acute exacerbation diastolic CHF EF >55% (Echo 07/2018) s/p IV Lasix, changed to by mouth, chest x-ray significant improvement of congestive heart failure Cardiology cleared for discharge on oral diuretics, --NSTEMI: Cardiology evaluated ,conservative management no plans of ischemia workup --History of A. 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] s/p trach and PEG Supportive care,PT/OT --Type 2 diabetes mellitus;uncontrolled secondary to high-dose steroids Accu-Chek sliding scale coverage tube Feeding adjust Long-acting insulin as needed --History of PE; status post IVC filter placement, On Eliquis --Full code Status; Poor prognosis CODE STATUS discussed, Full Code Disposition; possible discharge to SNF when bed available Hospitalist Physical General appearance: Present: no acute distress, well-nourished, obese, other (noncommunicative ,tracheostomy on T piece,) - EENT Eyes: Present: PERRL, EOM intact - Neck Neck: Present: supple, normal ROM, other (tracheostomy in place) - Respiratory Respiratory effort: normal Respiratory: bilateral: diminished, negative: rales, rhonchi, wheezing - Cardiovascular Rhythm: regular Heart Sounds: Present: S1 & S2 - Extremities Extremities: no ischemia, No edema - Abdominal General gastrointestinal: soft, non-tender, non-distended, normal bowel sounds, other (PEG tube in place) - Integumentary Integumentary: Present: clear, warm - Psychiatric Psychiatric: other (noncommunicative) - Neurologic Neurologic: other (CVA with dysphagia weakness) Subjective Date of service: 09/11/18 Principal diagnosis: CHF Interval history: Patient seen and examined. Medical records and medication list reviewed. No change clinically, patient appears slightly more alert today Spoke with Son by phone, Objective - Constitutional Vitals: Vital Signs - 12hr 09/11/18 09/11/18 09/11/18 04:05 07:19 08:01 Temperature 98.1 F Pulse Rate 82 75 Pulse Rate [ 75 Anterior Bilateral Throughout] Respiratory 18 Rate Respiratory 20 Rate [Anterior Bilateral Throughout] Blood Pressure 117/56 107/59 O2 Sat by Pulse 98 97 98 Oximetry O2 Sat by Pulse 97 Oximetry [ Assessment] 09/11/18 09/11/18 09/11/18 08:02 08:03 08:04 Temperature Pulse Rate 75 75 72 Pulse Rate [ Anterior Bilateral Throughout] Respiratory Rate Respiratory Rate [Anterior Bilateral Throughout] Blood Pressure O2 Sat by Pulse 100 99 99 Oximetry O2 Sat by Pulse Oximetry [ Assessment] 09/11/18 09/11/18 09:51 13:57 Temperature Pulse Rate 72 Pulse Rate [ 73 Anterior Bilateral Throughout] Respiratory Rate Respiratory 20 Rate [Anterior Bilateral Throughout] Blood Pressure 107/59 O2 Sat by Pulse Oximetry O2 Sat by Pulse Oximetry [ Assessment] - Labs CBC & Chem 7: 09/12/18 09:35 09/12/18 09:35 Labs: Abnormal lab results 09/10/18 09/11/18 09/11/18 Range/Units 17:18 00:12 04:47 WBC (4.5-11.0) K/mm3 RDW (13.2-15.2) % Lymph % (Auto) (13.4-35.0) % Lymph # (1.2-5.4) K/mm3 Jackson # (0.0-0.8) K/mm3 Seg Neutrophils % (40.0-70.0) % Seg Neutrophils # (1.8-7.7) K/mm3 Carbon Dioxide (22-30) mmol/L BUN (7-17) mg/dL Glucose (65-100) mg/dL POC Glucose 211 H 200 H 137 H (70-105) Calcium (8.4-10.2) mg/dL AST (5-40) units/L ALT (7-56) units/L Total Protein (6.3-8.2) g/dL Albumin (3.9-5) g/dL 09/11/18 09/11/18 09/11/18 Range/Units 04:54 04:54 11:20 WBC 15.2 H (4.5-11.0) K/mm3 RDW 19.4 H (13.2-15.2) % Lymph % (Auto) 5.5 L (13.4-35.0) % Lymph # 0.8 L (1.2-5.4) K/mm3 Jackson # 0.9 H (0.0-0.8) K/mm3 Seg Neutrophils % 88.2 H (40.0-70.0) % Seg Neutrophils # 13.4 H (1.8-7.7) K/mm3 Carbon Dioxide 32 H (22-30) mmol/L BUN 85 H (7-17) mg/dL Glucose 120 H (65-100) mg/dL POC Glucose 117 H (70-105) Calcium 8.1 L (8.4-10.2) mg/dL AST 84 H (5-40) units/L ALT 84 H (7-56) units/L Total Protein 5.7 L (6.3-8.2) g/dL Albumin 1.9 L (3.9-5) g/dL
--- NOTE | 2018-09-11 15:42 | Consultation ---
History of Present Illness - Reason for Consult Consult date: 09/11/18 Pneumonia, bacteremia Requesting physician: ANGELINA SEPULVEDA - History of Present Illness The patient is a 73-year-old -Citizen Of [place] female who is a resident of [facility] with atrial fibrillation, coronary artery disease, status post IVC filter, diabetes mellitus, hypertension, chronic respiratory failure, CVA with bedbound status, a phase ER, status post tracheostomy and PEG tube placement was brought into the emergency room with respiratory distress on 08/31/2018. She was started on diuretics and steroids. On 09/08/2018, patient developed transient hypotension and hypoxia. She had blood cultures drawn along with sputum culture. She was started empirically on antibiotics. Blood culture is growing bacillus and sputum culture is growing a couple of gram negatives. Infectious diseases was consulted for antibiotic recommendations. History obtained by chart review. Seems back to baseline, no respiratory distress. Remained afebrile throughout hospitalization. Review of Systems: Patient is nonverbal and unable to provide any history or review of systems. Past History Past Medical History: anemia, diabetes, heart failure, hypertension, hyperlipidemia, other (spinal stenosis, asthma, chronic RF, ) Past Surgical History: Other (s/p trach, s/p PEG) Social history: other ([facility] Resident) Family history: no significant family history Medications and Allergies Allergies Allergy/AdvReac Type Severity Reaction Status Date / Time No Known Allergies Allergy Unverified 08/31/18 01:41 Home Medications Medication Instructions Recorded Confirmed Last Taken Type Amantadine [Symmetrel] 100 mg PO DAILY 08/31/18 08/31/18 Unknown History AtorvaSTATin 40 mg PO QHS 08/31/18 09/05/18 Unknown History Candesartan Cilexetil 16 mg PO DAILY 08/31/18 08/31/18 Unknown History Eliquis 5 mg PO BID 08/31/18 08/31/18 Unknown History Jevity 1.5 1,000 ml CONT 08/31/18 08/31/18 1 Day Ago History ~08/30/18 Nystatin [Nystatin SUSP] 5 ml PO Q6HR 08/31/18 08/31/18 Unknown History Timolol Maleate 1 drop OU BID 08/31/18 09/05/18 Unknown History levETIRAcetam [Keppra] 500 mg PO BID 08/31/18 08/31/18 Unknown History Aspirin [Aspirin BABY CHEW TAB] 81 mg PO QDAY tab.chew 09/08/18 Unknown Rx Budesonide [Pulmicort Respules] 0.5 mg IH Q12HRT nebu 09/08/18 Unknown Rx Docusate Sodium [Colace ORAL LIQ] 100 mg PO BID oral.liqd 09/08/18 Unknown Rx Furosemide [Lasix TAB] 60 mg PO QDAY tablet 09/08/18 Unknown Rx Insulin Glargine [Lantus VIAL] 43 units SUB-Q BID units 09/08/18 Unknown Rx Ipratropium/Albuterol Sulfate 1 ampul IH Q6HRT ampul.neb 09/08/18 Unknown Rx [DUONEB *Not for PRN Use*] Losartan [Cozaar] 50 mg PO QDAY tablet 09/08/18 Unknown Rx Metoprolol [Lopressor TAB] 25 mg PO Q6H tablet 09/08/18 Unknown Rx cloNIDine-TTS PATCH [Catapres-Tts 0.1 mg TD We patch 09/08/18 Unknown Rx 0.1MG Patch] Active Meds: Active Medications Acetaminophen (Tylenol) 650 mg PO Q4H PRN PRN Reason: Pain MILD(1-3)/Fever >100.5/[place] Last Admin: 09/06/18 22:05 Dose: 650 mg Documented by: Albuterol (Proventil) 2.5 mg IH Q4HRT PRN PRN Reason: Shortness Of Breath Albuterol/Ipratropium (Duoneb *Not For Prn Use*) 1 ampul IH Q6HRT [facility] Last Admin: 09/11/18 13:57 Dose: 1 ampul Documented by: Lipase/Protease/Amylase (Kathya Wilson 10,500 Unit) 1 each FEEDTUBE PRN PRN PRN Reason: For Clogged Feeding Tube Apixaban (Eliquis) 5 mg PO BID [facility] Last Admin: 09/11/18 09:45 Dose: 5 mg Documented by: Aspirin (Baby Aspirin) 81 mg PO QDAY [facility] Last Admin: 09/11/18 09:45 Dose: 81 mg Documented by: Atorvastatin Calcium (Lipitor) 40 mg PO QHS [facility] Last Admin: 09/11/18 00:17 Dose: 40 mg Documented by: Budesonide (Pulmicort) 0.5 mg IH Q12HRT [facility] Last Admin: 09/11/18 07:19 Dose: 0.5 mg Documented by: Clonidine HCl (Catapres-Tts Patch) 0.1 mg TD We [facility] Last Admin: 09/07/18 09:44 Dose: 0.1 mg Documented by: Dextrose (D50w (25gm) Syringe) 50 ml IV PRN PRN PRN Reason: Hypoglycemia Docusate Sodium (Colace) 100 mg PO BID [facility] Last Admin: 09/10/18 23:57 Dose: Not Given Documented by: Furosemide (Lasix) 40 mg PO DAILY@0600 [facility] Last Admin: 09/11/18 05:49 Dose: 40 mg Documented by: Hydralazine HCl (Apresoline) 10 mg IV Q4H PRN PRN Reason: Blood Pressure Last Admin: 09/07/18 09:43 Dose: 10 mg Documented by: Cefepime HCl (Maxipime/Ns 1 Gm/100 Ml) 1 gm in 100 mls @ 200 mls/hr IV Q8HR [facility]; Protocol Last Admin: 09/11/18 05:49 Dose: 200 mls/hr Documented by: Insulin Glargine (Lantus) 43 units SUB-Q BID [facility] Last Admin: 09/11/18 09:45 Dose: 43 units Documented by: Insulin Human Lispro (Humalog) 0 unit SUB-Q Q6HR [facility]; Protocol Last Admin: 09/11/18 05:19 Dose: Not Given Documented by: Levetiracetam (Keppra) 500 mg PO BID [facility] Last Admin: 09/11/18 09:45 Dose: 500 mg Documented by: Losartan Potassium (Cozaar) 50 mg PO QDAY [facility] Last Admin: 09/11/18 09:51 Dose: 50 mg Documented by: Methylprednisolone Sodium Succinate (Solu-Medrol) 40 mg IV Q24HR [facility] Last Admin: 09/11/18 09:45 Dose: 40 mg Documented by: Metoprolol Tartrate (Lopressor) 25 mg PO Q6H [facility] Last Admin: 09/11/18 05:51 Dose: 25 mg Documented by: Ondansetron HCl (Zofran) 4 mg IV Q8H PRN PRN Reason: Nausea And Vomiting Simple Syrup (Simple Syrup) 15 ml FEEDTUBE PRN PRN PRN Reason: Hypoglycemia Simple Syrup (Simple Syrup) 30 ml FEEDTUBE PRN PRN PRN Reason: Hypoglycemia Sodium Bicarbonate (Sodium Bicarbonate) 325 mg FEEDTUBE PRN PRN PRN Reason: For Clogged Feeding Tube Sodium Chloride (Sodium Chloride Flush Syringe 10 Ml) 10 ml IV BID [facility] Last Admin: 09/11/18 00:17 Dose: 10 ml Documented by: Sodium Chloride (Sodium Chloride Flush Syringe 10 Ml) 10 ml IV PRN PRN PRN Reason: LINE FLUSH Timolol Maleate (Timoptic) 1 drops OU DAILY [facility] Last Admin: 09/11/18 09:44 Dose: 1 drops Documented by: Physical Examination - Physical Exam Narrative exam: Physical Exam: Constitutional: no respiratory distress. Obese Head, Ears, Nose: Normocephalic, atraumatic. External ears, nose normal Eyes: Conjunctivae/corneas clear. No icterus. No ptosis. Neck: Trach with T-piece Oral: unable to examine Cardiovascular: S1, S2 normal Respiratory: Good air entry, clear to auscultation bilaterally GI: Soft, bowel sounds normal. No peritoneal signs. G tube + Musculoskeletal: pedal edema. Skin: No rash or abscess Hem/Lymphatic: No palpable cervical or supraclavicular nodes. No lymphangitis Psych: no agitation Neurological: non verbal. - Constitutional Vitals: Vital Signs Temp Pulse Resp BP Pulse Ox 98.1 F 77 20 107/59 99 09/11/18 04:05 09/11/18 14:07 09/11/18 14:07 09/11/18 09:51 09/11/18 08:04 Temperature -Last 24 Hours Temperature 98.1 F Temperature 97.9 F Temperature 98.2 F Temperature 98.1 F Results - Labs CBC & Chem 7: 09/11/18 04:54 09/11/18 04:54 Labs: Abnormal lab results 09/10/18 09/11/18 09/11/18 Range/Units 17:18 00:12 04:47 WBC (4.5-11.0) K/mm3 RDW (13.2-15.2) % Lymph % (Auto) (13.4-35.0) % Lymph # (1.2-5.4) K/mm3 Bill[place] # (0.0-0.8) K/mm3 Seg Neutrophils % (40.0-70.0) % Seg Neutrophils # (1.8-7.7) K/mm3 Carbon Dioxide (22-30) mmol/L BUN (7-17) mg/dL Glucose (65-100) mg/dL POC Glucose 211 H 200 H 137 H (70-105) Calcium (8.4-10.2) mg/dL AST (5-40) units/L ALT (7-56) units/L Total Protein (6.3-8.2) g/dL Albumin (3.9-5) g/dL 09/11/18 09/11/18 09/11/18 Range/Units 04:54 04:54 11:20 WBC 15.2 H (4.5-11.0) K/mm3 RDW 19.4 H (13.2-15.2) % Lymph % (Auto) 5.5 L (13.4-35.0) % Lymph # 0.8 L (1.2-5.4) K/mm3 Billings # 0.9 H (0.0-0.8) K/mm3 Seg Neutrophils % 88.2 H (40.0-70.0) % Seg Neutrophils # 13.4 H (1.8-7.7) K/mm3 Carbon Dioxide 32 H (22-30) mmol/L BUN 85 H (7-17) mg/dL Glucose 120 H (65-100) mg/dL POC Glucose 117 H (70-105) Calcium 8.1 L (8.4-10.2) mg/dL AST 84 H (5-40) units/L ALT 84 H (7-56) units/L Total Protein 5.7 L (6.3-8.2) g/dL Albumin 1.9 L (3.9-5) g/dL - Imaging and Cardiology Chest x-ray: report reviewed, image reviewed (Chest x-ray shows tracheostomy tube in position, cardiomegaly, no evidence of pneumonia, left base not very well visualized. ) Assessment and Plan Cultures: 09/09/2018 blood culture: Bacillus 09/09/2018 sputum culture: Klebsiella, Proteus A/P: 73-year-old -Citizen Of [place] female who is a resident of [facility] with atrial fibrillation, coronary artery disease, status post IVC filter, diabetes mellitus, hypertension, chronic respiratory failure, CVA with bedbound status, a phase ER, status post tracheostomy and PEG tube placement was brought into the emergency room with respiratory distress. 1) Acute on chronic respiratory failure: Likely secondary to pulmonary ed harvey/CHF. She has a chronic indwelling tracheostomy tube, gram-negatives are common colonizers. No fever. WBC is likely from steroids. No infiltrate on CXR. I am in favor of colonization, monitor off abx. 2) Bacillus bacteremia:1/4 bottles. Likely contaminant. No abx or work up needed. 3) Chronic encephalopathy: MRI without acute findings. Recs: Monitor off antibiotics D/W Dr. Schaefer and Dr. Sepulveda. Kayla Galicia MD, FACP [facility] C: [phone] O: [phone] F: [phone]
--- NOTE | 2018-09-11 15:43 | Progress Note ---
Assessment and Plan Imp: 1. A/C diastolic CHF 2. Acute/chronic respiratory failure, hypoxia 3. Chronic hypercapneic respiratory failure 4. Obesity 5. s/p Trach 6. Hoang-jorge respirations 7. CALEB 8. Hypernatremia 9. Transaminitis, ? related to hypotensive episode 10. R/o Sepsis Rec: 1. Stop D5W; give free water per PEG; monitor sodium; on PO Lasix now 2. Cont. Duonebs/Pulmicort -> cont. this at [facility] 3. Routine trach management; order placed with RT to keep a 6 cuffed trach at the bedside for emergency purposes 4. Hold off on PMV for now; wean O2 as tolerated 5. PE is very unlikely since she is on full-dose Eliquis; hold off on CTA chest 6. Hold off on Scopolamine/Robinul for now as these can dry out her tracheal secretions and worsen mucous plugging 7. LFTs better today; monitor 8. ID consult is pending re: blood/sputum cultures; sputum organisms may represent colonization given lack of fever or obvious infiltrate on CXR 9. Consider neurology input re: L frontal lobe lesion No family present today Subjective Date of service: 09/11/18 Principal diagnosis: CHF Interval history: No events. Mentation at baseline. Awake. Moves LUE. Nonverbal. On 30% FiO2 Tpiece. No Hoang-jorge. Active Medications Acetaminophen (Tylenol) 650 mg PO Q4H PRN PRN Reason: Pain MILD(1-3)/Fever >100.5/[place] Last Admin: 09/06/18 22:05 Dose: 650 mg Documented by: Albuterol (Proventil) 2.5 mg IH Q4HRT PRN PRN Reason: Shortness Of Breath Albuterol/Ipratropium (Duoneb *Not For Prn Use*) 1 ampul IH Q6HRT [facility] Last Admin: 09/11/18 13:57 Dose: 1 ampul Documented by: Lipase/Protease/Amylase (Kathya Wilson 10,500 Unit) 1 each FEEDTUBE PRN PRN PRN Reason: For Clogged Feeding Tube Apixaban (Eliquis) 5 mg PO BID [facility] Last Admin: 09/11/18 09:45 Dose: 5 mg Documented by: Aspirin (Baby Aspirin) 81 mg PO QDAY [facility] Last Admin: 09/11/18 09:45 Dose: 81 mg Documented by: Atorvastatin Calcium (Lipitor) 40 mg PO QHS [facility] Last Admin: 09/11/18 00:17 Dose: 40 mg Documented by: Budesonide (Pulmicort) 0.5 mg IH Q12HRT [facility] Last Admin: 09/11/18 07:19 Dose: 0.5 mg Documented by: Clonidine HCl (Catapres-Tts Patch) 0.1 mg TD We [facility] Last Admin: 09/07/18 09:44 Dose: 0.1 mg Documented by: Dextrose (D50w (25gm) Syringe) 50 ml IV PRN PRN PRN Reason: Hypoglycemia Docusate Sodium (Colace) 100 mg PO BID [facility] Last Admin: 09/10/18 23:57 Dose: Not Given Documented by: Furosemide (Lasix) 40 mg PO DAILY@0600 [facility] Last Admin: 09/11/18 05:49 Dose: 40 mg Documented by: Hydralazine HCl (Apresoline) 10 mg IV Q4H PRN PRN Reason: Blood Pressure Last Admin: 09/07/18 09:43 Dose: 10 mg Documented by: Cefepime HCl (Maxipime/Ns 1 Gm/100 Ml) 1 gm in 100 mls @ 200 mls/hr IV Q8HR [facility]; Protocol Last Admin: 09/11/18 05:49 Dose: 200 mls/hr Documented by: Insulin Glargine (Lantus) 43 units SUB-Q BID [facility] Last Admin: 09/11/18 09:45 Dose: 43 units Documented by: Insulin Human Lispro (Humalog) 0 unit SUB-Q Q6HR [facility]; Protocol Last Admin: 09/11/18 05:19 Dose: Not Given Documented by: Levetiracetam (Keppra) 500 mg PO BID [facility] Last Admin: 09/11/18 09:45 Dose: 500 mg Documented by: Losartan Potassium (Cozaar) 50 mg PO QDAY [facility] Last Admin: 09/11/18 09:51 Dose: 50 mg Documented by: Methylprednisolone Sodium Succinate (Solu-Medrol) 40 mg IV Q24HR [facility] Last Admin: 09/11/18 09:45 Dose: 40 mg Documented by: Metoprolol Tartrate (Lopressor) 25 mg PO Q6H [facility] Last Admin: 09/11/18 05:51 Dose: 25 mg Documented by: Ondansetron HCl (Zofran) 4 mg IV Q8H PRN PRN Reason: Nausea And Vomiting Simple Syrup (Simple Syrup) 15 ml FEEDTUBE PRN PRN PRN Reason: Hypoglycemia Simple Syrup (Simple Syrup) 30 ml FEEDTUBE PRN PRN PRN Reason: Hypoglycemia Sodium Bicarbonate (Sodium Bicarbonate) 325 mg FEEDTUBE PRN PRN PRN Reason: For Clogged Feeding Tube Sodium Chloride (Sodium Chloride Flush Syringe 10 Ml) 10 ml IV BID [facility] Last Admin: 09/11/18 00:17 Dose: 10 ml Documented by: Sodium Chloride (Sodium Chloride Flush Syringe 10 Ml) 10 ml IV PRN PRN PRN Reason: LINE FLUSH Timolol Maleate (Timoptic) 1 drops OU DAILY [facility] Last Admin: 09/11/18 09:44 Dose: 1 drops Documented by: Objective Vital Signs - 12hr 09/11/18 09/11/18 09/11/18 04:05 07:19 07:30 Temperature 98.1 F Pulse Rate 82 Pulse Rate [ 75 78 Anterior Bilateral Throughout] Respiratory 18 Rate Respiratory 20 20 Rate [Anterior Bilateral Throughout] Blood Pressure 117/56 O2 Sat by Pulse 98 97 Oximetry O2 Sat by Pulse 97 Oximetry [ Assessment] 09/11/18 09/11/18 09/11/18 08:01 08:02 08:03 Temperature Pulse Rate 75 75 75 Pulse Rate [ Anterior Bilateral Throughout] Respiratory Rate Respiratory Rate [Anterior Bilateral Throughout] Blood Pressure 107/59 O2 Sat by Pulse 98 100 99 Oximetry O2 Sat by Pulse Oximetry [ Assessment] 09/11/18 09/11/18 09/11/18 08:04 09:51 13:57 Temperature Pulse Rate 72 72 Pulse Rate [ 73 Anterior Bilateral Throughout] Respiratory Rate Respiratory 20 Rate [Anterior Bilateral Throughout] Blood Pressure 107/59 O2 Sat by Pulse 99 Oximetry O2 Sat by Pulse Oximetry [ Assessment] 09/11/18 14:07 Temperature Pulse Rate Pulse Rate [ 77 Anterior Bilateral Throughout] Respiratory Rate Respiratory 20 Rate [Anterior Bilateral Throughout] Blood Pressure O2 Sat by Pulse Oximetry O2 Sat by Pulse Oximetry [ Assessment] Constitutional: no acute distress, alert Eyes: non-icteric ENT: oropharynx moist Neck: supple, other (trach in place) Effort: normal Ascultation: Bilateral: other (coarse BS) Cardiovascular: regular rate and rhythm (no mrg) Gastrointestinal: normoactive bowel sounds, non-distended, other (peg in place) Integumentary: normal Extremities: no cyanosis, pink and warm, edema (3+ bilateral LE edema) Neurologic: other (more sleepy but arousable) Psychiatric: mood appropriate, affect normal CBC and BMP: 09/11/18 04:54 09/11/18 04:54 ABG, PT/INR, D-dimer: ABG POC ABG pH 7.571 (7.35-7.45) H 09/08/18 15:06 POC ABG pCO2 33.6 (35-45) L 09/08/18 15:06 POC ABG pO2 55 (80-105) L 09/08/18 15:06 POC ABG HCO3 30.9 (22-26 mml/L) 09/08/18 15:06 POC ABG Total CO2 32 (23-27mmol/L) 09/08/18 15:06 POC ABG O2 Sat 93 09/08/18 15:06 PT/INR, D-dimer PT 20.9 Sec. (12.2-14.9) H 08/31/18 00:27 INR 1.85 (0.87-1.13) H 08/31/18 00:27 Abnormal lab findings: Abnormal Labs 08/30/18 08/30/18 08/30/18 23:28 23:28 23:28 WBC RBC 3.40 L Hgb Hct RDW 18.9 H Lymph % (Auto) 7.2 L Harvey % (Auto) 8.7 H Eos % (Auto) 4.8 H Lymph # 0.7 L Harvey # Seg Neutrophils % 78.9 H Seg Neuts % (Manual) Lymphocytes % (Manual) Seg Neutrophils # Seg Neutrophils # Man PT INR POC ABG pH POC ABG pCO2 POC ABG pO2 Sodium Potassium Chloride Carbon Dioxide 31 H BUN 41 H Creatinine Glucose 189 H POC Glucose Hemoglobin A1c Calcium AST ALT Troponin T 0.323 H* NT-Pro-B Natriuret Pep Total Protein Albumin 1.8 L HDL Cholesterol 35 L Urine WBC (Auto) 08/30/18 08/31/18 08/31/18 23:28 00:27 03:48 WBC RBC Hgb Hct RDW Lymph % (Auto) Harvey % (Auto) Eos % (Auto) Lymph # Harvey # Seg Neutrophils % Seg Neuts % (Manual) Lymphocytes % (Manual) Seg Neutrophils # Seg Neutrophils # Man PT 20.9 H INR 1.85 H POC ABG pH POC ABG pCO2 55.2 H POC ABG pO2 Sodium Potassium Chloride Carbon Dioxide BUN Creatinine Glucose POC Glucose Hemoglobin A1c Calcium AST ALT Troponin T NT-Pro-B Natriuret Pep 99727 H Total Protein Albumin HDL Cholesterol Urine WBC (Auto) 08/31/18 08/31/18 08/31/18 05:34 05:34 11:44 WBC RBC Hgb Hct RDW Lymph % (Auto) Harvey % (Auto) Eos % (Auto) Lymph # Harvey # Seg Neutrophils % Seg Neuts % (Manual) Lymphocytes % (Manual) Seg Neutrophils # Seg Neutrophils # Man PT INR POC ABG pH POC ABG pCO2 POC ABG pO2 Sodium Potassium Chloride Carbon Dioxide BUN Creatinine Glucose POC Glucose 154 H Hemoglobin A1c 6.4 H Calcium AST ALT Troponin T 0.215 H* D NT-Pro-B Natriuret Pep Total Protein Albumin HDL Cholesterol Urine WBC (Auto) 08/31/18 09/01/18 09/01/18 23:32 04:47 04:47 WBC RBC Hgb Hct RDW 19.1 H Lymph % (Auto) 7.9 L Harvey % (Auto) 7.4 H Eos % (Auto) Lymph # 0.9 L Harvey # Seg Neutrophils % 84.0 H Seg Neuts % (Manual) Lymphocytes % (Manual) Seg Neutrophils # 9.3 H Seg Neutrophils # Man PT INR POC ABG pH POC ABG pCO2 POC ABG pO2 Sodium Potassium Chloride 94.1 L Carbon Dioxide 32 H BUN 46 H Creatinine Glucose 189 H POC Glucose 138 H Hemoglobin A1c Calcium AST ALT Troponin T NT-Pro-B Natriuret Pep Total Protein Albumin HDL Cholesterol Urine WBC (Auto) 09/01/18 09/01/18 09/01/18 05:59 11:38 16:17 WBC RBC Hgb Hct RDW Lymph % (Auto) Harvey % (Auto) Eos % (Auto) Lymph # Harvey # Seg Neutrophils % Seg Neuts % (Manual) Lymphocytes % (Manual) Seg Neutrophils # Seg Neutrophils # Man PT INR POC ABG pH POC ABG pCO2 POC ABG pO2 Sodium Potassium Chloride Carbon Dioxide BUN Creatinine Glucose POC Glucose 236 H 235 H 278 H Hemoglobin A1c Calcium AST ALT Troponin T NT-Pro-B Natriuret Pep Total Protein Albumin HDL Cholesterol Urine WBC (Auto) 09/01/18 09/01/18 09/01/18 17:59 18:53 19:07 WBC RBC Hgb Hct RDW Lymph % (Auto) Harvey % (Auto) Eos % (Auto) Lymph # Harvey # Seg Neutrophils % Seg Neuts % (Manual) Lymphocytes % (Manual) Seg Neutrophils # Seg Neutrophils # Man PT INR POC ABG pH POC ABG pCO2 53.7 H POC ABG pO2 73 L Sodium Potassium Chloride Carbon Dioxide BUN Creatinine Glucose POC Glucose 281 H 376 H Hemoglobin A1c Calcium AST ALT Troponin T NT-Pro-B Natriuret Pep Total Protein Albumin HDL Cholesterol Urine WBC (Auto) 09/01/18 09/02/18 09/02/18 21:29 00:22 06:20 WBC RBC Hgb Hct RDW Lymph % (Auto) Harvey % (Auto) Eos % (Auto) Lymph # Harvey # Seg Neutrophils % Seg Neuts % (Manual) Lymphocytes % (Manual) Seg Neutrophils # Seg Neutrophils # Man PT INR POC ABG pH POC ABG pCO2 POC ABG pO2 Sodium Potassium Chloride Carbon Dioxide BUN Creatinine Glucose POC Glucose 247 H 369 H 414 H Hemoglobin A1c Calcium AST ALT Troponin T NT-Pro-B Natriuret Pep Total Protein Albumin HDL Cholesterol Urine WBC (Auto) 09/02/18 09/02/18 09/02/18 11:56 18:21 23:42 WBC RBC Hgb Hct RDW Lymph % (Auto) Harvey % (Auto) Eos % (Auto) Lymph # Harvey # Seg Neutrophils % Seg Neuts % (Manual) Lymphocytes % (Manual) Seg Neutrophils # Seg Neutrophils # Man PT INR POC ABG pH POC ABG pCO2 POC ABG pO2 Sodium Potassium Chloride Carbon Dioxide BUN Creatinine Glucose POC Glucose 416 H 429 H 373 H Hemoglobin A1c Calcium AST ALT Troponin T NT-Pro-B Natriuret Pep Total Protein Albumin HDL Cholesterol Urine WBC (Auto) 09/03/18 09/03/18 09/03/18 05:28 11:17 17:46 WBC RBC Hgb Hct RDW Lymph % (Auto) Harvey % (Auto) Eos % (Auto) Lymph # Harvey # Seg Neutrophils % Seg Neuts % (Manual) Lymphocytes % (Manual) Seg Neutrophils # Seg Neutrophils # Man PT INR POC ABG pH POC ABG pCO2 POC ABG pO2 Sodium Potassium Chloride Carbon Dioxide BUN Creatinine Glucose POC Glucose 400 H 319 H 308 H Hemoglobin A1c Calcium AST ALT Troponin T NT-Pro-B Natriuret Pep Total Protein Albumin HDL Cholesterol Urine WBC (Auto) 09/04/18 09/04/18 09/04/18 00:10 05:56 11:53 WBC RBC Hgb Hct RDW Lymph % (Auto) Harvey % (Auto) Eos % (Auto) Lymph # Harvey # Seg Neutrophils % Seg Neuts % (Manual) Lymphocytes % (Manual) Seg Neutrophils # Seg Neutrophils # Man PT INR POC ABG pH POC ABG pCO2 POC ABG pO2 Sodium Potassium Chloride Carbon Dioxide BUN Creatinine Glucose POC Glucose 232 H 254 H 264 H Hemoglobin A1c Calcium AST ALT Troponin T NT-Pro-B Natriuret Pep Total Protein Albumin HDL Cholesterol Urine WBC (Auto) 09/04/18 09/04/18 09/04/18 16:53 21:51 23:16 WBC RBC Hgb Hct RDW Lymph % (Auto) Harvey % (Auto) Eos % (Auto) Lymph # Harvey # Seg Neutrophils % Seg Neuts % (Manual) Lymphocytes % (Manual) Seg Neutrophils # Seg Neutrophils # Man PT INR POC ABG pH POC ABG pCO2 POC ABG pO2 Sodium Potassium Chloride Carbon Dioxide BUN Creatinine Glucose POC Glucose 262 H 252 H 291 H Hemoglobin A1c Calcium AST ALT Troponin T NT-Pro-B Natriuret Pep Total Protein Albumin HDL Cholesterol Urine WBC (Auto) 09/05/18 09/05/18 09/05/18 04:21 05:20 12:08 WBC RBC Hgb Hct RDW Lymph % (Auto) Harvey % (Auto) Eos % (Auto) Lymph # Harvey # Seg Neutrophils % Seg Neuts % (Manual) Lymphocytes % (Manual) Seg Neutrophils # Seg Neutrophils # Man PT INR POC ABG pH POC ABG pCO2 POC ABG pO2 Sodium Potassium Chloride 97.3 L Carbon Dioxide 33 H BUN 66 H Creatinine Glucose 232 H POC Glucose 272 H 201 H Hemoglobin A1c Calcium AST ALT Troponin T NT-Pro-B Natriuret Pep Total Protein Albumin HDL Cholesterol Urine WBC (Auto) 09/05/18 09/06/18 09/06/18 21:50 00:24 05:26 WBC RBC Hgb Hct RDW Lymph % (Auto) Harvey % (Auto) Eos % (Auto) Lymph # Harvey # Seg Neutrophils % Seg Neuts % (Manual) Lymphocytes % (Manual) Seg Neutrophils # Seg Neutrophils # Man PT INR POC ABG pH POC ABG pCO2 POC ABG pO2 Sodium Potassium Chloride Carbon Dioxide BUN Creatinine Glucose POC Glucose 196 H 171 H 142 H Hemoglobin A1c Calcium AST ALT Troponin T NT-Pro-B Natriuret Pep Total Protein Albumin HDL Cholesterol Urine WBC (Auto) 09/06/18 09/06/18 09/06/18 07:28 12:13 18:03 WBC RBC Hgb Hct RDW Lymph % (Auto) Harvey % (Auto) Eos % (Auto) Lymph # Harvey # Seg Neutrophils % Seg Neuts % (Manual) Lymphocytes % (Manual) Seg Neutrophils # Seg Neutrophils # Man PT INR POC ABG pH POC ABG pCO2 POC ABG pO2 Sodium Potassium Chloride Carbon Dioxide 34 H BUN 69 H Creatinine Glucose 164 H POC Glucose 209 H 158 H Hemoglobin A1c Calcium AST ALT Troponin T NT-Pro-B Natriuret Pep Total Protein Albumin HDL Cholesterol Urine WBC (Auto) 09/06/18 09/06/18 09/07/18 22:18 23:54 05:27 WBC RBC Hgb Hct RDW Lymph % (Auto) Harvey % (Auto) Eos % (Auto) Lymph # Harvey # Seg Neutrophils % Seg Neuts % (Manual) Lymphocytes % (Manual) Seg Neutrophils # Seg Neutrophils # Man PT INR POC ABG pH POC ABG pCO2 POC ABG pO2 Sodium Potassium Chloride Carbon Dioxide BUN Creatinine Glucose POC Glucose 181 H 219 H 244 H Hemoglobin A1c Calcium AST ALT Troponin T NT-Pro-B Natriuret Pep Total Protein Albumin HDL Cholesterol Urine WBC (Auto) 09/07/18 09/07/18 09/07/18 13:48 17:07 22:14 WBC RBC Hgb Hct RDW Lymph % (Auto) Harvey % (Auto) Eos % (Auto) Lymph # Harvey # Seg Neutrophils % Seg Neuts % (Manual) Lymphocytes % (Manual) Seg Neutrophils # Seg Neutrophils # Man PT INR POC ABG pH POC ABG pCO2 POC ABG pO2 Sodium Potassium Chloride Carbon Dioxide BUN Creatinine Glucose POC Glucose 286 H 263 H 237 H Hemoglobin A1c Calcium AST ALT Troponin T NT-Pro-B Natriuret Pep Total Protein Albumin HDL Cholesterol Urine WBC (Auto) 09/07/18 09/08/18 09/08/18 23:25 06:22 12:55 WBC RBC Hgb Hct RDW Lymph % (Auto) Harvey % (Auto) Eos % (Auto) Lymph # Harvey # Seg Neutrophils % Seg Neuts % (Manual) Lymphocytes % (Manual) Seg Neutrophils # Seg Neutrophils # Man PT INR POC ABG pH POC ABG pCO2 POC ABG pO2 Sodium Potassium Chloride Carbon Dioxide BUN Creatinine Glucose POC Glucose 266 H 271 H 261 H Hemoglobin A1c Calcium AST ALT Troponin T NT-Pro-B Natriuret Pep Total Protein Albumin HDL Cholesterol Urine WBC (Auto) 09/08/18 09/08/18 09/08/18 15:06 16:50 18:47 WBC 17.6 H RBC 5.16 H Hgb 15.0 H Hct 48.6 H RDW 20.2 H Lymph % (Auto) 4.8 L Harvey % (Auto) Eos % (Auto) Lymph # 0.8 L Harvey # 1.2 H Seg Neutrophils % 88.1 H Seg Neuts % (Manual) Lymphocytes % (Manual) Seg Neutrophils # 15.5 H Seg Neutrophils # Man PT INR POC ABG pH 7.571 H POC ABG pCO2 33.6 L POC ABG pO2 55 L Sodium Potassium Chloride Carbon Dioxide BUN Creatinine Glucose POC Glucose 177 H Hemoglobin A1c Calcium AST ALT Troponin T NT-Pro-B Natriuret Pep Total Protein Albumin HDL Cholesterol Urine WBC (Auto) 09/08/18 09/09/18 09/09/18 22:32 00:02 05:56 WBC 18.2 H RBC Hgb Hct RDW 19.4 H Lymph % (Auto) Harvey % (Auto) Eos % (Auto) Lymph # Harvey # Seg Neutrophils % Seg Neuts % (Manual) 83.0 H Lymphocytes % (Manual) 11.0 L Seg Neutrophils # Seg Neutrophils # Man 15.1 H PT INR POC ABG pH POC ABG pCO2 POC ABG pO2 Sodium Potassium Chloride Carbon Dioxide BUN Creatinine Glucose POC Glucose 182 H 124 H Hemoglobin A1c Calcium AST ALT Troponin T NT-Pro-B Natriuret Pep Total Protein Albumin HDL Cholesterol Urine WBC (Auto) 09/09/18 09/09/18 09/09/18 05:56 06:33 18:06 WBC RBC Hgb Hct RDW Lymph % (Auto) Harvey % (Auto) Eos % (Auto) Lymph # Harvey # Seg Neutrophils % Seg Neuts % (Manual) Lymphocytes % (Manual) Seg Neutrophils # Seg Neutrophils # Man PT INR POC ABG pH POC ABG pCO2 POC ABG pO2 Sodium 146 H Potassium Chloride Carbon Dioxide 33 H BUN 87 H Creatinine 1.6 H Glucose POC Glucose 138 H 112 H Hemoglobin A1c Calcium AST 76 H ALT 71 H Troponin T NT-Pro-B Natriuret Pep Total Protein 5.9 L Albumin 2.1 L HDL Cholesterol Urine WBC (Auto) 09/09/18 09/09/18 09/10/18 23:43 Unknown 05:14 WBC 16.2 H RBC Hgb Hct RDW 19.5 H Lymph % (Auto) 4.4 L Harvey % (Auto) 7.5 H Eos % (Auto) Lymph # 0.7 L Harvey # 1.2 H Seg Neutrophils % 87.4 H Seg Neuts % (Manual) Lymphocytes % (Manual) Seg Neutrophils # 14.1 H Seg Neutrophils # Man PT INR POC ABG pH POC ABG pCO2 POC ABG pO2 Sodium Potassium Chloride Carbon Dioxide BUN Creatinine Glucose POC Glucose 142 H Hemoglobin A1c Calcium AST ALT Troponin T NT-Pro-B Natriuret Pep Total Protein Albumin HDL Cholesterol Urine WBC (Auto) 8.0 H 09/10/18 09/10/18 09/10/18 05:14 05:41 12:31 WBC RBC Hgb Hct RDW Lymph % (Auto) Harvey % (Auto) Eos % (Auto) Lymph # Harvey # Seg Neutrophils % Seg Neuts % (Manual) Lymphocytes % (Manual) Seg Neutrophils # Seg Neutrophils # Man PT INR POC ABG pH POC ABG pCO2 POC ABG pO2 Sodium Potassium 6.0 H D Chloride Carbon Dioxide BUN 91 H Creatinine 1.5 H Glucose 162 H POC Glucose 189 H 118 H Hemoglobin A1c Calcium 7.8 L AST 153 H ALT 97 H Troponin T NT-Pro-B Natriuret Pep Total Protein 6.0 L Albumin 1.9 L HDL Cholesterol Urine WBC (Auto) 09/10/18 09/11/18 09/11/18 17:18 00:12 04:47 WBC RBC Hgb Hct RDW Lymph % (Auto) Harvey % (Auto) Eos % (Auto) Lymph # Harvey # Seg Neutrophils % Seg Neuts % (Manual) Lymphocytes % (Manual) Seg Neutrophils # Seg Neutrophils # Man PT INR POC ABG pH POC ABG pCO2 POC ABG pO2 Sodium Potassium Chloride Carbon Dioxide BUN Creatinine Glucose POC Glucose 211 H 200 H 137 H Hemoglobin A1c Calcium AST ALT Troponin T NT-Pro-B Natriuret Pep Total Protein Albumin HDL Cholesterol Urine WBC (Auto) 09/11/18 09/11/18 09/11/18 04:54 04:54 11:20 WBC 15.2 H RBC Hgb Hct RDW 19.4 H Lymph % (Auto) 5.5 L Harvey % (Auto) Eos % (Auto) Lymph # 0.8 L Harvey # 0.9 H Seg Neutrophils % 88.2 H Seg Neuts % (Manual) Lymphocytes % (Manual) Seg Neutrophils # 13.4 H Seg Neutrophils # Man PT INR POC ABG pH POC ABG pCO2 POC ABG pO2 Sodium Potassium Chloride Carbon Dioxide 32 H BUN 85 H Creatinine Glucose 120 H POC Glucose 117 H Hemoglobin A1c Calcium 8.1 L AST 84 H ALT 84 H Troponin T NT-Pro-B Natriuret Pep Total Protein 5.7 L Albumin 1.9 L HDL Cholesterol Urine WBC (Auto) Chest x-ray: report reviewed, image reviewed
[2018-09-11] MEDS: COLACE PO SCH ×2 (16:06→22:49)
[2018-09-12] MEDS: HumaLOG SUB-Q SCH ×4 (00:56→18:44)
[2018-09-12] MEDS: DUONEB *Not for PRN Use IH SCH ×4 (02:18→20:14)
[2018-09-12] MEDS: LOPRESSOR PO SCH ×3 (06:29→18:43)
[2018-09-12] MEDS: LASIX PO SCH (06:29)
[2018-09-12] MEDS: PULMICORT IH SCH ×2 (07:27→20:14)
[2018-09-12 09:45] LABS: Hematocrit 35.2 % (30.3-42.9); Hemoglobin 11.6 gm/dl (10.1-14.3); Mean Corpuscular HGB Conc 33 % (30-34); Mean Corpuscular Volume 90 fl (79-97); Platelet Count 203 K/mm3 (140-440); Red Blood Count 3.91 M/mm3 (3.65-5.03)
[2018-09-12] MEDS: TIMOPTIC OU SCH (10:00)
[2018-09-12 10:08] LABS: BUN/Creatinine Ratio 71; Blood Urea Nitrogen 71 mg/dL (7-17); Calcium 8.8 mg/dL (8.4-10.2); Hemolysis Index 16
--- NOTE | 2018-09-12 10:18 | Progress Note ---
Assessment and Plan Atrial fibrillation, permanent On eliquis On metoprolol for rate control History of CVA s/p PEG tube Acute on chronic diastolic heart failure Echo 07/2018 - Normal LVEF Dehydration Type II DM Systemic Hypertension Hyperlipidemia Chronic respiratory failure Chronic tracheostomy Recommendations: Continue medical therapy for permanent atrial fibrillation and heart failure with a preserved ejection fraction. Otherwise, conservative cardiac management Subjective Date of service: 09/12/18 Principal diagnosis: CHF Interval history: Atrial fibrillation with a well controlled ventricular rate on telemetry monitoring. Objective Vital Signs Temp Pulse Pulse Resp Resp BP BP 09/12/18 07:36 09/12/18 07:34 09/12/18 07:33 97.8 F 79 22 138/55 09/12/18 07:30 68 20 09/12/18 02:30 86 22 09/12/18 02:20 83 20 09/12/18 02:09 97.9 F 74 20 116/49 09/12/18 02:00 97.5 F L 74 20 116/52 09/11/18 22:00 74 20 09/11/18 20:43 97.5 F L 74 20 127/65 09/11/18 19:33 09/11/18 19:32 09/11/18 19:31 74 18 09/11/18 17:20 09/11/18 17:12 76 114/52 09/11/18 16:14 77 09/11/18 14:07 77 20 09/11/18 13:57 73 20 09/11/18 11:52 76 Pulse Ox Pulse Ox 09/12/18 07:36 98 09/12/18 07:34 98 09/12/18 07:33 94 09/12/18 07:30 09/12/18 02:30 09/12/18 02:20 09/12/18 02:09 99 09/12/18 02:00 96 09/11/18 22:00 09/11/18 20:43 100 09/11/18 19:33 98 09/11/18 19:32 98 09/11/18 19:31 09/11/18 17:20 100 09/11/18 17:12 99 09/11/18 16:14 09/11/18 14:07 09/11/18 13:57 09/11/18 11:52 86 - Physical Examination General: Other (nonverbal) HEENT: Positive: PERRL Neck: Positive: Other (Midline trach) Cardiac: Positive: irregularly irregular Neuro: Positive: Other (Nonverbal ) Extremities: Present: +1 Edema - Labs and Meds CBC 09/12/18 Range/Units 09:35 WBC 12.1 H (4.5-11.0) K/mm3 RBC 3.91 (3.65-5.03) M/mm3 Hgb 11.6 (10.1-14.3) gm/dl Hct 35.2 (30.3-42.9) % Plt Count 203 (140-440) K/mm3 Comprehensive Metabolic Panel 09/12/18 Range/Units 09:35 Sodium 141 (137-145) mmol/L Potassium 4.5 (3.6-5.0) mmol/L Chloride 98.0 (98-107) mmol/L Carbon Dioxide 37 H (22-30) mmol/L BUN 71 H (7-17) mg/dL Creatinine 1.0 (0.7-1.2) mg/dL Glucose 58 L (65-100) mg/dL Calcium 8.8 (8.4-10.2) mg/dL
[2018-09-12] MEDS: ELIQUIS PO SCH ×2 (10:57→21:38)
[2018-09-12] MEDS: BABY ASPIRIN PO SCH (10:57)
[2018-09-12] MEDS: COZAAR PO SCH (10:58)
[2018-09-12] MEDS: KEPPRA PO SCH ×2 (10:58→21:38)
[2018-09-12] MEDS: SOLU-Medrol IV SCH (10:59)
[2018-09-12] MEDS: SODIUM CHLORIDE FLUSH SYRINGE 10 ML IV SCH ×2 (11:01→21:38)
[2018-09-12] MEDS: TYLENOL PO PRN ×2 (11:03→18:42)
[2018-09-12] MEDS: LANTUS SUB-Q SCH ×2 (11:30→22:00)
--- NOTE | 2018-09-12 11:47 | Progress Note ---
Assessment and Plan 1. A/C diastolic CHF 2. Acute/chronic respiratory failure, hypoxia 3. Chronic hypercapneic respiratory failure 4. Obesity 5. s/p Trach 6. Hoang-jorge respirations 7. CALEB 8. Hypernatremia 9. Transaminitis, ? related to hypotensive episode 10. R/o Sepsis Rec: 1. Na is improving with Free water. May need to change feeds or add more sugar given drop. 2. Cont. Duonebs/Pulmicort -> cont. this at SNF 3. Routine trach management; order placed with RT to keep a 6 cuffed trach at the bedside for emergency purposes 4. Hold off on PMV for now; wean O2 as tolerated 5. PE is very unlikely since she is on full-dose Eliquis; hold off on CTA chest 6. Hold off on Scopolamine/Robinul for now as these can dry out her tracheal secretions and worsen mucous plugging 7. Follow up ID consult. 8. Consider neurology input re: L frontal lobe lesion Subjective Date of service: 09/12/18 Principal diagnosis: CHF Interval history: No acute events. Nurse at bedside. Objective Vital Signs - 12hr 09/12/18 09/12/18 09/12/18 02:00 02:09 02:20 Temperature 97.5 F L 97.9 F Pulse Rate 74 74 Pulse Rate [ 83 Anterior Bilateral Throughout] Respiratory 20 20 Rate Respiratory 20 Rate [Anterior Bilateral Throughout] Blood Pressure 116/49 Blood Pressure 116/52 [Left] O2 Sat by Pulse 96 99 Oximetry O2 Sat by Pulse Oximetry [ Assessment] 09/12/18 09/12/18 09/12/18 02:30 07:30 07:33 Temperature 97.8 F Pulse Rate 79 Pulse Rate [ 86 68 Anterior Bilateral Throughout] Respiratory 22 Rate Respiratory 22 20 Rate [Anterior Bilateral Throughout] Blood Pressure 138/55 Blood Pressure [Left] O2 Sat by Pulse 94 Oximetry O2 Sat by Pulse Oximetry [ Assessment] 09/12/18 09/12/18 09/12/18 07:34 07:36 10:58 Temperature Pulse Rate 79 Pulse Rate [ Anterior Bilateral Throughout] Respiratory Rate Respiratory Rate [Anterior Bilateral Throughout] Blood Pressure 138/55 Blood Pressure [Left] O2 Sat by Pulse 98 Oximetry O2 Sat by Pulse 98 Oximetry [ Assessment] 09/12/18 11:14 Temperature Pulse Rate 79 Pulse Rate [ Anterior Bilateral Throughout] Respiratory Rate Respiratory Rate [Anterior Bilateral Throughout] Blood Pressure 138/55 Blood Pressure [Left] O2 Sat by Pulse Oximetry O2 Sat by Pulse Oximetry [ Assessment] Constitutional: no acute distress, alert Eyes: non-icteric ENT: oropharynx moist Neck: supple, other (trach in place) Effort: normal Ascultation: Bilateral: diminished breath sounds, wheezes (faint occasional and mild expiratory), rhonchi (rare), other (coarse BS) Cardiovascular: regular rate and rhythm (no mrg) Gastrointestinal: normoactive bowel sounds, non-distended, other (peg in place) Integumentary: normal Extremities: no cyanosis, pink and warm, edema (3+ bilateral LE edema) Neurologic: other (more sleepy but arousable) Psychiatric: mood appropriate, affect normal CBC and BMP: 09/12/18 09:35 09/12/18 09:35 ABG, PT/INR, D-dimer: ABG POC ABG pH 7.571 (7.35-7.45) H 09/08/18 15:06 POC ABG pCO2 33.6 (35-45) L 09/08/18 15:06 POC ABG pO2 55 (80-105) L 09/08/18 15:06 POC ABG HCO3 30.9 (22-26 mml/L) 09/08/18 15:06 POC ABG Total CO2 32 (23-27mmol/L) 09/08/18 15:06 POC ABG O2 Sat 93 09/08/18 15:06 PT/INR, D-dimer PT 20.9 Sec. (12.2-14.9) H 08/31/18 00:27 INR 1.85 (0.87-1.13) H 08/31/18 00:27 Abnormal lab findings: Abnormal Labs 08/30/18 08/30/18 08/30/18 23:28 23:28 23:28 WBC RBC 3.40 L Hgb Hct RDW 18.9 H Lymph % (Auto) 7.2 L Hale % (Auto) 8.7 H Eos % (Auto) 4.8 H Lymph # 0.7 L Hale # Seg Neutrophils % 78.9 H Seg Neuts % (Manual) Lymphocytes % (Manual) Seg Neutrophils # Seg Neutrophils # Man PT INR POC ABG pH POC ABG pCO2 POC ABG pO2 Sodium Potassium Chloride Carbon Dioxide 31 H BUN 41 H Creatinine Glucose 189 H POC Glucose Hemoglobin A1c Calcium AST ALT Troponin T 0.323 H* NT-Pro-B Natriuret Pep Total Protein Albumin 1.8 L HDL Cholesterol 35 L Urine WBC (Auto) 08/30/18 08/31/18 08/31/18 23:28 00:27 03:48 WBC RBC Hgb Hct RDW Lymph % (Auto) Hale % (Auto) Eos % (Auto) Lymph # Hale # Seg Neutrophils % Seg Neuts % (Manual) Lymphocytes % (Manual) Seg Neutrophils # Seg Neutrophils # Man PT 20.9 H INR 1.85 H POC ABG pH POC ABG pCO2 55.2 H POC ABG pO2 Sodium Potassium Chloride Carbon Dioxide BUN Creatinine Glucose POC Glucose Hemoglobin A1c Calcium AST ALT Troponin T NT-Pro-B Natriuret Pep 59587 H Total Protein Albumin HDL Cholesterol Urine WBC (Auto) 08/31/18 08/31/18 08/31/18 05:34 05:34 11:44 WBC RBC Hgb Hct RDW Lymph % (Auto) Hale % (Auto) Eos % (Auto) Lymph # Hale # Seg Neutrophils % Seg Neuts % (Manual) Lymphocytes % (Manual) Seg Neutrophils # Seg Neutrophils # Man PT INR POC ABG pH POC ABG pCO2 POC ABG pO2 Sodium Potassium Chloride Carbon Dioxide BUN Creatinine Glucose POC Glucose 154 H Hemoglobin A1c 6.4 H Calcium AST ALT Troponin T 0.215 H* D NT-Pro-B Natriuret Pep Total Protein Albumin HDL Cholesterol Urine WBC (Auto) 08/31/18 09/01/18 09/01/18 23:32 04:47 04:47 WBC RBC Hgb Hct RDW 19.1 H Lymph % (Auto) 7.9 L Hale % (Auto) 7.4 H Eos % (Auto) Lymph # 0.9 L Hale # Seg Neutrophils % 84.0 H Seg Neuts % (Manual) Lymphocytes % (Manual) Seg Neutrophils # 9.3 H Seg Neutrophils # Man PT INR POC ABG pH POC ABG pCO2 POC ABG pO2 Sodium Potassium Chloride 94.1 L Carbon Dioxide 32 H BUN 46 H Creatinine Glucose 189 H POC Glucose 138 H Hemoglobin A1c Calcium AST ALT Troponin T NT-Pro-B Natriuret Pep Total Protein Albumin HDL Cholesterol Urine WBC (Auto) 09/01/18 09/01/18 09/01/18 05:59 11:38 16:17 WBC RBC Hgb Hct RDW Lymph % (Auto) Hale % (Auto) Eos % (Auto) Lymph # Hale # Seg Neutrophils % Seg Neuts % (Manual) Lymphocytes % (Manual) Seg Neutrophils # Seg Neutrophils # Man PT INR POC ABG pH POC ABG pCO2 POC ABG pO2 Sodium Potassium Chloride Carbon Dioxide BUN Creatinine Glucose POC Glucose 236 H 235 H 278 H Hemoglobin A1c Calcium AST ALT Troponin T NT-Pro-B Natriuret Pep Total Protein Albumin HDL Cholesterol Urine WBC (Auto) 09/01/18 09/01/18 09/01/18 17:59 18:53 19:07 WBC RBC Hgb Hct RDW Lymph % (Auto) Hale % (Auto) Eos % (Auto) Lymph # Hale # Seg Neutrophils % Seg Neuts % (Manual) Lymphocytes % (Manual) Seg Neutrophils # Seg Neutrophils # Man PT INR POC ABG pH POC ABG pCO2 53.7 H POC ABG pO2 73 L Sodium Potassium Chloride Carbon Dioxide BUN Creatinine Glucose POC Glucose 281 H 376 H Hemoglobin A1c Calcium AST ALT Troponin T NT-Pro-B Natriuret Pep Total Protein Albumin HDL Cholesterol Urine WBC (Auto) 09/01/18 09/02/18 09/02/18 21:29 00:22 06:20 WBC RBC Hgb Hct RDW Lymph % (Auto) Hale % (Auto) Eos % (Auto) Lymph # Hale # Seg Neutrophils % Seg Neuts % (Manual) Lymphocytes % (Manual) Seg Neutrophils # Seg Neutrophils # Man PT INR POC ABG pH POC ABG pCO2 POC ABG pO2 Sodium Potassium Chloride Carbon Dioxide BUN Creatinine Glucose POC Glucose 247 H 369 H 414 H Hemoglobin A1c Calcium AST ALT Troponin T NT-Pro-B Natriuret Pep Total Protein Albumin HDL Cholesterol Urine WBC (Auto) 09/02/18 09/02/18 09/02/18 11:56 18:21 23:42 WBC RBC Hgb Hct RDW Lymph % (Auto) Hale % (Auto) Eos % (Auto) Lymph # Hale # Seg Neutrophils % Seg Neuts % (Manual) Lymphocytes % (Manual) Seg Neutrophils # Seg Neutrophils # Man PT INR POC ABG pH POC ABG pCO2 POC ABG pO2 Sodium Potassium Chloride Carbon Dioxide BUN Creatinine Glucose POC Glucose 416 H 429 H 373 H Hemoglobin A1c Calcium AST ALT Troponin T NT-Pro-B Natriuret Pep Total Protein Albumin HDL Cholesterol Urine WBC (Auto) 09/03/18 09/03/18 09/03/18 05:28 11:17 17:46 WBC RBC Hgb Hct RDW Lymph % (Auto) Hale % (Auto) Eos % (Auto) Lymph # Hale # Seg Neutrophils % Seg Neuts % (Manual) Lymphocytes % (Manual) Seg Neutrophils # Seg Neutrophils # Man PT INR POC ABG pH POC ABG pCO2 POC ABG pO2 Sodium Potassium Chloride Carbon Dioxide BUN Creatinine Glucose POC Glucose 400 H 319 H 308 H Hemoglobin A1c Calcium AST ALT Troponin T NT-Pro-B Natriuret Pep Total Protein Albumin HDL Cholesterol Urine WBC (Auto) 09/04/18 09/04/18 09/04/18 00:10 05:56 11:53 WBC RBC Hgb Hct RDW Lymph % (Auto) Hale % (Auto) Eos % (Auto) Lymph # Hale # Seg Neutrophils % Seg Neuts % (Manual) Lymphocytes % (Manual) Seg Neutrophils # Seg Neutrophils # Man PT INR POC ABG pH POC ABG pCO2 POC ABG pO2 Sodium Potassium Chloride Carbon Dioxide BUN Creatinine Glucose POC Glucose 232 H 254 H 264 H Hemoglobin A1c Calcium AST ALT Troponin T NT-Pro-B Natriuret Pep Total Protein Albumin HDL Cholesterol Urine WBC (Auto) 09/04/18 09/04/18 09/04/18 16:53 21:51 23:16 WBC RBC Hgb Hct RDW Lymph % (Auto) Hale % (Auto) Eos % (Auto) Lymph # Hale # Seg Neutrophils % Seg Neuts % (Manual) Lymphocytes % (Manual) Seg Neutrophils # Seg Neutrophils # Man PT INR POC ABG pH POC ABG pCO2 POC ABG pO2 Sodium Potassium Chloride Carbon Dioxide BUN Creatinine Glucose POC Glucose 262 H 252 H 291 H Hemoglobin A1c Calcium AST ALT Troponin T NT-Pro-B Natriuret Pep Total Protein Albumin HDL Cholesterol Urine WBC (Auto) 09/05/18 09/05/18 09/05/18 04:21 05:20 12:08 WBC RBC Hgb Hct RDW Lymph % (Auto) Hale % (Auto) Eos % (Auto) Lymph # Hale # Seg Neutrophils % Seg Neuts % (Manual) Lymphocytes % (Manual) Seg Neutrophils # Seg Neutrophils # Man PT INR POC ABG pH POC ABG pCO2 POC ABG pO2 Sodium Potassium Chloride 97.3 L Carbon Dioxide 33 H BUN 66 H Creatinine Glucose 232 H POC Glucose 272 H 201 H Hemoglobin A1c Calcium AST ALT Troponin T NT-Pro-B Natriuret Pep Total Protein Albumin HDL Cholesterol Urine WBC (Auto) 09/05/18 09/06/18 09/06/18 21:50 00:24 05:26 WBC RBC Hgb Hct RDW Lymph % (Auto) Hale % (Auto) Eos % (Auto) Lymph # Hale # Seg Neutrophils % Seg Neuts % (Manual) Lymphocytes % (Manual) Seg Neutrophils # Seg Neutrophils # Man PT INR POC ABG pH POC ABG pCO2 POC ABG pO2 Sodium Potassium Chloride Carbon Dioxide BUN Creatinine Glucose POC Glucose 196 H 171 H 142 H Hemoglobin A1c Calcium AST ALT Troponin T NT-Pro-B Natriuret Pep Total Protein Albumin HDL Cholesterol Urine WBC (Auto) 09/06/18 09/06/18 09/06/18 07:28 12:13 18:03 WBC RBC Hgb Hct RDW Lymph % (Auto) Hale % (Auto) Eos % (Auto) Lymph # Hale # Seg Neutrophils % Seg Neuts % (Manual) Lymphocytes % (Manual) Seg Neutrophils # Seg Neutrophils # Man PT INR POC ABG pH POC ABG pCO2 POC ABG pO2 Sodium Potassium Chloride Carbon Dioxide 34 H BUN 69 H Creatinine Glucose 164 H POC Glucose 209 H 158 H Hemoglobin A1c Calcium AST ALT Troponin T NT-Pro-B Natriuret Pep Total Protein Albumin HDL Cholesterol Urine WBC (Auto) 09/06/18 09/06/18 09/07/18 22:18 23:54 05:27 WBC RBC Hgb Hct RDW Lymph % (Auto) Hale % (Auto) Eos % (Auto) Lymph # Hale # Seg Neutrophils % Seg Neuts % (Manual) Lymphocytes % (Manual) Seg Neutrophils # Seg Neutrophils # Man PT INR POC ABG pH POC ABG pCO2 POC ABG pO2 Sodium Potassium Chloride Carbon Dioxide BUN Creatinine Glucose POC Glucose 181 H 219 H 244 H Hemoglobin A1c Calcium AST ALT Troponin T NT-Pro-B Natriuret Pep Total Protein Albumin HDL Cholesterol Urine WBC (Auto) 09/07/18 09/07/18 09/07/18 13:48 17:07 22:14 WBC RBC Hgb Hct RDW Lymph % (Auto) Hale % (Auto) Eos % (Auto) Lymph # Hale # Seg Neutrophils % Seg Neuts % (Manual) Lymphocytes % (Manual) Seg Neutrophils # Seg Neutrophils # Man PT INR POC ABG pH POC ABG pCO2 POC ABG pO2 Sodium Potassium Chloride Carbon Dioxide BUN Creatinine Glucose POC Glucose 286 H 263 H 237 H Hemoglobin A1c Calcium AST ALT Troponin T NT-Pro-B Natriuret Pep Total Protein Albumin HDL Cholesterol Urine WBC (Auto) 09/07/18 09/08/18 09/08/18 23:25 06:22 12:55 WBC RBC Hgb Hct RDW Lymph % (Auto) Hale % (Auto) Eos % (Auto) Lymph # Hale # Seg Neutrophils % Seg Neuts % (Manual) Lymphocytes % (Manual) Seg Neutrophils # Seg Neutrophils # Man PT INR POC ABG pH POC ABG pCO2 POC ABG pO2 Sodium Potassium Chloride Carbon Dioxide BUN Creatinine Glucose POC Glucose 266 H 271 H 261 H Hemoglobin A1c Calcium AST ALT Troponin T NT-Pro-B Natriuret Pep Total Protein Albumin HDL Cholesterol Urine WBC (Auto) 09/08/18 09/08/18 09/08/18 15:06 16:50 18:47 WBC 17.6 H RBC 5.16 H Hgb 15.0 H Hct 48.6 H RDW 20.2 H Lymph % (Auto) 4.8 L Hale % (Auto) Eos % (Auto) Lymph # 0.8 L Hale # 1.2 H Seg Neutrophils % 88.1 H Seg Neuts % (Manual) Lymphocytes % (Manual) Seg Neutrophils # 15.5 H Seg Neutrophils # Man PT INR POC ABG pH 7.571 H POC ABG pCO2 33.6 L POC ABG pO2 55 L Sodium Potassium Chloride Carbon Dioxide BUN Creatinine Glucose POC Glucose 177 H Hemoglobin A1c Calcium AST ALT Troponin T NT-Pro-B Natriuret Pep Total Protein Albumin HDL Cholesterol Urine WBC (Auto) 09/08/18 09/09/18 09/09/18 22:32 00:02 05:56 WBC 18.2 H RBC Hgb Hct RDW 19.4 H Lymph % (Auto) Hale % (Auto) Eos % (Auto) Lymph # Hale # Seg Neutrophils % Seg Neuts % (Manual) 83.0 H Lymphocytes % (Manual) 11.0 L Seg Neutrophils # Seg Neutrophils # Man 15.1 H PT INR POC ABG pH POC ABG pCO2 POC ABG pO2 Sodium Potassium Chloride Carbon Dioxide BUN Creatinine Glucose POC Glucose 182 H 124 H Hemoglobin A1c Calcium AST ALT Troponin T NT-Pro-B Natriuret Pep Total Protein Albumin HDL Cholesterol Urine WBC (Auto) 09/09/18 09/09/18 09/09/18 05:56 06:33 18:06 WBC RBC Hgb Hct RDW Lymph % (Auto) Hale % (Auto) Eos % (Auto) Lymph # Hale # Seg Neutrophils % Seg Neuts % (Manual) Lymphocytes % (Manual) Seg Neutrophils # Seg Neutrophils # Man PT INR POC ABG pH POC ABG pCO2 POC ABG pO2 Sodium 146 H Potassium Chloride Carbon Dioxide 33 H BUN 87 H Creatinine 1.6 H Glucose POC Glucose 138 H 112 H Hemoglobin A1c Calcium AST 76 H ALT 71 H Troponin T NT-Pro-B Natriuret Pep Total Protein 5.9 L Albumin 2.1 L HDL Cholesterol Urine WBC (Auto) 09/09/18 09/09/18 09/10/18 23:43 Unknown 05:14 WBC 16.2 H RBC Hgb Hct RDW 19.5 H Lymph % (Auto) 4.4 L Hale % (Auto) 7.5 H Eos % (Auto) Lymph # 0.7 L Hale # 1.2 H Seg Neutrophils % 87.4 H Seg Neuts % (Manual) Lymphocytes % (Manual) Seg Neutrophils # 14.1 H Seg Neutrophils # Man PT INR POC ABG pH POC ABG pCO2 POC ABG pO2 Sodium Potassium Chloride Carbon Dioxide BUN Creatinine Glucose POC Glucose 142 H Hemoglobin A1c Calcium AST ALT Troponin T NT-Pro-B Natriuret Pep Total Protein Albumin HDL Cholesterol Urine WBC (Auto) 8.0 H 09/10/18 09/10/18 09/10/18 05:14 05:41 12:31 WBC RBC Hgb Hct RDW Lymph % (Auto) Hale % (Auto) Eos % (Auto) Lymph # Hale # Seg Neutrophils % Seg Neuts % (Manual) Lymphocytes % (Manual) Seg Neutrophils # Seg Neutrophils # Man PT INR POC ABG pH POC ABG pCO2 POC ABG pO2 Sodium Potassium 6.0 H D Chloride Carbon Dioxide BUN 91 H Creatinine 1.5 H Glucose 162 H POC Glucose 189 H 118 H Hemoglobin A1c Calcium 7.8 L AST 153 H ALT 97 H Troponin T NT-Pro-B Natriuret Pep Total Protein 6.0 L Albumin 1.9 L HDL Cholesterol Urine WBC (Auto) 09/10/18 09/11/18 09/11/18 17:18 00:12 04:47 WBC RBC Hgb Hct RDW Lymph % (Auto) Hale % (Auto) Eos % (Auto) Lymph # Hale # Seg Neutrophils % Seg Neuts % (Manual) Lymphocytes % (Manual) Seg Neutrophils # Seg Neutrophils # Man PT INR POC ABG pH POC ABG pCO2 POC ABG pO2 Sodium Potassium Chloride Carbon Dioxide BUN Creatinine Glucose POC Glucose 211 H 200 H 137 H Hemoglobin A1c Calcium AST ALT Troponin T NT-Pro-B Natriuret Pep Total Protein Albumin HDL Cholesterol Urine WBC (Auto) 09/11/18 09/11/18 09/11/18 04:54 04:54 11:20 WBC 15.2 H RBC Hgb Hct RDW 19.4 H Lymph % (Auto) 5.5 L Hale % (Auto) Eos % (Auto) Lymph # 0.8 L Hale # 0.9 H Seg Neutrophils % 88.2 H Seg Neuts % (Manual) Lymphocytes % (Manual) Seg Neutrophils # 13.4 H Seg Neutrophils # Man PT INR POC ABG pH POC ABG pCO2 POC ABG pO2 Sodium Potassium Chloride Carbon Dioxide 32 H BUN 85 H Creatinine Glucose 120 H POC Glucose 117 H Hemoglobin A1c Calcium 8.1 L AST 84 H ALT 84 H Troponin T NT-Pro-B Natriuret Pep Total Protein 5.7 L Albumin 1.9 L HDL Cholesterol Urine WBC (Auto) 09/11/18 09/12/18 09/12/18 18:23 09:35 09:35 WBC 12.1 H RBC Hgb Hct RDW 19.0 H Lymph % (Auto) Hale % (Auto) Eos % (Auto) Lymph # Hale # Seg Neutrophils % Seg Neuts % (Manual) Lymphocytes % (Manual) Seg Neutrophils # Seg Neutrophils # Man PT INR POC ABG pH POC ABG pCO2 POC ABG pO2 Sodium Potassium Chloride Carbon Dioxide 37 H BUN 71 H Creatinine Glucose 58 L POC Glucose 118 H Hemoglobin A1c Calcium AST ALT Troponin T NT-Pro-B Natriuret Pep Total Protein Albumin HDL Cholesterol Urine WBC (Auto)
[2018-09-12] MEDS: COLACE PO SCH ×2 (12:45→21:38)
--- NOTE | 2018-09-12 13:21 | Progress Note ---
Assessment and Plan - Acute on chronic encephalopathy per family patient looking more altered since 09/08 - MRI brain showed no new infract - now appears at baseline --Acute on chronic hypoxic respiratory failure;h/o tracheostomy on 04/2018 likely from CHf exacerbation Continue nebulizers and oxygen titrate to O2 sats more than 90% Her saturation reduced since 09/08 and requiring more oxygen, pulmonary following --Gm-ve rods in sputum, started on cefepime - but d/leon by ID, -likely colonozation. --Bacteremia - likely contamination on 09/09/18, repeat blood cx negative, monitor off abx --Hyperkalemia, s/p hyperkalemia cocktail, follow BMP, resolved --Acute exacerbation diastolic CHF EF >55% (Echo 07/2018) s/p IV Lasix, changed to by mouth, chest x-ray significant improvement of congestive heart failure Cardiology cleared for discharge on oral diuretics, --NSTEMI: Cardiology evaluated ,conservative management no plans of ischemia workup --History of A. 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] s/p trach and PEG Supportive care,PT/OT --Type 2 diabetes mellitus;uncontrolled secondary to high-dose steroids Accu-Chek sliding scale coverage tube Feeding adjust Long-acting insulin as needed --History of PE; status post IVC filter placement, On Eliquis --Full code Status; Poor prognosis CODE STATUS discussed, Full Code Discussed with daughter with plan of care in details Disposition; possible discharge to SNF when bed available Brief History: 73-year-old -[place] female , a resident of [facility] with history of atrial fibrillation anticoagulated on Eliquis, [place], PE status post IVC filter, insulin-dependent diabetes, hypertension, chronic respiratory failure on trach since april 2018 following a CVA, diastolic heart failure, hyperlipidemia, CVA with left and right sided deficts, and debility, s/p trach and PEG who [facility] with worsening shortnress of breath. In April 2018 she had a CVA complicated by respiratory s/p trach and PEG and had a prolonged stay at [facility]. She was recently ( approx 3 weeks ago) hospitalized at [facility] for CHF exacerbation. She has been [facility] with past 2 weeks. The [facility] reported that patient was hyoxic ans was sent to [facility] for [facility] evaluation and management. patient was treated for CHF exacerbation, weaned off to RA with trach, but then respiratory status and mental status declined on 09/08/18. MRI brain no acute process, incre ased lasix dose then changed to po again, blood cx and sputum cx obtained on 09/16 showed +gmve/+ve organism, ID consulted but concluded that was colonization and possible contamination. Still on ~5L O2 with trach. Plan to send back SNF when bed available. Hospitalist Physical General appearance: Present: no acute distress, well-nourished, obese, other (noncommunicative ,tracheostomy on T piece,) - EENT Eyes: Present: PERRL, EOM intact - Neck Neck: Present: supple, normal ROM, other (tracheostomy in place) - Respiratory Respiratory effort: normal Respiratory: bilateral: diminished, negative: rales, rhonchi, wheezing - Cardiovascular Rhythm: regular Heart Sounds: Present: S1 & S2 - Extremities Extremities: no ischemia, No edema - Abdominal General gastrointestinal: soft, non-tender, non-distended, normal bowel sounds, other (PEG tube in place) - Integumentary Integumentary: Present: clear, warm - Psychiatric Psychiatric: other (noncommunicative) - Neurologic Neurologic: other (CVA with dysphagia weakness) Subjective Date of service: 09/12/18 Principal diagnosis: CHF Interval history: Patient seen and examined. Medical records and medication list reviewed. No change clinically, patient appears slightly more alert today Spoke with daughter at bedside about plan of care, Objective - Constitutional Vitals: Vital Signs - 12hr 09/12/18 09/12/18 09/12/18 02:00 02:09 02:20 Temperature 97.5 F L 97.9 F Pulse Rate 74 74 Pulse Rate [ 83 Anterior Bilateral Throughout] Respiratory 20 20 Rate Respiratory 20 Rate [Anterior Bilateral Throughout] Blood Pressure 116/49 Blood Pressure 116/52 [Left] O2 Sat by Pulse 96 99 Oximetry O2 Sat by Pulse Oximetry [ Assessment] 09/12/18 09/12/18 09/12/18 02:30 07:30 07:33 Temperature 97.8 F Pulse Rate 79 Pulse Rate [ 86 68 Anterior Bilateral Throughout] Respiratory 22 Rate Respiratory 22 20 Rate [Anterior Bilateral Throughout] Blood Pressure 138/55 Blood Pressure [Left] O2 Sat by Pulse 94 Oximetry O2 Sat by Pulse Oximetry [ Assessment] 09/12/18 09/12/18 09/12/18 07:34 07:36 10:58 Temperature Pulse Rate 79 Pulse Rate [ Anterior Bilateral Throughout] Respiratory Rate Respiratory Rate [Anterior Bilateral Throughout] Blood Pressure 138/55 Blood Pressure [Left] O2 Sat by Pulse 98 Oximetry O2 Sat by Pulse 98 Oximetry [ Assessment] 09/12/18 11:14 Temperature Pulse Rate 79 Pulse Rate [ Anterior Bilateral Throughout] Respiratory Rate Respiratory Rate [Anterior Bilateral Throughout] Blood Pressure 138/55 Blood Pressure [Left] O2 Sat by Pulse Oximetry O2 Sat by Pulse Oximetry [ Assessment] - Labs CBC & Chem 7: 09/12/18 09:35 09/12/18 09:35 Labs: Abnormal lab results 09/11/18 09/12/18 09/12/18 Range/Units 18:23 09:35 09:35 WBC 12.1 H (4.5-11.0) K/mm3 RDW 19.0 H (13.2-15.2) % Carbon Dioxide 37 H (22-30) mmol/L BUN 71 H (7-17) mg/dL Glucose 58 L (65-100) mg/dL POC Glucose 118 H (70-105) 09/12/18 09/12/18 Range/Units 11:44 12:49 WBC (4.5-11.0) K/mm3 RDW (13.2-15.2) % Carbon Dioxide (22-30) mmol/L BUN (7-17) mg/dL Glucose (65-100) mg/dL POC Glucose 59 L 56 L (70-105)
--- NOTE | 2018-09-12 19:50 | Progress Note ---
Assessment and Plan Cultures: 09/09/2018 blood culture: Bacillus 09/09/2018 sputum culture: Klebsiella, Proteus A/P: 73-year-old -Citizen Of [place] female with history of atrial fibrillation, coronary artery disease, status post IVC filter, diabetes mellitus, hypertension, chronic respiratory failure, CVA with bedbound status, a phase ER, status post tracheostomy and PEG tube placement was brought into the emergency room with respiratory distress. 1) Acute on chronic respiratory failure: Likely secondary to pulmonary edema/CHF. She has a chronic indwelling tracheostomy tube, gram-negatives are common colonizers. No fever. WBC is likely from steroids, improving. No infiltrate on CXR. Likely lung colonization, monitor off abx. 2) Bacillus bacteremia:1/4 bottles. Likely contaminant. No abx or work up needed. 3) Chronic encephalopathy: MRI without acute findings. 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 Objective - Exam Narrative Exam: General: alert in NAD Head, Ears, Nose: Normocephalic, atraumatic. External ears, nose normal Eyes: Conjunctivae/corneas clear. No icterus. No ptosis. Neck: Trach with T-piece Oral: unable to examine Cardiovascular: S1, S2 normal Respiratory: Good air entry, clear to auscultation bilaterally GI: Soft, bowel sounds normal. No peritoneal signs. G tube + Musculoskeletal: pedal edema. +right 1st MT ulcer with callus Skin: No rash or abscess Hem/Lymphatic: No palpable cervical or supraclavicular nodes. No lymphangitis Psych: no agitation Neurological: non verbal. - Constitutional Vitals: Vital Signs Temp Pulse Resp BP Pulse Ox 98.0 F 76 18 154/76 96 09/12/18 19:22 09/12/18 19:22 09/12/18 19:22 09/12/18 19:22 09/12/18 19:22 Temperature -Last 24 Hours Temperature 98.0 F Temperature 97.8 F Temperature 97.8 F Temperature 97.9 F Temperature 97.5 F Temperature 97.5 F - Labs CBC & Chem 7: 09/12/18 09:35 09/12/18 09:35 Labs: Abnormal lab results 09/12/18 09/12/18 09/12/18 Range/Units 09:35 09:35 11:44 WBC 12.1 H (4.5-11.0) K/mm3 RDW 19.0 H (13.2-15.2) % Carbon Dioxide 37 H (22-30) mmol/L BUN 71 H (7-17) mg/dL Glucose 58 L (65-100) mg/dL POC Glucose 59 L (70-105) 09/12/18 09/12/18 Range/Units 12:49 18:15 WBC (4.5-11.0) K/mm3 RDW (13.2-15.2) % Carbon Dioxide (22-30) mmol/L BUN (7-17) mg/dL Glucose (65-100) mg/dL POC Glucose 56 L 115 H (70-105)
[2018-09-13] MEDS: HumaLOG SUB-Q SCH ×5 (00:08→23:48)
[2018-09-13] MEDS: DUONEB *Not for PRN Use IH SCH ×4 (02:46→21:31)
[2018-09-13 05:18] LABS: BUN/Creatinine Ratio 67; Blood Urea Nitrogen 67 mg/dL (7-17); Hemolysis Index 55
[2018-09-13] MEDS: LASIX PO SCH (05:21)
[2018-09-13] MEDS: LOPRESSOR PO SCH ×5 (05:21→22:55)
[2018-09-13] MEDS: PULMICORT IH SCH ×2 (08:40→21:31)
--- NOTE | 2018-09-13 09:32 | Progress Note ---
Assessment and Plan Atrial fibrillation, permanent On eliquis On metoprolol for rate control History of CVA s/p PEG tube Acute on chronic diastolic heart failure Echo 07/2018 - Normal LVEF Dehydration Type II DM Systemic Hypertension Hyperlipidemia Chronic respiratory failure Chronic tracheostomy Recommendations: Continue medical therapy for permanent atrial fibrillation and heart failure with a preserved ejection fraction. Otherwise, conservative cardiac management Subjective Date of service: 09/13/18 Principal diagnosis: CHF Interval history: No cardiac events. Atrial fibrillation with a well controlled ventricular rate on telemetry monitoring. Objective Vital Signs Temp Pulse Pulse Resp Resp Resp BP 09/13/18 07:37 20 09/13/18 07:30 98.3 F 74 22 151/65 09/13/18 05:21 74 131/70 09/13/18 03:10 75 20 09/13/18 02:51 09/13/18 02:50 75 20 09/13/18 02:03 98.8 F 74 20 131/70 09/13/18 00:35 74 09/13/18 00:00 76 154/76 09/12/18 22:00 20 09/12/18 21:00 20 09/12/18 20:45 77 20 09/12/18 20:27 09/12/18 20:26 74 20 09/12/18 19:42 20 09/12/18 19:22 98.0 F 76 18 154/76 09/12/18 18:43 76 135/49 09/12/18 14:00 68 20 09/12/18 13:30 97.8 F 77 22 94/45 09/12/18 11:14 79 138/55 09/12/18 10:58 79 138/55 Pulse Ox Pulse Ox 09/13/18 07:37 98 09/13/18 07:30 97 09/13/18 05:21 09/13/18 03:10 09/13/18 02:51 100 09/13/18 02:50 09/13/18 02:03 98 09/13/18 00:35 09/13/18 00:00 09/12/18 22:00 96 09/12/18 21:00 09/12/18 20:45 09/12/18 20:27 99 09/12/18 20:26 09/12/18 19:42 09/12/18 19:22 96 09/12/18 18:43 09/12/18 14:00 09/12/18 13:30 91 09/12/18 11:14 09/12/18 10:58 - Physical Examination General: Other (nonverbal) HEENT: Positive: PERRL Neck: Positive: Other (Midline trach) Cardiac: Positive: irregularly irregular Neuro: Positive: Other (Nonverbal ) Extremities: Present: +1 Edema - Labs and Meds CBC 09/12/18 Range/Units 09:35 WBC 12.1 H (4.5-11.0) K/mm3 RBC 3.91 (3.65-5.03) M/mm3 Hgb 11.6 (10.1-14.3) gm/dl Hct 35.2 (30.3-42.9) % Plt Count 203 (140-440) K/mm3 Comprehensive Metabolic Panel 09/12/18 09/13/18 Range/Units 09:35 04:45 Sodium 141 140 (137-145) mmol/L Potassium 4.5 5.5 H D (3.6-5.0) mmol/L Chloride 98.0 98.9 (98-107) mmol/L Carbon Dioxide 37 H 36 H (22-30) mmol/L BUN 71 H 67 H (7-17) mg/dL Creatinine 1.0 1.0 (0.7-1.2) mg/dL Glucose 58 L 159 H (65-100) mg/dL Calcium 8.8 9.0 (8.4-10.2) mg/dL
[2018-09-13] MEDS: LANTUS SUB-Q SCH ×2 (09:54→22:54)
[2018-09-13] MEDS: ELIQUIS PO SCH ×2 (09:56→22:56)
[2018-09-13] MEDS: SOLU-Medrol IV SCH (09:56)
[2018-09-13] MEDS: KEPPRA PO SCH ×2 (09:56→22:54)
[2018-09-13] MEDS: BABY ASPIRIN PO SCH (09:56)
[2018-09-13] MEDS: SODIUM CHLORIDE FLUSH SYRINGE 10 ML IV SCH ×2 (09:57→22:56)
[2018-09-13] MEDS: COLACE PO SCH ×2 (09:57→22:55)
[2018-09-13] MEDS: TIMOPTIC OU SCH (09:57)
[2018-09-13] MEDS: COZAAR PO SCH (09:57)
[2018-09-13] MEDS ORDERED: KIONEX PO NR (10:00)
--- NOTE | 2018-09-13 11:06 | XRay Report ---
CHEST 1 VIEW INDICATION: SOB. COMPARISON: 09/10/2018 FINDINGS: Support devices: A tracheostomy tube is satisfactory and unchanged. No other tubes or lines. Heart: Enlarged with indistinct contours. Pulmonary vasculature: Enlarged and indistinct. Interval development of bilateral fluffy hilar opacit ies. Lungs/Pleura: Diffuse bilateral airspace disease with greater involvement of the left midlung and the right lung base. The heart borders are silhouetted and the diaphragm is silhouetted. Opacification o f costophrenic angles. Additional findings: None. IMPRESSION: Interval development of CHF with bilateral pulmonary edema and pleural effusions. Signer Name: Lyndon Smiley MD Signed: 09/13/2018 11:02 AM Workstation Name: [id number]
--- NOTE | 2018-09-13 11:14 | Progress Note ---
Assessment and Plan Assessment and plan: 73-year-old -[place] female , a resident of [facility] with history of atrial fibrillation anticoagulated on Eliquis, VT, PE status post IVC filter, insulin-dependent diabetes, hypertension, chronic respiratory failure on trach since april 2018 following a CVA, diastolic heart failure, hyperlipidemia, CVA with left and right sided deficts, and debility, s/p trach and PEG who presents to [facility] ED with worsening shortnress of breath. In April 2018 she had a CVA complicated by respiratory s/p trach and PEG and had a prolonged stay at [facility]. She was recently ( approx 3 weeks ago) hospitalized at [facility] for CHF exacerbation. She has been [facility] with past 2 weeks. The halfway reported that patient was hyoxic ans was sent to [facility] for further evaluation and management. patient was treated for CHF exacerbation, weaned off to RA with trach, but then respiratory status and mental status declined on 09/08/18. MRI brain no acute process, increased lasix dose then changed to po again, blood cx and sputum cx obtained on 09/16 showed +gmve/+ve organism, ID consulted but concluded that was colonization and possible contamination. Still on ~5L O2 with trach. Plan to send back SNF when bed available. - Acute on chronic encephalopathy per family patient looking more altered since 09/08 - MRI brain showed no new infract - now appears at baseline --Acute on chronic hypoxic respiratory failure;h/o tracheostomy on 04/2018 likely from CHf exacerbation Continue nebulizers and oxygen titrate to O2 sats more than 90% Her saturation reduced since 09/08 and requiring more oxygen, pulmonary following Patient needs suction of the trach, will follow the chest x-ray --Gm-ve rods in sputum, started on cefepime - but d/leon by ID, -likely colonozation. --Bacteremia - likely contamination on 09/09/18, repeat blood cx negative, monitor off abx --Hyperkalemia, s/p hyperkalemia cocktail, follow BMP, resolved --Acute exacerbation diastolic CHF EF >55% (Echo 07/2018) s/p IV Lasix, changed to by mouth, chest x-ray significant improvement of congestive heart failure Cardiology cleared for discharge on oral diuretics, --NSTEMI: Cardiology evaluated ,conservative management no plans of ischemia workup --History of A. 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] s/p trach and PEG Supportive care,PT/OT --Type 2 diabetes mellitus;uncontrolled secondary to high-dose steroids Accu-Chek sliding scale coverage tube Feeding adjust Long-acting insulin as needed --History of PE; status post IVC filter placement, On Eliquis --Full code Status; Poor prognosis CODE STATUS discussed, Full Code Discussed with daughter with plan of care in details Disposition; possible discharge to SNF when bed available. History Interval history: Patient was seen and evaluated this morning, patient has difficulty of breathing, there is a lot of secretions in the trach. Hospitalist Physical - Physical exam Narrative exam: Patient is in mild respiratory distress, patient's on trach and PEG. The patient appeared well nourished and normally developed. Vital signs as documented. Head exam is unremarkable. No scleral icterus . Neck is without jugular venous distension, thyromegaly, or carotid bruits. Lungs are clear to auscultation. Cardiac exam reveals regular rate and Rhythm. Abdominal exam reveals normal bowel sounds. Extremities are nonedematous and both femoral and pedal pulses are normal. 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 - Constitutional Vitals: Temp Pulse Resp BP Pulse Ox 98.3 F 74 20 151/65 98 09/13/18 07:30 09/13/18 07:30 09/13/18 07:37 09/13/18 07:30 09/13/18 07:37 General appearance: Present: no acute distress, well-nourished, obese, other (noncommunicative ,tracheostomy on T piece,) Results - Labs CBC & Chem 7: 09/12/18 09:35 09/13/18 04:45 Labs: Laboratory Last Values WBC 12.1 K/mm3 (4.5-11.0) H 09/12/18 09:35 RBC 3.91 M/mm3 (3.65-5.03) 09/12/18 09:35 Hgb 11.6 gm/dl (10.1-14.3) 09/12/18 09:35 Hct 35.2 % (30.3-42.9) 09/12/18 09:35 MCV 90 fl (79-97) 09/12/18 09:35 MCH 30 pg (28-32) 09/12/18 09:35 MCHC 33 % (30-34) 09/12/18 09:35 RDW 19.0 % (13.2-15.2) H 09/12/18 09:35 Plt Count 203 K/mm3 (140-440) 09/12/18 09:35 Lymph % (Auto) 5.5 % (13.4-35.0) L 09/11/18 04:54 Edgar % (Auto) 5.8 % (0.0-7.3) 09/11/18 04:54 Eos % (Auto) 0.4 % (0.0-4.3) 09/11/18 04:54 Baso % (Auto) 0.1 % (0.0-1.8) 09/11/18 04:54 Lymph # 0.8 K/mm3 (1.2-5.4) L 09/11/18 04:54 Edgar # 0.9 K/mm3 (0.0-0.8) H 09/11/18 04:54 Eos # 0.1 K/mm3 (0.0-0.4) 09/11/18 04:54 Baso # 0.0 K/mm3 (0.0-0.1) 09/11/18 04:54 Add Manual Diff Complete 09/09/18 05:56 Total Counted 100 09/09/18 05:56 Seg Neutrophils % 88.2 % (40.0-70.0) H 09/11/18 04:54 Seg Neuts % (Manual) 83.0 % (40.0-70.0) H 09/09/18 05:56 2.0 % 09/09/18 05:56 11.0 % (13.4-35.0) L 09/09/18 05:56 Reactive Lymphs % (Man) 0 % 09/09/18 05:56 4.0 % (0.0-7.3) 09/09/18 05:56 0 % (0.0-4.3) 09/09/18 05:56 0 % (0.0-1.8) 09/09/18 05:56 0 % 09/09/18 05:56 0 % 09/09/18 05:56 0 % 09/09/18 05:56 0 % 09/09/18 05:56 Nucleated RBC % Not Reportable 09/09/18 05:56 Seg Neutrophils # 13.4 K/mm3 (1.8-7.7) H 09/11/18 04:54 Seg Neutrophils # Man 15.1 K/mm3 (1.8-7.7) H 09/09/18 05:56 Band Neutrophils # 0.4 K/mm3 09/09/18 05:56 2.0 K/mm3 (1.2-5.4) 09/09/18 05:56 Abs React Lymphs (Man) 0.0 K/mm3 09/09/18 05:56 0.7 K/mm3 (0.0-0.8) 09/09/18 05:56 0.0 K/mm3 (0.0-0.4) 09/09/18 05:56 0.0 K/mm3 (0.0-0.1) 09/09/18 05:56 0.0 K/mm3 09/09/18 05:56 0.0 K/mm3 09/09/18 05:56 0.0 K/mm3 09/09/18 05:56 Blast Cells # 0.0 K/mm3 09/09/18 05:56 WBC Morphology Not Reportable 09/09/18 05:56 Hypersegmented Neuts Not Reportable 09/09/18 05:56 Hyposegmented Neuts Not Reportable 09/09/18 05:56 Hypogranular Neuts Not Reportable 09/09/18 05:56 Not Reportable 09/09/18 05:56 Not Reportable 09/09/18 05:56 Not Reportable 09/09/18 05:56 Not Reportable 09/09/18 05:56 Not Reportable 09/09/18 05:56 Not Reportable 09/09/18 05:56 Consistent w auto 09/09/18 05:56 Not Reportable 09/09/18 05:56 Plt Clumps, EDTA Not Reportable 09/09/18 05:56 Not Reportable 09/09/18 05:56 Not Reportable 09/09/18 05:56 Not Reportable 09/09/18 05:56 Plt Morphology Comment Not Reportable 09/09/18 05:56 RBC Morphology Not Reportable 09/09/18 05:56 Dimorphic RBCs Not Reportable 09/09/18 05:56 Not Reportable 09/09/18 05:56 Not Reportable 09/09/18 05:56 Not Reportable 09/09/18 05:56 1+ 09/09/18 05:56 Few 09/09/18 05:56 Not Reportable 09/09/18 05:56 Not Reportable 09/09/18 05:56 Not Reportable 09/09/18 05:56 Not Reportable 09/09/18 05:56 Not Reportable 09/09/18 05:56 Not Reportable 09/09/18 05:56 Few 09/09/18 05:56 Not Reportable 09/09/18 05:56 Not Reportable 09/09/18 05:56 Not Reportable 09/09/18 05:56 Not Reportable 09/09/18 05:56 Not Reportable 09/09/18 05:56 Not Reportable 09/09/18 05:56 Not Reportable 09/09/18 05:56 Acanthocytes (Spur) Not Reportable 09/09/18 05:56 Rouleaux Not Reportable 09/09/18 05:56 Not Reportable 09/09/18 05:56 Not Reportable 09/09/18 05:56 Not Reportable 09/09/18 05:56 Not Reportable 09/09/18 05:56 Hem Pathologist Commnt No 09/09/18 05:56 PT 20.9 Sec. (12.2-14.9) H 08/31/18 00:27 INR 1.85 (0.87-1.13) H 08/31/18 00:27 APTT 30.7 Sec. (24.2-36.6) 08/31/18 00:27 POC ABG pH 7.571 (7.35-7.45) H 09/08/18 15:06 POC ABG pCO2 33.6 (35-45) L 09/08/18 15:06 POC ABG pO2 55 (80-105) L 09/08/18 15:06 POC ABG HCO3 30.9 (22-26 mml/L) 09/08/18 15:06 POC ABG Total CO2 32 (23-27mmol/L) 09/08/18 15:06 POC ABG O2 Sat 93 09/08/18 15:06 POC ABG Base Excess 9 ((-2) - (+3)mmol/L) 09/08/18 15:06 21 % 09/08/18 15:06 Sodium 140 mmol/L (137-145) 09/13/18 04:45 Potassium 5.5 mmol/L (3.6-5.0) H D 09/13/18 04:45 Chloride 98.9 mmol/L (98-107) 09/13/18 04:45 Carbon Dioxide 36 mmol/L (22-30) H 09/13/18 04:45 11 mmol/L 09/13/18 04:45 BUN 67 mg/dL (7-17) H 09/13/18 04:45 1.0 mg/dL (0.7-1.2) 09/13/18 04:45 Estimated GFR > 60 ml/min 09/13/18 04:45 67 % 09/13/18 04:45 Glucose 159 mg/dL (65-100) H 09/13/18 04:45 POC Glucose 151 (70-105) H 09/13/18 05:30 6.4 % (4-6) H 08/31/18 05:34 Calcium 9.0 mg/dL (8.4-10.2) 09/13/18 04:45 Phosphorus 3.30 mg/dL (2.5-4.5) 09/09/18 05:56 Magnesium 2.10 mg/dL (1.7-2.3) 09/06/18 07:28 0.20 mg/dL (0.1-1.2) 09/11/18 04:54 AST 84 units/L (5-40) H 09/11/18 04:54 ALT 84 units/L (7-56) H 09/11/18 04:54 87 units/L (35-129) 09/11/18 04:54 0.215 ng/mL (0.00-0.029) H* D 08/31/18 05:34 NT-Pro-B Natriuret Pep 46950 pg/mL (0-900) H 08/30/18 23:28 5.7 g/dL (6.3-8.2) L 09/11/18 04:54 1.9 g/dL (3.9-5) L 09/11/18 04:54 0.5 % 09/11/18 04:54 Triglycerides 77 mg/dL (2-149) 08/30/18 23:28 Cholesterol 99 mg/dL (50-199) 08/30/18 23:28 56 mg/dL (50-130) 08/30/18 23:28 35 mg/dL (40-59) L 08/30/18 23:28 2.82 % 08/30/18 23:28 Apoorva (Yellow) 09/09/18 Unknown Cloudy (Clear) 09/09/18 Unknown 7.0 (5.0-7.0) 09/09/18 Unknown Ur Specific [place] 1.018 (1.003-1.030) 09/09/18 Unknown <15 mg/dl mg/dL (Negative) 09/09/18 Unknown Neg mg/dL (Negative) 09/09/18 Unknown Neg mg/dL (Negative) 09/09/18 Unknown Neg (Negative) 09/09/18 Unknown Neg (Negative) 09/09/18 Unknown Neg (Negative) 09/09/18 Unknown < 2.0 mg/dL (<2.0) 09/09/18 Unknown Ur Leukocyte Esterase Tr (Negative) 09/09/18 Unknown 8.0 /HPF (0.0-6.0) H 09/09/18 Unknown 4.0 /HPF (0.0-6.0) 09/09/18 Unknown U Epithel Cells (Auto) 5.0 /HPF (0-13.0) 09/09/18 Unknown 2+ /HPF (Negative) 09/09/18 Unknown Uric Acid Crystals 1+ 09/09/18 Unknown Few /HPF 09/09/18 Unknown Active Medications - Current Medications Current Medications: Generic Name Dose Route Start Last Admin Trade Name Freq PRN Reason Stop Dose Admin Acetaminophen 650 mg 08/31/18 01:25 09/12/18 18:42 Tylenol PO 650 mg Q4H PRN Administration Pain MILD(1-3)/Fever >100.5/[place] Albuterol 2.5 mg 09/01/18 20:10 Proventil IH Q4HRT PRN Shortness Of Breath Albuterol/Ipratropium 1 ampul 09/02/18 02:00 09/13/18 08:50 Duoneb *Not For Prn Use* IH 1 ampul Q6HRT HAYLIE Administration Lipase/Protease/Amylase 1 each 09/05/18 13:40 Pancrebobby Wilson 10,500 Unit FEEDTUBE PRN PRN For Clogged Feeding Tube Apixaban 5 mg 08/31/18 10:00 09/13/18 09:56 Eliquis PO 5 mg BID HAYLIE Administration Aspirin 81 mg 08/31/18 10:00 09/13/18 09:56 Baby Aspirin PO 81 mg QDAY HAYLIE Administration Atorvastatin Calcium 40 mg 08/31/18 22:00 09/12/18 21:38 Lipitor PO 40 mg QHS HAYLIE Administration Budesonide 0.5 mg 09/01/18 20:15 09/13/18 08:40 Pulmicort IH 0.5 mg Q12HRT HAYLIE Administration Clonidine HCl 0.1 mg 08/31/18 10:00 09/07/18 09:44 Catapres-Tts Patch TD 0.1 mg We HAYLIE Administration Dextrose 50 ml 09/02/18 06:36 D50w (25gm) Syringe IV PRN PRN Hypoglycemia Docusate Sodium 100 mg 08/31/18 10:00 09/13/18 09:57 Colace PO 100 mg BID HAYLIE Administration Furosemide 40 mg 09/10/18 06:00 09/13/18 05:21 Lasix PO 40 mg DAILY@0600 HAYLIE Administration Hydralazine HCl 10 mg 08/31/18 04:33 09/07/18 09:43 Apresoline IV 10 mg Q4H PRN Administration Blood Pressure Insulin Glargine 43 units 09/05/18 11:30 09/13/18 09:54 Lantus SUB-Q 43 units BID HAYLIE Administration Insulin Human Lispro 0 unit 08/31/18 06:00 09/13/18 06:29 Humalog SUB-Q 2 unit Q6HR HAYLIE Administration Protocol Levetiracetam 500 mg 08/31/18 10:00 09/13/18 09:56 Keppra PO 500 mg BID HAYLIE Administration Losartan Potassium 50 mg 08/31/18 10:00 09/13/18 09:57 Cozaar PO 50 mg QDAY HAYLIE Administration Methylprednisolone Sodium Succinate 40 mg 09/09/18 10:00 09/13/18 09:56 Solu-Medrol IV 40 mg Q24HR HAYLIE Administration Metoprolol Tartrate 25 mg 09/02/18 11:00 09/13/18 05:21 Lopressor PO 25 mg Q6H HAYLIE Administration Ondansetron HCl 4 mg 08/31/18 01:25 09/13/18 09:54 Zofran IV 4 mg Q8H PRN Administration Nausea And Vomiting Simple Syrup 15 ml 09/05/18 13:40 Simple Syrup FEEDTUBE PRN PRN Hypoglycemia Simple Syrup 30 ml 09/05/18 13:40 Simple Syrup FEEDTUBE PRN PRN Hypoglycemia Sodium Bicarbonate 325 mg 09/05/18 13:40 Sodium Bicarbonate FEEDTUBE PRN PRN For Clogged Feeding Tube Sodium Chloride 10 ml 08/31/18 10:00 09/13/18 09:57 Sodium Chloride Flush Syringe 10 Ml IV 10 ml BID HAYLIE Administration Sodium Chloride 10 ml 08/31/18 01:25 Sodium Chloride Flush Syringe 10 Ml IV PRN PRN LINE FLUSH Sodium Polystyrene Sulfonate 30 gm 09/13/18 10:00 09/13/18 10:55 Kionex PO 09/13/18 14:00 30 gm ONCE NR Administration Timolol Maleate 1 drops 08/31/18 10:00 09/13/18 09:57 Timoptic OU 1 drops DAILY HAYLIE Administration Nutrition/Malnutrition Assess - Dietary Evaluation Nutrition/Malnutrition Findings: Nutrition Notes Start: 08/31/18 16:26 Freq: Status: Active Protocol: Document 09/12/18 12:04 OH (Rec: 09/12/18 12:22 OH [id number]) Nutrition Notes Initial or Follow up Reassessment Current Diagnosis Diabetes,Heart Failure, Respiratory Failure,Stroke Other Pertinent Diagnosis R foot wound Current Diet TF - Glucerna 1.2 at 60ml/hr Labs/Tests k+ 4.5 Pertinent Medications Reviewed Height 5 ft 9 in Weight 103.5 kg Nice Body Weight (kg) 65.90 BMI 33.7 Weight change and time frame Wt noted to have been trending downward since admission. Will monitor trend. Weight Status Overweight Subjective/Other Information F/U. Pt. family member in room with patient. Per family member K+ level has been being monitored closely. K+ noted to be <5.0 x2 days. Pt has been tolerating TF at current rate. Glucerna 1.2 TF infusting @ 60 ml/hr. Burn Absent Trauma Absent GI Symptoms None #1 Nutrition Diagnosis Inadequate oral intake Diagnosis Progress(for reassessment Continues documentation) Is patient on ventilator? No Is Patient Ambulatory and/or Out of Bed No REE-([facility]-confined to bed) 1931.016 Kcal/Kg value to use for calculation 15 Approximate Energy Requirements Using 1553 kcal/Kg Additional Notes Pro needs 1.25-1.5g/kg adjBW: 106-127g/day Fluid needs 1ml/kcal Nutrition Intervention Change Diet Order: Cont NPO Nutrition Support: Continue Glucerna 1.2 at 60ml/ hr. Continue water flushes as ordered. Kcal 1,728 Protein (gm) 86 Carbohydrates (gm) 165 Fat (gm) 86 Fluid (mL) 1,159 Fiber (gm) 23 Goal #1 TF tolerance Goal #2 TF to meet at least 75% energy and pro needs Follow-Up By: 09/14/18 Additional Comments F/U: TF tolerance; K+ trend/wt
--- NOTE | 2018-09-13 11:55 | Progress Note ---
Assessment and Plan 1. A/C diastolic CHF 2. Acute/chronic respiratory failure, hypoxia 3. Chronic hypercapneic respiratory failure 4. Obesity 5. s/p Trach 6. Hoang-jorge respirations 7. CALEB 8. Hypernatremia 9. Transaminitis, ? related to hypotensive episode 10. R/o Sepsis Rec: 1. Na is improving with Free water. May need to change feeds or add more sugar given drop. 2. Cont. Duonebs/Pulmicort -> cont. this at [facility] 3. Routine trach management; order placed with RT to keep a 6 cuffed trach at the bedside for emergency purposes 4. Hold off on PMV for now; wean O2 as tolerated 5. PE is very unlikely since she is on full-dose Eliquis; hold off on CTA chest 6. Hold off on Scopolamine/Robinul for now as these can dry out her tracheal secretions and worsen mucous plugging 7. Suggest checking BNP as well. Agree with lasix therapy. Per cards has normal EF. Subjective Date of service: 09/13/18 Principal diagnosis: CHF Interval history: CXR ordered this am secondary to shortness of breath. Appears consistent with pulmonary edema so lasix was given. No increases in oxygen requirements. Objective Vital Signs - 12hr 09/13/18 09/13/18 09/13/18 00:00 00:35 02:03 Temperature 98.8 F Pulse Rate 76 74 74 Pulse Rate [ Anterior Bilateral Throughout] Respiratory 20 Rate Respiratory Rate [Anterior Bilateral Throughout] Blood Pressure 154/76 131/70 O2 Sat by Pulse 98 Oximetry O2 Sat by Pulse Oximetry [ Assessment] 09/13/18 09/13/18 09/13/18 02:50 02:51 03:10 Temperature Pulse Rate Pulse Rate [ 75 75 Anterior Bilateral Throughout] Respiratory Rate Respiratory 20 20 Rate [Anterior Bilateral Throughout] Blood Pressure O2 Sat by Pulse Oximetry O2 Sat by Pulse 100 Oximetry [ Assessment] 09/13/18 09/13/18 09/13/18 05:21 07:30 07:37 Temperature 98.3 F Pulse Rate 74 74 Pulse Rate [ Anterior Bilateral Throughout] Respiratory 22 20 Rate Respiratory Rate [Anterior Bilateral Throughout] Blood Pressure 131/70 151/65 O2 Sat by Pulse 97 98 Oximetry O2 Sat by Pulse Oximetry [ Assessment] Constitutional: no acute distress, alert Eyes: non-icteric ENT: oropharynx moist Neck: supple, other (trach in place) Effort: normal Ascultation: Bilateral: diminished breath sounds, wheezes (faint occasional and mild expiratory), rhonchi (rare), other (coarse BS) Cardiovascular: regular rate and rhythm (no mrg) Gastrointestinal: normoactive bowel sounds, non-distended, other (peg in place) Integumentary: normal Extremities: no cyanosis, pink and warm, edema (3+ bilateral LE edema) Neurologic: other (more sleepy but arousable) Psychiatric: mood appropriate, affect normal CBC and BMP: 09/12/18 09:35 09/13/18 04:45 ABG, PT/INR, D-dimer: ABG POC ABG pH 7.571 (7.35-7.45) H 09/08/18 15:06 POC ABG pCO2 33.6 (35-45) L 09/08/18 15:06 POC ABG pO2 55 (80-105) L 09/08/18 15:06 POC ABG HCO3 30.9 (22-26 mml/L) 09/08/18 15:06 POC ABG Total CO2 32 (23-27mmol/L) 09/08/18 15:06 POC ABG O2 Sat 93 09/08/18 15:06 PT/INR, D-dimer PT 20.9 Sec. (12.2-14.9) H 08/31/18 00:27 INR 1.85 (0.87-1.13) H 08/31/18 00:27 Abnormal lab findings: Abnormal Labs 08/30/18 08/30/18 08/30/18 23:28 23:28 23:28 WBC RBC 3.40 L Hgb Hct RDW 18.9 H Lymph % (Auto) 7.2 L [place] % (Auto) 8.7 H Eos % (Auto) 4.8 H Lymph # 0.7 L [place] # Seg Neutrophils % 78.9 H Seg Neuts % (Manual) Lymphocytes % (Manual) Seg Neutrophils # Seg Neutrophils # Man PT INR POC ABG pH POC ABG pCO2 POC ABG pO2 Sodium Potassium Chloride Carbon Dioxide 31 H BUN 41 H Creatinine Glucose 189 H POC Glucose Hemoglobin A1c Calcium AST ALT Troponin T 0.323 H* NT-Pro-B Natriuret Pep Total Protein Albumin 1.8 L HDL Cholesterol 35 L Urine WBC (Auto) 07/02/19 07/03/19 07/03/19 23:28 00:27 03:48 WBC RBC Hgb Hct RDW Lymph % (Auto) [place] % (Auto) Eos % (Auto) Lymph # [place] # Seg Neutrophils % Seg Neuts % (Manual) Lymphocytes % (Manual) Seg Neutrophils # Seg Neutrophils # Man PT 20.9 H INR 1.85 H POC ABG pH POC ABG pCO2 55.2 H POC ABG pO2 Sodium Potassium Chloride Carbon Dioxide BUN Creatinine Glucose POC Glucose Hemoglobin A1c Calcium AST ALT Troponin T NT-Pro-B Natriuret Pep 38195 H Total Protein Albumin HDL Cholesterol Urine WBC (Auto) 08/31/18 08/31/18 08/31/18 05:34 05:34 11:44 WBC RBC Hgb Hct RDW Lymph % (Auto) [place] % (Auto) Eos % (Auto) Lymph # [place] # Seg Neutrophils % Seg Neuts % (Manual) Lymphocytes % (Manual) Seg Neutrophils # Seg Neutrophils # Man PT INR POC ABG pH POC ABG pCO2 POC ABG pO2 Sodium Potassium Chloride Carbon Dioxide BUN Creatinine Glucose POC Glucose 154 H Hemoglobin A1c 6.4 H Calcium AST ALT Troponin T 0.215 H* D NT-Pro-B Natriuret Pep Total Protein Albumin HDL Cholesterol Urine WBC (Auto) 08/31/18 09/01/18 09/01/18 23:32 04:47 04:47 WBC RBC Hgb Hct RDW 19.1 H Lymph % (Auto) 7.9 L [place] % (Auto) 7.4 H Eos % (Auto) Lymph # 0.9 L [place] # Seg Neutrophils % 84.0 H Seg Neuts % (Manual) Lymphocytes % (Manual) Seg Neutrophils # 9.3 H Seg Neutrophils # Man PT INR POC ABG pH POC ABG pCO2 POC ABG pO2 Sodium Potassium Chloride 94.1 L Carbon Dioxide 32 H BUN 46 H Creatinine Glucose 189 H POC Glucose 138 H Hemoglobin A1c Calcium AST ALT Troponin T NT-Pro-B Natriuret Pep Total Protein Albumin HDL Cholesterol Urine WBC (Auto) 09/01/18 09/01/18 09/01/18 05:59 11:38 16:17 WBC RBC Hgb Hct RDW Lymph % (Auto) [place] % (Auto) Eos % (Auto) Lymph # [place] # Seg Neutrophils % Seg Neuts % (Manual) Lymphocytes % (Manual) Seg Neutrophils # Seg Neutrophils # Man PT INR POC ABG pH POC ABG pCO2 POC ABG pO2 Sodium Potassium Chloride Carbon Dioxide BUN Creatinine Glucose POC Glucose 236 H 235 H 278 H Hemoglobin A1c Calcium AST ALT Troponin T NT-Pro-B Natriuret Pep Total Protein Albumin HDL Cholesterol Urine WBC (Auto) 09/01/18 09/01/18 09/01/18 17:59 18:53 19:07 WBC RBC Hgb Hct RDW Lymph % (Auto) [place] % (Auto) Eos % (Auto) Lymph # [place] # Seg Neutrophils % Seg Neuts % (Manual) Lymphocytes % (Manual) Seg Neutrophils # Seg Neutrophils # Man PT INR POC ABG pH POC ABG pCO2 53.7 H POC ABG pO2 73 L Sodium Potassium Chloride Carbon Dioxide BUN Creatinine Glucose POC Glucose 281 H 376 H Hemoglobin A1c Calcium AST ALT Troponin T NT-Pro-B Natriuret Pep Total Protein Albumin HDL Cholesterol Urine WBC (Auto) 09/01/18 09/02/18 09/02/18 21:29 00:22 06:20 WBC RBC Hgb Hct RDW Lymph % (Auto) [place] % (Auto) Eos % (Auto) Lymph # [place] # Seg Neutrophils % Seg Neuts % (Manual) Lymphocytes % (Manual) Seg Neutrophils # Seg Neutrophils # Man PT INR POC ABG pH POC ABG pCO2 POC ABG pO2 Sodium Potassium Chloride Carbon Dioxide BUN Creatinine Glucose POC Glucose 247 H 369 H 414 H Hemoglobin A1c Calcium AST ALT Troponin T NT-Pro-B Natriuret Pep Total Protein Albumin HDL Cholesterol Urine WBC (Auto) 09/02/18 09/02/18 09/02/18 11:56 18:21 23:42 WBC RBC Hgb Hct RDW Lymph % (Auto) [place] % (Auto) Eos % (Auto) Lymph # [place] # Seg Neutrophils % Seg Neuts % (Manual) Lymphocytes % (Manual) Seg Neutrophils # Seg Neutrophils # Man PT INR POC ABG pH POC ABG pCO2 POC ABG pO2 Sodium Potassium Chloride Carbon Dioxide BUN Creatinine Glucose POC Glucose 416 H 429 H 373 H Hemoglobin A1c Calcium AST ALT Troponin T NT-Pro-B Natriuret Pep Total Protein Albumin HDL Cholesterol Urine WBC (Auto) 09/03/18 09/03/18 09/03/18 05:28 11:17 17:46 WBC RBC Hgb Hct RDW Lymph % (Auto) [place] % (Auto) Eos % (Auto) Lymph # [place] # Seg Neutrophils % Seg Neuts % (Manual) Lymphocytes % (Manual) Seg Neutrophils # Seg Neutrophils # Man PT INR POC ABG pH POC ABG pCO2 POC ABG pO2 Sodium Potassium Chloride Carbon Dioxide BUN Creatinine Glucose POC Glucose 400 H 319 H 308 H Hemoglobin A1c Calcium AST ALT Troponin T NT-Pro-B Natriuret Pep Total Protein Albumin HDL Cholesterol Urine WBC (Auto) 09/04/18 09/04/18 09/04/18 00:10 05:56 11:53 WBC RBC Hgb Hct RDW Lymph % (Auto) [place] % (Auto) Eos % (Auto) Lymph # [place] # Seg Neutrophils % Seg Neuts % (Manual) Lymphocytes % (Manual) Seg Neutrophils # Seg Neutrophils # Man PT INR POC ABG pH POC ABG pCO2 POC ABG pO2 Sodium Potassium Chloride Carbon Dioxide BUN Creatinine Glucose POC Glucose 232 H 254 H 264 H Hemoglobin A1c Calcium AST ALT Troponin T NT-Pro-B Natriuret Pep Total Protein Albumin HDL Cholesterol Urine WBC (Auto) 09/04/18 09/04/18 09/04/18 16:53 21:51 23:16 WBC RBC Hgb Hct RDW Lymph % (Auto) [place] % (Auto) Eos % (Auto) Lymph # [place] # Seg Neutrophils % Seg Neuts % (Manual) Lymphocytes % (Manual) Seg Neutrophils # Seg Neutrophils # Man PT INR POC ABG pH POC ABG pCO2 POC ABG pO2 Sodium Potassium Chloride Carbon Dioxide BUN Creatinine Glucose POC Glucose 262 H 252 H 291 H Hemoglobin A1c Calcium AST ALT Troponin T NT-Pro-B Natriuret Pep Total Protein Albumin HDL Cholesterol Urine WBC (Auto) 09/05/18 09/05/18 09/05/18 04:21 05:20 12:08 WBC RBC Hgb Hct RDW Lymph % (Auto) [place] % (Auto) Eos % (Auto) Lymph # [place] # Seg Neutrophils % Seg Neuts % (Manual) Lymphocytes % (Manual) Seg Neutrophils # Seg Neutrophils # Man PT INR POC ABG pH POC ABG pCO2 POC ABG pO2 Sodium Potassium Chloride 97.3 L Carbon Dioxide 33 H BUN 66 H Creatinine Glucose 232 H POC Glucose 272 H 201 H Hemoglobin A1c Calcium AST ALT Troponin T NT-Pro-B Natriuret Pep Total Protein Albumin HDL Cholesterol Urine WBC (Auto) 09/05/18 09/06/18 09/06/18 21:50 00:24 05:26 WBC RBC Hgb Hct RDW Lymph % (Auto) [place] % (Auto) Eos % (Auto) Lymph # [place] # Seg Neutrophils % Seg Neuts % (Manual) Lymphocytes % (Manual) Seg Neutrophils # Seg Neutrophils # Man PT INR POC ABG pH POC ABG pCO2 POC ABG pO2 Sodium Potassium Chloride Carbon Dioxide BUN Creatinine Glucose POC Glucose 196 H 171 H 142 H Hemoglobin A1c Calcium AST ALT Troponin T NT-Pro-B Natriuret Pep Total Protein Albumin HDL Cholesterol Urine WBC (Auto) 09/06/18 09/06/18 09/06/18 07:28 12:13 18:03 WBC RBC Hgb Hct RDW Lymph % (Auto) [place] % (Auto) Eos % (Auto) Lymph # [place] # Seg Neutrophils % Seg Neuts % (Manual) Lymphocytes % (Manual) Seg Neutrophils # Seg Neutrophils # Man PT INR POC ABG pH POC ABG pCO2 POC ABG pO2 Sodium Potassium Chloride Carbon Dioxide 34 H BUN 69 H Creatinine Glucose 164 H POC Glucose 209 H 158 H Hemoglobin A1c Calcium AST ALT Troponin T NT-Pro-B Natriuret Pep Total Protein Albumin HDL Cholesterol Urine WBC (Auto) 09/06/18 09/06/18 09/07/18 22:18 23:54 05:27 WBC RBC Hgb Hct RDW Lymph % (Auto) [place] % (Auto) Eos % (Auto) Lymph # [place] # Seg Neutrophils % Seg Neuts % (Manual) Lymphocytes % (Manual) Seg Neutrophils # Seg Neutrophils # Man PT INR POC ABG pH POC ABG pCO2 POC ABG pO2 Sodium Potassium Chloride Carbon Dioxide BUN Creatinine Glucose POC Glucose 181 H 219 H 244 H Hemoglobin A1c Calcium AST ALT Troponin T NT-Pro-B Natriuret Pep Total Protein Albumin HDL Cholesterol Urine WBC (Auto) 09/07/18 09/07/18 09/07/18 13:48 17:07 22:14 WBC RBC Hgb Hct RDW Lymph % (Auto) [place] % (Auto) Eos % (Auto) Lymph # [place] # Seg Neutrophils % Seg Neuts % (Manual) Lymphocytes % (Manual) Seg Neutrophils # Seg Neutrophils # Man PT INR POC ABG pH POC ABG pCO2 POC ABG pO2 Sodium Potassium Chloride Carbon Dioxide BUN Creatinine Glucose POC Glucose 286 H 263 H 237 H Hemoglobin A1c Calcium AST ALT Troponin T NT-Pro-B Natriuret Pep Total Protein Albumin HDL Cholesterol Urine WBC (Auto) 09/07/18 09/08/18 09/08/18 23:25 06:22 12:55 WBC RBC Hgb Hct RDW Lymph % (Auto) [place] % (Auto) Eos % (Auto) Lymph # [place] # Seg Neutrophils % Seg Neuts % (Manual) Lymphocytes % (Manual) Seg Neutrophils # Seg Neutrophils # Man PT INR POC ABG pH POC ABG pCO2 POC ABG pO2 Sodium Potassium Chloride Carbon Dioxide BUN Creatinine Glucose POC Glucose 266 H 271 H 261 H Hemoglobin A1c Calcium AST ALT Troponin T NT-Pro-B Natriuret Pep Total Protein Albumin HDL Cholesterol Urine WBC (Auto) 09/08/18 09/08/18 09/08/18 15:06 16:50 18:47 WBC 17.6 H RBC 5.16 H Hgb 15.0 H Hct 48.6 H RDW 20.2 H Lymph % (Auto) 4.8 L [place] % (Auto) Eos % (Auto) Lymph # 0.8 L [place] # 1.2 H Seg Neutrophils % 88.1 H Seg Neuts % (Manual) Lymphocytes % (Manual) Seg Neutrophils # 15.5 H Seg Neutrophils # Man PT INR POC ABG pH 7.571 H POC ABG pCO2 33.6 L POC ABG pO2 55 L Sodium Potassium Chloride Carbon Dioxide BUN Creatinine Glucose POC Glucose 177 H Hemoglobin A1c Calcium AST ALT Troponin T NT-Pro-B Natriuret Pep Total Protein Albumin HDL Cholesterol Urine WBC (Auto) 09/08/18 09/09/18 09/09/18 22:32 00:02 05:56 WBC 18.2 H RBC Hgb Hct RDW 19.4 H Lymph % (Auto) [place] % (Auto) Eos % (Auto) Lymph # [place] # Seg Neutrophils % Seg Neuts % (Manual) 83.0 H Lymphocytes % (Manual) 11.0 L Seg Neutrophils # Seg Neutrophils # Man 15.1 H PT INR POC ABG pH POC ABG pCO2 POC ABG pO2 Sodium Potassium Chloride Carbon Dioxide BUN Creatinine Glucose POC Glucose 182 H 124 H Hemoglobin A1c Calcium AST ALT Troponin T NT-Pro-B Natriuret Pep Total Protein Albumin HDL Cholesterol Urine WBC (Auto) 09/09/18 09/09/18 09/09/18 05:56 06:33 18:06 WBC RBC Hgb Hct RDW Lymph % (Auto) [place] % (Auto) Eos % (Auto) Lymph # [place] # Seg Neutrophils % Seg Neuts % (Manual) Lymphocytes % (Manual) Seg Neutrophils # Seg Neutrophils # Man PT INR POC ABG pH POC ABG pCO2 POC ABG pO2 Sodium 146 H Potassium Chloride Carbon Dioxide 33 H BUN 87 H Creatinine 1.6 H Glucose POC Glucose 138 H 112 H Hemoglobin A1c Calcium AST 76 H ALT 71 H Troponin T NT-Pro-B Natriuret Pep Total Protein 5.9 L Albumin 2.1 L HDL Cholesterol Urine WBC (Auto) 09/09/18 09/09/18 09/10/18 23:43 Unknown 05:14 WBC 16.2 H RBC Hgb Hct RDW 19.5 H Lymph % (Auto) 4.4 L [place] % (Auto) 7.5 H Eos % (Auto) Lymph # 0.7 L [place] # 1.2 H Seg Neutrophils % 87.4 H Seg Neuts % (Manual) Lymphocytes % (Manual) Seg Neutrophils # 14.1 H Seg Neutrophils # Man PT INR POC ABG pH POC ABG pCO2 POC ABG pO2 Sodium Potassium Chloride Carbon Dioxide BUN Creatinine Glucose POC Glucose 142 H Hemoglobin A1c Calcium AST ALT Troponin T NT-Pro-B Natriuret Pep Total Protein Albumin HDL Cholesterol Urine WBC (Auto) 8.0 H 09/10/18 09/10/18 09/10/18 05:14 05:41 12:31 WBC RBC Hgb Hct RDW Lymph % (Auto) [place] % (Auto) Eos % (Auto) Lymph # [place] # Seg Neutrophils % Seg Neuts % (Manual) Lymphocytes % (Manual) Seg Neutrophils # Seg Neutrophils # Man PT INR POC ABG pH POC ABG pCO2 POC ABG pO2 Sodium Potassium 6.0 H D Chloride Carbon Dioxide BUN 91 H Creatinine 1.5 H Glucose 162 H POC Glucose 189 H 118 H Hemoglobin A1c Calcium 7.8 L AST 153 H ALT 97 H Troponin T NT-Pro-B Natriuret Pep Total Protein 6.0 L Albumin 1.9 L HDL Cholesterol Urine WBC (Auto) 09/10/18 09/11/18 09/11/18 17:18 00:12 04:47 WBC RBC Hgb Hct RDW Lymph % (Auto) [place] % (Auto) Eos % (Auto) Lymph # [place] # Seg Neutrophils % Seg Neuts % (Manual) Lymphocytes % (Manual) Seg Neutrophils # Seg Neutrophils # Man PT INR POC ABG pH POC ABG pCO2 POC ABG pO2 Sodium Potassium Chloride Carbon Dioxide BUN Creatinine Glucose POC Glucose 211 H 200 H 137 H Hemoglobin A1c Calcium AST ALT Troponin T NT-Pro-B Natriuret Pep Total Protein Albumin HDL Cholesterol Urine WBC (Auto) 09/11/18 09/11/18 09/11/18 04:54 04:54 11:20 WBC 15.2 H RBC Hgb Hct RDW 19.4 H Lymph % (Auto) 5.5 L [place] % (Auto) Eos % (Auto) Lymph # 0.8 L [place] # 0.9 H Seg Neutrophils % 88.2 H Seg Neuts % (Manual) Lymphocytes % (Manual) Seg Neutrophils # 13.4 H Seg Neutrophils # Man PT INR POC ABG pH POC ABG pCO2 POC ABG pO2 Sodium Potassium Chloride Carbon Dioxide 32 H BUN 85 H Creatinine Glucose 120 H POC Glucose 117 H Hemoglobin A1c Calcium 8.1 L AST 84 H ALT 84 H Troponin T NT-Pro-B Natriuret Pep Total Protein 5.7 L Albumin 1.9 L HDL Cholesterol Urine WBC (Auto) 09/11/18 09/12/18 09/12/18 18:23 09:35 09:35 WBC 12.1 H RBC Hgb Hct RDW 19.0 H Lymph % (Auto) [place] % (Auto) Eos % (Auto) Lymph # [place] # Seg Neutrophils % Seg Neuts % (Manual) Lymphocytes % (Manual) Seg Neutrophils # Seg Neutrophils # Man PT INR POC ABG pH POC ABG pCO2 POC ABG pO2 Sodium Potassium Chloride Carbon Dioxide 37 H BUN 71 H Creatinine Glucose 58 L POC Glucose 118 H Hemoglobin A1c Calcium AST ALT Troponin T NT-Pro-B Natriuret Pep Total Protein Albumin HDL Cholesterol Urine WBC (Auto) 09/12/18 09/12/18 09/12/18 11:44 12:49 18:15 WBC RBC Hgb Hct RDW Lymph % (Auto) [place] % (Auto) Eos % (Auto) Lymph # [place] # Seg Neutrophils % Seg Neuts % (Manual) Lymphocytes % (Manual) Seg Neutrophils # Seg Neutrophils # Man PT INR POC ABG pH POC ABG pCO2 POC ABG pO2 Sodium Potassium Chloride Carbon Dioxide BUN Creatinine Glucose POC Glucose 59 L 56 L 115 H Hemoglobin A1c Calcium AST ALT Troponin T NT-Pro-B Natriuret Pep Total Protein Albumin HDL Cholesterol Urine WBC (Auto) 09/12/18 09/13/18 09/13/18 22:06 00:11 04:45 WBC RBC Hgb Hct RDW Lymph % (Auto) [place] % (Auto) Eos % (Auto) Lymph # [place] # Seg Neutrophils % Seg Neuts % (Manual) Lymphocytes % (Manual) Seg Neutrophils # Seg Neutrophils # Man PT INR POC ABG pH POC ABG pCO2 POC ABG pO2 Sodium Potassium 5.5 H D Chloride Carbon Dioxide 36 H BUN 67 H Creatinine Glucose 159 H POC Glucose 159 H 206 H Hemoglobin A1c Calcium AST ALT Troponin T NT-Pro-B Natriuret Pep Total Protein Albumin HDL Cholesterol Urine WBC (Auto) 09/13/18 09/13/18 05:30 11:46 WBC RBC Hgb Hct RDW Lymph % (Auto) [place] % (Auto) Eos % (Auto) Lymph # [place] # Seg Neutrophils % Seg Neuts % (Manual) Lymphocytes % (Manual) Seg Neutrophils # Seg Neutrophils # Man PT INR POC ABG pH POC ABG pCO2 POC ABG pO2 Sodium Potassium Chloride Carbon Dioxide BUN Creatinine Glucose POC Glucose 151 H 115 H Hemoglobin A1c Calcium AST ALT Troponin T NT-Pro-B Natriuret Pep Total Protein Albumin HDL Cholesterol Urine WBC (Auto)
[2018-09-13] MEDS ORDERED: LASIX IV ONE (12:17)
[2018-09-14] MEDS: DUONEB *Not for PRN Use IH SCH ×4 (01:54→20:41)
[2018-09-14] MEDS: TYLENOL PO PRN (04:48)
[2018-09-14] MEDS: LOPRESSOR PO SCH ×4 (04:50→22:01)
[2018-09-14] MEDS: LASIX PO SCH (05:26)
[2018-09-14 06:59] LABS: BUN/Creatinine Ratio 74; Blood Urea Nitrogen 59 mg/dL (7-17); Calcium 9.1 mg/dL (8.4-10.2); Hemolysis Index 13
[2018-09-14] MEDS: HumaLOG SUB-Q SCH ×3 (07:13→19:49)
[2018-09-14] MEDS: PULMICORT IH SCH ×2 (07:30→20:41)
[2018-09-14] MEDS ORDERED: LASIX IV ONE (08:00)
--- NOTE | 2018-09-14 08:02 | XRay Report ---
CHEST 1 VIEW INDICATION: Shortness of breath. COMPARISON: 09/13/2018 FINDINGS: Support devices: The tracheostomy remains in good position. Heart: Stable mild cardiomegaly. Lungs/Pleura: Bilateral pulmonary edema has decreased by 25%. Small right pleural effusion and modera te left pleural effusion have also decreased slightly. Mild bibasilar atelectasis is noted. No large consolidation or pneumothorax. Additional findings: None. IMPRESSION: Mild improvement in CHF Signer Name: Zach Iqbal Jr, MD Signed: 09/14/2018 7:58 AM Workstation Name: [id number]
[2018-09-14] MEDS: BABY ASPIRIN PO SCH (10:08)
[2018-09-14] MEDS: ELIQUIS PO SCH ×2 (10:08→21:58)
[2018-09-14] MEDS: KEPPRA PO SCH ×2 (10:08→21:58)
[2018-09-14] MEDS: COLACE PO SCH ×2 (10:08→21:58)
[2018-09-14] MEDS: TIMOPTIC OU SCH (10:08)
[2018-09-14] MEDS: SOLU-Medrol IV SCH (10:08)
[2018-09-14] MEDS: CATAPRES-TTS PATCH TD SCH (10:09)
[2018-09-14] MEDS: COZAAR PO SCH (10:09)
[2018-09-14] MEDS: LANTUS SUB-Q SCH ×2 (10:10→21:59)
--- NOTE | 2018-09-14 10:16 | Progress Note ---
<WHITE,BELLHA - Last Filed: 09/14/18 10:15> Assessment and Plan Atrial fibrillation, permanent On eliquis On metoprolol for rate control History of CVA s/p PEG tube Acute on chronic diastolic heart failure Echo 07/2018 - Normal LVEF Dehydration Type II DM Systemic Hypertension Hyperlipidemia Chronic respiratory failure Chronic tracheostomy Recommendations: Continue medical therapy for permanent atrial fibrillation and heart failure with a preserved ejection fraction. Otherwise, conservative cardiac management Subjective Date of service: 09/14/18 Principal diagnosis: CHF Interval history: No cardiac events. Objective Vital Signs Temp Pulse Pulse Resp Resp BP Pulse Ox 09/14/18 07:36 98 09/14/18 07:33 09/14/18 07:30 78 20 09/14/18 07:24 98.3 F 75 20 144/64 96 09/14/18 07:21 20 96 09/14/18 06:00 09/14/18 04:50 97 H 124/50 09/14/18 03:46 97 09/14/18 02:07 75 90 09/14/18 02:06 97.8 F 22 124/50 09/14/18 02:01 76 18 09/14/18 01:55 76 18 09/13/18 22:55 92 H 131/55 09/13/18 21:32 97 09/13/18 21:31 74 18 09/13/18 20:23 92 H 09/13/18 19:57 93 09/13/18 19:51 61 93 09/13/18 19:36 97.2 F L 20 131/55 09/13/18 18:10 09/13/18 15:00 80 20 09/13/18 14:45 82 20 09/13/18 12:51 98.2 F 75 20 135/68 93 09/13/18 11:20 97 Pulse Ox 09/14/18 07:36 09/14/18 07:33 98 09/14/18 07:30 09/14/18 07:24 09/14/18 07:21 09/14/18 06:00 96 09/14/18 04:50 09/14/18 03:46 09/14/18 02:07 09/14/18 02:06 09/14/18 02:01 09/14/18 01:55 09/13/18 22:55 09/13/18 21:32 09/13/18 21:31 09/13/18 20:23 09/13/18 19:57 09/13/18 19:51 09/13/18 19:36 09/13/18 18:10 97 09/13/18 15:00 09/13/18 14:45 09/13/18 12:51 09/13/18 11:20 - Physical Examination General: Other (nonverbal) HEENT: Positive: PERRL Neck: Positive: Other (Midline trach) Cardiac: Positive: irregularly irregular Neuro: Positive: Other (Nonverbal ) Abdomen: Positive: Soft Extremities: Present: +1 Edema - Labs and Meds Comprehensive Metabolic Panel 09/14/18 Range/Units 06:13 Sodium 142 (137-145) mmol/L Potassium 4.8 (3.6-5.0) mmol/L Chloride 100.6 (98-107) mmol/L Carbon Dioxide 33 H (22-30) mmol/L BUN 59 H (7-17) mg/dL Creatinine 0.8 (0.7-1.2) mg/dL Glucose 112 H (65-100) mg/dL Calcium 9.1 (8.4-10.2) mg/dL <JUSTO GONZALEZ - Last Filed: 09/14/18 10:23> Assessment and Plan I have seen and evaluated the patient agree with the assessment and plan as written above. The patient has permanent atrial fibrillation which is currently rate controlled on metoprolol. Patient is anticoagulated with liquids. We'll continue current medical therapy. Patient also says has essential hypertension which is currently well controlled. Patient has acute on chronic diastolic heart failure with a normal ejection fractionpatient is currently euvolemic. Continue intensive antihypertension control. Objective Vital Signs Temp Pulse Pulse Resp Resp BP Pulse Ox 09/14/18 07:36 98 09/14/18 07:33 09/14/18 07:30 78 20 09/14/18 07:24 98.3 F 75 20 144/64 96 09/14/18 07:21 20 96 09/14/18 06:00 09/14/18 04:50 97 H 124/50 09/14/18 03:46 97 09/14/18 02:07 75 90 09/14/18 02:06 97.8 F 22 124/50 09/14/18 02:01 76 18 09/14/18 01:55 76 18 09/13/18 22:55 92 H 131/55 09/13/18 21:32 97 09/13/18 21:31 74 18 09/13/18 20:23 92 H 09/13/18 19:57 93 09/13/18 19:51 61 93 09/13/18 19:36 97.2 F L 20 131/55 09/13/18 18:10 09/13/18 15:00 80 20 09/13/18 14:45 82 20 09/13/18 12:51 98.2 F 75 20 135/68 93 09/13/18 11:20 97 Pulse Ox 09/14/18 07:36 09/14/18 07:33 98 09/14/18 07:30 09/14/18 07:24 09/14/18 07:21 09/14/18 06:00 96 09/14/18 04:50 09/14/18 03:46 09/14/18 02:07 09/14/18 02:06 09/14/18 02:01 09/14/18 01:55 09/13/18 22:55 09/13/18 21:32 09/13/18 21:31 09/13/18 20:23 09/13/18 19:57 09/13/18 19:51 09/13/18 19:36 09/13/18 18:10 97 09/13/18 15:00 09/13/18 14:45 09/13/18 12:51 09/13/18 11:20 - Labs and Meds Comprehensive Metabolic Panel 09/14/18 Range/Units 06:13 Sodium 142 (137-145) mmol/L Potassium 4.8 (3.6-5.0) mmol/L Chloride 100.6 (98-107) mmol/L Carbon Dioxide 33 H (22-30) mmol/L BUN 59 H (7-17) mg/dL Creatinine 0.8 (0.7-1.2) mg/dL Glucose 112 H (65-100) mg/dL Calcium 9.1 (8.4-10.2) mg/dL
[2018-09-14] MEDS: SODIUM CHLORIDE FLUSH SYRINGE 10 ML IV SCH ×2 (10:21→21:58)
--- NOTE | 2018-09-14 11:34 | Progress Note ---
Assessment and Plan 1. Will attempt PMV. Re-ordered Speech Consult 2. Agree with diuretic therapy, per daughter, [facility] has discussed their plan of action with her. 3. Continue pulmicort and brovana therapy. 4. Hope that patient can go to vent unit, would be a better fit given her complex disease state and issues with volume. Subjective Date of service: 09/14/18 Principal diagnosis: CHF Interval history: Spoke to daughter at bedside. They visited the vent unit in [place] and liked it. Referral was sent yesterday. Daughter anxious about trying PMV toda y. Patient is awake but not responsive. Mouth open and T-piece intact. No acute events. Objective Vital Signs - 12hr 09/14/18 09/14/18 09/14/18 01:55 02:01 02:06 Temperature 97.8 F Pulse Rate Pulse Rate [ 76 76 Anterior Bilateral Throughout] Respiratory 22 Rate Respiratory 18 18 Rate [Anterior Bilateral Throughout] Blood Pressure 124/50 O2 Sat by Pulse Oximetry O2 Sat by Pulse Oximetry [ Assessment] 09/14/18 09/14/18 09/14/18 02:07 03:46 04:50 Temperature Pulse Rate 75 97 H Pulse Rate [ Anterior Bilateral Throughout] Respiratory Rate Respiratory Rate [Anterior Bilateral Throughout] Blood Pressure 124/50 O2 Sat by Pulse 90 97 Oximetry O2 Sat by Pulse Oximetry [ Assessment] 09/14/18 09/14/18 09/14/18 06:00 07:21 07:24 Temperature 98.3 F Pulse Rate 75 Pulse Rate [ Anterior Bilateral Throughout] Respiratory 20 20 Rate Respiratory Rate [Anterior Bilateral Throughout] Blood Pressure 144/64 O2 Sat by Pulse 96 96 Oximetry O2 Sat by Pulse 96 Oximetry [ Assessment] 09/14/18 09/14/18 09/14/18 07:30 07:33 07:36 Temperature Pulse Rate Pulse Rate [ 78 Anterior Bilateral Throughout] Respiratory Rate Respiratory 20 Rate [Anterior Bilateral Throughout] Blood Pressure O2 Sat by Pulse 98 Oximetry O2 Sat by Pulse 98 Oximetry [ Assessment] Constitutional: no acute distress, alert Eyes: non-icteric ENT: oropharynx moist Neck: supple, other (trach in place) Effort: normal Ascultation: Bilateral: diminished breath sounds, wheezes (faint occasional and mild expiratory), rhonchi (rare), other (coarse BS) Cardiovascular: regular rate and rhythm (no mrg) Gastrointestinal: normoactive bowel sounds, non-distended, other (peg in place) Integumentary: normal Extremities: no cyanosis, pink and warm, edema (3+ bilateral LE edema) Neurologic: other (more sleepy but arousable) Psychiatric: mood appropriate, affect normal CBC and BMP: 09/12/18 09:35 09/14/18 06:13 ABG, PT/INR, D-dimer: ABG POC ABG pH 7.571 (7.35-7.45) H 09/08/18 15:06 POC ABG pCO2 33.6 (35-45) L 09/08/18 15:06 POC ABG pO2 55 (80-105) L 09/08/18 15:06 POC ABG HCO3 30.9 (22-26 mml/L) 09/08/18 15:06 POC ABG Total CO2 32 (23-27mmol/L) 09/08/18 15:06 POC ABG O2 Sat 93 09/08/18 15:06 PT/INR, D-dimer PT 20.9 Sec. (12.2-14.9) H 08/31/18 00:27 INR 1.85 (0.87-1.13) H 08/31/18 00:27 Abnormal lab findings: Abnormal Labs 08/30/18 08/30/18 08/30/18 23:28 23:28 23:28 WBC RBC 3.40 L Hgb Hct RDW 18.9 H Lymph % (Auto) 7.2 L [place] % (Auto) 8.7 H Eos % (Auto) 4.8 H Lymph # 0.7 L [place] # Seg Neutrophils % 78.9 H Seg Neuts % (Manual) Lymphocytes % (Manual) Seg Neutrophils # Seg Neutrophils # Man PT INR POC ABG pH POC ABG pCO2 POC ABG pO2 Sodium Potassium Chloride Carbon Dioxide 31 H BUN 41 H Creatinine Glucose 189 H POC Glucose Hemoglobin A1c Calcium AST ALT Troponin T 0.323 H* NT-Pro-B Natriuret Pep Total Protein Albumin 1.8 L HDL Cholesterol 35 L Urine WBC (Auto) 08/30/18 08/31/18 08/31/18 23:28 00:27 03:48 WBC RBC Hgb Hct RDW Lymph % (Auto) [place] % (Auto) Eos % (Auto) Lymph # [place] # Seg Neutrophils % Seg Neuts % (Manual) Lymphocytes % (Manual) Seg Neutrophils # Seg Neutrophils # Man PT 20.9 H INR 1.85 H POC ABG pH POC ABG pCO2 55.2 H POC ABG pO2 Sodium Potassium Chloride Carbon Dioxide BUN Creatinine Glucose POC Glucose Hemoglobin A1c Calcium AST ALT Troponin T NT-Pro-B Natriuret Pep 81030 H Total Protein Albumin HDL Cholesterol Urine WBC (Auto) 08/31/18 08/31/18 08/31/18 05:34 05:34 11:44 WBC RBC Hgb Hct RDW Lymph % (Auto) [place] % (Auto) Eos % (Auto) Lymph # [place] # Seg Neutrophils % Seg Neuts % (Manual) Lymphocytes % (Manual) Seg Neutrophils # Seg Neutrophils # Man PT INR POC ABG pH POC ABG pCO2 POC ABG pO2 Sodium Potassium Chloride Carbon Dioxide BUN Creatinine Glucose POC Glucose 154 H Hemoglobin A1c 6.4 H Calcium AST ALT Troponin T 0.215 H* D NT-Pro-B Natriuret Pep Total Protein Albumin HDL Cholesterol Urine WBC (Auto) 08/31/18 09/01/18 09/01/18 23:32 04:47 04:47 WBC RBC Hgb Hct RDW 19.1 H Lymph % (Auto) 7.9 L [place] % (Auto) 7.4 H Eos % (Auto) Lymph # 0.9 L [place] # Seg Neutrophils % 84.0 H Seg Neuts % (Manual) Lymphocytes % (Manual) Seg Neutrophils # 9.3 H Seg Neutrophils # Man PT INR POC ABG pH POC ABG pCO2 POC ABG pO2 Sodium Potassium Chloride 94.1 L Carbon Dioxide 32 H BUN 46 H Creatinine Glucose 189 H POC Glucose 138 H Hemoglobin A1c Calcium AST ALT Troponin T NT-Pro-B Natriuret Pep Total Protein Albumin HDL Cholesterol Urine WBC (Auto) 09/01/18 09/01/18 09/01/18 05:59 11:38 16:17 WBC RBC Hgb Hct RDW Lymph % (Auto) [place] % (Auto) Eos % (Auto) Lymph # [place] # Seg Neutrophils % Seg Neuts % (Manual) Lymphocytes % (Manual) Seg Neutrophils # Seg Neutrophils # Man PT INR POC ABG pH POC ABG pCO2 POC ABG pO2 Sodium Potassium Chloride Carbon Dioxide BUN Creatinine Glucose POC Glucose 236 H 235 H 278 H Hemoglobin A1c Calcium AST ALT Troponin T NT-Pro-B Natriuret Pep Total Protein Albumin HDL Cholesterol Urine WBC (Auto) 07/04/19 07/04/19 07/04/19 17:59 18:53 19:07 WBC RBC Hgb Hct RDW Lymph % (Auto) [place] % (Auto) Eos % (Auto) Lymph # [place] # Seg Neutrophils % Seg Neuts % (Manual) Lymphocytes % (Manual) Seg Neutrophils # Seg Neutrophils # Man PT INR POC ABG pH POC ABG pCO2 53.7 H POC ABG pO2 73 L Sodium Potassium Chloride Carbon Dioxide BUN Creatinine Glucose POC Glucose 281 H 376 H Hemoglobin A1c Calcium AST ALT Troponin T NT-Pro-B Natriuret Pep Total Protein Albumin HDL Cholesterol Urine WBC (Auto) 09/01/18 09/02/18 09/02/18 21:29 00:22 06:20 WBC RBC Hgb Hct RDW Lymph % (Auto) [place] % (Auto) Eos % (Auto) Lymph # [place] # Seg Neutrophils % Seg Neuts % (Manual) Lymphocytes % (Manual) Seg Neutrophils # Seg Neutrophils # Man PT INR POC ABG pH POC ABG pCO2 POC ABG pO2 Sodium Potassium Chloride Carbon Dioxide BUN Creatinine Glucose POC Glucose 247 H 369 H 414 H Hemoglobin A1c Calcium AST ALT Troponin T NT-Pro-B Natriuret Pep Total Protein Albumin HDL Cholesterol Urine WBC (Auto) 09/02/18 09/02/18 09/02/18 11:56 18:21 23:42 WBC RBC Hgb Hct RDW Lymph % (Auto) [place] % (Auto) Eos % (Auto) Lymph # [place] # Seg Neutrophils % Seg Neuts % (Manual) Lymphocytes % (Manual) Seg Neutrophils # Seg Neutrophils # Man PT INR POC ABG pH POC ABG pCO2 POC ABG pO2 Sodium Potassium Chloride Carbon Dioxide BUN Creatinine Glucose POC Glucose 416 H 429 H 373 H Hemoglobin A1c Calcium AST ALT Troponin T NT-Pro-B Natriuret Pep Total Protein Albumin HDL Cholesterol Urine WBC (Auto) 09/03/18 09/03/18 09/03/18 05:28 11:17 17:46 WBC RBC Hgb Hct RDW Lymph % (Auto) [place] % (Auto) Eos % (Auto) Lymph # [place] # Seg Neutrophils % Seg Neuts % (Manual) Lymphocytes % (Manual) Seg Neutrophils # Seg Neutrophils # Man PT INR POC ABG pH POC ABG pCO2 POC ABG pO2 Sodium Potassium Chloride Carbon Dioxide BUN Creatinine Glucose POC Glucose 400 H 319 H 308 H Hemoglobin A1c Calcium AST ALT Troponin T NT-Pro-B Natriuret Pep Total Protein Albumin HDL Cholesterol Urine WBC (Auto) 09/04/18 09/04/18 09/04/18 00:10 05:56 11:53 WBC RBC Hgb Hct RDW Lymph % (Auto) [place] % (Auto) Eos % (Auto) Lymph # [place] # Seg Neutrophils % Seg Neuts % (Manual) Lymphocytes % (Manual) Seg Neutrophils # Seg Neutrophils # Man PT INR POC ABG pH POC ABG pCO2 POC ABG pO2 Sodium Potassium Chloride Carbon Dioxide BUN Creatinine Glucose POC Glucose 232 H 254 H 264 H Hemoglobin A1c Calcium AST ALT Troponin T NT-Pro-B Natriuret Pep Total Protein Albumin HDL Cholesterol Urine WBC (Auto) 09/04/18 09/04/18 09/04/18 16:53 21:51 23:16 WBC RBC Hgb Hct RDW Lymph % (Auto) [place] % (Auto) Eos % (Auto) Lymph # [place] # Seg Neutrophils % Seg Neuts % (Manual) Lymphocytes % (Manual) Seg Neutrophils # Seg Neutrophils # Man PT INR POC ABG pH POC ABG pCO2 POC ABG pO2 Sodium Potassium Chloride Carbon Dioxide BUN Creatinine Glucose POC Glucose 262 H 252 H 291 H Hemoglobin A1c Calcium AST ALT Troponin T NT-Pro-B Natriuret Pep Total Protein Albumin HDL Cholesterol Urine WBC (Auto) 09/05/18 09/05/18 09/05/18 04:21 05:20 12:08 WBC RBC Hgb Hct RDW Lymph % (Auto) [place] % (Auto) Eos % (Auto) Lymph # [place] # Seg Neutrophils % Seg Neuts % (Manual) Lymphocytes % (Manual) Seg Neutrophils # Seg Neutrophils # Man PT INR POC ABG pH POC ABG pCO2 POC ABG pO2 Sodium Potassium Chloride 97.3 L Carbon Dioxide 33 H BUN 66 H Creatinine Glucose 232 H POC Glucose 272 H 201 H Hemoglobin A1c Calcium AST ALT Troponin T NT-Pro-B Natriuret Pep Total Protein Albumin HDL Cholesterol Urine WBC (Auto) 09/05/18 09/06/18 09/06/18 21:50 00:24 05:26 WBC RBC Hgb Hct RDW Lymph % (Auto) [place] % (Auto) Eos % (Auto) Lymph # [place] # Seg Neutrophils % Seg Neuts % (Manual) Lymphocytes % (Manual) Seg Neutrophils # Seg Neutrophils # Man PT INR POC ABG pH POC ABG pCO2 POC ABG pO2 Sodium Potassium Chloride Carbon Dioxide BUN Creatinine Glucose POC Glucose 196 H 171 H 142 H Hemoglobin A1c Calcium AST ALT Troponin T NT-Pro-B Natriuret Pep Total Protein Albumin HDL Cholesterol Urine WBC (Auto) 09/06/18 09/06/18 09/06/18 07:28 12:13 18:03 WBC RBC Hgb Hct RDW Lymph % (Auto) [place] % (Auto) Eos % (Auto) Lymph # [place] # Seg Neutrophils % Seg Neuts % (Manual) Lymphocytes % (Manual) Seg Neutrophils # Seg Neutrophils # Man PT INR POC ABG pH POC ABG pCO2 POC ABG pO2 Sodium Potassium Chloride Carbon Dioxide 34 H BUN 69 H Creatinine Glucose 164 H POC Glucose 209 H 158 H Hemoglobin A1c Calcium AST ALT Troponin T NT-Pro-B Natriuret Pep Total Protein Albumin HDL Cholesterol Urine WBC (Auto) 09/06/18 09/06/18 09/07/18 22:18 23:54 05:27 WBC RBC Hgb Hct RDW Lymph % (Auto) [place] % (Auto) Eos % (Auto) Lymph # [place] # Seg Neutrophils % Seg Neuts % (Manual) Lymphocytes % (Manual) Seg Neutrophils # Seg Neutrophils # Man PT INR POC ABG pH POC ABG pCO2 POC ABG pO2 Sodium Potassium Chloride Carbon Dioxide BUN Creatinine Glucose POC Glucose 181 H 219 H 244 H Hemoglobin A1c Calcium AST ALT Troponin T NT-Pro-B Natriuret Pep Total Protein Albumin HDL Cholesterol Urine WBC (Auto) 09/07/18 09/07/18 09/07/18 13:48 17:07 22:14 WBC RBC Hgb Hct RDW Lymph % (Auto) [place] % (Auto) Eos % (Auto) Lymph # [place] # Seg Neutrophils % Seg Neuts % (Manual) Lymphocytes % (Manual) Seg Neutrophils # Seg Neutrophils # Man PT INR POC ABG pH POC ABG pCO2 POC ABG pO2 Sodium Potassium Chloride Carbon Dioxide BUN Creatinine Glucose POC Glucose 286 H 263 H 237 H Hemoglobin A1c Calcium AST ALT Troponin T NT-Pro-B Natriuret Pep Total Protein Albumin HDL Cholesterol Urine WBC (Auto) 09/07/18 09/08/18 09/08/18 23:25 06:22 12:55 WBC RBC Hgb Hct RDW Lymph % (Auto) [place] % (Auto) Eos % (Auto) Lymph # [place] # Seg Neutrophils % Seg Neuts % (Manual) Lymphocytes % (Manual) Seg Neutrophils # Seg Neutrophils # Man PT INR POC ABG pH POC ABG pCO2 POC ABG pO2 Sodium Potassium Chloride Carbon Dioxide BUN Creatinine Glucose POC Glucose 266 H 271 H 261 H Hemoglobin A1c Calcium AST ALT Troponin T NT-Pro-B Natriuret Pep Total Protein Albumin HDL Cholesterol Urine WBC (Auto) 09/08/18 09/08/18 09/08/18 15:06 16:50 18:47 WBC 17.6 H RBC 5.16 H Hgb 15.0 H Hct 48.6 H RDW 20.2 H Lymph % (Auto) 4.8 L [place] % (Auto) Eos % (Auto) Lymph # 0.8 L [place] # 1.2 H Seg Neutrophils % 88.1 H Seg Neuts % (Manual) Lymphocytes % (Manual) Seg Neutrophils # 15.5 H Seg Neutrophils # Man PT INR POC ABG pH 7.571 H POC ABG pCO2 33.6 L POC ABG pO2 55 L Sodium Potassium Chloride Carbon Dioxide BUN Creatinine Glucose POC Glucose 177 H Hemoglobin A1c Calcium AST ALT Troponin T NT-Pro-B Natriuret Pep Total Protein Albumin HDL Cholesterol Urine WBC (Auto) 09/08/18 09/09/18 09/09/18 22:32 00:02 05:56 WBC 18.2 H RBC Hgb Hct RDW 19.4 H Lymph % (Auto) [place] % (Auto) Eos % (Auto) Lymph # [place] # Seg Neutrophils % Seg Neuts % (Manual) 83.0 H Lymphocytes % (Manual) 11.0 L Seg Neutrophils # Seg Neutrophils # Man 15.1 H PT INR POC ABG pH POC ABG pCO2 POC ABG pO2 Sodium Potassium Chloride Carbon Dioxide BUN Creatinine Glucose POC Glucose 182 H 124 H Hemoglobin A1c Calcium AST ALT Troponin T NT-Pro-B Natriuret Pep Total Protein Albumin HDL Cholesterol Urine WBC (Auto) 09/09/18 09/09/18 09/09/18 05:56 06:33 18:06 WBC RBC Hgb Hct RDW Lymph % (Auto) [place] % (Auto) Eos % (Auto) Lymph # [place] # Seg Neutrophils % Seg Neuts % (Manual) Lymphocytes % (Manual) Seg Neutrophils # Seg Neutrophils # Man PT INR POC ABG pH POC ABG pCO2 POC ABG pO2 Sodium 146 H Potassium Chloride Carbon Dioxide 33 H BUN 87 H Creatinine 1.6 H Glucose POC Glucose 138 H 112 H Hemoglobin A1c Calcium AST 76 H ALT 71 H Troponin T NT-Pro-B Natriuret Pep Total Protein 5.9 L Albumin 2.1 L HDL Cholesterol Urine WBC (Auto) 09/09/18 09/09/18 09/10/18 23:43 Unknown 05:14 WBC 16.2 H RBC Hgb Hct RDW 19.5 H Lymph % (Auto) 4.4 L [place] % (Auto) 7.5 H Eos % (Auto) Lymph # 0.7 L [place] # 1.2 H Seg Neutrophils % 87.4 H Seg Neuts % (Manual) Lymphocytes % (Manual) Seg Neutrophils # 14.1 H Seg Neutrophils # Man PT INR POC ABG pH POC ABG pCO2 POC ABG pO2 Sodium Potassium Chloride Carbon Dioxide BUN Creatinine Glucose POC Glucose 142 H Hemoglobin A1c Calcium AST ALT Troponin T NT-Pro-B Natriuret Pep Total Protein Albumin HDL Cholesterol Urine WBC (Auto) 8.0 H 09/10/18 09/10/18 09/10/18 05:14 05:41 12:31 WBC RBC Hgb Hct RDW Lymph % (Auto) [place] % (Auto) Eos % (Auto) Lymph # [place] # Seg Neutrophils % Seg Neuts % (Manual) Lymphocytes % (Manual) Seg Neutrophils # Seg Neutrophils # Man PT INR POC ABG pH POC ABG pCO2 POC ABG pO2 Sodium Potassium 6.0 H D Chloride Carbon Dioxide BUN 91 H Creatinine 1.5 H Glucose 162 H POC Glucose 189 H 118 H Hemoglobin A1c Calcium 7.8 L AST 153 H ALT 97 H Troponin T NT-Pro-B Natriuret Pep Total Protein 6.0 L Albumin 1.9 L HDL Cholesterol Urine WBC (Auto) 09/10/18 09/11/18 09/11/18 17:18 00:12 04:47 WBC RBC Hgb Hct RDW Lymph % (Auto) [place] % (Auto) Eos % (Auto) Lymph # [place] # Seg Neutrophils % Seg Neuts % (Manual) Lymphocytes % (Manual) Seg Neutrophils # Seg Neutrophils # Man PT INR POC ABG pH POC ABG pCO2 POC ABG pO2 Sodium Potassium Chloride Carbon Dioxide BUN Creatinine Glucose POC Glucose 211 H 200 H 137 H Hemoglobin A1c Calcium AST ALT Troponin T NT-Pro-B Natriuret Pep Total Protein Albumin HDL Cholesterol Urine WBC (Auto) 09/11/18 09/11/18 09/11/18 04:54 04:54 11:20 WBC 15.2 H RBC Hgb Hct RDW 19.4 H Lymph % (Auto) 5.5 L [place] % (Auto) Eos % (Auto) Lymph # 0.8 L [place] # 0.9 H Seg Neutrophils % 88.2 H Seg Neuts % (Manual) Lymphocytes % (Manual) Seg Neutrophils # 13.4 H Seg Neutrophils # Man PT INR POC ABG pH POC ABG pCO2 POC ABG pO2 Sodium Potassium Chloride Carbon Dioxide 32 H BUN 85 H Creatinine Glucose 120 H POC Glucose 117 H Hemoglobin A1c Calcium 8.1 L AST 84 H ALT 84 H Troponin T NT-Pro-B Natriuret Pep Total Protein 5.7 L Albumin 1.9 L HDL Cholesterol Urine WBC (Auto) 09/11/18 09/12/18 09/12/18 18:23 09:35 09:35 WBC 12.1 H RBC Hgb Hct RDW 19.0 H Lymph % (Auto) [place] % (Auto) Eos % (Auto) Lymph # [place] # Seg Neutrophils % Seg Neuts % (Manual) Lymphocytes % (Manual) Seg Neutrophils # Seg Neutrophils # Man PT INR POC ABG pH POC ABG pCO2 POC ABG pO2 Sodium Potassium Chloride Carbon Dioxide 37 H BUN 71 H Creatinine Glucose 58 L POC Glucose 118 H Hemoglobin A1c Calcium AST ALT Troponin T NT-Pro-B Natriuret Pep Total Protein Albumin HDL Cholesterol Urine WBC (Auto) 09/12/18 09/12/18 09/12/18 11:44 12:49 18:15 WBC RBC Hgb Hct RDW Lymph % (Auto) [place] % (Auto) Eos % (Auto) Lymph # [place] # Seg Neutrophils % Seg Neuts % (Manual) Lymphocytes % (Manual) Seg Neutrophils # Seg Neutrophils # Man PT INR POC ABG pH POC ABG pCO2 POC ABG pO2 Sodium Potassium Chloride Carbon Dioxide BUN Creatinine Glucose POC Glucose 59 L 56 L 115 H Hemoglobin A1c Calcium AST ALT Troponin T NT-Pro-B Natriuret Pep Total Protein Albumin HDL Cholesterol Urine WBC (Auto) 09/12/18 09/13/18 09/13/18 22:06 00:11 04:45 WBC RBC Hgb Hct RDW Lymph % (Auto) [place] % (Auto) Eos % (Auto) Lymph # [place] # Seg Neutrophils % Seg Neuts % (Manual) Lymphocytes % (Manual) Seg Neutrophils # Seg Neutrophils # Man PT INR POC ABG pH POC ABG pCO2 POC ABG pO2 Sodium Potassium 5.5 H D Chloride Carbon Dioxide 36 H BUN 67 H Creatinine Glucose 159 H POC Glucose 159 H 206 H Hemoglobin A1c Calcium AST ALT Troponin T NT-Pro-B Natriuret Pep Total Protein Albumin HDL Cholesterol Urine WBC (Auto) 09/13/18 09/13/18 09/13/18 05:30 11:46 17:42 WBC RBC Hgb Hct RDW Lymph % (Auto) [place] % (Auto) Eos % (Auto) Lymph # [place] # Seg Neutrophils % Seg Neuts % (Manual) Lymphocytes % (Manual) Seg Neutrophils # Seg Neutrophils # Man PT INR POC ABG pH POC ABG pCO2 POC ABG pO2 Sodium Potassium Chloride Carbon Dioxide BUN Creatinine Glucose POC Glucose 151 H 115 H 153 H Hemoglobin A1c Calcium AST ALT Troponin T NT-Pro-B Natriuret Pep Total Protein Albumin HDL Cholesterol Urine WBC (Auto) 09/13/18 09/14/18 09/14/18 23:41 05:55 06:13 WBC RBC Hgb Hct RDW Lymph % (Auto) [place] % (Auto) Eos % (Auto) Lymph # [place] # Seg Neutrophils % Seg Neuts % (Manual) Lymphocytes % (Manual) Seg Neutrophils # Seg Neutrophils # Man PT INR POC ABG pH POC ABG pCO2 POC ABG pO2 Sodium Potassium Chloride Carbon Dioxide 33 H BUN 59 H Creatinine Glucose 112 H POC Glucose 152 H 127 H Hemoglobin A1c Calcium AST ALT Troponin T NT-Pro-B Natriuret Pep Total Protein Albumin HDL Cholesterol Urine WBC (Auto)
[2018-09-15] MEDS: HumaLOG SUB-Q SCH ×3 (01:23→12:45)
[2018-09-15] MEDS: LOPRESSOR PO SCH ×2 (05:25→10:57)
[2018-09-15] MEDS: LASIX PO SCH (05:25)
--- NOTE | 2018-09-15 08:35 | Progress Note ---
Assessment and Plan Atrial fibrillation, permanent On eliquis On metoprolol for rate control History of CVA s/p PEG tube Acute on chronic diastolic heart failure Echo 07/2018 - Normal LVEF Dehydration Type II DM Systemic Hypertension Hyperlipidemia Chronic respiratory failure Chronic tracheostomy Recommendations: Continue medical therapy for permanent atrial fibrillation and heart failure with a preserved ejection fraction. Otherwise, conservative cardiac management Subjective Date of service: 09/15/18 Principal diagnosis: CHF Interval history: No cardiac events. Afib with a well controlled ventricular rate on telemetry. Objective Vital Signs Temp Pulse Pulse Pulse Resp Resp BP 09/15/18 07:37 98 H 20 09/15/18 07:29 98.4 F 75 20 170/81 09/15/18 06:30 09/15/18 02:02 98.4 F 80 26 H 147/52 09/14/18 22:00 98 H 20 09/14/18 20:59 98 H 16 09/14/18 20:42 09/14/18 20:00 51 L 16 09/14/18 19:39 98.5 F 68 26 H 166/66 09/14/18 14:39 09/14/18 14:27 78 20 09/14/18 14:00 76 20 09/14/18 13:30 98.3 F 77 20 150/68 Pulse Ox Pulse Ox 09/15/18 07:37 96 09/15/18 07:29 95 09/15/18 06:30 100 09/15/18 02:02 95 09/14/18 22:00 95 09/14/18 20:59 09/14/18 20:42 28 L 09/14/18 20:00 09/14/18 19:39 95 09/14/18 14:39 98 09/14/18 14:27 09/14/18 14:00 09/14/18 13:30 94 - Physical Examination General: Other (nonverbal) HEENT: Positive: PERRL Neck: Positive: Other (Midline trach) Cardiac: Positive: irregularly irregular Neuro: Positive: Other (Nonverbal ) Extremities: Absent: edema
[2018-09-15] MEDS: DUONEB *Not for PRN Use IH SCH ×4 (09:54→16:35)
[2018-09-15] MEDS: PULMICORT IH SCH (09:54)
[2018-09-15] MEDS: KEPPRA PO SCH (10:54)
[2018-09-15] MEDS: BABY ASPIRIN PO SCH (10:54)
[2018-09-15] MEDS: SOLU-Medrol IV SCH (10:54)
[2018-09-15] MEDS: TIMOPTIC OU SCH (10:54)
[2018-09-15] MEDS: COZAAR PO SCH (10:54)
[2018-09-15] MEDS: COLACE PO SCH (10:54)
[2018-09-15] MEDS: ELIQUIS PO SCH (10:54)
[2018-09-15] MEDS: SODIUM CHLORIDE FLUSH SYRINGE 10 ML IV SCH (10:55)
[2018-09-15] MEDS: LANTUS SUB-Q SCH (10:55)
[2018-09-15] MEDS: TYLENOL PO PRN (11:07)
--- NOTE | 2018-09-15 13:16 | Progress Note ---
Assessment and Plan 1. Continue PSV trials. 2. Agree with diuretic therapy, per daughter, [facility] has discussed their plan of action with her. 3. Continue pulmicort and brovana therapy. 4. Hope that patient can go to vent unit, would be a better fit given her complex disease state and issues with volume. Subjective Date of service: 09/15/18 Principal diagnosis: CHF Interval history: Tolerated PMV for 30 minutes yesterday. Daughter as well as other family at bedside during this time. Objective Vital Signs - 12hr 09/15/18 09/15/18 09/15/18 02:02 06:30 07:29 Temperature 98.4 F 98.4 F Pulse Rate 80 75 Pulse Rate [ Anterior Bilateral Throughout] Pulse Rate [ From Monitor] Respiratory 26 H 20 Rate Respiratory Rate [Anterior Bilateral Throughout] Blood Pressure 147/52 170/81 O2 Sat by Pulse 95 95 Oximetry O2 Sat by Pulse 100 Oximetry [ Assessment] 09/15/18 09/15/18 09/15/18 07:37 09:54 09:59 Temperature Pulse Rate Pulse Rate [ 79 Anterior Bilateral Throughout] Pulse Rate [ 98 H From Monitor] Respiratory 20 Rate Respiratory 18 Rate [Anterior Bilateral Throughout] Blood Pressure O2 Sat by Pulse 96 Oximetry O2 Sat by Pulse 99 Oximetry [ Assessment] 09/15/18 09/15/18 10:00 10:05 Temperature Pulse Rate Pulse Rate [ 82 Anterior Bilateral Throughout] Pulse Rate [ From Monitor] Respiratory Rate Respiratory 18 Rate [Anterior Bilateral Throughout] Blood Pressure O2 Sat by Pulse 99 Oximetry O2 Sat by Pulse Oximetry [ Assessment] Constitutional: no acute distress, alert Eyes: non-icteric ENT: oropharynx moist Neck: supple, other (trach in place) Effort: normal Ascultation: Bilateral: diminished breath sounds, wheezes (faint occasional and mild expiratory), rhonchi (rare), other (coarse BS) Cardiovascular: regular rate and rhythm (no mrg) Gastrointestinal: normoactive bowel sounds, non-distended, other (peg in place) Integumentary: normal Extremities: no cyanosis, pink and warm, edema (3+ bilateral LE edema) Neurologic: other (more sleepy but arousable) Psychiatric: mood appropriate, affect normal CBC and BMP: 09/12/18 09:35 09/14/18 06:13 ABG, PT/INR, D-dimer: ABG POC ABG pH 7.571 (7.35-7.45) H 09/08/18 15:06 POC ABG pCO2 33.6 (35-45) L 09/08/18 15:06 POC ABG pO2 55 (80-105) L 09/08/18 15:06 POC ABG HCO3 30.9 (22-26 mml/L) 09/08/18 15:06 POC ABG Total CO2 32 (23-27mmol/L) 09/08/18 15:06 POC ABG O2 Sat 93 09/08/18 15:06 PT/INR, D-dimer PT 20.9 Sec. (12.2-14.9) H 08/31/18 00:27 INR 1.85 (0.87-1.13) H 08/31/18 00:27 Abnormal lab findings: Abnormal Labs 08/30/18 08/30/18 08/30/18 23:28 23:28 23:28 WBC RBC 3.40 L Hgb Hct RDW 18.9 H Lymph % (Auto) 7.2 L [place] % (Auto) 8.7 H Eos % (Auto) 4.8 H Lymph # 0.7 L [place] # Seg Neutrophils % 78.9 H Seg Neuts % (Manual) Lymphocytes % (Manual) Seg Neutrophils # Seg Neutrophils # Man PT INR POC ABG pH POC ABG pCO2 POC ABG pO2 Sodium Potassium Chloride Carbon Dioxide 31 H BUN 41 H Creatinine Glucose 189 H POC Glucose Hemoglobin A1c Calcium AST ALT Troponin T 0.323 H* NT-Pro-B Natriuret Pep Total Protein Albumin 1.8 L HDL Cholesterol 35 L Urine WBC (Auto) 08/30/18 08/31/18 08/31/18 23:28 00:27 03:48 WBC RBC Hgb Hct RDW Lymph % (Auto) [place] % (Auto) Eos % (Auto) Lymph # [place] # Seg Neutrophils % Seg Neuts % (Manual) Lymphocytes % (Manual) Seg Neutrophils # Seg Neutrophils # Man PT 20.9 H INR 1.85 H POC ABG pH POC ABG pCO2 55.2 H POC ABG pO2 Sodium Potassium Chloride Carbon Dioxide BUN Creatinine Glucose POC Glucose Hemoglobin A1c Calcium AST ALT Troponin T NT-Pro-B Natriuret Pep 78583 H Total Protein Albumin HDL Cholesterol Urine WBC (Auto) 08/31/18 08/31/18 08/31/18 05:34 05:34 11:44 WBC RBC Hgb Hct RDW Lymph % (Auto) [place] % (Auto) Eos % (Auto) Lymph # [place] # Seg Neutrophils % Seg Neuts % (Manual) Lymphocytes % (Manual) Seg Neutrophils # Seg Neutrophils # Man PT INR POC ABG pH POC ABG pCO2 POC ABG pO2 Sodium Potassium Chloride Carbon Dioxide BUN Creatinine Glucose POC Glucose 154 H Hemoglobin A1c 6.4 H Calcium AST ALT Troponin T 0.215 H* D NT-Pro-B Natriuret Pep Total Protein Albumin HDL Cholesterol Urine WBC (Auto) 08/31/18 09/01/18 09/01/18 23:32 04:47 04:47 WBC RBC Hgb Hct RDW 19.1 H Lymph % (Auto) 7.9 L [place] % (Auto) 7.4 H Eos % (Auto) Lymph # 0.9 L [place] # Seg Neutrophils % 84.0 H Seg Neuts % (Manual) Lymphocytes % (Manual) Seg Neutrophils # 9.3 H Seg Neutrophils # Man PT INR POC ABG pH POC ABG pCO2 POC ABG pO2 Sodium Potassium Chloride 94.1 L Carbon Dioxide 32 H BUN 46 H Creatinine Glucose 189 H POC Glucose 138 H Hemoglobin A1c Calcium AST ALT Troponin T NT-Pro-B Natriuret Pep Total Protein Albumin HDL Cholesterol Urine WBC (Auto) 09/01/18 09/01/18 09/01/18 05:59 11:38 16:17 WBC RBC Hgb Hct RDW Lymph % (Auto) [place] % (Auto) Eos % (Auto) Lymph # [place] # Seg Neutrophils % Seg Neuts % (Manual) Lymphocytes % (Manual) Seg Neutrophils # Seg Neutrophils # Man PT INR POC ABG pH POC ABG pCO2 POC ABG pO2 Sodium Potassium Chloride Carbon Dioxide BUN Creatinine Glucose POC Glucose 236 H 235 H 278 H Hemoglobin A1c Calcium AST ALT Troponin T NT-Pro-B Natriuret Pep Total Protein Albumin HDL Cholesterol Urine WBC (Auto) 09/01/18 09/01/18 09/01/18 17:59 18:53 19:07 WBC RBC Hgb Hct RDW Lymph % (Auto) [place] % (Auto) Eos % (Auto) Lymph # [place] # Seg Neutrophils % Seg Neuts % (Manual) Lymphocytes % (Manual) Seg Neutrophils # Seg Neutrophils # Man PT INR POC ABG pH POC ABG pCO2 53.7 H POC ABG pO2 73 L Sodium Potassium Chloride Carbon Dioxide BUN Creatinine Glucose POC Glucose 281 H 376 H Hemoglobin A1c Calcium AST ALT Troponin T NT-Pro-B Natriuret Pep Total Protein Albumin HDL Cholesterol Urine WBC (Auto) 09/01/18 09/02/18 09/02/18 21:29 00:22 06:20 WBC RBC Hgb Hct RDW Lymph % (Auto) [place] % (Auto) Eos % (Auto) Lymph # [place] # Seg Neutrophils % Seg Neuts % (Manual) Lymphocytes % (Manual) Seg Neutrophils # Seg Neutrophils # Man PT INR POC ABG pH POC ABG pCO2 POC ABG pO2 Sodium Potassium Chloride Carbon Dioxide BUN Creatinine Glucose POC Glucose 247 H 369 H 414 H Hemoglobin A1c Calcium AST ALT Troponin T NT-Pro-B Natriuret Pep Total Protein Albumin HDL Cholesterol Urine WBC (Auto) 09/02/18 09/02/18 09/02/18 11:56 18:21 23:42 WBC RBC Hgb Hct RDW Lymph % (Auto) [place] % (Auto) Eos % (Auto) Lymph # [place] # Seg Neutrophils % Seg Neuts % (Manual) Lymphocytes % (Manual) Seg Neutrophils # Seg Neutrophils # Man PT INR POC ABG pH POC ABG pCO2 POC ABG pO2 Sodium Potassium Chloride Carbon Dioxide BUN Creatinine Glucose POC Glucose 416 H 429 H 373 H Hemoglobin A1c Calcium AST ALT Troponin T NT-Pro-B Natriuret Pep Total Protein Albumin HDL Cholesterol Urine WBC (Auto) 09/03/18 09/03/18 09/03/18 05:28 11:17 17:46 WBC RBC Hgb Hct RDW Lymph % (Auto) [place] % (Auto) Eos % (Auto) Lymph # [place] # Seg Neutrophils % Seg Neuts % (Manual) Lymphocytes % (Manual) Seg Neutrophils # Seg Neutrophils # Man PT INR POC ABG pH POC ABG pCO2 POC ABG pO2 Sodium Potassium Chloride Carbon Dioxide BUN Creatinine Glucose POC Glucose 400 H 319 H 308 H Hemoglobin A1c Calcium AST ALT Troponin T NT-Pro-B Natriuret Pep Total Protein Albumin HDL Cholesterol Urine WBC (Auto) 09/04/18 09/04/18 09/04/18 00:10 05:56 11:53 WBC RBC Hgb Hct RDW Lymph % (Auto) [place] % (Auto) Eos % (Auto) Lymph # [place] # Seg Neutrophils % Seg Neuts % (Manual) Lymphocytes % (Manual) Seg Neutrophils # Seg Neutrophils # Man PT INR POC ABG pH POC ABG pCO2 POC ABG pO2 Sodium Potassium Chloride Carbon Dioxide BUN Creatinine Glucose POC Glucose 232 H 254 H 264 H Hemoglobin A1c Calcium AST ALT Troponin T NT-Pro-B Natriuret Pep Total Protein Albumin HDL Cholesterol Urine WBC (Auto) 09/04/18 09/04/18 09/04/18 16:53 21:51 23:16 WBC RBC Hgb Hct RDW Lymph % (Auto) [place] % (Auto) Eos % (Auto) Lymph # [place] # Seg Neutrophils % Seg Neuts % (Manual) Lymphocytes % (Manual) Seg Neutrophils # Seg Neutrophils # Man PT INR POC ABG pH POC ABG pCO2 POC ABG pO2 Sodium Potassium Chloride Carbon Dioxide BUN Creatinine Glucose POC Glucose 262 H 252 H 291 H Hemoglobin A1c Calcium AST ALT Troponin T NT-Pro-B Natriuret Pep Total Protein Albumin HDL Cholesterol Urine WBC (Auto) 09/05/18 09/05/18 09/05/18 04:21 05:20 12:08 WBC RBC Hgb Hct RDW Lymph % (Auto) [place] % (Auto) Eos % (Auto) Lymph # [place] # Seg Neutrophils % Seg Neuts % (Manual) Lymphocytes % (Manual) Seg Neutrophils # Seg Neutrophils # Man PT INR POC ABG pH POC ABG pCO2 POC ABG pO2 Sodium Potassium Chloride 97.3 L Carbon Dioxide 33 H BUN 66 H Creatinine Glucose 232 H POC Glucose 272 H 201 H Hemoglobin A1c Calcium AST ALT Troponin T NT-Pro-B Natriuret Pep Total Protein Albumin HDL Cholesterol Urine WBC (Auto) 09/05/18 09/06/18 09/06/18 21:50 00:24 05:26 WBC RBC Hgb Hct RDW Lymph % (Auto) [place] % (Auto) Eos % (Auto) Lymph # [place] # Seg Neutrophils % Seg Neuts % (Manual) Lymphocytes % (Manual) Seg Neutrophils # Seg Neutrophils # Man PT INR POC ABG pH POC ABG pCO2 POC ABG pO2 Sodium Potassium Chloride Carbon Dioxide BUN Creatinine Glucose POC Glucose 196 H 171 H 142 H Hemoglobin A1c Calcium AST ALT Troponin T NT-Pro-B Natriuret Pep Total Protein Albumin HDL Cholesterol Urine WBC (Auto) 09/06/18 09/06/18 09/06/18 07:28 12:13 18:03 WBC RBC Hgb Hct RDW Lymph % (Auto) [place] % (Auto) Eos % (Auto) Lymph # [place] # Seg Neutrophils % Seg Neuts % (Manual) Lymphocytes % (Manual) Seg Neutrophils # Seg Neutrophils # Man PT INR POC ABG pH POC ABG pCO2 POC ABG pO2 Sodium Potassium Chloride Carbon Dioxide 34 H BUN 69 H Creatinine Glucose 164 H POC Glucose 209 H 158 H Hemoglobin A1c Calcium AST ALT Troponin T NT-Pro-B Natriuret Pep Total Protein Albumin HDL Cholesterol Urine WBC (Auto) 09/06/18 09/06/18 09/07/18 22:18 23:54 05:27 WBC RBC Hgb Hct RDW Lymph % (Auto) [place] % (Auto) Eos % (Auto) Lymph # [place] # Seg Neutrophils % Seg Neuts % (Manual) Lymphocytes % (Manual) Seg Neutrophils # Seg Neutrophils # Man PT INR POC ABG pH POC ABG pCO2 POC ABG pO2 Sodium Potassium Chloride Carbon Dioxide BUN Creatinine Glucose POC Glucose 181 H 219 H 244 H Hemoglobin A1c Calcium AST ALT Troponin T NT-Pro-B Natriuret Pep Total Protein Albumin HDL Cholesterol Urine WBC (Auto) 09/07/18 09/07/18 09/07/18 13:48 17:07 22:14 WBC RBC Hgb Hct RDW Lymph % (Auto) [place] % (Auto) Eos % (Auto) Lymph # [place] # Seg Neutrophils % Seg Neuts % (Manual) Lymphocytes % (Manual) Seg Neutrophils # Seg Neutrophils # Man PT INR POC ABG pH POC ABG pCO2 POC ABG pO2 Sodium Potassium Chloride Carbon Dioxide BUN Creatinine Glucose POC Glucose 286 H 263 H 237 H Hemoglobin A1c Calcium AST ALT Troponin T NT-Pro-B Natriuret Pep Total Protein Albumin HDL Cholesterol Urine WBC (Auto) 09/07/18 09/08/18 09/08/18 23:25 06:22 12:55 WBC RBC Hgb Hct RDW Lymph % (Auto) [place] % (Auto) Eos % (Auto) Lymph # [place] # Seg Neutrophils % Seg Neuts % (Manual) Lymphocytes % (Manual) Seg Neutrophils # Seg Neutrophils # Man PT INR POC ABG pH POC ABG pCO2 POC ABG pO2 Sodium Potassium Chloride Carbon Dioxide BUN Creatinine Glucose POC Glucose 266 H 271 H 261 H Hemoglobin A1c Calcium AST ALT Troponin T NT-Pro-B Natriuret Pep Total Protein Albumin HDL Cholesterol Urine WBC (Auto) 09/08/18 09/08/18 09/08/18 15:06 16:50 18:47 WBC 17.6 H RBC 5.16 H Hgb 15.0 H Hct 48.6 H RDW 20.2 H Lymph % (Auto) 4.8 L [place] % (Auto) Eos % (Auto) Lymph # 0.8 L [place] # 1.2 H Seg Neutrophils % 88.1 H Seg Neuts % (Manual) Lymphocytes % (Manual) Seg Neutrophils # 15.5 H Seg Neutrophils # Man PT INR POC ABG pH 7.571 H POC ABG pCO2 33.6 L POC ABG pO2 55 L Sodium Potassium Chloride Carbon Dioxide BUN Creatinine Glucose POC Glucose 177 H Hemoglobin A1c Calcium AST ALT Troponin T NT-Pro-B Natriuret Pep Total Protein Albumin HDL Cholesterol Urine WBC (Auto) 09/08/18 09/09/18 09/09/18 22:32 00:02 05:56 WBC 18.2 H RBC Hgb Hct RDW 19.4 H Lymph % (Auto) [place] % (Auto) Eos % (Auto) Lymph # [place] # Seg Neutrophils % Seg Neuts % (Manual) 83.0 H Lymphocytes % (Manual) 11.0 L Seg Neutrophils # Seg Neutrophils # Man 15.1 H PT INR POC ABG pH POC ABG pCO2 POC ABG pO2 Sodium Potassium Chloride Carbon Dioxide BUN Creatinine Glucose POC Glucose 182 H 124 H Hemoglobin A1c Calcium AST ALT Troponin T NT-Pro-B Natriuret Pep Total Protein Albumin HDL Cholesterol Urine WBC (Auto) 09/09/18 09/09/18 09/09/18 05:56 06:33 18:06 WBC RBC Hgb Hct RDW Lymph % (Auto) [place] % (Auto) Eos % (Auto) Lymph # [place] # Seg Neutrophils % Seg Neuts % (Manual) Lymphocytes % (Manual) Seg Neutrophils # Seg Neutrophils # Man PT INR POC ABG pH POC ABG pCO2 POC ABG pO2 Sodium 146 H Potassium Chloride Carbon Dioxide 33 H BUN 87 H Creatinine 1.6 H Glucose POC Glucose 138 H 112 H Hemoglobin A1c Calcium AST 76 H ALT 71 H Troponin T NT-Pro-B Natriuret Pep Total Protein 5.9 L Albumin 2.1 L HDL Cholesterol Urine WBC (Auto) 09/09/18 09/09/18 09/10/18 23:43 Unknown 05:14 WBC 16.2 H RBC Hgb Hct RDW 19.5 H Lymph % (Auto) 4.4 L [place] % (Auto) 7.5 H Eos % (Auto) Lymph # 0.7 L [place] # 1.2 H Seg Neutrophils % 87.4 H Seg Neuts % (Manual) Lymphocytes % (Manual) Seg Neutrophils # 14.1 H Seg Neutrophils # Man PT INR POC ABG pH POC ABG pCO2 POC ABG pO2 Sodium Potassium Chloride Carbon Dioxide BUN Creatinine Glucose POC Glucose 142 H Hemoglobin A1c Calcium AST ALT Troponin T NT-Pro-B Natriuret Pep Total Protein Albumin HDL Cholesterol Urine WBC (Auto) 8.0 H 09/10/18 09/10/18 09/10/18 05:14 05:41 12:31 WBC RBC Hgb Hct RDW Lymph % (Auto) [place] % (Auto) Eos % (Auto) Lymph # [place] # Seg Neutrophils % Seg Neuts % (Manual) Lymphocytes % (Manual) Seg Neutrophils # Seg Neutrophils # Man PT INR POC ABG pH POC ABG pCO2 POC ABG pO2 Sodium Potassium 6.0 H D Chloride Carbon Dioxide BUN 91 H Creatinine 1.5 H Glucose 162 H POC Glucose 189 H 118 H Hemoglobin A1c Calcium 7.8 L AST 153 H ALT 97 H Troponin T NT-Pro-B Natriuret Pep Total Protein 6.0 L Albumin 1.9 L HDL Cholesterol Urine WBC (Auto) 09/10/18 09/11/18 09/11/18 17:18 00:12 04:47 WBC RBC Hgb Hct RDW Lymph % (Auto) [place] % (Auto) Eos % (Auto) Lymph # [place] # Seg Neutrophils % Seg Neuts % (Manual) Lymphocytes % (Manual) Seg Neutrophils # Seg Neutrophils # Man PT INR POC ABG pH POC ABG pCO2 POC ABG pO2 Sodium Potassium Chloride Carbon Dioxide BUN Creatinine Glucose POC Glucose 211 H 200 H 137 H Hemoglobin A1c Calcium AST ALT Troponin T NT-Pro-B Natriuret Pep Total Protein Albumin HDL Cholesterol Urine WBC (Auto) 09/11/18 09/11/18 09/11/18 04:54 04:54 11:20 WBC 15.2 H RBC Hgb Hct RDW 19.4 H Lymph % (Auto) 5.5 L [place] % (Auto) Eos % (Auto) Lymph # 0.8 L [place] # 0.9 H Seg Neutrophils % 88.2 H Seg Neuts % (Manual) Lymphocytes % (Manual) Seg Neutrophils # 13.4 H Seg Neutrophils # Man PT INR POC ABG pH POC ABG pCO2 POC ABG pO2 Sodium Potassium Chloride Carbon Dioxide 32 H BUN 85 H Creatinine Glucose 120 H POC Glucose 117 H Hemoglobin A1c Calcium 8.1 L AST 84 H ALT 84 H Troponin T NT-Pro-B Natriuret Pep Total Protein 5.7 L Albumin 1.9 L HDL Cholesterol Urine WBC (Auto) 09/11/18 09/12/18 09/12/18 18:23 09:35 09:35 WBC 12.1 H RBC Hgb Hct RDW 19.0 H Lymph % (Auto) [place] % (Auto) Eos % (Auto) Lymph # [place] # Seg Neutrophils % Seg Neuts % (Manual) Lymphocytes % (Manual) Seg Neutrophils # Seg Neutrophils # Man PT INR POC ABG pH POC ABG pCO2 POC ABG pO2 Sodium Potassium Chloride Carbon Dioxide 37 H BUN 71 H Creatinine Glucose 58 L POC Glucose 118 H Hemoglobin A1c Calcium AST ALT Troponin T NT-Pro-B Natriuret Pep Total Protein Albumin HDL Cholesterol Urine WBC (Auto) 09/12/18 09/12/18 09/12/18 11:44 12:49 18:15 WBC RBC Hgb Hct RDW Lymph % (Auto) [place] % (Auto) Eos % (Auto) Lymph # [place] # Seg Neutrophils % Seg Neuts % (Manual) Lymphocytes % (Manual) Seg Neutrophils # Seg Neutrophils # Man PT INR POC ABG pH POC ABG pCO2 POC ABG pO2 Sodium Potassium Chloride Carbon Dioxide BUN Creatinine Glucose POC Glucose 59 L 56 L 115 H Hemoglobin A1c Calcium AST ALT Troponin T NT-Pro-B Natriuret Pep Total Protein Albumin HDL Cholesterol Urine WBC (Auto) 09/12/18 09/13/18 09/13/18 22:06 00:11 04:45 WBC RBC Hgb Hct RDW Lymph % (Auto) [place] % (Auto) Eos % (Auto) Lymph # [place] # Seg Neutrophils % Seg Neuts % (Manual) Lymphocytes % (Manual) Seg Neutrophils # Seg Neutrophils # Man PT INR POC ABG pH POC ABG pCO2 POC ABG pO2 Sodium Potassium 5.5 H D Chloride Carbon Dioxide 36 H BUN 67 H Creatinine Glucose 159 H POC Glucose 159 H 206 H Hemoglobin A1c Calcium AST ALT Troponin T NT-Pro-B Natriuret Pep Total Protein Albumin HDL Cholesterol Urine WBC (Auto) 09/13/18 09/13/18 09/13/18 05:30 11:46 17:42 WBC RBC Hgb Hct RDW Lymph % (Auto) [place] % (Auto) Eos % (Auto) Lymph # [place] # Seg Neutrophils % Seg Neuts % (Manual) Lymphocytes % (Manual) Seg Neutrophils # Seg Neutrophils # Man PT INR POC ABG pH POC ABG pCO2 POC ABG pO2 Sodium Potassium Chloride Carbon Dioxide BUN Creatinine Glucose POC Glucose 151 H 115 H 153 H Hemoglobin A1c Calcium AST ALT Troponin T NT-Pro-B Natriuret Pep Total Protein Albumin HDL Cholesterol Urine WBC (Auto) 09/13/18 09/14/18 09/14/18 23:41 05:55 06:13 WBC RBC Hgb Hct RDW Lymph % (Auto) [place] % (Auto) Eos % (Auto) Lymph # [place] # Seg Neutrophils % Seg Neuts % (Manual) Lymphocytes % (Manual) Seg Neutrophils # Seg Neutrophils # Man PT INR POC ABG pH POC ABG pCO2 POC ABG pO2 Sodium Potassium Chloride Carbon Dioxide 33 H BUN 59 H Creatinine Glucose 112 H POC Glucose 152 H 127 H Hemoglobin A1c Calcium AST ALT Troponin T NT-Pro-B Natriuret Pep Total Protein Albumin HDL Cholesterol Urine WBC (Auto) 09/14/18 09/14/18 09/14/18 11:45 18:34 22:03 WBC RBC Hgb Hct RDW Lymph % (Auto) [place] % (Auto) Eos % (Auto) Lymph # [place] # Seg Neutrophils % Seg Neuts % (Manual) Lymphocytes % (Manual) Seg Neutrophils # Seg Neutrophils # Man PT INR POC ABG pH POC ABG pCO2 POC ABG pO2 Sodium Potassium Chloride Carbon Dioxide BUN Creatinine Glucose POC Glucose 110 H 139 H 121 H Hemoglobin A1c Calcium AST ALT Troponin T NT-Pro-B Natriuret Pep Total Protein Albumin HDL Cholesterol Urine WBC (Auto)
[2018-09-15 13:59] VITALS: BP 95/43
--- NOTE | 2018-09-15 14:43 | Discharge Summary ---
Providers - Providers Date of Admission: 08/31/18 01:09 Attending physician: DAMION AUGUSTIN MD 08/31/18 01:29 Consult to Physician [CONS] Routine Comment: Consulting Provider: AARTI FRANCISCO Physician Instructions: Reason For Exam: elevated troponin, hx of diastolic heart failure 08/31/18 02:53 Consult to Dietitian/Nutrition [CONS] Routine Physician Instructions: Reason For Exam: Reason for Consult: Write/Manage Tube Feeding 08/31/18 03:46 Consult to Wound/ET Nurse [CONS] Routine Reason For Exam: wound eval 09/03/18 09:42 Consult to Physician [CONS] Routine Comment: Consulting Provider: GAYLE VELA Physician Instructions: Reason For Exam: Acute on Chronic resp failure h/o tracheostomy 09/06/18 11:38 Consult to Wound/ET Nurse [CONS] Routine Reason For Exam: wound eval 09/06/18 13:13 Speech Therapy Eval for Passy-Viola Valve [CONS] Routine Reason For Exam: PMV trials 09/11/18 11:53 Consult to Physician [CONS] Routine Comment: Consulting Provider: ALINA DRAPER Physician Instructions: Reason For Exam: bacteremia 09/12/18 15:08 Consult to Wound/ET Nurse [CONS] Stat Reason For Exam: wound eval, right ankle and right foot 09/14/18 11:30 Speech Therapy Eval for Passy-Viola Valve [CONS] Routine Reason For Exam: PMV trials, patient now ready 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 In April 2018 she had a CVA complicated by respiratory s/p trach and PEG and had a prolonged stay at [place]. She was recently ( approx 3 weeks ago) hospitalized at [facility] for CHF exacerbation. She has been [facility] with past 2 weeks. The [facility] reported that patient was hyoxic ans was sent to [facility] for further evaluation and management. patient was treated for CHF exacerbation, weaned off to RA with trach, but then respiratory status and mental status declined on 09/08/18. MRI brain no acute process, increased lasix dose then changed to po again, blood cx and sputum cx obtained on 09/16 showed +gmve/+ve organism, ID consulted but concluded that was colonization and possible contamination. Still on ~5L O2 with trach. Plan to send back SNF when bed available. - Acute on chronic encephalopathy per family patient looking more altered since 09/08 - MRI brain showed no new infract - now appears at baseline --Acute on chronic hypoxic respiratory failure;h/o tracheostomy on 04/2018 likely from CHf exacerbation Continue nebulizers and oxygen titrate to O2 sats more than 90% Currently sating well and pulmonary edema resolved I gave aprescriptio for lasix to increase the dose based on the patient's symptoms. Gm-ve rods in sputum, started on cefepime - but d/leon by ID, -likely colonozation. Bacteremia - likely contamination on 09/09/18, repeat blood cx negative, monitor off abx Hyperkalemia, s/p hyperkalemia cocktail, follow BMP, resolved Acute exacerbation diastolic CHF EF >55% (Echo 07/2018) s/p IV Lasix, changed to by mouth, chest x-ray significant improvement of congestive heart failure Cardiology cleared for discharge on oral diuretics, NSTEMI: Cardiology evaluated ,conservative management no plans of ischemia workup History of A. fib; rate controlled,beta blockers and Eliquis History of CVA with residual weakness[April 2018] s/p trach and PEG Supportive care,PT/OT Type 2 diabetes mellitus Accu-Chek sliding scale coverage tube Feeding History of PE; status post IVC filter placement, On Eliquis Patient was hemodynamically stable and discharged to SNF. Disposition: -01 TO HOME OR SELFCARE Time spent for discharge: 32 minutes - Discharge Diagnoses (1) Acute exacerbation of CHF (congestive heart failure) Status: Acute Qualifiers: Heart failure type: systolic Qualified Code(s): I50.23 - Acute on chronic systolic (congestive) heart failure (2) Chronic respiratory failure Status: Acute (3) Pulmonary emboli Status: Chronic (4) Tracheostomy dependent Status: Acute Core Measure Documentation - Palliative Care Palliative Care/ Comfort Measures: Not Applicable - Core Measures Any of the following diagnoses?: none Exam - Physical Exam Narrative exam: Patient is in mild respiratory distress, patient's on trach and PEG. The patient appeared well nourished and normally developed. Vital signs as documented. Head exam is unremarkable. No scleral icterus . Neck is without jugular venous distension, thyromegaly, or carotid bruits. Lungs are clear to auscultation. Cardiac exam reveals regular rate and Rhythm. Abdominal exam reveals normal bowel sounds. Extremities are nonedematous and both femoral and pedal pulses are normal. ROUGH PATCHER: Patient is non responding. - Constitutional Vitals: Temp Pulse Resp BP Pulse Ox 97.7 F 75 20 95/43 100 09/15/18 13:28 09/15/18 13:28 09/15/18 13:28 09/15/18 13:28 09/15/18 13:28 Plan Activity: other (Bed bound) Weight Bearing Status: Non-Weight Bearing Diet: low salt Follow up with: GINGER ARTEAGA MD [Primary Care Provider] - 3-5 Days Prescriptions: Furosemide [Furosemide ORAL LIQ] 40 mg PO QDAY #200 ml
== END 2018-09-15 17:20 | DRG 177 ==
LOC: ED 22:53 → 4A 08-31 01:09 → 2B-ACE 09-11 20:49
PROVIDERS: ADMIT Internal Medicine; ATTEND Internal Medicine
PROC: 4A033R1 Measurement of Arterial Saturation, Peripheral, Percutaneous Approach (ICD-10-PCS; principal; 2018-08-31)
DX: J15.6 Pneumonia due to other Gram-negative bacteria (principal); I21.4 Non-ST elevation (NSTEMI) myocardial infarction; N17.0 Acute kidney failure with tubular necrosis; J96.21 Acute and chronic respiratory failure with hypoxia; E43 Unspecified severe protein-calorie malnutrition; I26.99 Other pulmonary embolism without acute cor pulmonale; I50.43 Acute on chronic combined systolic (congestive) and diastolic (congestive) heart failure; I69.351 Hemiplegia and hemiparesis following cerebral infarction affecting right dominant side; E87.1 Hypo-osmolality and hyponatremia; N39.0 Urinary tract infection, site not specified; G93.40 Encephalopathy, unspecified; I42.0 Dilated cardiomyopathy; I11.0 Hypertensive heart disease with heart failure; I48.0 Paroxysmal atrial fibrillation; Z93.0 Tracheostomy status; I25.2 Old myocardial infarction; J45.909 Unspecified asthma, uncomplicated; M48.00 Spinal stenosis, site unspecified; J20.9 Acute bronchitis, unspecified; T38.0X5A Adverse effect of glucocorticoids and synthetic analogues, initial encounter; Y92.89 Other specified places as the place of occurrence of the external cause; E66.9 Obesity, unspecified; E11.621 Type 2 diabetes mellitus with foot ulcer; E87.5 Hyperkalemia; E78.5 Hyperlipidemia, unspecified; E86.0 Dehydration; Z74.01 Bed confinement status; Z93.1 Gastrostomy status; Z79.01 Long term (current) use of anticoagulants; Z79.4 Long term (current) use of insulin; Z68.35 Body mass index [BMI] 35.0-35.9, adult
CPT/HCPCS: 36415; 36600; 70551; 71045; 80048; 80053; 80061; 81001; 82803; 82962; 83036; 83735; 83880; 84100; 84484; 85007; 85025; 85027; 85610; 85730; 87040; 87070; 87076; 87186; 87205; 93005; 93010; 94640; 94760; G0378; A9270-GY; J0360; J0610; J0692; J1815; J1940; J2270; J2405; J2920; J2930; J7070